=== PATIENT | male | born 1935 | race Caucasian/White ===

== ENCOUNTER 2016-09-02 11:21 | Inpatient (IN) | payer MEDICARE, BC ==
[~2016-09-02] VITALS: Ht 180.3 cm; Wt 100.7 kg
[~2016-09-02 11:21] MED LIST: ALFU10TA PO; ALLO100T PO; AMLO10TA2 PO; ASPI-991 PO; ATOR10TA PO; CHLO25TA2 PO; CHOL200026; DORZ10DR EACHEYE; DUTA0.5C PO; Hydralazine Hcl PO; MULT1CAP34 PO; Metoprolol Tartrate PO; OMEG1CAP18 PO; OSCAL PO; RAMI10CA PO; VALS320T2 PO; [UNRECOGNIZED DRUG - OTHER] PO
--- NOTE | 2016-09-02 11:44 | NUR ---
bib family from home for sob x 1 week, patient is verbally responsive, a/o x,4 able to ambulate to bed, placed on monitor, no chest pain noted, md at bedside upon arrival, will continue to monitor closely.
[2016-09-02 11:54] LABS: BASOPHILS % (AUTO) 0.4 % (0.0-2.0); EOSINOPHILS # (AUTO) 0.1 /CMM (0.0-0.7); EOSINOPHILS % (AUTO) 1.1 % (0.0-6.0); HEMATOCRIT 33 % (39-51); HEMOGLOBIN 11.3 g/dL (13.5-17.5); LYMPHOCYTES # (AUTO) 0.7 /CMM (0.8-4.8); LYMPHOCYTES % (AUTO) 10.5 % (20.0-44.0); MEAN CORPUSCULAR HEMOGLOBIN 30 PG (26.0-33.0); MEAN CORPUSCULAR HGB CONC 34 g/dl (31.0-36.0); MEAN CORPUSCULAR VOLUME 87 fL (80-96); MONOCYTES # (AUTO) 0.6 /CMM (0.1-1.30); MONOCYTES % (AUTO) 8.7 % (2.0-12.0); NEUTROPHILS # (AUTO) 5.5 /CMM (1.8-8.9); NEUTROPHILS % (AUTO) 79.3 % (43.0-81.0); PLATELET COUNT (AUTO) 206 /CMM (150-450); RDW COEFFICIENT OF VARIATION 13.9 (11.5-15.0); RED BLOOD CELL COUNT(AUTO) 3.83 MIL/uL (4.5-6.0); WHITE BLOOD COUNT (AUTO) 6.9 K/uL (4.3-11.0)
--- NOTE | 2016-09-02 11:54 | NUR ---
LINE STARTED ON L HAND G 18, BLOOD DRAWN FROM LINE AND SENT TO LAB
[2016-09-02 12:12] LABS: CALCIUM, SERUM 8.4 mg/dL (8.5-10.1); CREATININE 2.1 mg/dL (0.6-1.3); POTASSIUM 3.6 mmol/L (3.5-5.1)
[2016-09-02 12:16] LABS: TROPONIN I 0.019 ng/mL (0.00-0.056)
[2016-09-02 12:21] LABS: INR 1.04 (0.87-1.13); PROTHROMBIN TIME 10.8 SECS (9.5-12.7)
[2016-09-02 12:24] LABS: ALBUMIN 2.9 g/dL (3.4-5.0); BILIRUBIN,DIRECT 0.1 mg/dL (0.0-0.2); BILIRUBIN,TOTAL 0.4 mg/dL (0.2-1.0); TOTAL PROTEIN, SERUM 6.7 g/dL (6.4-8.2)
--- NOTE | 2016-09-02 12:40 | NUR ---
PAGED BILLET STRAIGHTENER PANEL, DR PEGUERO
[2016-09-02] MEDS ORDERED: IV NS 0.9% 1,000 ML IV PRN (12:55)
[2016-09-02] MEDS ORDERED: FUROSEMIDE 20 MG/2 ML VIAL ONE (12:59)
[2016-09-02] MEDS ORDERED: ASPIRIN 325 MG TABLET ONE (12:59)
[2016-09-02] MEDS ORDERED: ACETAMINOPHEN 325 MG TABLET PO PRN (13:00)
[2016-09-02] MEDS ORDERED: ENOXAPARIN SODIUM 40 MG/0.4 ML DISP.SYRIN SQ SCH (13:00)
[2016-09-02] MEDS ORDERED: ONDANSETRON HCL/PF 4 MG/2 ML VIAL IVP PRN (13:00)
[2016-09-02] MEDS ORDERED: MAGNESIUM HYDROXIDE 30 ML UDC PO PRN (13:00)
[2016-09-02] MEDS ORDERED: ASPIRIN 325 MG TABLET PO ONE (13:00)
[2016-09-02] MEDS ORDERED: Z GUARD REMEDY 2 OZ OINT TP PRN (13:00)
[2016-09-02] MEDS ORDERED: FUROSEMIDE 20 MG/2 ML VIAL IV ONE (13:00)
[2016-09-02] MEDS ORDERED: MAG HYDROX/AL HYDROX/SIMETH 30 ML UDC PO PRN (13:00)
[2016-09-02] MEDS ORDERED: HYDROCODONE/APAP 5/325MG 1 EACH TABLET PO PRN (13:00)
[2016-09-02] MEDS ORDERED: CALC500T52 PO (13:26)
[2016-09-02] MEDS ORDERED: TAMS-12 PO (13:26)
[2016-09-02] MEDS ORDERED: METO25TA3 PO (13:26)
[2016-09-02] MEDS ORDERED: CHOL100044 PO (13:26)
[2016-09-02] MEDS ORDERED: ASPI-991 PO (13:26)
[2016-09-02] MEDS ORDERED: APIX2.5T PO (13:26)
[2016-09-02] MEDS ORDERED: MULT-24 PO (13:26)
[2016-09-02] MEDS ORDERED: UBID30CA11 PO (13:27)
[2016-09-02 14:00] VITALS: BP 130/64
[2016-09-02] MEDS ORDERED: FUROSEMIDE 40 MG/4 ML VIAL IV ONE (14:00)
[2016-09-02] MEDS ORDERED: GUAIFENESIN/CODEINE 10 ML UDC PO PRN (14:00)
--- NOTE | 2016-09-02 14:00 | NUR ---
RN ADMITTING NOTES: Rec'd pt from ER staff Gabe Saldana, A&O x4, no acute distress noted, denies chest pain, ambulatory w/ single point cane. On room air, saturating at 95%, no SOB, no LOC, respirations are even and unlabored. Pt on telemonitor (w/ pacemaker), AV pacing, HR at 60. Has L hand G 18 SL, infiltrated. Reinserted new IV line on L hand G 22, flushed, patent, C/D/I, no signs of infection/ infiltration noted. Provided safety and comfort measures. Bed kept low and in locked position, fall precaution observed. Skin assessment done, photos taken. To continue to monitor accordingly.
[2016-09-02] MEDS ORDERED: ENOXAPARIN SODIUM 30 MG/0.3 ML DISP.SYRIN IV SCH (15:00)
[2016-09-02] MEDS: METOPROLOL SUCCINATE 50 MG TAB.SR.24H PO SCH (16:09)
[2016-09-02] MEDS ORDERED: AMLO10TA2 PO (17:35)
[2016-09-02] MEDS: DORZOLAMIDE OPTH 2% 10 ML BOTTLE EACHEYE SCH (17:46)
[2016-09-02] MEDS: APIXABAN 2.5 MG TABLET PO SCH (17:57)
--- NOTE | 2016-09-02 18:45 | NUR ---
RN CLOSING NOTES: No acute changes noted w/in shift. Pt A&O x4, not in any distress, denies pain, no SOB noted. Pt's L hand G22, SL, flushed, patent, C/D/I, no signs of infection/ infiltration noted. Instructed to limit fluid intake due to disease process & to press CL if needs to ambulate d/t hx of fall, pt verbalized understanding. Strict I&O observed. Needs attended. Kept comfortable & dry. Safety measures provided. Fall precaution observed. Will endorse to PM RN for SARA.
[2016-09-02 20:21] VITALS: BP 112/50
[2016-09-02] MEDS: ALBUTEROL FS 2.5 MG/3 ML VIAL.NEB NEB PRN (21:35)
--- NOTE | 2016-09-02 21:53 | NUR ---
RN;TELE: PT BECOMING MORE SOB WITH WHEEZING. BREATHING TX GIVEN BY RT. PT PLACED ON 3 L NC. FOLLOWING BREATHING TX. PT WOB IMPROVED. HOB ELEVATED. WILL CONTINUE TO MONITOR CLOSELY.
[2016-09-03] VITALS: BP 129/68
[2016-09-03] MEDS: ALBUTEROL FS 2.5 MG/3 ML VIAL.NEB NEB PRN (02:01)
--- NOTE | 2016-09-03 02:34 | NUR ---
RN:TELE: PT GIVEN ADDITIONAL BREATHING TX PER MD ORDERS FOR WHEEZING. PT GETS VERY SOB WITH ANY ACTIVITY. DESPITE EDUCATING THE THE PT HE REMAINS RESISTENT TO CALLING FOR ASSISTANCE FOR RESTROOM. PT EDUCATED THAT DUE TO HIS RESPIRATORY STATUS THAT MINIMAL ACTIVITY WOULD BENEFIT HIM AND USING THE URINAL WOULD BE BEST. PT CANE NOTED TO BE BENT AND NOT SAFE. WILL ENDORSE TO ONCOMING SHIFT TO SEE IF NEW CANE CAN BE OBTAINED. FALL PRECAUTIONS IN PLACE. BED ALARM ON. WILL CONTINUE TO MONITOR CLOSELY.
[2016-09-03 04:00] VITALS: BP 117/84
[2016-09-03 07:37] LABS: BASOPHILS % (AUTO) 0.2 % (0.0-2.0); EOSINOPHILS # (AUTO) 0.1 /CMM (0.0-0.7); EOSINOPHILS % (AUTO) 1.8 % (0.0-6.0); HEMATOCRIT 32 % (39-51); HEMOGLOBIN 10.6 g/dL (13.5-17.5); LYMPHOCYTES # (AUTO) 0.8 /CMM (0.8-4.8); LYMPHOCYTES % (AUTO) 11.7 % (20.0-44.0); MEAN CORPUSCULAR HEMOGLOBIN 29 PG (26.0-33.0); MEAN CORPUSCULAR HGB CONC 33 g/dl (31.0-36.0); MEAN CORPUSCULAR VOLUME 88 fL (80-96); MONOCYTES # (AUTO) 0.7 /CMM (0.1-1.30); MONOCYTES % (AUTO) 10.7 % (2.0-12.0); NEUTROPHILS # (AUTO) 4.9 /CMM (1.8-8.9); NEUTROPHILS % (AUTO) 75.6 % (43.0-81.0); PLATELET COUNT (AUTO) 203 /CMM (150-450); RED BLOOD CELL COUNT(AUTO) 3.64 MIL/uL (4.5-6.0); WHITE BLOOD COUNT (AUTO) 6.5 K/uL (4.3-11.0)
--- NOTE | 2016-09-03 07:40 | NUR ---
RN INITIAL NURSE PT IS IN BED, HOB ELEVATED 35 DEGREES, NO SIGNS OF DISTRESS, PT IS ON NC 3L AND TOLERATING IT WELL, NO SOB, SKIN CDI, IV ON LEFT HAND 22G, FLUSHED AND PATENT. NO SIGNS AND SYMPTOMS OF INFECTION/INFILTRATION, CALL LIGHTS WITHIN REACHED, SAFETY MEASURES MAINTAINED, WILL CONTINUE TO MONITOR AND FOLLOW MD ORDERS.
[2016-09-03 08:00] VITALS: BP 135/69
[2016-09-03] MEDS: DUTASTERIDE (0.5 MG) 0.5 MG CAPSULE PO SCH (08:55)
[2016-09-03] MEDS: APIXABAN 2.5 MG TABLET PO SCH ×2 (08:55→16:57)
[2016-09-03] MEDS: TAMSULOSIN 0.4 MG CAP.SR.24H PO SCH (08:55)
[2016-09-03] MEDS: ATORVASTATIN 10 MG TABLET PO SCH (08:55)
[2016-09-03] MEDS: METOPROLOL SUCCINATE 50 MG TAB.SR.24H PO SCH (08:56)
[2016-09-03] MEDS: VALSARTAN 80 MG TABLET PO SCH (08:56)
[2016-09-03] MEDS: ALLOPURINOL 100 MG TABLET PO SCH (08:57)
[2016-09-03] MEDS: PANTOPRAZOLE 40 MG TABLET.DR PO SCH (08:57)
[2016-09-03] MEDS ORDERED: ASPIRIN EC 81 MG TABLET.DR PO SCH (09:00)
[2016-09-03] MEDS: DORZOLAMIDE OPTH 2% 10 ML BOTTLE EACHEYE SCH ×2 (09:00→16:59)
[2016-09-03] MEDS ORDERED: ASPIRIN 81 MG TAB.CHEW PO SCH (09:00)
[2016-09-03] MEDS ORDERED: FUROSEMIDE 20 MG/2 ML VIAL IV SCH (09:00)
[2016-09-03 09:06] LABS: CALCIUM, SERUM 8.8 mg/dL (8.5-10.1); CREATININE 2.1 mg/dL (0.6-1.3); MAGNESIUM 2.2 mg/dL (1.8-2.4); PHOSPHORUS 4.8 mg/dL (2.5-4.9); POTASSIUM 4.1 mmol/L (3.5-5.1)
[2016-09-03 12:00] VITALS: BP 95/52
[2016-09-03 16:00] VITALS: BP 113/55
[2016-09-03] MEDS: FUROSEMIDE 20 MG/2 ML VIAL IV SCH (16:57)
--- NOTE | 2016-09-03 19:25 | NUR ---
RN CLOSING NOTES, ENDORSED TO THE NIGHT NURSE, PT IS IN STABLE CONDITION, IV IS FLUSHED AND PATENT NO SIGN AND SYMPTOMS OF INFECTION/ INFILTRATION. ALL MEDS GIVEN, AND TOLEREATED WELL, ALL MD ORDERS CARRIED OUT, SAFETY MEASURES MAINTAINED, CALL LIGHTS WITHIN REACH.
[2016-09-03 20:00] VITALS: BP 122/61
[2016-09-04] VITALS: BP 121/71
[2016-09-04 04:00] VITALS: BP 117/69
[2016-09-04 06:50] LABS: BASOPHILS % (AUTO) 0.4 % (0.0-2.0); EOSINOPHILS # (AUTO) 0.2 /CMM (0.0-0.7); EOSINOPHILS % (AUTO) 3.7 % (0.0-6.0); HEMATOCRIT 33 % (39-51); LYMPHOCYTES # (AUTO) 0.9 /CMM (0.8-4.8); LYMPHOCYTES % (AUTO) 14.7 % (20.0-44.0); MEAN CORPUSCULAR HEMOGLOBIN 30 PG (26.0-33.0); MEAN CORPUSCULAR HGB CONC 34 g/dl (31.0-36.0); MEAN CORPUSCULAR VOLUME 87 fL (80-96); MONOCYTES # (AUTO) 0.7 /CMM (0.1-1.30); MONOCYTES % (AUTO) 11.2 % (2.0-12.0); NEUTROPHILS # (AUTO) 4.5 /CMM (1.8-8.9); PLATELET COUNT (AUTO) 233 /CMM (150-450); RDW COEFFICIENT OF VARIATION 14.9 (11.5-15.0); RED BLOOD CELL COUNT(AUTO) 3.72 MIL/uL (4.5-6.0); WHITE BLOOD COUNT (AUTO) 6.4 K/uL (4.3-11.0)
[2016-09-04 07:20] LABS: CALCIUM, SERUM 8.7 mg/dL (8.5-10.1); MAGNESIUM 2.1 mg/dL (1.8-2.4); PHOSPHORUS 4.6 mg/dL (2.5-4.9); POTASSIUM 3.6 mmol/L (3.5-5.1)
[2016-09-04 08:00] VITALS: BP_SYST 128; BP_SYST 147; BP_DIAS 52; BP_DIAS 73
--- NOTE | 2016-09-04 08:00 | NUR ---
LONG CHAIN BEAMER NOTE PATIENT IN BED , ALL NEEDS ATTENDEE WITH TELE MONITOR AV PACING , ALERT , ORIENTED TAKEN BREAKFAST WELL, LT HAND HL INTACT NO S\S INFECTION NOTED , BED IN LOWEST AND LOCKED POSITION , CALL LIGHT WITHIN REACH . PLAN OF CARE DISCUSSED WITH PATIENT, WILL CONT TO MONITOR CLOSELY
[2016-09-04] MEDS: PANTOPRAZOLE 40 MG TABLET.DR PO SCH (08:57)
[2016-09-04] MEDS: ALLOPURINOL 100 MG TABLET PO SCH (08:57)
[2016-09-04] MEDS: TAMSULOSIN 0.4 MG CAP.SR.24H PO SCH (08:57)
[2016-09-04] MEDS: APIXABAN 2.5 MG TABLET PO SCH ×2 (08:57→16:24)
[2016-09-04] MEDS: FUROSEMIDE 20 MG/2 ML VIAL IV SCH ×2 (08:57→16:24)
[2016-09-04] MEDS: DUTASTERIDE (0.5 MG) 0.5 MG CAPSULE PO SCH (08:57)
[2016-09-04] MEDS: VALSARTAN 80 MG TABLET PO SCH (08:58)
[2016-09-04] MEDS: METOPROLOL SUCCINATE 50 MG TAB.SR.24H PO SCH (08:58)
[2016-09-04] MEDS: ATORVASTATIN 10 MG TABLET PO SCH (08:59)
[2016-09-04] MEDS: DORZOLAMIDE OPTH 2% 10 ML BOTTLE EACHEYE SCH ×2 (08:59→16:24)
--- NOTE | 2016-09-04 12:19 | NUR ---
AMBER RONDON C\O RAYMON HARO GIVEN Addendum: 09/04/16 at 1340 by TERRELL CARDENAS RN CHRISTIAN MARCUS
[2016-09-04] MEDS ORDERED: AZITHROMYCIN 250 MG TABLET PO ONE (13:00)
[2016-09-04] MEDS: ALBUTEROL FS 2.5 MG/3 ML VIAL.NEB NEB PRN ×3 (13:17→22:58)
[2016-09-04] MEDS: FLUTICASONE/SALMETEROL DISKUS IH SCH ×2 (13:35→16:24)
--- NOTE | 2016-09-04 13:40 | NUR ---
NUCLEAR MEDICAL TECH NOTE PER DR PEGUERO ORDER OK TO GIVE BREATHING TC , RT AT BEDSIDE ALSO ATN GIVEN ORDERED
--- NOTE | 2016-09-04 15:00 | NUR ---
METAL FITTERS AND MACHINISTS NOTE 2D ECHO DONE ORDERED
[2016-09-04 16:00] VITALS: BP 119/60
--- NOTE | 2016-09-04 17:27 | NUR ---
OCCUP THERAPIST NOTE ALL NEEDS ATTENDED USING URINAL EFFECTIVELY NOT IN ACUTE DISTRESS
--- NOTE | 2016-09-04 18:45 | NUR ---
CONSTRUCTION JOB TITLES NOTE HAVING DINNER , ABLE TO EAT SELF ,NOT IN ACUTE DISTRESS, CALL LIGHT WITHIN REACH
[2016-09-04 20:00] VITALS: BP 120/81
[2016-09-04] MEDS: ZOLPIDEM TARTRATE 5 MG TABLET PO PRN (22:11)
[2016-09-05] VITALS: BP 124/66
[2016-09-05] MEDS: ALBUTEROL FS 2.5 MG/3 ML VIAL.NEB NEB PRN ×4 (02:55→13:41)
[2016-09-05 04:00] VITALS: BP 107/51
--- NOTE | 2016-09-05 07:00 | NUR ---
RN NOTE RECEIVED PT ON BED ,A/Ox4, RESPIRATION EVEN AND UNLABORED, NO SOB NOTED , ON TELE V-PACING 8O'LT HAND HL INTACT NO S\S INFECTION NOTED , BED LOCKED AND IN LOWEST POSITION , CALL LIGHT WITHIN REACH . WILL CONT TO MONITOR CLOSELY AND NOTIFY MD FOR ANY SINGIFNCT CHANGES .
[2016-09-05 07:43] LABS: BASOPHILS % (AUTO) 0.1 % (0.0-2.0); EOSINOPHILS % (AUTO) 0.7 % (0.0-6.0); HEMATOCRIT 31 % (39-51); HEMOGLOBIN 10.4 g/dL (13.5-17.5); LYMPHOCYTES # (AUTO) 0.7 /CMM (0.8-4.8); LYMPHOCYTES % (AUTO) 10.3 % (20.0-44.0); MEAN CORPUSCULAR HEMOGLOBIN 29 PG (26.0-33.0); MEAN CORPUSCULAR HGB CONC 33 g/dl (31.0-36.0); MEAN CORPUSCULAR VOLUME 88 fL (80-96); MONOCYTES # (AUTO) 0.7 /CMM (0.1-1.30); MONOCYTES % (AUTO) 9.4 % (2.0-12.0); NEUTROPHILS # (AUTO) 5.7 /CMM (1.8-8.9); NEUTROPHILS % (AUTO) 79.5 % (43.0-81.0); PLATELET COUNT (AUTO) 261 /CMM (150-450); RDW COEFFICIENT OF VARIATION 14.9 (11.5-15.0); RED BLOOD CELL COUNT(AUTO) 3.52 MIL/uL (4.5-6.0); WHITE BLOOD COUNT (AUTO) 7.2 K/uL (4.3-11.0)
[2016-09-05 07:54] LABS: CALCIUM, SERUM 8.6 mg/dL (8.5-10.1); PHOSPHORUS 4.8 mg/dL (2.5-4.9)
[2016-09-05 08:00] VITALS: BP 133/80
[2016-09-05] MEDS: PANTOPRAZOLE 40 MG TABLET.DR PO SCH (08:03)
[2016-09-05] MEDS: VALSARTAN 80 MG TABLET PO SCH (08:08)
[2016-09-05] MEDS: METOPROLOL SUCCINATE 50 MG TAB.SR.24H PO SCH (08:09)
[2016-09-05] MEDS: ATORVASTATIN 10 MG TABLET PO SCH (08:09)
[2016-09-05] MEDS: FUROSEMIDE 20 MG/2 ML VIAL IV SCH (08:10)
[2016-09-05] MEDS: TAMSULOSIN 0.4 MG CAP.SR.24H PO SCH (08:11)
[2016-09-05] MEDS: DUTASTERIDE (0.5 MG) 0.5 MG CAPSULE PO SCH (08:13)
[2016-09-05] MEDS: APIXABAN 2.5 MG TABLET PO SCH (08:13)
[2016-09-05] MEDS: FLUTICASONE/SALMETEROL DISKUS IH SCH ×2 (08:14→16:27)
[2016-09-05] MEDS: DORZOLAMIDE OPTH 2% 10 ML BOTTLE EACHEYE SCH ×2 (08:15→16:27)
[2016-09-05] MEDS: ALLOPURINOL 100 MG TABLET PO SCH (08:18)
--- NOTE | 2016-09-05 12:00 | NUR ---
RN NOTES PT OOB TO BR WITH CANE , STEADY GAIT, NO DISTRESS NOTED ,
[2016-09-05] MEDS: POTASSIUM CHLORIDE 20 MEQ TAB.PRT.SR PO SCH ×2 (12:54→14:18)
[2016-09-05 16:00] VITALS: BP_SYST 124; BP_SYST 133; BP_DIAS 73; BP_DIAS 80
--- NOTE | 2016-09-05 18:19 | NUR ---
RN NOTES PT STABLE ,RESPIRATION EVEN AND UNLABORED, FUAD ANY SOB , L HAND IV SITE CDI, MEDICATED PER MD ORDER, NO SIGNIFICANT CHANGES NOTED ON THIS SHIFT.
[2016-09-05 20:00] VITALS: BP 106/53
[2016-09-06] VITALS: BP_SYST 110; BP_SYST 131; BP_DIAS 54; BP_DIAS 60
[2016-09-06 04:00] VITALS: BP 126/77
--- NOTE | 2016-09-06 06:45 | NUR ---
NUT GRINDER - PT. IS A PLEASANT MAN, COOPERATIVE, VSS. PT. USES CANE TO AMBULATE. PT. GOES TO BATHROOM TO USE URINAL. PACER TO RT.UPPER C/W. PT. HAD SOME MUSCULOSKELETAL PAIN IN BED, SO EVANGELISTA ONE TAB/PO WAS ADM. PT. SLEPT FOR MOST PART OF THE NIGHT. CONT.POC. NO DISTRESS NOR DISCOMFORT NOTED.
--- NOTE | 2016-09-06 07:30 | NUR ---
RN INITIAL NOTES pt aox4, on o2 4L/min, saturation 94%. vs STABLE, PULSES STRONG UPPER EXTREMITY, WEAK IN LOWER EXTREMITIES, PT ON BED REST, NO SOB, CO CHEST PAIN UPON EXERTION, COUGH UNPRODUCTIVE, PT USES URINAL, I&O HAS BEEN MONITORED AND RECORDED, HOB 30 DEGREE, SKIN INTACT, EXCEPT FOR GROIN REDDNESS WHICH HAS BEEN TREATED WITH Z GUARD OINT, SAFETY MAINTAINED, CALL LIGHT WITHIN REACH, BED IN LOW AND LOCKED POSITION. TEACHING DONE TO PT, VERBALIZED UNDERSTANDING, PT ABLE TO TURN ON HIS OWN, KEPT CLEAN AND DRY. WILL CONTINUE TO MONITOR
[2016-09-06 07:37] LABS: CALCIUM, SERUM 8.4 mg/dL (8.5-10.1); MAGNESIUM 1.9 mg/dL (1.8-2.4); POTASSIUM 3.4 mmol/L (3.5-5.1)
[2016-09-06 08:00] VITALS: BP 128/81
[2016-09-06] MEDS: FLUTICASONE/SALMETEROL DISKUS IH SCH ×2 (08:09→16:57)
[2016-09-06] MEDS: PANTOPRAZOLE 40 MG TABLET.DR PO SCH (08:09)
[2016-09-06] MEDS: TAMSULOSIN 0.4 MG CAP.SR.24H PO SCH (08:10)
[2016-09-06] MEDS: ALLOPURINOL 100 MG TABLET PO SCH (08:10)
[2016-09-06] MEDS: DORZOLAMIDE OPTH 2% 10 ML BOTTLE EACHEYE SCH ×2 (08:10→16:57)
[2016-09-06] MEDS: DUTASTERIDE (0.5 MG) 0.5 MG CAPSULE PO SCH (08:10)
[2016-09-06] MEDS: ATORVASTATIN 10 MG TABLET PO SCH (08:10)
[2016-09-06] MEDS: METOPROLOL SUCCINATE 50 MG TAB.SR.24H PO SCH (08:11)
[2016-09-06] MEDS: VALSARTAN 80 MG TABLET PO SCH (08:12)
[2016-09-06 08:29] LABS: BASOPHILS % (AUTO) 0.3 % (0.0-2.0); EOSINOPHILS # (AUTO) 0.2 /CMM (0.0-0.7); EOSINOPHILS % (AUTO) 3.3 % (0.0-6.0); HEMATOCRIT 31 % (39-51); HEMOGLOBIN 10.4 g/dL (13.5-17.5); LYMPHOCYTES # (AUTO) 1.1 /CMM (0.8-4.8); LYMPHOCYTES % (AUTO) 16.2 % (20.0-44.0); MEAN CORPUSCULAR HEMOGLOBIN 29 PG (26.0-33.0); MEAN CORPUSCULAR HGB CONC 33 g/dl (31.0-36.0); MEAN CORPUSCULAR VOLUME 88 fL (80-96); MONOCYTES # (AUTO) 0.8 /CMM (0.1-1.30); MONOCYTES % (AUTO) 11.8 % (2.0-12.0); NEUTROPHILS # (AUTO) 4.6 /CMM (1.8-8.9); NEUTROPHILS % (AUTO) 68.4 % (43.0-81.0); PLATELET COUNT (AUTO) 272 /CMM (150-450); RDW COEFFICIENT OF VARIATION 15.2 (11.5-15.0); RED BLOOD CELL COUNT(AUTO) 3.56 MIL/uL (4.5-6.0); WHITE BLOOD COUNT (AUTO) 6.8 K/uL (4.3-11.0)
[2016-09-06] MEDS ORDERED: POTASSIUM CHLORIDE 10 MEQ TABLET.SA PO ONE (11:00)
[2016-09-06 16:00] VITALS: BP 123/74
[2016-09-06 20:00] VITALS: BP 122/74
[2016-09-06] MEDS: ZOLPIDEM TARTRATE 5 MG TABLET PO PRN (20:54)
[2016-09-07 04:00] VITALS: BP 103/71
[2016-09-07 05:31] VITALS: BP 103/71
--- NOTE | 2016-09-07 06:14 | NUR ---
pt verbalized that he's having a hard time sleeping last night then given ambien, but pt been up all night ambulating with his cane to bathroom to void, pt prefers to void in the toilet with the urinal, voiding 100-150 cc each time. get anxious that he has to shave last night and he did. pt is slightly wheezing, c/o SOB this morning but still insist to go to bathroom and will try to bm. standby assistance provided.bed alarm at all times,call light . will continue to monitor,all needs attended.
--- NOTE | 2016-09-07 07:10 | NUR ---
INTIAL RN NOTE RECEIVED PT FROM PM NURSE PT A/OX4 CALM AND RESTING NO C/O PAIN. NC 2 L NO C/O OF ACUTE SOB.IV L HAND 22 G FLUSHED AND PATENT. SELF REPOSITION FOR SAFETY AND COMFORT. PT KEPT WARM AND DRY. ALL SAFELY MEASURES IN PLACE WILL CONTINUE TO MONITOR CLOSELY. EDUCATED ON THE IMPORTANCE OF USING CALL LIGHT WHEN USING RESTROOM.
[2016-09-07 08:00] VITALS: BP 135/81
[2016-09-07 08:00] LABS: CALCIUM, SERUM 8.7 mg/dL (8.5-10.1); CREATININE 1.9 mg/dL (0.6-1.3); POTASSIUM 3.4 mmol/L (3.5-5.1)
[2016-09-07] MEDS: DUTASTERIDE (0.5 MG) 0.5 MG CAPSULE PO SCH (08:00)
[2016-09-07] MEDS: TAMSULOSIN 0.4 MG CAP.SR.24H PO SCH (08:00)
[2016-09-07] MEDS: ATORVASTATIN 10 MG TABLET PO SCH (08:00)
[2016-09-07] MEDS: ALLOPURINOL 100 MG TABLET PO SCH (08:00)
[2016-09-07] MEDS: PANTOPRAZOLE 40 MG TABLET.DR PO SCH (08:00)
[2016-09-07] MEDS: VALSARTAN 80 MG TABLET PO SCH (08:01)
[2016-09-07] MEDS: METOPROLOL SUCCINATE 50 MG TAB.SR.24H PO SCH (08:02)
[2016-09-07] MEDS: DORZOLAMIDE OPTH 2% 10 ML BOTTLE EACHEYE SCH ×2 (08:05→18:30)
[2016-09-07] MEDS: FLUTICASONE/SALMETEROL DISKUS IH SCH ×2 (08:05→18:30)
[2016-09-07] MEDS ORDERED: POTASSIUM CHLORIDE 10 MEQ TABLET.SA PO ONE (12:00)
--- NOTE | 2016-09-07 15:00 | NUR ---
RN NOTE CONSENT SIGNED IN CHART. CONFIRMED W NO ANAESTHESIA CONSENT NEEDED PER GREGORIO RENEE RN.
[2016-09-07 16:00] VITALS: BP 126/83
--- NOTE | 2016-09-07 19:20 | NUR ---
RN CLOSING NOTE PT A/O X4 NO C/O PAIN. IV FLUSHED AND PATENT. PT AWARE OF TRANSFER TO ICU FOR PERICARDIOCENTESIS. NC @ 2L/MIN. PT V/S STABLE THROUGHOUT SHIFT. PT NPO AND AWARE OF STATUS. ALL MEDICATIONS GIVEN AND ORDERS CARRIED OUT. REPORT GIVEN TO PM NURSE FOR SARA.
--- NOTE | 2016-09-07 19:30 | NUR ---
MS RN INITIAL NOTES RECEIVED PATIENT AWAKE A/OX4, ABLE TO MAKE NEEDS KNOWN. DENIES SOB AT THIS TIME AT REST. WITH 2LPMO2 VIA NC. STATES HE HAS SOB ON EXERTION. SKIN WARM AND DRY TO TOUCH. WITH LH22G PATENT AND INTACT. PENDING TRANSFER TO ICU. DENIES PAIN OR DISCOMFORT AT THIS TIME. SIDE RAILS UP AND LOCKED. BED KEPT AT LOWEST POSITION. CALL LIGHT KEPT WITHIN EASY REACH. WILL CONTINUE TO MONITOR.
[2016-09-07 20:00] VITALS: BP 135/80
[2016-09-08] VITALS (30 sets, daily range): BP systolic 109–164; BP diastolic 58–106
--- NOTE | 2016-09-08 05:55 | NUR ---
CLARIFIED CODE STATUS WITH PATIENT NO DNR/DNI WAS ORDERED. PER PATIENT HE WISHES TO BE FULL CODE, WITNESS VERBALIZATION OF CODE STATUS WITH ANOTHER RN LEWIS.
--- NOTE | 2016-09-08 06:00 | NUR ---
MS RN CLOSING NOTES PATIENT TRANSFERRED TO ICU VIA WHEELCHAIR. PATIENT IN STABLE CONDITION. NPO FOR PERICARDIOCENTESIS PROCEDURE LATER ON TODAY. REPORT GIVEN TO ICU NURSE EBER. CONSENTS SIGNED IN CHART. NO RESPIRATORY DISTRESS NOTED WITH 2LPMO2 VIA NC. SKIN WARM AND DRY TO TOUCH. ALL NEEDS ANTICIPATED AND MET. ALL BELONGINGS AND MEDICATIONS WITH PATIENT.
--- NOTE | 2016-09-08 06:29 | NUR ---
received pt from medsureduClipper, a/o x4, V pacing, on 2L 02 sat 95%, lungs partially congested, edema all extremities, urinates in urinal, had 2 BMs in medsurge, v/s stable, no pain or SOB verbalized, pt turns and repositions by himself.
[2016-09-08 06:51] LABS: CALCIUM, SERUM 8.5 mg/dL (8.5-10.1); CREATININE 1.7 mg/dL (0.6-1.3); POTASSIUM 3.5 mmol/L (3.5-5.1)
[2016-09-08 06:53] LABS: INR 1.06 (0.87-1.13); PROTHROMBIN TIME 11.4 SECS (9.5-12.7)
--- NOTE | 2016-09-08 07:15 | NUR ---
RN INITIAL NOTES RECEIVED PT ASLEEP, EASILY AROUSABLE. NO RESPIRATORY DISTRESS NOTED. NO SOB NOTED. NO SIGNS OF PAIN NOTED. ON 02 AT 2LPM VIA IN. G#[address] FLUSHED WITH NS. SKIN INTACT. PT FOR PERICARDIOCENTESIS TODAY. PLACED ON NPO POST MIDNIGHT. PT COMFORTABLE. CALL LIGHT WITHIN REACH. WILL CONTINUE TO MONITOR.
[2016-09-08] MEDS: PANTOPRAZOLE 40 MG TABLET.DR PO SCH (07:30)
[2016-09-08] MEDS: FLUTICASONE/SALMETEROL DISKUS IH SCH ×2 (08:51→17:09)
[2016-09-08] MEDS: DORZOLAMIDE OPTH 2% 10 ML BOTTLE EACHEYE SCH ×2 (08:51→17:09)
[2016-09-08] MEDS: DUTASTERIDE (0.5 MG) 0.5 MG CAPSULE PO SCH (08:51)
[2016-09-08] MEDS: VALSARTAN 80 MG TABLET PO SCH (08:51)
[2016-09-08] MEDS: METOPROLOL SUCCINATE 50 MG TAB.SR.24H PO SCH (08:52)
[2016-09-08] MEDS: ATORVASTATIN 10 MG TABLET PO SCH (08:52)
[2016-09-08] MEDS: TAMSULOSIN 0.4 MG CAP.SR.24H PO SCH (08:52)
[2016-09-08] MEDS: ALLOPURINOL 100 MG TABLET PO SCH (08:52)
--- NOTE | 2016-09-08 08:53 | NUR ---
RN NOTES 9AM MEDS INCLUDING BP MEDS HELD PER DR. BAUER AND DR. PIÑA. FOR PERICARDIOCENTESIS TODAY. LATEST BP 148/97, GR 81. WILL CONTINUE TO MONITOR
--- NOTE | 2016-09-08 10:05 | NUR ---
RN NOTES SEEN AND EXAMINED BY DR. BAUER. AWARE OF CURRENT LAB RESULTS. FOR PERICARDIOCENTESIS TODAY. NO ADDITIONAL ORDER MADE.
--- NOTE | 2016-09-08 10:35 | NUR ---
RN NOTES SEEN AND EXAMINED BY DR. PIÑA. AWARE OF LAB RESULT. AWAITING FOR ECHO. PER MD, WILL DO PERICARDIOCENTESIS AT 1300. CONSENT OBTAINED. WILL CONTINUE TO MONITOR.
[2016-09-08] MEDS: FENTANYL PF 100MCG/2ML AMPUL IV ONE (12:30)
[2016-09-08] MEDS ORDERED: LIDOCAINE 1% INJ 50 ML MDV IJ ONE (12:30)
[2016-09-08] MEDS: MIDAZOLAM HCL 2 MG/2ML VIAL IV ONE (13:00)
[2016-09-08] MEDS ORDERED: CHLORHEXIDINE GLUCONATE 4% 118 ML BOTTLE TP ONE (13:12)
--- NOTE | 2016-09-08 13:15 | NUR ---
RN NOTES PT PREPPED BY DR. PIÑA FOR PERICARDIOCENTESIS. ANJALI HOWARD AT BEDSIDE FOR CONSCIOUS SEDATION. DR. PAULA AT BEDSIDE. AWAITING FOR DR. ARREAGA. PT REMAINS A/OX4. NO RESPIRATORY DISTRESS NOTED. NO SOB NOTED. DENIES ANY PAIN. Addendum: 09/08/16 at 1457 by SADIQ REHMAN RN [address] PIÑA. DRAINED 900ML. SPECIMEN SENT FOR CYTOLOGY. PT REMAINS AWAKE, A/OX4. NO RESPIRATORY DISTRESS NOTED. NO SOB NOTED. DENEIS ANY PAIN. WILL CONTINUE TO MONITOR.
[2016-09-08] MEDS: MIDAZOLAM HCL 5MG/ML VIAL 25 MG/5 ML VIAL IV ONE ×2 (13:30→15:25)
[2016-09-08] MEDS: NALOXONE PREFILLED SYRINGE 2 MG/2 ML SYRINGE IV ONE (13:30)
[2016-09-08] MEDS ORDERED: FENTANYL PF 250MCG/5ML AMPUL IV ONE (13:30)
[2016-09-08] MEDS ORDERED: SET RED CAP 1 EA INFUS.SET MC ONE (14:26)
--- NOTE | 2016-09-08 15:26 | NUR ---
TAX REPRESENTATIVE PERICARDIAL DRAINAGE COMPLETE PT TOLERATED WELL MODERATE SEDATION, PT IS BACK TO BASELINE VS STABLE DENIES OF ANY PAIN AT THIS TIME, 900CC WAS DRAINED, DRESSING APPLIED, REPORT GIVEN TO SADIQ HOWARD FOR CONTINUITY OF CARE.
[2016-09-08 16:26] LABS: GLUCOSE,BODY FLUID 57 mg/dL
[2016-09-08 17:31] LABS: TOTAL VOLUME,BODY FLUID 55 mL
[2016-09-08 17:38] LABS: WBC, BODY FLUID 9830 /cu. mm. (0-200)
[2016-09-08 17:54] LABS: MONOCYTES,BODY FLUID 2 %; POLYNUCLEAR, BODY FLUID 8 % (0-25)
--- NOTE | 2016-09-08 18:50 | NUR ---
RN CLOSING NOTES PT REMAINS STABLE. NO RESPIRATORY DISTRESS NOTED. NO SOB NOTED. DENIES ANY PAIN. IV LINES IN PLACE. PERICARDIAL DRAIN IN PLACE, OUTPUT MONITORED. SKIN REMAINS INTACT. KEPT COMFORTABLE. ALL NEEDS ATTENDED AND MET. CALL LIGHT WITHIN REACH. WILL ENDORSE FOR CONTINUITY OF CARE.
--- NOTE | 2016-09-08 19:45 | NUR ---
ICU/DECKHAND RECEIVED REPORT FROM DAY NURSE, PT IS ALERT X 3. PT IS CURRENTLY ON N/C AT 3 LITERS SATURATION IS 94%, PT HAS HISTORY OF BEING A SMOKER FOR YEARS BEFORE HE STOPPED. PT IS CURRENTLY ON A 2GM LOW NA CARDIAC DIET. PT IS USING BEDSIDE URINAL. CURRENTLY PT DENIES ANY PAIN, CALL LIGHT WITHIN REACH.
[2016-09-08] MEDS: ZOLPIDEM TARTRATE 5 MG TABLET PO PRN (21:45)
--- NOTE | 2016-09-08 21:50 | NUR ---
ICU/CUPOLA OPERATOR INSULATION PT ASKED FOR SOMETHING TO GO TO SLEEP, PT WAS GIVEN AMBIEN VIA PO. CALL LIGHT WITHIN REACH. PT CURRENTLY DENIES ANY PAIN.
--- NOTE | 2016-09-08 22:15 | NUR ---
ICU/AMMONIA TECHNICIAN PT WAS ASSISTED TO BEDSIDE COMMODE WHERE HE WAS ABLE TO HAVE A BM. PT WAS THEN ASSISTED BACK TO BED, CALL LIGHT WITHIN REACH, PT CURRENTLY DENIES ANY PAIN.
[2016-09-09] VITALS (24 sets, daily range): BP systolic 103–176; BP diastolic 37–86
--- NOTE | 2016-09-09 00:46 | NUR ---
ICU/WATER TREATMENT PLANT OPERATOR PT APPEARS TO BE HAVING PERIODS OF CONFUSION, GETTING OUT OF BED, ASKING TO PUT ON STREET CLOTHES. PT NEEDS FREQUENT RE-ORT, TO TIME AND PLACE. BED ALARM IS IN PLACE TO PREVENT ANY FOR PT'S SAFETY, ALSO SITTING NEXT TO ROOM.
--- NOTE | 2016-09-09 02:30 | NUR ---
ICU/PARTS SALES COUNTERPERSON PERICARDIAL DRAINAGE BAG WAS FLUSHED WITH 2ML OF NORMAL SALINE WHICH NEEDS TO BE DONE Q 8 HRS. PT TOLERATED THIS WELL NO COMPLAINS OF PAIN.
[2016-09-09 04:46] LABS: BASOPHILS % (AUTO) 0.3 % (0.0-2.0); EOSINOPHILS # (AUTO) 0.1 /CMM (0.0-0.7); EOSINOPHILS % (AUTO) 1.4 % (0.0-6.0); HEMATOCRIT 34 % (39-51); HEMOGLOBIN 11.2 g/dL (13.5-17.5); LYMPHOCYTES # (AUTO) 0.8 /CMM (0.8-4.8); LYMPHOCYTES % (AUTO) 9.8 % (20.0-44.0); MEAN CORPUSCULAR HEMOGLOBIN 29 PG (26.0-33.0); MEAN CORPUSCULAR HGB CONC 33 g/dl (31.0-36.0); MEAN CORPUSCULAR VOLUME 86 fL (80-96); MONOCYTES # (AUTO) 0.8 /CMM (0.1-1.30); MONOCYTES % (AUTO) 9.5 % (2.0-12.0); NEUTROPHILS # (AUTO) 6.3 /CMM (1.8-8.9); PLATELET COUNT (AUTO) 320 /CMM (150-450); RDW COEFFICIENT OF VARIATION 14.8 (11.5-15.0); RED BLOOD CELL COUNT(AUTO) 3.91 MIL/uL (4.5-6.0); WHITE BLOOD COUNT (AUTO) 7.9 K/uL (4.3-11.0)
[2016-09-09 05:05] LABS: CALCIUM, SERUM 8.3 mg/dL (8.5-10.1); CREATININE 1.6 mg/dL (0.6-1.3); MAGNESIUM 1.8 mg/dL (1.8-2.4); PHOSPHORUS 3.7 mg/dL (2.5-4.9); POTASSIUM 3.6 mmol/L (3.5-5.1)
--- NOTE | 2016-09-09 06:10 | NUR ---
ICU/NETWORK SUPPORT ENGINEER PERICARDIAL DRAINAGE BAG WAS CHANGED, PT TOLERATED THIS WELL.
--- NOTE | 2016-09-09 07:30 | NUR ---
ICU/RN: PT RECEIVED IN BED, ON O2 4L/MIN VIA NC, WHEEZING NOTED WITH AUSCULTATION, A&OX3 WITH PERIODS OF FORGETFULNESS. PERICARDIAL DRAIN INTACT, IN PLACE, WITH SEROSANGUINEOUS DRAINAGE NOTED. DENIES CP AND DISCOMFORT. ORIENTED TO UNIT AND POC, VERBALIZED UNDERSTANDING. WILL CONT TO MONITOR PT
[2016-09-09] MEDS: DUTASTERIDE (0.5 MG) 0.5 MG CAPSULE PO SCH (08:19)
[2016-09-09] MEDS: PANTOPRAZOLE 40 MG TABLET.DR PO SCH (08:19)
[2016-09-09] MEDS: TAMSULOSIN 0.4 MG CAP.SR.24H PO SCH (08:19)
[2016-09-09] MEDS: VALSARTAN 80 MG TABLET PO SCH (08:20)
[2016-09-09] MEDS: ALLOPURINOL 100 MG TABLET PO SCH (08:20)
[2016-09-09] MEDS: ATORVASTATIN 10 MG TABLET PO SCH (08:20)
[2016-09-09] MEDS: METOPROLOL SUCCINATE 50 MG TAB.SR.24H PO SCH (08:20)
[2016-09-09] MEDS: DORZOLAMIDE OPTH 2% 10 ML BOTTLE EACHEYE SCH ×2 (08:28→16:34)
[2016-09-09] MEDS: FLUTICASONE/SALMETEROL DISKUS IH SCH ×2 (08:28→16:34)
--- NOTE | 2016-09-09 10:40 | NUR ---
ICU/RN: DR PIÑA ROUNDS; UPDATED ON PT STATUS. PER MD, CONTINUE WITH 2CC PERICARDIAL DRAIN FLUSHES Q8HRS ORDERED.
[2016-09-09] MEDS: GUAIFENESIN/D-METHORPHAN HB 5 ML UDC PO SCH ×4 (11:47→22:19)
--- NOTE | 2016-09-09 18:30 | NUR ---
ICU/RN: ASSISTED PT FROM BED TO BSC; PT WITH BMX1 MIXED WITH URINE. PT NOTED WITH SOB AFTER ASSISTANCE BACK TO BED. ENCOURAGED DEEP BREATHING EXERCISES. VERBALIZED UNDERSTANDING.
--- NOTE | 2016-09-09 19:20 | NUR ---
ICU/RN: PT SITTING IN BED, NO S/S ACUTE DISTRESS NOTED. IV HL ON R AND L HAND PATENT AND INTACT. PERICARDIAL DRAIN WITH SCANT AMOUNT OF SEROSANGUINEOUS DRAINAGE, SET TO NEGATIVE PRESSURE FOR DRAINAGE. CARE ENDORSED TO PM RN FOR SARA.
--- NOTE | 2016-09-09 19:32 | NUR ---
CHIEF SERVICE OBSERVER. INITIAL ASSESSMENT. RECEIVED THE PT REST ON THE BED. AWAKE, ALERT, FOLLOW COMMANDS. JBOSS ARCHITECT SHOWING V PACING. OXYGEN 2 L VIA NASAL CANNULA. SAT 98 %. NO ACUTE DISTRESS NOTED. IV RT HAND 20G., LT HAND 20G. SALINE LOCK. HOB ELEVATED. PERICARDIAL DRAIN INTACT. TURN AND REPOSITION Q2H. WILL CONTINUE TO MONITOR VITALS.
--- NOTE | 2016-09-09 19:45 | NUR ---
DANIEL/DINH RECEIVED REPORT FROM DAY NURSE, PT IS ALERT X 4. PT IS CURRENTLY ON ROOM AIR SATURATION IS 96%. PT IS CURRENTLY ON A FULL LIQUID DIET. PT IS USING BEDSIDE URINAL AND GOES TO BATHROOM WITH ASST. CURRENTLY PT DENIES ANY PAIN, CALL LIGHT WITHIN REACH. Addendum: 09/09/16 at 2136 by PILAR MOSCOSO LVN WRONG PT
[2016-09-10] VITALS (26 sets, daily range): BP systolic 107–169; BP diastolic 25–99
[2016-09-10] MEDS: GUAIFENESIN/D-METHORPHAN HB 5 ML UDC PO SCH ×6 (01:41→20:41)
[2016-09-10 05:33] LABS: CALCIUM, SERUM 8.6 mg/dL (8.5-10.1); CREATININE 1.7 mg/dL (0.6-1.3); POTASSIUM 3.6 mmol/L (3.5-5.1)
--- NOTE | 2016-09-10 08:00 | NUR ---
BRIDGE OPERATOR SLIP; ASSESSMENT RECEIVED PT AWAKE AND ORIENTEDX4. PT DENIES ANY PAIN AT THIS TIME. NOTED. MERNA. LOWER LOBE WHEEZING WITH ACTIVITY. ENCOURAGING PT TO DEEP BREATH AND COUGH. PT ABLE TO VERBALIZE UNDERSTANDING. PT ABLE TO AMBULATE TO BEDSIDE COMMODE. CONTINENT OF BOTH URINE AND BOWELS. NOTED MIDLINE OF CHEST WITH PERICARDIAL DRAIN. NOTED ABOUT 10ML OF SEROUS FLUID. NO ACUTE DISTRESS NOTED. WILL CONTINUE TO MONITOR, CALL LIGHT WITH IN REACH.
[2016-09-10] MEDS: PANTOPRAZOLE 40 MG TABLET.DR PO SCH (08:58)
[2016-09-10] MEDS: ATORVASTATIN 10 MG TABLET PO SCH (08:58)
[2016-09-10] MEDS: ALLOPURINOL 100 MG TABLET PO SCH (08:58)
[2016-09-10] MEDS: TAMSULOSIN 0.4 MG CAP.SR.24H PO SCH (08:58)
[2016-09-10] MEDS: METOPROLOL SUCCINATE 50 MG TAB.SR.24H PO SCH (08:59)
[2016-09-10] MEDS: DUTASTERIDE (0.5 MG) 0.5 MG CAPSULE PO SCH (08:59)
[2016-09-10] MEDS: VALSARTAN 80 MG TABLET PO SCH (08:59)
[2016-09-10] MEDS: DORZOLAMIDE OPTH 2% 10 ML BOTTLE EACHEYE SCH ×2 (09:00→16:29)
[2016-09-10] MEDS: FLUTICASONE/SALMETEROL DISKUS IH SCH ×2 (09:00→16:29)
--- NOTE | 2016-09-10 15:15 | NUR ---
ENGINEER; CARDIO DR. MENDIOLA [place] AT [facility] AT 1430, WITH CHARGE NURSE. PERICARDIO DRAINAGE REMOVED.. NOTED AT THIS TIME, DRESSING TO CHEST IS SATURATED WITH SEROSANGUINEOUS FLUID ALONG WITH GOWN. DRESSING CHANGED. AND DR. MENDIOLA MADE AWARE.
--- NOTE | 2016-09-10 16:41 | NUR ---
STORE PROTECTION SPECIALIST ASSISTED PT OOB TO CHAIR WITH MINIMAL ASSISTANCE. ASSESSED DRESSING TO CHEST,. AT THIS TIME IT REMAIN CLEAN AND DRY. CALL LIGHT WITH REACH. NO ACUTE DISTRESS NOTED. WILL CONTINUE TO MONITOR.
--- NOTE | 2016-09-10 18:30 | NUR ---
STATISTICS TUTOR; RESP INCENTIVE SPIROMETER TEACHING DONE. PT ABLE TO VERBALIZE AND DEMONSTRATE HOW TO USE INCENTIVE SPIROMETER. ADVISED TO USE THE DEVICE DURING COMMERCIAL BREAK ON TELEVISION AT LEAST FOR 10 REPS
--- NOTE | 2016-09-10 19:38 | NUR ---
E BUSINESS PROJECT MANAGER. INITIAL ASSESSMENT. RECEIVED THE PT REST ON THE BED. AWAKE, ALERT, FOLLOW COMMANDS. MASTER ELECTRICIAN SHOWING V PACING. OXYGEN 2L VIA NASAL CANNULA SAT 98 %. IV RT HAND 20G. SALINE LOCK. AFEBRILE. HOB ELEVATED. TURN AND REPOSITION PT INDEPENDENT.WILL CONTINUE TO MONITOR VITALS.
[2016-09-10] MEDS: ZOLPIDEM TARTRATE 5 MG TABLET PO PRN (22:13)
--- NOTE | 2016-09-10 23:18 | NUR ---
LEAD PRINCIPAL TECHNICAL ARCHITECT. TRANSFER THE PT TO TELE ROOM 326 , BED 2. REPORT GIVEN TO PITER HOWARD. PT IS STABLE.
--- NOTE | 2016-09-10 23:30 | NUR ---
RN NOTES ADMITTED A 81 YEARS OLD MALE PT FROM ICU WITH PRIMARY DIAGNOSIS OF CHEST PAIN, CHF UNDER DR PEGUERO. PT ALERT AND ORIENTED X4, DENIES SOB, NOT IN DISTRESS, WITH O2 INHALATION AT 2LPM VIA NC AND TOLERATED WELL. DIMINISHED LUNG SOUNDS WITH WHEEZES NOTED UPON AUSCULTATION. ATTACHED TO TELEMONITOR WHICH READS V PACING WITH HEART RATE AT 97/MIN. PT DENIES ANY PAIN AND DISCOMFORT AT THIS TIME. IV ACCESS ON LEFT HAND PATENT AND INTACT. DRESSING ON UPPER ABDOMEN INTACT AND CHANGED. NOTED WITH BRUISES ON DEFT AND RIGHT ARM AND RIGHT HAND WITH PICTURES TAKEN AND FILED IN THE CHART. PT ABLE TO AMBULATE WITH SINGLE POINT CANE, WITH ASSIST GOING TO THE BATHROOM. KEPT COMFORTABLE AND ATTENDED. WILL CONTINUE TO MONITOR PT.
[2016-09-11] MEDS: GUAIFENESIN/D-METHORPHAN HB 5 ML UDC PO SCH ×6 (01:44→20:44)
[2016-09-11 04:00] VITALS: BP 130/77
--- NOTE | 2016-09-11 07:05 | NUR ---
RN NOTES PT ASLEEP, NO SOB, NO SIGNS AND SYMPTOMS DISTRESS AND DISCOMFORT, WITH O2 INHALATION AT 2LPM VIA NC AND TOLERATED WELL. TELEMONITOR READS V-PACING WITH HEART RATE AT 97. PT ABLE TO AMBULATE WITH SINGLE POINT CANE WITH UNSTEADY GAIT NOTED. VITAL SIGNS STABLE, AFEBRILE. ALL DUE MEDS GIVEN. NO EPISODE OF NAUSEA AND VOMITING, . NO COMPLAIN OF PAIN. COUGH AT TIMES, NON PRODUCTIVE. FALL PRECAUTION OBSERVED. KEPT COMFORTABLE AND ATTENDED. WILL ENDORSE TO MORNING RN FOR CONTINUITY OF CARE.
[2016-09-11 07:46] LABS: EOSINOPHILS # (AUTO) 0.1 /CMM (0.0-0.7); EOSINOPHILS % (AUTO) 1.8 % (0.0-6.0); HEMATOCRIT 34 % (39-51); LYMPHOCYTES % (AUTO) 12.5 % (20.0-44.0); MEAN CORPUSCULAR HEMOGLOBIN 29 PG (26.0-33.0); MEAN CORPUSCULAR HGB CONC 33 g/dl (31.0-36.0); MEAN CORPUSCULAR VOLUME 87 fL (80-96); MONOCYTES # (AUTO) 0.9 /CMM (0.1-1.30); MONOCYTES % (AUTO) 10.8 % (2.0-12.0); NEUTROPHILS # (AUTO) 6.2 /CMM (1.8-8.9); NEUTROPHILS % (AUTO) 74.9 % (43.0-81.0); PLATELET COUNT (AUTO) 304 /CMM (150-450); RDW COEFFICIENT OF VARIATION 15.1 (11.5-15.0); RED BLOOD CELL COUNT(AUTO) 3.84 MIL/uL (4.5-6.0); WHITE BLOOD COUNT (AUTO) 8.2 K/uL (4.3-11.0)
[2016-09-11 07:56] LABS: ALBUMIN 2.4 g/dL (3.4-5.0); BILIRUBIN,TOTAL 0.3 mg/dL (0.2-1.0); CALCIUM, SERUM 8.2 mg/dL (8.5-10.1); CREATININE 1.5 mg/dL (0.6-1.3); MAGNESIUM 1.7 mg/dL (1.8-2.4); PHOSPHORUS 3.5 mg/dL (2.5-4.9); POTASSIUM 3.5 mmol/L (3.5-5.1)
[2016-09-11 08:00] VITALS: BP 129/80
[2016-09-11] MEDS: FLUTICASONE/SALMETEROL DISKUS IH SCH ×2 (08:10→16:20)
[2016-09-11] MEDS: DORZOLAMIDE OPTH 2% 10 ML BOTTLE EACHEYE SCH ×2 (08:10→16:20)
[2016-09-11] MEDS: TAMSULOSIN 0.4 MG CAP.SR.24H PO SCH (08:10)
[2016-09-11] MEDS: METOPROLOL SUCCINATE 50 MG TAB.SR.24H PO SCH (08:11)
[2016-09-11] MEDS: DUTASTERIDE (0.5 MG) 0.5 MG CAPSULE PO SCH (08:11)
[2016-09-11] MEDS: PANTOPRAZOLE 40 MG TABLET.DR PO SCH (08:11)
[2016-09-11] MEDS: ATORVASTATIN 10 MG TABLET PO SCH (08:11)
[2016-09-11] MEDS: ALLOPURINOL 100 MG TABLET PO SCH (08:11)
[2016-09-11] MEDS: VALSARTAN 80 MG TABLET PO SCH (08:12)
--- NOTE | 2016-09-11 11:21 | NUR ---
COMMERCIAL TRAILER TRUCK DRIVER OPENING NOTE PATIENT IS ALERT AND ORIENTED x4. AWAKE IN BED LOCKED IN LOWEST POSITION WITH SIDERAILS UPx2. NO PAIN AT THIS TIME. NO CHEST PAIN OR SOB. NO DISTRESS NOTED. SAFETY MEASURES IMPLEMENTED. AMBULATORY WITH ASSISTANCE. IV INTACT AND PATENT NO REDNESS OR SWELLING NOTED. CALL LIGHT WITHIN REACH. ABLE TO COMMUNICATE NEEDS. WILL CONTINUE TO MONITOR
--- NOTE | 2016-09-11 11:29 | NUR ---
MS RN NOTE TRANSFERRING PATIENT TO ANITA WELLS. GAVE BEDSIDE REPORT. PATIENT IS STABLE AND VITALS ARE STABLE.
--- NOTE | 2016-09-11 11:30 | NUR ---
MS RN NOTE REPORT RECEIVED FROM ANITA BECKFORD. PATIENT SITTING UP IN CHAIR. NO SOB OR DISTRESS NOTED AT THIS TIME. PATIENT DENIES PAIN. CALL LIGHT WITHIN REACH. WILL CONTINUE TO MONITOR.
[2016-09-11] MEDS ORDERED: IV NS 0.9% 250 ML IV ONE (12:44)
[2016-09-11] MEDS ORDERED: SECONDARY IV SET 1 EA INFUS.SET MC ONE (12:44)
[2016-09-11] MEDS ORDERED: IV SET PRIMARY PUMP SET 1 EA INFUS.SET MC ONE (12:44)
[2016-09-11] MEDS: Magnesium 1GM/D5W 100ML PREMIX 100 ML IV SCH ×2 (12:49→13:55)
[2016-09-11 16:00] VITALS: BP 131/76
--- NOTE | 2016-09-11 18:47 | NUR ---
MS RN CLOSING NOTES NO SIGNIFICANT CHANGES IN PATIENT CONDITION THROUGHOUT THE SHIFT. NO SOB OR DISTRESS NOTED AT THIS TIME. PATIENT DENIES PAIN. BED IN A LOW POSITION, CALL LIGHT WITHIN PATIENT REACH. WILL ENDORSE FOR SARA.
--- NOTE | 2016-09-11 19:31 | NUR ---
MS/RN NOTES RECEIVED PATIENT IN BED, AMBULATORY, ALERT, ORIENTEDX3. VERBALIZE NEEDS. NO S/S OF SOB OR DISTRESS. CALL LIGHTS WITHIN REACH. PITCHER OF WATER WITHIN REACH.WILL CONTINUE TO PROVIDE CARE. EDUCATED PATIENT TO CALL/USE CALL LIGHTS WHEN GETTING UP THE BED FOR SAFETY. WILL CONTINUE TO MONITOR.
[2016-09-11 20:05] VITALS: BP 121/77
[2016-09-11 21:22] VITALS: BP 121/77
[2016-09-12] MEDS: GUAIFENESIN/D-METHORPHAN HB 5 ML UDC PO SCH ×6 (00:29→21:20)
--- NOTE | 2016-09-12 00:29 | NUR ---
MS/RN NOTES PATIENT SLEEPING SOUNDLY W/ NO COUGHING OR DISCOMFORT, ROUTINE COUGH MEDICINE NOT GIVEN AT THIS TIME. CHARGE NURSE WAS MADE AWARE.WILL CONTINUE TO MONITOR.
--- NOTE | 2016-09-12 07:02 | NUR ---
MS/RN NOTES PATIENT AWAKE. SITIING IN CHAIR. W/ NO S/S OF SOB OR DISTRESS. CALL LIGHTS WITHIN REACH. WILL ENDORSE TO AM RN FOR SARA.
--- NOTE | 2016-09-12 07:16 | NUR ---
MS/RN OPENING NOTES RECEIVED PATIENT IN BED AWAKE IN NO ACUTE SIGNS OF DISTRESS. ALERT AND ORIENTED X4. VERBALLY RESPONSIVE, DENIES ANY PAIN OR DISCOMFORTS AT THIS TIME. HEAD OF BED ELEVATED. ON ROOM AIR, BREATHING WELL. IV ACCESS ON LEFT HAND G#22 INTACT AND PATENT. CALL LIGHT WITHIN REACH. BED IN LOW POSITION AND LOCKED. WILL MAINTAIN FALL AND SAFETY MEASURES. WILL CONTINUE TO MONITOR ACCORDINGLY
[2016-09-12 07:29] LABS: CALCIUM, SERUM 8.2 mg/dL (8.5-10.1); CREATININE 1.6 mg/dL (0.6-1.3); POTASSIUM 3.6 mmol/L (3.5-5.1)
[2016-09-12 08:00] VITALS: BP 136/84
[2016-09-12] MEDS: PANTOPRAZOLE 40 MG TABLET.DR PO SCH (08:02)
[2016-09-12] MEDS: DUTASTERIDE (0.5 MG) 0.5 MG CAPSULE PO SCH (08:16)
[2016-09-12] MEDS: ALLOPURINOL 100 MG TABLET PO SCH (08:16)
[2016-09-12] MEDS: ATORVASTATIN 10 MG TABLET PO SCH (08:16)
[2016-09-12] MEDS: TAMSULOSIN 0.4 MG CAP.SR.24H PO SCH (08:16)
[2016-09-12] MEDS: METOPROLOL SUCCINATE 50 MG TAB.SR.24H PO SCH (08:17)
[2016-09-12] MEDS: VALSARTAN 80 MG TABLET PO SCH (08:18)
[2016-09-12] MEDS: FLUTICASONE/SALMETEROL DISKUS IH SCH ×2 (08:19→16:05)
[2016-09-12] MEDS: DORZOLAMIDE OPTH 2% 10 ML BOTTLE EACHEYE SCH ×2 (08:20→16:05)
--- NOTE | 2016-09-12 08:53 | NUR ---
RN NOTES PATIENT SEEN BY DR BAUER WITH ORDER TO DO ECHOCARDIOGRAM TODAY. WILL CONTINUE TO MONITOR.
[2016-09-12] MEDS: FUROSEMIDE 20 MG/2 ML VIAL IV SCH ×2 (10:58→16:05)
--- NOTE | 2016-09-12 11:10 | NUR ---
RN NOTES CHEST X-RAY DONE ORDERED. FOR CT SCAN OF ABDOMEN AND PELVIS W/O CONTRAST. WILL FOLLOW-UP.
[2016-09-12 16:00] VITALS: BP 129/73
--- NOTE | 2016-09-12 19:18 | NUR ---
MS/RN CLOSING NOTES PATIENT RESTING IN BED IN NO ACUTE SIGNS OF DISTRESS. ALERT AND ORIENTED X4. HEAD OF BED ELEVATED. VERBALLY RESPONSIVE, DENIES ANY PAIN OR DISCOMFORTS DURING TOUR. ALL NEEDS/CARE ATTENDED WELL. IV ACCESS ON LEFT HAND G#22 INTACT AND PATENT. CALL LIGHT WITHIN REACH. BED IN LOW POSITION AND LOCKED. WILL MAINTAIN FALL AND SAFETY MEASURES. ALL DUE MEDS GIVEN ORDERED. EMDORSED TO BOXER OPERATOR NURSE TO CONTINUE CARE.
--- NOTE | 2016-09-12 19:40 | NUR ---
RN OPENING NOTES FOUND Pt AWAKE IN BED. NO S/S OF ACUTE DISTRESS OR SOB NOTED. EQUAL CHEST RISE AND FALL. Pt IS A/OX4, VERBAL, ABLE TO MAKE NEEDS KNOWN. NO C/O PAIN AT THIS TIME. IV ACCESS ON L HAND #22G, SL. SAFETY MEASURES IN PLACE. BED LOW, LOCKED, HOB ELEVATED, SIDE RAILS UP, CALL LIGHT AND BEDSIDE TABLE WITHIN EACH. WILL CONTINUE TO MONITOR Pt THROUGHOUT THE NIGHT FOR SAFETY.
[2016-09-12 20:00] VITALS: BP 118/63
[2016-09-12] MEDS: ZOLPIDEM TARTRATE 5 MG TABLET PO PRN (21:25)
[2016-09-12 22:00] VITALS: BP 118/63
[2016-09-13] MEDS: GUAIFENESIN/D-METHORPHAN HB 5 ML UDC PO SCH ×4 (01:00→12:26)
--- NOTE | 2016-09-13 01:22 | NUR ---
RN NOTES Pt STATED THAT IF HE IS ASLEEP AT 0100 FOR HIS NEXT DOSE OF ROBITUSSIN, THEN TO SKIP THAT DOSE AND GIVE HIM THE FOLLOWING ONE IN THE AM. WENT INTO Pt's ROOM @0100 AND Pt WAS ASLEEP. WILL TRY GIVING AT THE NEXT DOSE AT 0500.
--- NOTE | 2016-09-13 06:50 | NUR ---
RN CLOSING NOTES NO SIGNIFICANT CHANGES DURING THE SHIFT. ALL NEEDS MET AND ATTENDED TO. NO S/S OF ACUTE DISTRESS OR SOB NOTED DURING THE NIGHT. ALL SAFETY MEASURES CARRIED OUT. WILL ENDORSE TO DAYSHIFT RN FOR Pt's SARA.
--- NOTE | 2016-09-13 07:15 | NUR ---
MS RN OPENING RECEIVED PT A/OX4 DENIES PAIN SOB DIFFICULTY BREATHING. PT STATES NO NEEDS AT THIS TIME AND LEFT WITH CALL LIGHT IN REACH, BED LOWERED AND LOCKED, RAILS UPX3 FOR SAFETY AND WILL ROUND Q2H OR LESS PER NEEDS
[2016-09-13 07:21] LABS: BASOPHILS % (AUTO) 0.3 % (0.0-2.0); EOSINOPHILS # (AUTO) 0.1 /CMM (0.0-0.7); EOSINOPHILS % (AUTO) 1.6 % (0.0-6.0); HEMATOCRIT 34 % (39-51); HEMOGLOBIN 11.2 g/dL (13.5-17.5); LYMPHOCYTES % (AUTO) 14.5 % (20.0-44.0); MEAN CORPUSCULAR HEMOGLOBIN 29 PG (26.0-33.0); MEAN CORPUSCULAR HGB CONC 34 g/dl (31.0-36.0); MEAN CORPUSCULAR VOLUME 86 fL (80-96); MONOCYTES # (AUTO) 0.6 /CMM (0.1-1.30); MONOCYTES % (AUTO) 9.3 % (2.0-12.0); NEUTROPHILS % (AUTO) 74.3 % (43.0-81.0); PLATELET COUNT (AUTO) 286 /CMM (150-450); RDW COEFFICIENT OF VARIATION 15.3 (11.5-15.0); RED BLOOD CELL COUNT(AUTO) 3.91 MIL/uL (4.5-6.0); WHITE BLOOD COUNT (AUTO) 6.7 K/uL (4.3-11.0)
[2016-09-13 07:48] LABS: CALCIUM, SERUM 8.4 mg/dL (8.5-10.1); CREATININE 1.6 mg/dL (0.6-1.3); POTASSIUM 3.5 mmol/L (3.5-5.1)
[2016-09-13 08:00] VITALS: BP 141/80
[2016-09-13] MEDS: FLUTICASONE/SALMETEROL DISKUS IH SCH (08:07)
[2016-09-13] MEDS: DORZOLAMIDE OPTH 2% 10 ML BOTTLE EACHEYE SCH (08:07)
[2016-09-13] MEDS: ATORVASTATIN 10 MG TABLET PO SCH (08:08)
[2016-09-13] MEDS: PANTOPRAZOLE 40 MG TABLET.DR PO SCH (08:08)
[2016-09-13] MEDS: ALLOPURINOL 100 MG TABLET PO SCH (08:08)
[2016-09-13] MEDS: TAMSULOSIN 0.4 MG CAP.SR.24H PO SCH (08:08)
[2016-09-13] MEDS: FUROSEMIDE 20 MG/2 ML VIAL IV SCH (08:08)
[2016-09-13] MEDS: DUTASTERIDE (0.5 MG) 0.5 MG CAPSULE PO SCH (08:08)
[2016-09-13 08:11] VITALS: BP 141/80
[2016-09-13] MEDS: METOPROLOL SUCCINATE 50 MG TAB.SR.24H PO SCH (08:11)
[2016-09-13] MEDS: VALSARTAN 80 MG TABLET PO SCH (08:11)
[2016-09-13] MEDS ORDERED: FURO10VI IV (12:53)
[2016-09-13] MEDS ORDERED: POTASSIUM CHLORIDE 20 MEQ POWDER PACKET PO ONE (13:30)
[2016-09-13] MEDS ORDERED: SECONDARY IV SET 1 EA INFUS.SET MC ONE (14:01)
--- NOTE | 2016-09-13 15:27 | NUR ---
MS MEDICAL ASST PT STABLE NO COMPLICATIONS THROUGHOUT DAY. PT IV REMOVED PRESSURE AND DRESSING APPLIED NO BLEEDING NOTED. PATIENT EDUCATED ON DC MATERIAL AND STATES UNDERSTANDING. SON EDUCATED AT BEDSIDE WELL. PATIENT AWARE MONDAY DR PIÑA APPOINTMENT 1130 AND TO MAKE AN APPOINTMENT WITH DR BACK IN 1 WEEK INFORMATION PROVIDED. PER MD REYES CHANGE LASIX TO PO AND RX CALLED INTO PATIENT PHARMACY FOR PATIENT. PATIENT ASSISTED TO WHEELCHAIR FOR DC NO COMPLICATIONS. PATIENT DID NOT WANT DC PHOTOS TO BE TAKEN, PATIENT AWARE WHY WE TAKE THESE PHOTOS.
[2016-09-14] MEDS ORDERED: FUROSEMIDE 20 MG TABLET PO SCH (09:00)
== END 2016-09-13 15:15 | disposition home or self-care (01) | DRG 291 ==
LOC: ER 11:32 → TELE1 13:38 → MEDSG1 09-06 08:42 → ICU 09-08 06:10 → MED 09-10 23:31 → TELE 09-10 23:38 → MED 09-11 09:37
PROVIDERS: ADMIT Internal Medicine; ATTEND Internal Medicine
PROC: 0W9D3ZZ Drainage of Pericardial Cavity, Percutaneous Approach (ICD-10-PCS; principal; 2016-09-02)
DX: I13.0 Hypertensive heart and chronic kidney disease with heart failure and stage 1 through stage 4 chronic kidney disease, or unspecified chronic kidney disease (principal); I50.33 Acute on chronic diastolic (congestive) heart failure; J44.0 Chronic obstructive pulmonary disease with (acute) lower respiratory infection; E44.0 Moderate protein-calorie malnutrition; I31.3 Pericardial effusion (noninflammatory); I31.4 Cardiac tamponade; N17.9 Acute kidney failure, unspecified; J98.11 Atelectasis; J20.9 Acute bronchitis, unspecified; D63.8 Anemia in other chronic diseases classified elsewhere; E03.9 Hypothyroidism, unspecified; E11.22 Type 2 diabetes mellitus with diabetic chronic kidney disease; N18.3 Chronic kidney disease, stage 3 (moderate); K21.9 Gastro-esophageal reflux disease without esophagitis; I48.0 Paroxysmal atrial fibrillation; E78.5 Hyperlipidemia, unspecified; E66.9 Obesity, unspecified; Z95.0 Presence of cardiac pacemaker; N40.0 Benign prostatic hyperplasia without lower urinary tract symptoms; M19.90 Unspecified osteoarthritis, unspecified site; Z87.891 Personal history of nicotine dependence; J44.9 Chronic obstructive pulmonary disease, unspecified; Z79.84 Long term (current) use of oral hypoglycemic drugs; I35.0 Nonrheumatic aortic (valve) stenosis; I77.810 Thoracic aortic ectasia
CPT/HCPCS: 36415; 71010-TC; 71250-TC; 72192-TC; 74150-TC; 76700-TC; 80048-TC; 80053-TC; 80061-TC; 80076-TC; 82105; 83735-TC; 83880; 84100-TC; 84484-TC; 85025-TC; 85610-TC; 85730-TC; 87070-TC; 87075-TC; 87081-TC; 87102-TC; 87116; 87206; 88305-TC; 88312-TC; 89051-TC; 93307-TC; 93308-TC; 94799-TC; A4606; A6402; J1940; J2250; J2310; J3010; J3475; J3490; J7050; Z7610

== ENCOUNTER 2018-07-09 06:07 | Emergency (ER) | payer MEDICARE, BC ==
[~2018-07-09] VITALS: Ht 177.8 cm; Wt 98.9 kg
[~2018-07-09 06:07] MED LIST changes: -ALFU10TA PO; -AMLO10TA2 PO; +AMLO10TA7 PO; +ASPI-1152 PO; -ASPI-991 PO; +CALC500T52 PO; +CHOL100044 PO; -CHOL200026; +FURO10VI IV; -Hydralazine Hcl PO; +METO25TA3 PO; +MULT-24 PO; -MULT1CAP34 PO; -Metoprolol Tartrate PO; -OSCAL PO; -RAMI10CA PO; +RAMI10CA69 PO; +TAMS-12 PO; +UBID30CA11 PO; -[UNRECOGNIZED DRUG - OTHER] PO
--- NOTE | 2018-07-09 06:11 | NUR ---
PT BIB SON C/O CONSTIPATION X 2 DAYS. PTAOX4. NAD NOTED. RESP EVEN AND UNLABORED. DENIES PAIN AT THIS TIME. SON AT BEDSIDE. PT IN BED 9 ON MONITOR. WILL CONTINUE TO MONITOR.
[2018-07-09] MEDS ORDERED: LACTULOSE 10 G/15 ML UDC (PYXIS) PO ONE (06:30)
[2018-07-09] MEDS ORDERED: MAGNESIUM CITRATE 296 ML BOTTLE PO ONE (06:30)
[2018-07-09] MEDS ORDERED: NA PHOS,M-B/NA PHOS,DI-BA 1 EA ENEMA RC ONE ×3 (06:30→08:25)
[2018-07-09 06:39] VITALS: BP 124/83
--- NOTE | 2018-07-09 06:40 | NUR ---
PT TAKEN TO RADIOLOGY VIA COMFORT
[2018-07-09] MEDS ORDERED: MAGNESIUM CITRATE 296 ML BOTTLE ONE (06:41)
[2018-07-09] MEDS ORDERED: LACTULOSE 10 G/15 ML UDC (PYXIS) ONE (06:41)
--- NOTE | 2018-07-09 07:24 | NUR ---
REPORT GIVEN TO ANITA DEL REAL FOR SARA
--- NOTE | 2018-07-09 09:26 | NUR ---
Patient discharged to home in stable condition. Written and verbal after care instructions given. Patient verbalizes understanding of instruction.
== END 2018-07-09 09:32 | disposition home or self-care (01) ==
LOC: ER 06:10
DX: K59.00 Constipation, unspecified (principal); I48.91 Unspecified atrial fibrillation; E03.9 Hypothyroidism, unspecified; E78.00 Pure hypercholesterolemia, unspecified; E11.9 Type 2 diabetes mellitus without complications; I10 Essential (primary) hypertension; Z95.0 Presence of cardiac pacemaker; Z90.89 Acquired absence of other organs; Z79.82 Long term (current) use of aspirin
CPT/HCPCS: 74176; 99284; A4606

== ENCOUNTER 2018-12-05 09:26 | Outpatient (CLI) | payer MEDICARE, BC ==
[2018-12-05] MEDS ORDERED: REGADENOSON 0.4 MG/5 ML DISP.SYRIN IVP ONE (10:30)
== END 2018-12-05 23:59 | disposition home or self-care (01) ==
LOC: NM 09:26
PROVIDERS: ATTEND Internal Medicine Cardiovascular Disease
DX: I10 Essential (primary) hypertension (principal); R07.9 Chest pain, unspecified
CPT/HCPCS: 78452; A9502; J2785

== ENCOUNTER 2020-03-02 02:03 | Inpatient (IN) | payer MEDICARE, BC ==
[~2020-03-02] VITALS: Ht 177.8 cm; Wt 93.0 kg
[2020-03-02] VITALS (36 sets, daily range): BP systolic 115–169; BP diastolic 41–93
[~2020-03-02 02:03] MED LIST changes: -ASPI-1152 PO; +ASPI-1420 PO
--- NOTE | 2020-03-02 02:05 | NUR ---
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 PT DENIES RECENT COUGH OR FEVER. NOTED TACHYPNEA. O2 SAT 83% ROOM AIR. REC'D BREATHING TREATMENT EN ROUTE TO HOSPITAL BY RA, PT STATES MINIMAL RELIEF. PT ARRIVED TO [facility] ER ON 15L NONREBREATHER. PT AAOX4. LABORED BREATHING. PLACED IN GOWN AND ON CONTINOUS AIRCRAFT MECHANIC AND PULSE OX. WILL CONTINUE TO MONITOR
--- NOTE | 2020-03-02 02:15 | NUR ---
IV INITIATED RAC 18G. LABS DRAWN FROM SITE. CUTTING ROOM SUPERVISOR AT BEDSIDE FOR COLLECTION. IV INTACT AND PATENT, PLACED ON SALINE LOCK.
--- NOTE | 2020-03-02 02:25 | NUR ---
RT AT BEDSIDE
[2020-03-02 02:38] LABS: CALCIUM, SERUM 8.4 mg/dL (8.5-10.1); CARBON DIOXIDE 27 mmol/L (21-32); CHLORIDE 102 mmol/L (98-107); CREATININE 2.1 mg/dL (0.6-1.3); GLUCOSE 187 mg/dL (74-106); POTASSIUM 3.8 mmol/L (3.5-5.1); SODIUM SERUM 140 mmol/L (136-145); UREA NITROGEN, BLOOD 31 mg/dL (7-18)
--- NOTE | 2020-03-02 02:38 | NUR ---
PT STARTED ON BIPAP. SETTINGS: 15/5, RATE 20, FIO2 100%
--- NOTE | 2020-03-02 02:40 | NUR ---
RADIOLOGY AT BEDSIDE FOR CXR
--- NOTE | 2020-03-02 02:42 | NUR ---
COVID SWAB COLLECTED AND SENT TO LAB
[2020-03-02 02:49] LABS: BASOPHILS % (AUTO) 0.5 % (0.0-2.0); EOSINOPHILS % (AUTO) 2.1 % (0.0-6.0); HEMATOCRIT 39 % (39-51); HEMOGLOBIN 12.6 g/dL (13.5-17.5); LYMPHOCYTES # (AUTO) 1.8 /CMM (0.8-4.8); LYMPHOCYTES % (AUTO) 25.1 % (20.0-44.0); MEAN CORPUSCULAR HGB CONC 33 g/dl (31.0-36.0); MEAN CORPUSCULAR VOLUME 93 fL (80-96); MONOCYTES # (AUTO) 0.5 /CMM (0.1-1.30); MONOCYTES % (AUTO) 6.5 % (2.0-12.0); NEUTROPHILS # (AUTO) 4.6 /CMM (1.8-8.9); NEUTROPHILS % (AUTO) 65.8 % (43.0-81.0); PLATELET COUNT (AUTO) 330 /CMM (150-450); RED BLOOD CELL COUNT(AUTO) 4.18 MIL/uL (4.5-6.0)
[2020-03-02 02:58] LABS: ALANINE AMINOTRANSFERASE 83 U/L (12-78); ALBUMIN 3.1 g/dL (3.4-5.0); ALKALINE PHOSPHATASE 110 U/L (46-116); ASPARTATE AMINOTRANSFERASE 81 U/L (15-37); BILIRUBIN,DIRECT 0.1 mg/dL (0.0-0.2); BILIRUBIN,TOTAL 0.4 mg/dL (0.2-1.0); TOTAL PROTEIN, SERUM 6.9 g/dL (6.4-8.2)
[2020-03-02 03:32] LABS: ABG BASE EXCESS -0.3 mmol/L; ABG OXYGEN SATURATION 99.1 % (92.0-98.5); ABG PCO2 47.1 mmHg (35.0-45.0); ABG PH 7.354 (7.350-7.450); ABG PO2 291.3 mmHg (75.0-100.0); AaDO2 374.6 mmHg; COHb 0.4 % (0.5-1.5); MetHb 0.4 % (0.0-1.5); O2Hb 98.3 % (94.0-97.0); SITE, ABG Right Radial; VENT MODE, BG ST 15/5 R20 100%
[2020-03-02] MEDS ORDERED: CEFTRIAXONE 1GM BAG (ER ONLY) 50 ML IV ONE (03:47)
[2020-03-02] MEDS ORDERED: FUROSEMIDE 40 MG/4 ML VIAL ONE (03:48)
[2020-03-02] MEDS ORDERED: CEFTRIAXONE 1 G in IV D5W 50 ML IV ONE (04:00)
[2020-03-02] MEDS ORDERED: FUROSEMIDE 40 MG/4 ML VIAL IV ONE (04:00)
--- NOTE | 2020-03-02 04:16 | NUR ---
PT RESTING COMFORTABLY IN BED. STILL ON BIPAP, PT STATES HE IS FEELING MUCH BETTER. VITAL SIGNS STABLE. STILL ON CONTINUOUS GRINDING MACHINE OPERATOR PORTABLE AND PULSE OX, WILL CONTINUE TO MONITOR
--- NOTE | 2020-03-02 04:22 | NUR ---
253 IS ROOM PLACEMENT PER NURSING APPLICATION RELEASE MANAGER.
--- NOTE | 2020-03-02 04:25 | NUR ---
PT ICU ROOM CHANGED TO 252 PER NURSING SENIOR NET SOFTWARE DEVELOPER.
--- NOTE | 2020-03-02 04:31 | NUR ---
Received report from ANITA Werner for SARA.
--- NOTE | 2020-03-02 04:34 | NUR ---
REPORT GIVEN TO ANITA LOU FOR SARA
[2020-03-02] MEDS ORDERED: ASPIRIN 81 MG TAB.CHEW ONE (05:04)
--- NOTE | 2020-03-02 05:20 | NUR ---
SED H[employer] SCHOOL TEACHER NOTE: Pt transferred to unit via gurney accompanied by RN, RT EMT. Transferred to bed and hooked up to monitors. BIPAP applied with settings:15/5 rate:20 FiO2:50%. Tolerating well. VSS. Admit Dx of acute resp failure, CHF exacerbation. NKA. NPO. PT A&Ox4, Setswana speaking. V pacing with BBB on tele monitor. IV sites on left hand #20 and RAC #18 patent and flushed. Dressings c/d/i. Bed bath given. Urinal at bedside. Belongings check done w/ alexandr, arenas and credit cards verified w/ ANITA Yoon and placed in bag #[id number]. Given to RN reduction plant supervisor and placed in safe. Pt refused to remove ring d/t sentimental value. Wishes noted. Oriented to room and call light. Safety measures in place. Will continue to monitor. Addendum: 03/02/20 at 0637 by CARMINE HOLDER RN LUCW pacemaker noted.
--- NOTE | 2020-03-02 05:24 | NUR ---
PT TRANSFERRED PER ACLS PROTOCOL IN STABLE CONDITION WITH EMT, RT, RN AT BEDSIDE
[2020-03-02 06:08] LABS: BASOPHILS % (AUTO) 0.2 % (0.0-2.0); EOSINOPHILS % (AUTO) 0.3 % (0.0-6.0); HEMATOCRIT 38 % (39-51); HEMOGLOBIN 12.5 g/dL (13.5-17.5); LYMPHOCYTES # (AUTO) 0.8 /CMM (0.8-4.8); LYMPHOCYTES % (AUTO) 10.7 % (20.0-44.0); MEAN CORPUSCULAR HGB CONC 33 g/dl (31.0-36.0); MEAN CORPUSCULAR VOLUME 92 fL (80-96); MONOCYTES # (AUTO) 0.5 /CMM (0.1-1.30); MONOCYTES % (AUTO) 6.1 % (2.0-12.0); NEUTROPHILS # (AUTO) 6.5 /CMM (1.8-8.9); NEUTROPHILS % (AUTO) 82.7 % (43.0-81.0); PLATELET COUNT (AUTO) 274 /CMM (150-450); RED BLOOD CELL COUNT(AUTO) 4.16 MIL/uL (4.5-6.0); WHITE BLOOD COUNT (AUTO) 7.9 K/uL (4.3-11.0)
[2020-03-02 06:27] LABS: ALANINE AMINOTRANSFERASE 81 U/L (12-78); ALBUMIN 3.1 g/dL (3.4-5.0); ALKALINE PHOSPHATASE 106 U/L (46-116); ASPARTATE AMINOTRANSFERASE 65 U/L (15-37); BILIRUBIN,TOTAL 0.3 mg/dL (0.2-1.0); CALCIUM, SERUM 8.5 mg/dL (8.5-10.1); CARBON DIOXIDE 29 mmol/L (21-32); CHLORIDE 103 mmol/L (98-107); GLUCOSE 99 mg/dL (74-106); POTASSIUM 4.7 mmol/L (3.5-5.1); SODIUM SERUM 140 mmol/L (136-145); TOTAL PROTEIN, SERUM 6.9 g/dL (6.4-8.2); UREA NITROGEN, BLOOD 29 mg/dL (7-18)
[2020-03-02 06:36] LABS: CHOLESTEROL 126 mg/dL (<200); HDL CHOLESTEROL 64 mg/dL (40-60); LDL 55 mg/dL (0-99); THYROID STIMULATING HORMONE 3.289 uIU/mL (0.358-3.74); TRIGLYCERIDES 47 mg/dL (30-150)
--- NOTE | 2020-03-02 07:15 | NUR ---
RN CLOSING NOTES: Pt remains stable on BIPAP. Tolerating settings well. No SOB or resp distress noted. No acute changes noted. Safety measures in place. Will endorse to AM nurse for SARA.
--- NOTE | 2020-03-02 07:25 | NUR ---
RT Pt received awake and alert on BiPAP. Pt taken off BiPAP and placed on 3L nasal cannula with adequate SpO2. Pt denies any SOB or respiratory distress. Addendum: 03/02/20 at 1617 by MITCHELL ZAMORA RT Amended: Links added.
--- NOTE | 2020-03-02 07:30 | NUR ---
RN NOTES RECEIVED PATIENT ASLEEP. AWAKEN BY VERBAL STIMULI. ORIENTEDX3-4. ABLE TO MAKE NEEDS KNOWN. ABLE TO RESPOND APPROPRIATELY. NO INDICATION OF ANY KIND OF DISTRESS NOTED AT THIS TIME. PATIENT DENIES ANY PAIN. TOLERATING BIPAP. SATING 97-08%. V PACING ON THE MONITOR, HR ON THE 90s. IV ACCESS ON THE RAC G18 AND LFA G 20, BOTH IN PLACE AND INTACT, FLUSHING WELL, SALINE LOCK. PATIENT ENCOURAGE TO VERBALIZE FEELINGS AND CONCERNS, TO CALL FOR HELP/ASSISTANCE. CALL LIGHT PLACED WITHIN REACH. SAFETY MEASURES OBSERVED AND MAINTAINED. WILL CONTINUE TO MONITOR PATIENT ACCORDINGLY
[2020-03-02 08:24] LABS: ABG BASE EXCESS -0.4 mmol/L; ABG OXYGEN SATURATION 91.7 % (92.0-98.5); ABG PCO2 39.7 mmHg (35.0-45.0); ABG PH 7.404 (7.350-7.450); ABG PO2 64.6 mmHg (75.0-100.0); AaDO2 117.1 mmHg; COHb 0.4 % (0.5-1.5); O2Hb 91.3 % (94.0-97.0); SITE, ABG Right Radial; VENT MODE, BG Nasal Cannula
[2020-03-02] MEDS ORDERED: FINA5TAB11 PO (08:26)
[2020-03-02] MEDS ORDERED: ALFU10TA10 PO (08:26)
[2020-03-02] MEDS ORDERED: LEVO25TA9 PO (08:26)
[2020-03-02] MEDS ORDERED: FURO20TA4 PO (08:26)
[2020-03-02] MEDS ORDERED: APIX2.5T PO (08:26)
[2020-03-02] MEDS ORDERED: ASPIRIN 81 MG TAB.CHEW PO SCH (09:00)
[2020-03-02] MEDS ORDERED: RAMIPRIL 5 MG CAPSULE PO SCH (09:00)
[2020-03-02] MEDS ORDERED: UBIDECARENONE 30 MG PO SCH (09:00)
[2020-03-02] MEDS ORDERED: ATORVASTATIN 10 MG TABLET PO SCH (09:00)
[2020-03-02] MEDS ORDERED: Medication Not On Formulary EA (Alfuzosin Hcl 10 MG) PO SCH (09:00)
[2020-03-02] MEDS ORDERED: ENOXAPARIN SODIUM 30 MG/0.3 ML DISP.SYRIN SQ SCH (09:00)
[2020-03-02] MEDS ORDERED: FUROSEMIDE 40 MG/4 ML VIAL IV SCH (09:00)
[2020-03-02] MEDS ORDERED: ASPIRIN EC 81 MG TABLET.DR PO SCH (09:00)
[2020-03-02] MEDS: DORZOLAMIDE OPTH 2% 10 ML BOTTLE EACHEYE SCH ×2 (09:45→17:22)
[2020-03-02] MEDS: CALCIUM CARBONATE (1250) 500 MG TABLET PO SCH ×2 (09:46→17:22)
[2020-03-02] MEDS: MULTIVITAMINS,THERAGRAN 1 UDTAB TABLET PO SCH (09:46)
[2020-03-02] MEDS: AMLODIPINE BESYLATE 10 MG TABLET PO SCH (09:46)
[2020-03-02] MEDS: TAMSULOSIN 0.4 MG CAP.SR.24H PO SCH (09:46)
[2020-03-02] MEDS: LEVOTHYROXINE SODIUM 25 MCG TABLET PO SCH (09:46)
[2020-03-02] MEDS: METOPROLOL SUCCINATE 25 MG TAB.SR.24H PO SCH (09:47)
[2020-03-02] MEDS: CHOLECALCIFEROL 1,000 UNIT TABLET (VIT D3) PO SCH (09:49)
[2020-03-02] MEDS: ALLOPURINOL 100 MG TABLET PO SCH (09:49)
[2020-03-02] MEDS: APIXABAN 2.5 MG TABLET PO SCH ×2 (10:24→17:33)
[2020-03-02] MEDS: FUROSEMIDE 100 MG/10 ML VIAL IV SCH ×3 (10:30→17:22)
[2020-03-02] MEDS ORDERED: DOCUSATE SODIUM LIQ 100 MG/10 ML UDC NG SCH (17:00)
[2020-03-02] MEDS ORDERED: POLYETHYLENE GLYCOL 3350 17 GM POWD.PACK PO PRN (17:00)
[2020-03-02] MEDS: DOCUSATE SODIUM LIQ 100 MG/10 ML UDC PO SCH (17:22)
--- NOTE | 2020-03-02 19:10 | NUR ---
RN NOTES, RECEIVED PATIENT IN BED AWAKE A/ORIENTEDX3-4. ABLE TO MAKE NEEDS KNOWN, ON 2LPM VIA NC BREATHING EVEN AND UNLABORED, NO S/S OF ANY ACUTE RESPIRATORY DISTRESS OR DISCOMFORT, DENIES ANY PAIN, V PACING ON THE MONITOR WITH HR HR 80S AT THIS TIME, PIV ACCESS ON THE RAC G18 AND LFA G 20, BOTH IN PLACE PATENT AND INTACT SALINE LOCK, ASSISTED TO THE BEDSIDE COMMODE AT THIS TIME, REMAINED HIM TO CALL FOR ASSISTANCE AT ALL TIMES, AND HE VERBALIZED UNDERSTANDING, CALL LIGHT WITHIN REACH, ALL SAFETY PRECAUTIONS, OBSERVED AND MAINTAINED. WILL CONTINUE TO MONITOR PATIENT ACCORDINGLY
[2020-03-02] MEDS ORDERED: POLYETHYLENE GLYCOL 3350 17 GM POWD.PACK PO SCH (22:00)
[2020-03-03] VITALS (36 sets, daily range): BP systolic 96–160; BP diastolic 53–108
[2020-03-03] MEDS: CEFTRIAXONE 1 G in IV D5W 50 ML IV SCH (03:47)
[2020-03-03 04:32] LABS: BASOPHILS # (AUTO) 0.1 /CMM (0.0-0.2); BASOPHILS % (AUTO) 0.7 % (0.0-2.0); EOSINOPHILS % (AUTO) 0.7 % (0.0-6.0); HEMATOCRIT 43 % (39-51); HEMOGLOBIN 13.9 g/dL (13.5-17.5); LYMPHOCYTES # (AUTO) 1.2 /CMM (0.8-4.8); LYMPHOCYTES % (AUTO) 16.1 % (20.0-44.0); MEAN CORPUSCULAR HGB CONC 33 g/dl (31.0-36.0); MEAN CORPUSCULAR VOLUME 91 fL (80-96); MONOCYTES # (AUTO) 0.5 /CMM (0.1-1.30); MONOCYTES % (AUTO) 7.1 % (2.0-12.0); NEUTROPHILS # (AUTO) 5.8 /CMM (1.8-8.9); NEUTROPHILS % (AUTO) 75.4 % (43.0-81.0); PLATELET COUNT (AUTO) 292 /CMM (150-450); RED BLOOD CELL COUNT(AUTO) 4.68 MIL/uL (4.5-6.0); WHITE BLOOD COUNT (AUTO) 7.7 K/uL (4.3-11.0)
[2020-03-03 04:52] LABS: ALANINE AMINOTRANSFERASE 68 U/L (12-78); ALBUMIN 3.4 g/dL (3.4-5.0); ALKALINE PHOSPHATASE 105 U/L (46-116); ASPARTATE AMINOTRANSFERASE 40 U/L (15-37); BILIRUBIN,TOTAL 0.4 mg/dL (0.2-1.0); CALCIUM, SERUM 9.2 mg/dL (8.5-10.1); CARBON DIOXIDE 32 mmol/L (21-32); CHLORIDE 100 mmol/L (98-107); CREATININE 1.8 mg/dL (0.6-1.3); GLUCOSE 107 mg/dL (74-106); MAGNESIUM 1.8 mg/dL (1.8-2.4); POTASSIUM 3.3 mmol/L (3.5-5.1); SODIUM SERUM 142 mmol/L (136-145); TOTAL PROTEIN, SERUM 7.4 g/dL (6.4-8.2); UREA NITROGEN, BLOOD 31 mg/dL (7-18)
--- NOTE | 2020-03-03 05:16 | NUR ---
RN NOTES, REPORT TO JUVENTINO Herbert CRITICAL RESULTS FOR TROPONIN THIS MORNING 0.412, PER DR CHAI JAUREGUI TO FOLLOW UP THIS MORNING.
--- NOTE | 2020-03-03 07:30 | NUR ---
rn notes received patient ambulating to the bedside commode. needs minimal to no support. not on any form of distress. denies any pain. V pacing on the monitor with hr on the 70S. sating fine with oxygen via nasal cannula at 2 lpm. afebrile. encourage to call for help/assistance. safety measures observed and maintained. call light placed within reach. will continue to monitor accordingly
--- NOTE | 2020-03-03 07:35 | NUR ---
RN CLOSING NOTES, PATIENT IN BED AWAKE A/ORIENTEDX3-4. ABLE TO MAKE NEEDS KNOWN, ON 2LPM VIA NC BREATHING EVEN AND UNLABORED WITH OPTIMAL O2 SAT LEVEL >95% WHEN OFF O2 THE LOWEST 93%, NO S/S OF ANY ACUTE RESPIRATORY DISTRESS OR DISCOMFORT, NO SIGNIFICANT CHANGE IN CONDITION DURING THE NIGHT, CALL LIGHT WITHIN REACH, ALL SAFETY PRECAUTIONS, OBSERVED AND MAINTAINED, ENDORSED TO CHELSEY RN FOR CONTINUATION OF CARE. .
--- NOTE | 2020-03-03 08:40 | NUR ---
WOUND CARE CONSULT: PT PRESENTS WITH INTACT SKIN. PT IS CONTINENT AND INDEPENDENT WITH BED MOBILITY. PT IS ACTUALLY AMBULATORY PER RN. WILL SEE PRN.
[2020-03-03] MEDS: TAMSULOSIN 0.4 MG CAP.SR.24H PO SCH (08:46)
[2020-03-03] MEDS: LEVOTHYROXINE SODIUM 25 MCG TABLET PO SCH (08:47)
[2020-03-03] MEDS: CHOLECALCIFEROL 1,000 UNIT TABLET (VIT D3) PO SCH (08:47)
[2020-03-03] MEDS: DOCUSATE SODIUM LIQ 100 MG/10 ML UDC PO SCH ×2 (08:47→17:06)
[2020-03-03] MEDS: METOPROLOL SUCCINATE 25 MG TAB.SR.24H PO SCH (08:47)
[2020-03-03] MEDS: CALCIUM CARBONATE (1250) 500 MG TABLET PO SCH ×2 (08:48→17:06)
[2020-03-03] MEDS: MULTIVITAMINS,THERAGRAN 1 UDTAB TABLET PO SCH (08:48)
[2020-03-03] MEDS: ASPIRIN EC 81 MG TABLET.DR PO SCH (08:48)
[2020-03-03] MEDS: ALLOPURINOL 100 MG TABLET PO SCH (08:48)
[2020-03-03] MEDS: AMLODIPINE BESYLATE 10 MG TABLET PO SCH (08:48)
[2020-03-03] MEDS: APIXABAN 2.5 MG TABLET PO SCH ×2 (08:52→17:07)
[2020-03-03] MEDS: DORZOLAMIDE OPTH 2% 10 ML BOTTLE EACHEYE SCH ×2 (09:03→17:10)
[2020-03-03] MEDS: FUROSEMIDE 40 MG/4 ML VIAL IV SCH ×4 (09:52→17:06)
[2020-03-03] MEDS: POTASSIUM CHLORIDE 20 MEQ TAB.PRT.SR PO SCH ×3 (09:52→12:08)
--- NOTE | 2020-03-03 17:00 | NUR ---
RN NOTES RELAYED TROPONIN LEVEL FROM 0.412 TP 0.322 TO ANTONIA DAVILA NP. NO NEW ORDER AT THIS TIME
--- NOTE | 2020-03-03 17:25 | NUR ---
RN NOTES PATIENT TRANSFERRED TO [facility] ROOM 113-1 VIA ACLS PROTOCOL. REPORT GIVEN TO ANITA ENAMORADO. HANDS OFF
--- NOTE | 2020-03-03 18:49 | NUR ---
RN CLOSING NOTES, PATIENT IN BED AWAKE A/ORIENTEDX3-4. ABLE TO MAKE NEEDS KNOWN, ON 2L VIA NC. RESPIRATION EVEN AND UNLABORED WITH OPTIMAL O2 SAT LEVEL >95% NO S/S OF ANY ACUTE RESPIRATORY DISTRESS OR DISCOMFORT, CALL LIGHT WITHIN REACH, ALL SAFETY PRECAUTIONS, OBSERVED AND MAINTAINED, WILL ENDORSE TO PM NURSE.
--- NOTE | 2020-03-03 19:40 | NUR ---
MS RN NOTES RECEIVED PATIENT IN BED AWAKE A/ORIENTEDX3-4. ABLE TO MAKE NEEDS KNOWN, ON 2L VIA NC. RESPIRATION EVEN AND UNLABORED WITH OPTIMAL O2 SAT LEVEL >94% NO SIGNS OF ANY ACUTE RESPIRATORY DISTRESS OR DISCOMFORT, CALL LIGHT WITHIN EASY REACH, ALL SAFETY PRECAUTIONS EMPHASIZED. ALL NEEDS ANTICIPATED. WILL CONTINUE TO MONITOR ACCORDINGLY.
--- NOTE | 2020-03-03 22:48 | NUR ---
RN NOTES PATIENT WENT TO THE TOILET AND VOIDED X 16, SMALL FREQUENT TIMES SINCE 19:20 AT THE BEGINNING OF THE SHIFT, ASSISTED PATIENT FOR SAFETY, VITAL SIGNS WITHIN PATIENT'S NORMAL RANGE. CHARGE NURSE AWARE OF THE FREQUENCY OF GOING TO THE TOILET. OFFERED URINAL, PATIENT REFUSED TO USE URINAL. NO BM NOTED.
[2020-03-04] VITALS (8 sets, daily range): BP systolic 104–146; BP diastolic 57–73
[2020-03-04] MEDS: CEFTRIAXONE 1 G in IV D5W 50 ML IV SCH (03:58)
--- NOTE | 2020-03-04 06:02 | NUR ---
COLLECTIONS PROFESSIONAL NOTES ALL NEEDS ATTENDED AND MET, PATIENT WENT TO THE TOILET VOIDED 22 TIMES, NOTED WITH MINIMAL URINE OUTPUT.SAFETY MEASURES IN PLACE, UNABLE TO SLEEP WELL DUE TO FREQUENT VOIDING AND GOING TO TOILET. DENIES ANY PAIN OR ANY ABDOMINAL OR BLADDER DISCOMFORT. CALL LIGHT WITH IN EASY REACH. DISLODGED 2 PERIPHERAL IV SITES. RE-INSERTED A NEW PERIPHERAL IV ACCESS ON HIS LEFT FOREARM G#22 INTACT AND PATENT SECURED WITH TAPE. REMAINS V PACING 80s -90s. AM LABS DONE,WILL ENDORSE TO AM NURSE FOR CONTINUITY OF CARE.
[2020-03-04 06:40] LABS: BASOPHILS % (AUTO) 0.6 % (0.0-2.0); EOSINOPHILS % (AUTO) 2.6 % (0.0-6.0); HEMATOCRIT 41 % (39-51); HEMOGLOBIN 13.6 g/dL (13.5-17.5); LYMPHOCYTES # (AUTO) 1.5 /CMM (0.8-4.8); LYMPHOCYTES % (AUTO) 20.1 % (20.0-44.0); MEAN CORPUSCULAR HGB CONC 33 g/dl (31.0-36.0); MEAN CORPUSCULAR VOLUME 92 fL (80-96); MONOCYTES # (AUTO) 0.7 /CMM (0.1-1.30); MONOCYTES % (AUTO) 8.5 % (2.0-12.0); NEUTROPHILS # (AUTO) 5.2 /CMM (1.8-8.9); NEUTROPHILS % (AUTO) 68.2 % (43.0-81.0); PLATELET COUNT (AUTO) 266 /CMM (150-450); RED BLOOD CELL COUNT(AUTO) 4.47 MIL/uL (4.5-6.0); WHITE BLOOD COUNT (AUTO) 7.7 K/uL (4.3-11.0)
--- NOTE | 2020-03-04 07:30 | NUR ---
RN OPENING NOTES RECEIVED PATIENT IN BED AWAKE, A/O X3-4. ON 2LPM VIA NC SATURATING @ 96%. NO SOB OR ANY ACUTE RESPIRATORY DISTRESS AT THIS TIME. V PACING ON THE MONITOR WITH HR @ 80S. LEFT FA G 20, INTACT, PATENT AND FLUSHED. ASSISTED TO THE BATHROOM. REMAINED WITH HIM UNTIL I ASSISTED HIM BACK TO BED. INSTRUCTED HIM TO CALL FOR ASSISTANCE AT ALL TIMES AND HE VERBALIZED UNDERSTANDING. SAFETY MEASURES OBSERVED. CALL LIGHT WITHIN REACH. BED LOCKED AND AT LOWEST POSITION. WILL CONTINUE TO MONITOR
[2020-03-04 07:56] LABS: SODIUM SERUM 141 mmol/L (136-145)
[2020-03-04 07:57] LABS: CARBON DIOXIDE 28 mmol/L (21-32); CHLORIDE 100 mmol/L (98-107)
[2020-03-04 07:58] LABS: BILIRUBIN,TOTAL 0.3 mg/dL (0.2-1.0); TOTAL PROTEIN, SERUM 7.1 g/dL (6.4-8.2)
[2020-03-04 07:59] LABS: ALKALINE PHOSPHATASE 91 U/L (46-116); ASPARTATE AMINOTRANSFERASE 36 U/L (15-37); MAGNESIUM 1.8 mg/dL (1.8-2.4); PHOSPHORUS 3.7 mg/dL (2.5-4.9)
[2020-03-04 08:00] LABS: ALANINE AMINOTRANSFERASE 48 U/L (12-78); ALBUMIN 3.2 g/dL (3.4-5.0); UREA NITROGEN, BLOOD 35 mg/dL (7-18)
[2020-03-04 08:01] LABS: GLUCOSE 105 mg/dL (74-106)
[2020-03-04 08:02] LABS: CREATININE 1.9 mg/dL (0.6-1.3)
[2020-03-04] MEDS: CALCIUM CARBONATE (1250) 500 MG TABLET PO SCH ×2 (08:24→17:16)
[2020-03-04] MEDS: ASPIRIN EC 81 MG TABLET.DR PO SCH (08:25)
[2020-03-04] MEDS: LEVOTHYROXINE SODIUM 25 MCG TABLET PO SCH (08:25)
[2020-03-04] MEDS: METOPROLOL SUCCINATE 25 MG TAB.SR.24H PO SCH (08:26)
[2020-03-04] MEDS: TAMSULOSIN 0.4 MG CAP.SR.24H PO SCH (08:26)
[2020-03-04] MEDS: CHOLECALCIFEROL 1,000 UNIT TABLET (VIT D3) PO SCH (08:26)
[2020-03-04] MEDS: DOCUSATE SODIUM LIQ 100 MG/10 ML UDC PO SCH ×2 (08:27→17:16)
[2020-03-04] MEDS: MULTIVITAMINS,THERAGRAN 1 UDTAB TABLET PO SCH (08:27)
[2020-03-04] MEDS: FINASTERIDE (5 MG) 5 MG TABLET PO SCH (08:27)
[2020-03-04] MEDS: AMLODIPINE BESYLATE 10 MG TABLET PO SCH (08:27)
[2020-03-04] MEDS: ALLOPURINOL 100 MG TABLET PO SCH (08:27)
[2020-03-04] MEDS: APIXABAN 2.5 MG TABLET PO SCH ×2 (08:31→17:00)
[2020-03-04] MEDS: DORZOLAMIDE OPTH 2% 10 ML BOTTLE EACHEYE SCH ×2 (08:35→17:19)
[2020-03-04] MEDS: POTASSIUM CHLORIDE 20 MEQ TAB.PRT.SR PO SCH ×3 (10:57→12:34)
[2020-03-04] MEDS: FUROSEMIDE 40 MG/4 ML VIAL IV SCH ×3 (10:57→18:55)
[2020-03-04] MEDS ORDERED: HYDROCORTISONE ACETATE 25 MG/SUPP.RECT SUPP.RECT RC PRN (14:00)
[2020-03-04] MEDS ORDERED: PANTOPRAZOLE 40 MG VIAL IV SCH (15:00)
--- NOTE | 2020-03-04 17:00 | NUR ---
RN NOTES CALLED ANTONIA DAVILA DNP ABOUT ELIQUIS. SHE SAID HOLD BEACAUSE OF BLEEDING EARLIER THEN RESUME TOMORROW.
--- NOTE | 2020-03-04 18:57 | NUR ---
RN CLOSING NOTES PATIENT REMIANS IN BED. AWAKE, A/O X3-4. ON 2LPM VIA NC SATURATING @ 96%. NO SOB OR ANY ACUTE RESPIRATORY DISTRESS AT THIS TIME. V PACING ON THE MONITOR WITH HR @ 80S. LEFT FA G 20, INTACT, PATENT AND FLUSHED. INSTRUCTED PT TO CALL FOR ASSISTANCE AT ALL TIMES AND HE VERBALIZED UNDERSTANDING. ALL MEDS GIVEN ORDERED. ALL NEEDS ATTENDED. NO PAIN AT THIS TIME. SAFETY MEASURES OBSERVED. CALL LIGHT WITHIN REACH. BED LOCKED AND AT LOWEST POSITION. WILL ENDORSE TO HAND LACER FOR SARA
[2020-03-04] MEDS ORDERED: POTASSIUM CHLORIDE 20 MEQ TAB.PRT.SR PO ONE (19:00)
--- NOTE | 2020-03-04 19:17 | NUR ---
RN OPENING NOTES RECEIVED PATIENT IN BED. ALERT AND ORIENTED X 4. FULL CODE. ON 2L OXYGEN VIA NASAL CANNULA. TOLERATING WELL. NO SIGNS OF RESPIRATORY DISTRESS OR SHORTNESS OF BREATH. ON TELEMETRY MONITORING, V PACING AT 78 AT THIS TIME. PATIENT IS ABLE TO AMBULATE TO BATHROOM WITH MINIMAL ASSISTANCE. SKIN WARM, DRY AND INTACT. CARDIAC DIET NOTED. LEFT FOREARM #22 SALINE LOCKED. FLUSHED, PATENT. BED IS LOCKED IN LOWEST POSITION. CALL LIGHT WITHIN REACH. PT VERBALIZED UNDERSTANDING TO USE CALL LIGHT BEFORE GETTING OUT OF BED. WILL CONTINUE TO MONITOR.
[2020-03-05] VITALS: BP 110/67
--- NOTE | 2020-03-05 03:23 | NUR ---
FREQUENT BATHROOM TRIPS PATIENT USED THE CALL LIGHT TO ENSURE SAFETY EACH TIME. PATIENT IS ASSISTED TO THE BATHROOM AND ASSISTED BACK TO BED. TOTAL OF 9 VOIDS/BM AT THIS TIME. SMALL AMOUNTS. PATIENT VERBALIZED SOME BLOOD PRESENT SINCE THE FIRST BM, DIARRHEA. ASKED PT IF THAT WAS NORMAL HE SAID SOME BLOOD HAS BEEN PRESENT ALL DAY AND HAS BEEN GETTING BETTER. LAST BM AT 0210 WAS BROWN, SOFT, FORMED NO BLOOD PRESENT ACCORDING TO THE PT. WILL CONTINUE TO MONITOR.
[2020-03-05 04:00] VITALS: BP 125/62
--- NOTE | 2020-03-05 04:23 | NUR ---
PT LEADS CHANGED. PATIENT IS SLEEPING, CURRENTLY AT SINUS RHYTHM 70 WITH V PACING, NORMAL BASELINE FOR PT WILL CONTINUE TO MONITOR.
[2020-03-05 06:58] LABS: BASOPHILS % (AUTO) 0.5 % (0.0-2.0); EOSINOPHILS % (AUTO) 5.4 % (0.0-6.0); HEMATOCRIT 38 % (39-51); HEMOGLOBIN 12.6 g/dL (13.5-17.5); LYMPHOCYTES # (AUTO) 1.8 /CMM (0.8-4.8); LYMPHOCYTES % (AUTO) 27.5 % (20.0-44.0); MEAN CORPUSCULAR HGB CONC 33 g/dl (31.0-36.0); MEAN CORPUSCULAR VOLUME 91 fL (80-96); MONOCYTES # (AUTO) 0.5 /CMM (0.1-1.30); MONOCYTES % (AUTO) 8.4 % (2.0-12.0); NEUTROPHILS # (AUTO) 3.7 /CMM (1.8-8.9); NEUTROPHILS % (AUTO) 58.2 % (43.0-81.0); PLATELET COUNT (AUTO) 260 /CMM (150-450); RED BLOOD CELL COUNT(AUTO) 4.18 MIL/uL (4.5-6.0); WHITE BLOOD COUNT (AUTO) 6.4 K/uL (4.3-11.0)
--- NOTE | 2020-03-05 07:15 | NUR ---
PATIENT SUPINE IN BED, RESPIRATIONS EVEN AND UNLABORED, SKIN WARM AND FLUSHED, ALERT AND ORIENTED X4. VS STABLE. NASAL CANULA ON 2L/MINUTE AND TOLERATING WELLi. TELE MONITORS IN PLACE. IV SITE CLEAN, DRESSING INTACT, IV PATENT AND FLUSHED. BED LOCKED, LOWEST POSITION, CALL LIGHT WITHIN REACH, HOB ELEVATED, BED ALARM ON.
[2020-03-05 07:24] LABS: ALANINE AMINOTRANSFERASE 40 U/L (12-78); ALBUMIN 3.2 g/dL (3.4-5.0); ALKALINE PHOSPHATASE 83 U/L (46-116); ASPARTATE AMINOTRANSFERASE 31 U/L (15-37); BILIRUBIN,TOTAL 0.4 mg/dL (0.2-1.0); CALCIUM, SERUM 8.9 mg/dL (8.5-10.1); CARBON DIOXIDE 28 mmol/L (21-32); CHLORIDE 99 mmol/L (98-107); CREATININE 2.2 mg/dL (0.6-1.3); GLUCOSE 92 mg/dL (74-106); MAGNESIUM 1.8 mg/dL (1.8-2.4); PHOSPHORUS 4.5 mg/dL (2.5-4.9); POTASSIUM 3.2 mmol/L (3.5-5.1); SODIUM SERUM 139 mmol/L (136-145); TOTAL PROTEIN, SERUM 6.9 g/dL (6.4-8.2); UREA NITROGEN, BLOOD 40 mg/dL (7-18)
[2020-03-05] MEDS: LEVOTHYROXINE SODIUM 25 MCG TABLET PO SCH (07:38)
--- NOTE | 2020-03-05 07:52 | NUR ---
RN CLOSING NOTES PATIENT IS CURRENTLY RESTING IN BED. TELE MONITORING IN PLACE, PT MONITOR SHOWS AT SR 80. PT ON O2 AT 2L VIA NASAL CANNULA. TOLERATING WELL. NO SIGNS OF SOB OR RESP DISTRESS. BREATHING IS EVEN AND UNLABORED AT THIS TIME. IV SITE IS PATENT AND FLUSHED. BED IS LOCKED IN LOWEST POSITION. CALL LIGHT WITHIN REACH. ENDORSED TO ONCOMING NURSE FOR CONTINUATION OF CARE.
[2020-03-05 08:00] VITALS: BP 124/72
[2020-03-05] MEDS: MULTIVITAMINS,THERAGRAN 1 UDTAB TABLET PO SCH (08:52)
[2020-03-05] MEDS: ASPIRIN EC 81 MG TABLET.DR PO SCH (08:54)
[2020-03-05] MEDS: METOPROLOL SUCCINATE 25 MG TAB.SR.24H PO SCH (08:54)
[2020-03-05] MEDS: CHOLECALCIFEROL 1,000 UNIT TABLET (VIT D3) PO SCH (08:55)
[2020-03-05] MEDS: TAMSULOSIN 0.4 MG CAP.SR.24H PO SCH (08:58)
[2020-03-05] MEDS: AMLODIPINE BESYLATE 10 MG TABLET PO SCH (09:00)
[2020-03-05] MEDS ORDERED: POTASSIUM CHLORIDE 20 MEQ TAB.PRT.SR PO ONE (09:00)
[2020-03-05] MEDS: ALLOPURINOL 100 MG TABLET PO SCH (09:01)
[2020-03-05] MEDS: APIXABAN 2.5 MG TABLET PO SCH ×2 (09:01→17:07)
[2020-03-05] MEDS: FINASTERIDE (5 MG) 5 MG TABLET PO SCH (09:01)
[2020-03-05] MEDS: CALCIUM CARBONATE (1250) 500 MG TABLET PO SCH ×2 (09:02→17:05)
[2020-03-05] MEDS: DOCUSATE SODIUM LIQ 100 MG/10 ML UDC PO SCH ×2 (09:02→17:05)
[2020-03-05] MEDS: DORZOLAMIDE OPTH 2% 10 ML BOTTLE EACHEYE SCH ×2 (09:05→17:08)
--- NOTE | 2020-03-05 10:30 | NUR ---
SEEN AND EXAMINED BY DR. CH NO NEW ORDERS.
[2020-03-05 12:00] VITALS: BP 107/59
[2020-03-05 16:00] VITALS: BP 97/56
[2020-03-05] MEDS: PANTOPRAZOLE 40 MG TABLET.DR PO SCH (16:19)
--- NOTE | 2020-03-05 18:57 | NUR ---
PT ASLEEP IN BED. HOB ELEVATED. RESPIRATIONS EVEN AND UNLABORED. SKIN WARM. PT DENIES SOB AND PAIN THROUGHOUT THE SHIFT. NASAL CANULA ON 2L/MIN, TOLERATING WELL. MONITORED HEMORRHOID. MILD BLEEDING WITH STOOL. BED ALARM ON, BED LOW, LOCKED, CALL LIGHT WITHIN REACH, RAILS UP X2, ALL HOSPITAL POLICY SAFETY PRECAUTIONS IMPLEMENTED. WILL ENDORSE TO PM RN.
--- NOTE | 2020-03-05 19:16 | NUR ---
RN OPENING NOTES RECEIVED PT IN BED. FULL CODE NOTED. ALERT AND ORIENTED X 3-4. ON TELE MONITORING, PRESENTING SINUS RHYTHM HEART RATE 78 AT THIS TIME. ON 2L OXYGEN VIA NASAL CANNULA TOLERATING WELL. NO SIGNS OF SHORTNESS OF BREATH OR RESPIRATORY DISTRESS NOTED AT THIS TIME. BREATHING IS EVEN AND UNLABORED. HEAD OF BED IS RAISED 30 DEGREES. AMBULATORY WITH ASSIST, USES CANE. HEMORRHOIDS NOTED. PT HAS BLOOD ON UNDERWEAR FROM WIPING TOO MUCH. FREQUENT TRIPS TO THE TOILET. PT VERBALIZES VERY LITTLE URINE AT A TIME. REMINDED PT NOT TO STRAIN WHEN USING THE TOILET. LEFT FOREARM #22 SL, PATENT AND FLUSHED. CARDIAC DIET NOTED. BED IS LOCKED IN LOWEST POSITION WITH BED ALARM ON. WILL CONTINUE TO MONITOR.
[2020-03-05 20:00] VITALS: BP 103/57
[2020-03-06] VITALS: BP 122/53
--- NOTE | 2020-03-06 02:42 | NUR ---
FREQUENT TRIPS TO THE TOILET. PT ONLY URINATES A SMALL AMOUNT. BUT FEELS NEED TO GO. PATIENT HAD 2 BM. SMALL IN AMOUNT, BUT FORMED SOFT. WILL CONTINUE TO MONITOR.
[2020-03-06 04:00] VITALS: BP 95/45
--- NOTE | 2020-03-06 06:38 | NUR ---
RN CLOSING NOTES PT IS CURRENTLY RESTING IN BED. ON O2 AT 2L VIA NASAL CANNULA, TOLERATING WELL. BREATHING IS EVEN AND UNLABORED. NO SHORTNESS OF BREATH OR SIGNS OF RESPIRATORY DISTRESS NOTED AT THIS TIME. PATIENT REQUESTED FREQUENT TOILET TRIPS. PATIENT HAS SOME BLOOD DUE TO FREQUENT WIPING AND HEMORRHOIDS. EDUCATED IMPORTANCE OF WIPING GENTLY AND NOT TO STRAIN. SUPPOSITORY ADMINISTERED FOR HEMORRHOIDS PRN ORDERED. IV SITE LEFT FOREARM, FLUSHED PATENT SL. BED IS LOCKED IN LOWEST POSITION. CALL LIGHT WITHIN REACH. WILL ENDORSE TO ONCOMING NURSE FOR CONTINUATION OF CARE.. Addendum: 03/06/20 at 0642 by JENNIFER CORRALES RN PT DENIES PAIN AT THIS TIME Addendum: 03/06/20 at 0651 by JENNIFER CORRALES RN TELE MONITOR SHOWS NSR HR 77
[2020-03-06 08:00] VITALS: BP 101/64
[2020-03-06] MEDS: DORZOLAMIDE OPTH 2% 10 ML BOTTLE EACHEYE SCH ×2 (08:02→16:41)
[2020-03-06] MEDS: LEVOTHYROXINE SODIUM 25 MCG TABLET PO SCH (08:14)
[2020-03-06] MEDS: CALCIUM CARBONATE (1250) 500 MG TABLET PO SCH ×2 (08:14→16:37)
[2020-03-06] MEDS: METOPROLOL SUCCINATE 25 MG TAB.SR.24H PO SCH (08:15)
[2020-03-06] MEDS: APIXABAN 2.5 MG TABLET PO SCH ×2 (08:20→16:41)
[2020-03-06] MEDS: PANTOPRAZOLE 40 MG TABLET.DR PO SCH (08:21)
[2020-03-06] MEDS: ASPIRIN EC 81 MG TABLET.DR PO SCH (08:21)
[2020-03-06] MEDS: AMLODIPINE BESYLATE 10 MG TABLET PO SCH (08:21)
[2020-03-06] MEDS: MULTIVITAMINS,THERAGRAN 1 UDTAB TABLET PO SCH (08:21)
[2020-03-06] MEDS: ALLOPURINOL 100 MG TABLET PO SCH (08:21)
[2020-03-06] MEDS: FINASTERIDE (5 MG) 5 MG TABLET PO SCH (08:21)
[2020-03-06] MEDS: DOCUSATE SODIUM LIQ 100 MG/10 ML UDC PO SCH ×2 (08:22→16:37)
[2020-03-06] MEDS: CHOLECALCIFEROL 1,000 UNIT TABLET (VIT D3) PO SCH (08:23)
--- NOTE | 2020-03-06 09:30 | NUR ---
RN NOTES RECEIVED REPORT FROM ANITA SUTTON, NOT IN ANY SIGNS OF DISTRESS, SAFETY MEASURES IN PLACE, WILL CONTINUE TO MONITOR.
[2020-03-06] MEDS ORDERED: FUROSEMIDE 40 MG/4 ML VIAL IV ONE (10:30)
[2020-03-06] MEDS ORDERED: POTASSIUM CHLORIDE 20 MEQ TAB.PRT.SR PO ONE (10:30)
[2020-03-06] MEDS ORDERED: FUROSEMIDE 40 MG/4 ML VIAL IV SCH (10:30)
[2020-03-06 11:26] LABS: CALCIUM, SERUM 8.7 mg/dL (8.5-10.1); CARBON DIOXIDE 29 mmol/L (21-32); CHLORIDE 100 mmol/L (98-107); GLUCOSE 88 mg/dL (74-106); POTASSIUM 3.3 mmol/L (3.5-5.1); SODIUM SERUM 139 mmol/L (136-145); UREA NITROGEN, BLOOD 42 mg/dL (7-18)
[2020-03-06 12:00] VITALS: BP 106/61
[2020-03-06 12:30] LABS: APPEARANCE,URINE CLEAR (CLEAR); BILIRUBIN,URINE NEGATIVE (NEGATIVE); BLOOD, URINE NEGATIVE Ery/uL (NEGATIVE); COLOR,URINE YELLOW (YELLOW); KETONES,URINE NEGATIVE (NEGATIVE); LEUKOCYTE ESTERASE ,URINE NEGATIVE (NEGATIVE); NITRITE, URINE NEGATIVE (NEGATIVE); PROTEIN,URINE TRACE mg/dl (NEGATIVE); UGLUCOSE NEGATIVE (NEGATIVE); UROBILINOGEN,URINE 0.2 EU/dL (0.2)
[2020-03-06 12:48] LABS: BACTERIA,URINE None seen /HPF (None Seen); RBC,URINE NONE SEEN /HPF (0-2); SQUAMOUS EPITHELIAL CELL,UR Few /HPF (None Seen); WBC,URINE NONE SEEN /HPF (0-3)
[2020-03-06 16:00] VITALS: BP 102/52
--- NOTE | 2020-03-06 18:39 | NUR ---
RN NOTES PATIENT IN BED RESTING COMFORTABLY IN MODERATE HIGH BACK REST. A/O X4. ON RA, TOLERATING WELL. NO SIGNS OF DISTRESS NOTED THROUGHOUT THE SHIFT. IV ACCESS, PATENT AND INTACT. SAFETY MEASURES IN PLACE, BED IN LOWEST LOCKED POSITION WITH SIDE RAILS UP X2. CALL LIGHT WITHIN REACH. WILL ENDORSE TO WATER SYSTEMS ENGINEER NURSE FOR SARA.
--- NOTE | 2020-03-06 19:20 | NUR ---
RN OPENING NOTES: Rec'd pt in bed A&O4. On 2LPM NC tolerating well. No SOB or resp distress noted at this time. SR with occasional V pacing on tele monitor. Pacemaker on LCW noted. Pt ambulatory with cane and stand by assist. LFA #22 patent and flushed. Dressing c/d/i. Safety measures in place. Will continue to monitor.
[2020-03-06 20:00] VITALS: BP 110/56
[2020-03-06] MEDS ORDERED: TAMSULOSIN 0.4 MG CAP.SR.24H PO SCH (22:00)
[2020-03-07] VITALS: BP 101/52
[2020-03-07 04:00] VITALS: BP 97/48
[2020-03-07 06:38] LABS: BASOPHILS % (AUTO) 0.6 % (0.0-2.0); EOSINOPHILS % (AUTO) 6.8 % (0.0-6.0); HEMATOCRIT 35 % (39-51); HEMOGLOBIN 11.6 g/dL (13.5-17.5); LYMPHOCYTES # (AUTO) 1.3 /CMM (0.8-4.8); LYMPHOCYTES % (AUTO) 26.9 % (20.0-44.0); MEAN CORPUSCULAR HGB CONC 33 g/dl (31.0-36.0); MEAN CORPUSCULAR VOLUME 91 fL (80-96); MONOCYTES # (AUTO) 0.5 /CMM (0.1-1.30); MONOCYTES % (AUTO) 10.9 % (2.0-12.0); NEUTROPHILS # (AUTO) 2.7 /CMM (1.8-8.9); NEUTROPHILS % (AUTO) 54.8 % (43.0-81.0); PLATELET COUNT (AUTO) 211 /CMM (150-450); WHITE BLOOD COUNT (AUTO) 4.9 K/uL (4.3-11.0)
--- NOTE | 2020-03-07 06:52 | NUR ---
RN CLOSING NOTES: Pt remains stable throughout shift. Remains on 2LPM NC tolerating well. No SOB or resp distress noted throughout shift. No acute changes noted throughout shift. SR on tele monitor. LFA #22 patent and flushed w/ dressing c/d/i. All due meds given as ordered. Safety measures in place. Will endorse to AM nurse for SARA.
[2020-03-07 07:05] LABS: CARBON DIOXIDE 30 mmol/L (21-32); CHLORIDE 101 mmol/L (98-107); GLUCOSE 84 mg/dL (74-106); MAGNESIUM 2.1 mg/dL (1.8-2.4); PHOSPHORUS 3.6 mg/dL (2.5-4.9); POTASSIUM 3.6 mmol/L (3.5-5.1); SODIUM SERUM 139 mmol/L (136-145); UREA NITROGEN, BLOOD 41 mg/dL (7-18)
--- NOTE | 2020-03-07 07:15 | NUR ---
PT LYING IN BED, HOB ELEVATED. RESPIRATIONS EVEN AND UNLABORED. SKIN WARM AND FLUSHED. A/O X4. 2L/MIN NASAL CANULA RUNNING, TOLERATING WELL. VS STABLE. IV PATENT, FLUSHED WELL, DRESSING DRY AND INTACT, NO REDNESS OR SWELLING. CONTINUING TO MONITOR VS AND WILL FOLLOW UP WITH DC PLANNING. HOB ELEVATED, BED LOW, LOCKED, RAILS UP X2, CALL LIGHT WITHIN REACH, ALL HOSPITAL SAFETY PRECAUTIONS IMPLEMENTED.
[2020-03-07 08:00] VITALS: BP 130/70
[2020-03-07] MEDS: PANTOPRAZOLE 40 MG TABLET.DR PO SCH (08:15)
[2020-03-07] MEDS: LEVOTHYROXINE SODIUM 25 MCG TABLET PO SCH (08:15)
[2020-03-07] MEDS: CHOLECALCIFEROL 1,000 UNIT TABLET (VIT D3) PO SCH (09:16)
[2020-03-07] MEDS: FINASTERIDE (5 MG) 5 MG TABLET PO SCH (09:16)
[2020-03-07] MEDS: METOPROLOL SUCCINATE 25 MG TAB.SR.24H PO SCH (09:16)
[2020-03-07] MEDS: ASPIRIN EC 81 MG TABLET.DR PO SCH (09:17)
[2020-03-07] MEDS: CALCIUM CARBONATE (1250) 500 MG TABLET PO SCH ×2 (09:17→16:30)
[2020-03-07] MEDS: ALLOPURINOL 100 MG TABLET PO SCH (09:17)
[2020-03-07] MEDS: MULTIVITAMINS,THERAGRAN 1 UDTAB TABLET PO SCH (09:17)
[2020-03-07] MEDS: AMLODIPINE BESYLATE 10 MG TABLET PO SCH (09:17)
[2020-03-07] MEDS: DOCUSATE SODIUM LIQ 100 MG/10 ML UDC PO SCH ×2 (09:18→16:30)
[2020-03-07] MEDS: APIXABAN 2.5 MG TABLET PO SCH ×2 (09:18→16:32)
[2020-03-07] MEDS: DORZOLAMIDE OPTH 2% 10 ML BOTTLE EACHEYE SCH ×2 (09:19→16:35)
[2020-03-07 12:00] VITALS: BP 124/68
--- NOTE | 2020-03-07 12:54 | NUR ---
SEEN BY DR BACK WITH ORDERS FOR DISCHARGE. MED RECON DONE.
[2020-03-07] MEDS ORDERED: FINA5TAB3 PO (16:45)
[2020-03-07] MEDS ORDERED: PANT40TA2 PO (16:45)
[2020-03-07] MEDS ORDERED: TAMS-12 PO (16:45)
[2020-03-07] MEDS ORDERED: DOCU50LI PO (16:45)
[2020-03-07] MEDS ORDERED: HYDR25SU13 RC (16:45)
--- NOTE | 2020-03-07 17:09 | NUR ---
REPORT GIVEN TO [facility]
--- NOTE | 2020-03-07 17:19 | NUR ---
PATIENT WAS PICKED UP BY AMBULANCE 2 ACCOUNT SERVICES ASSOCIATE FROM [facility] IN STABLE CONDITION.
== END 2020-03-07 17:21 | disposition short-term general hospital (02) | DRG 291 ==
LOC: ER 02:05 → ICU 04:24 → TELE1 03-03 17:38
PROVIDERS: ADMIT Nurse Practitioner Acute Care; ATTEND Nurse Practitioner Acute Care
PROC: 5A09357 Assistance with Respiratory Ventilation, Less than 24 Consecutive Hours, Continuous Positive Airway Pressure (ICD-10-PCS; principal; 2020-03-02)
DX: I13.0 Hypertensive heart and chronic kidney disease with heart failure and stage 1 through stage 4 chronic kidney disease, or unspecified chronic kidney disease (principal); N17.0 Acute kidney failure with tubular necrosis; J96.01 Acute respiratory failure with hypoxia; I50.33 Acute on chronic diastolic (congestive) heart failure; E87.2 Acidosis; K92.2 Gastrointestinal hemorrhage, unspecified; Z95.0 Presence of cardiac pacemaker; D63.8 Anemia in other chronic diseases classified elsewhere; N18.3 Chronic kidney disease, stage 3 (moderate); I42.9 Cardiomyopathy, unspecified; M10.9 Gout, unspecified; Z87.891 Personal history of nicotine dependence; Z79.01 Long term (current) use of anticoagulants; K64.9 Unspecified hemorrhoids; E03.9 Hypothyroidism, unspecified; I48.0 Paroxysmal atrial fibrillation; R74.0 Nonspecific elevation of levels of transaminase and lactic acid dehydrogenase [LDH]; G47.33 Obstructive sleep apnea (adult) (pediatric); E11.22 Type 2 diabetes mellitus with diabetic chronic kidney disease; E66.9 Obesity, unspecified; Z68.29 Body mass index [BMI] 29.0-29.9, adult; E78.5 Hyperlipidemia, unspecified; E86.9 Volume depletion, unspecified; K76.9 Liver disease, unspecified; Z91.19 Patient's noncompliance with other medical treatment and regimen; N28.1 Cyst of kidney, acquired; N40.0 Benign prostatic hyperplasia without lower urinary tract symptoms
CPT/HCPCS: 36415; 36600; 71045-TC; 80048-TC; 80053-TC; 80061-TC; 80076-TC; 81000-TC; 82803-TC; 83605-TC; 83735-TC; 83880; 84100-TC; 84443-TC; 84484-TC; 85025-TC; 85730-TC; 87040-TC; 87081-TC; 93307-TC; 94799-TC; 97116-TC; 97530-TC; A6253; C9113; C9803-CS; G0378; J0696; J1940; J7050; J7060

== ENCOUNTER 2020-05-04 21:01 | Inpatient (IN) | payer MEDICARE, BC ==
[~2020-05-04] VITALS: Ht 177.8 cm; Wt 93.4 kg
[~2020-05-04 21:01] MED LIST changes: +ALFU10TA10 PO; +AMLO-213 PO; -AMLO10TA7 PO; +APIX2.5T PO; -CHLO25TA2 PO; +DOCU50LI PO; -DUTA0.5C PO; +FINA5TAB3 PO; -FURO10VI IV; +HYDR25SU13 RC; +LEVO25TA9 PO; +PANT40TA2 PO; -VALS320T2 PO
--- NOTE | 2020-05-04 21:02 | NUR ---
PT SHAYY FROM HOME C/O SOB X2 WEEKS, WORSE TODAY. PER RA, O2 SAT 82% ON ROOM AIR ON SCENE. REC'D 4 SPRAY OF NITRO EN ROUTE TO [facility]. ARRIVED TO [facility] NONREBREATHER 15L O2 SAT 98%. PT AAOX4. PT STATES HE IS MORE COMFORTABLE IN TRIPOD POSITION. PT PLACED ON CONTINUOUS TWITCHELL OPERATOR AND PULSE OX. WILL CONTINUE TO MONITOR
--- NOTE | 2020-05-04 21:10 | NUR ---
BLOOD COLLECTED AND SENT TO LAB
[2020-05-04 21:16] LABS: BASOPHILS % (AUTO) 0.4 % (0.0-2.0); EOSINOPHILS % (AUTO) 0.7 % (0.0-6.0); HEMATOCRIT 35 % (39-51); HEMOGLOBIN 11.4 g/dL (13.5-17.5); LYMPHOCYTES # (AUTO) 0.9 /CMM (0.8-4.8); LYMPHOCYTES % (AUTO) 14.2 % (20.0-44.0); MEAN CORPUSCULAR HGB CONC 33 g/dl (31.0-36.0); MEAN CORPUSCULAR VOLUME 92 fL (80-96); MONOCYTES # (AUTO) 0.4 /CMM (0.1-1.30); MONOCYTES % (AUTO) 6.4 % (2.0-12.0); NEUTROPHILS # (AUTO) 4.8 /CMM (1.8-8.9); NEUTROPHILS % (AUTO) 78.3 % (43.0-81.0); PLATELET COUNT (AUTO) 222 /CMM (150-450); RED BLOOD CELL COUNT(AUTO) 3.81 MIL/uL (4.5-6.0); WHITE BLOOD COUNT (AUTO) 6.2 K/uL (4.3-11.0)
--- NOTE | 2020-05-04 21:16 | NUR ---
RT AT BEDSIDE Addendum: 05/04/20 at 2128 by JDEFELIPE BIPAP SETTINGS: 05/16, 20, 50%
[2020-05-04 21:23] LABS: CALCIUM, SERUM 8.3 mg/dL (8.5-10.1); CARBON DIOXIDE 25 mmol/L (21-32); CHLORIDE 108 mmol/L (98-107); CREATININE 2.1 mg/dL (0.6-1.3); GLUCOSE 134 mg/dL (74-106); POTASSIUM 3.6 mmol/L (3.5-5.1); SODIUM SERUM 146 mmol/L (136-145); UREA NITROGEN, BLOOD 43 mg/dL (7-18)
--- NOTE | 2020-05-04 21:30 | NUR ---
RADIOLOGY AT BEDSIDE FOR CXR
--- NOTE | 2020-05-04 21:35 | NUR ---
YESSI (SON) CONTACT INFORMATION: [phone]
[2020-05-04 21:36] LABS: ALANINE AMINOTRANSFERASE 135 U/L (12-78); ALBUMIN 3.3 g/dL (3.4-5.0); ALKALINE PHOSPHATASE 123 U/L (46-116); ASPARTATE AMINOTRANSFERASE 102 U/L (15-37); B-TYPE NATRIURETIC PEPTIDE 13526 PG/ML (0-125); BILIRUBIN,DIRECT 0.1 mg/dL (0.0-0.2); BILIRUBIN,TOTAL 0.3 mg/dL (0.2-1.0); TOTAL PROTEIN, SERUM 6.9 g/dL (6.4-8.2)
--- NOTE | 2020-05-04 21:36 | NUR ---
COVID SWAB COLLECTED. CALLED LAB FOR LEATHER PRODUCTION MACHINE OPERATOR
--- NOTE | 2020-05-04 21:38 | NUR ---
RT rt called for resp distress. pt found sitting semi fowlers on bed on nrb @15L. saturation 95%. lung sounds course. pt placed on bipap, large full face mask, settings 05/16 rate 20 50%. pt resting comfortably with mask on. tolerating well. abg in 1 hr.
--- NOTE | 2020-05-04 21:50 | NUR ---
CALLED [facility]. MEDICAL GENETICIST WAS PAGED.
[2020-05-04] MEDS ORDERED: POTASSIUM CL. PREMIX PERIPHER. 50 ML ONE ×2 (21:56→23:03)
[2020-05-04] MEDS ORDERED: FUROSEMIDE 40 MG/4 ML VIAL ONE (21:56)
[2020-05-04] MEDS ORDERED: FUROSEMIDE 40 MG/4 ML VIAL IV ONE (22:00)
[2020-05-04] MEDS: POTASSIUM CL. PREMIX PERIPHER. 50 ML IV SCH ×2 (22:18→23:00)
[2020-05-04] MEDS ORDERED: ZOLPIDEM TARTRATE 5 MG TABLET PO PRN (22:30)
[2020-05-04] MEDS ORDERED: MAGNESIUM HYDROXIDE 30 ML UDC PO PRN (22:30)
[2020-05-04] MEDS ORDERED: ACETAMINOPHEN 325 MG TABLET PO PRN (22:30)
[2020-05-04] MEDS ORDERED: MAG HYDROX/AL HYDROX/SIMETH 30 ML UDC PO PRN (22:30)
[2020-05-04] MEDS ORDERED: HYDROCORTISONE ACETATE 25 MG/SUPP.RECT SUPP.RECT RC PRN (22:30)
[2020-05-04] MEDS ORDERED: ONDANSETRON HCL/PF 4 MG/2 ML VIAL IVP PRN (22:30)
[2020-05-04] MEDS ORDERED: Z GUARD REMEDY 2 OZ OINT TP PRN (22:30)
[2020-05-04] MEDS ORDERED: HYDROCODONE/APAP 5/325MG TABLET PO PRN (22:30)
[2020-05-04 22:46] LABS: ABG OXYGEN SATURATION 97.6 % (92.0-98.5); ABG PCO2 42.6 mmHg (35.0-45.0); ABG PH 7.388 (7.350-7.450); ABG PO2 117.8 mmHg (75.0-100.0); AaDO2 190.8 mmHg; COHb 0.3 % (0.5-1.5); MetHb 0.6 % (0.0-1.5); O2Hb 96.7 % (94.0-97.0); SITE, ABG Right Radial
--- NOTE | 2020-05-04 22:55 | NUR ---
RT AT BEDSIDE TO REMOVE PATIENT OFF BIPAP. PT O2 SAT 90% ROOM AIR, PLACED ON 3L NC. PT TOLERATING WELL, O2 SAT 96%
--- NOTE | 2020-05-05 00:04 | NUR ---
REPORT GIVEN TO ANITA JUAREZ FOR SARA
[2020-05-05 00:20] VITALS: BP 141/81
--- NOTE | 2020-05-05 00:20 | NUR ---
RN TD ADMISSION NOTES, RECEIVED 85 YO MALE ADMITTING FROM ER VIA STRETCHER ACCOMPANIED BY 2 NURSES, PATIENT AWAKE ALERT AND ORIENTED X4 PATIENT, ABLE TO VERBALIZED NEEDS AN CONCERNS, BREATHING EVEN AND UNLABORED, SOB ON EXERTION NOTED, PATIENT OFF FROM BIPAP FROM ER, ON O2 3LPM VIA NC WITH O2 SAT LEVEL 95% AT THIS TIME, UNDER MEDICAL SERVICES OF ANTONIA DAVILA PAPER PRODUCTS MACHINE OPERATOR, WITH ADMITTING DX ACUTE HYPOXIC RESPIRATORY FAILURE AND CHF EXACERBATION, BOTH PATENT INTACT, AFEBRILE, SKIN INTACT, NOTED PITTING EDEMA ON BILATERAL FEET +2 IN RIGHT KP AND +1 IN LEFT FOOT, BED LOCKED AND LOWEST POSITION, CALL LIGHT WITH IN REACH, ALL SAFETY MEASURES IN PLACE, WILL CONTINUE TO MONITOR CLOSELY.
--- NOTE | 2020-05-05 00:25 | NUR ---
PT TRANSFERRED PER ACLS PROTOCOL
[2020-05-05] MEDS ORDERED: CEFTRIAXONE 1 G VIAL ONE (00:57)
[2020-05-05] MEDS: CEFTRIAXONE 1 G in IV D5W 50 ML IV SCH ×2 (01:05→20:21)
[2020-05-05] MEDS ORDERED: FUROSEMIDE 40 MG/4 ML VIAL IV ONE (02:00)
--- NOTE | 2020-05-05 02:20 | NUR ---
RN NOTES, LASIX 40MG IPV ONCE TO GIVE IN AM ACCORDING WITH ANTONIA DAVILA GRAPE GROWER.
[2020-05-05 04:00] VITALS: BP 120/53
--- NOTE | 2020-05-05 05:00 | NUR ---
RN TD NOTES, PATIENT CONSTANTLY GETTING UP TO URINATE AND SITTING ON THE EDGE OF THE BED AND CROW, REFUSING TO USE THE DVT PUMPS, DO TO CONSTANTLY MOVEMENTS, EDUCATION PROVIDED REGARDING THE USE OF DVT PUMPS PATIENT STILL REFUSED.
[2020-05-05 05:51] LABS: BASOPHILS % (AUTO) 0.5 % (0.0-2.0); EOSINOPHILS % (AUTO) 0.8 % (0.0-6.0); HEMATOCRIT 34 % (39-51); HEMOGLOBIN 11.2 g/dL (13.5-17.5); LYMPHOCYTES # (AUTO) 1.2 /CMM (0.8-4.8); LYMPHOCYTES % (AUTO) 21.9 % (20.0-44.0); MEAN CORPUSCULAR HGB CONC 33 g/dl (31.0-36.0); MEAN CORPUSCULAR VOLUME 91 fL (80-96); MONOCYTES # (AUTO) 0.5 /CMM (0.1-1.30); MONOCYTES % (AUTO) 8.6 % (2.0-12.0); NEUTROPHILS # (AUTO) 3.6 /CMM (1.8-8.9); NEUTROPHILS % (AUTO) 68.2 % (43.0-81.0); PLATELET COUNT (AUTO) 194 /CMM (150-450); RED BLOOD CELL COUNT(AUTO) 3.75 MIL/uL (4.5-6.0); WHITE BLOOD COUNT (AUTO) 5.2 K/uL (4.3-11.0)
[2020-05-05 06:20] LABS: ALANINE AMINOTRANSFERASE 116 U/L (12-78); ALBUMIN 3.2 g/dL (3.4-5.0); ALKALINE PHOSPHATASE 108 U/L (46-116); ASPARTATE AMINOTRANSFERASE 59 U/L (15-37); BILIRUBIN,TOTAL 0.4 mg/dL (0.2-1.0); CALCIUM, SERUM 8.5 mg/dL (8.5-10.1); CARBON DIOXIDE 26 mmol/L (21-32); CHLORIDE 109 mmol/L (98-107); GLUCOSE 93 mg/dL (74-106); MAGNESIUM 1.9 mg/dL (1.8-2.4); PHOSPHORUS 3.8 mg/dL (2.5-4.9); POTASSIUM 3.4 mmol/L (3.5-5.1); SODIUM SERUM 146 mmol/L (136-145); TOTAL PROTEIN, SERUM 6.4 g/dL (6.4-8.2); UREA NITROGEN, BLOOD 40 mg/dL (7-18)
[2020-05-05 06:21] LABS: CHOLESTEROL 136 mg/dL (<200); HDL CHOLESTEROL 67 mg/dL (40-60); LDL 61 mg/dL (0-99); TRIGLYCERIDES 34 mg/dL (30-150)
--- NOTE | 2020-05-05 06:58 | NUR ---
RN TD CLOSING NOTES, PATIENT ASLEEP AT THIS TIME, BUT AROUSES TO VERBAL STIMULI, BREATHING EVEN AND UNLABORED, GETS SOB ON EXERTION, ON O2 3LPM VIA NC WITH O2 SAT LEVEL 95% THE REST OF THE NIGHT, WITH GOOD OUTPUT 1205ML, SOHA GAVE IT AT LAST NIGHT, WILL HAVE CARDIOLOGY, NEPHRO, AND SHOCK ABSORBER INSTALLER CONSULT TODAY, BED LOCKED AND LOWEST POSITION, CALL LIGHT WITH IN REACH, ALL SAFETY MEASURES IN PLACE, WILL ENDORSE CONTINUITY OF CARE TO ONCOMING NURSE.
--- NOTE | 2020-05-05 07:30 | NUR ---
RN OPENING NOTES RECEIVED PATIENT SITTING IN CHAIR, RESTING AND WATCHING TELEVISION. NO S/S OF DISTRESS AT THIS TIME. RESPIRATIONS EVEN, EQUAL BILATERALLY. CONTINUES ON O2 THERAPY AT 3LPM. SKIN INTACT. R HAND 18G IV AND L WRIST 18G IV, INTACT AND PATENT. NO S/S OF INFECTION AT THIS TIME. WILL CONTINUE TO MONITOR.
[2020-05-05] MEDS: PANTOPRAZOLE 40 MG TABLET.DR PO SCH (07:45)
[2020-05-05] MEDS: LEVOTHYROXINE SODIUM 25 MCG TABLET PO SCH (07:45)
[2020-05-05 08:00] VITALS: BP 138/73
[2020-05-05] MEDS: DOCUSATE SODIUM LIQ 100 MG/10 ML UDC PO SCH ×2 (08:22→16:23)
[2020-05-05] MEDS: RAMIPRIL 5 MG CAPSULE PO SCH (08:23)
[2020-05-05] MEDS: DORZOLAMIDE OPTH 2% 10 ML BOTTLE EACHEYE SCH ×2 (08:23→20:22)
[2020-05-05] MEDS: ALLOPURINOL 100 MG TABLET PO SCH (08:24)
[2020-05-05] MEDS: TAMSULOSIN 0.4 MG CAP.SR.24H PO SCH (08:24)
[2020-05-05] MEDS: METOPROLOL SUCCINATE 50 MG TAB.SR.24H PO SCH (08:24)
[2020-05-05] MEDS: ASPIRIN EC 81 MG TABLET.DR PO SCH (08:24)
[2020-05-05] MEDS: CALCIUM CARBONATE (1250) 500 MG TABLET PO SCH ×2 (08:24→16:23)
[2020-05-05] MEDS: MULTIVITAMINS,THERAGRAN 1 UDTAB TABLET PO SCH (08:24)
[2020-05-05] MEDS: ATORVASTATIN 10 MG TABLET PO SCH (08:24)
[2020-05-05] MEDS: FINASTERIDE (5 MG) 5 MG TABLET PO SCH (08:25)
[2020-05-05] MEDS: CHOLECALCIFEROL 1,000 UNIT TABLET (VIT D3) PO SCH (08:25)
[2020-05-05] MEDS: AMLODIPINE BESYLATE 10 MG TABLET PO SCH (08:25)
[2020-05-05] MEDS: APIXABAN 2.5 MG TABLET PO SCH ×2 (08:26→20:23)
[2020-05-05 08:57] LABS: ABG BASE EXCESS -0.6 mmol/L; ABG OXYGEN SATURATION 97.7 % (92.0-98.5); ABG PCO2 40.1 mmHg (35.0-45.0); ABG PH 7.398 (7.350-7.450); ABG PO2 103.3 mmHg (75.0-100.0); COHb 1.1 % (0.5-1.5); MetHb 0.3 % (0.0-1.5); O2Hb 96.3 % (94.0-97.0); SITE, ABG Right Radial
[2020-05-05] MEDS ORDERED: Medication Not On Formulary EA (Alfuzosin Hcl 10 MG) PO SCH (09:00)
[2020-05-05] MEDS ORDERED: UBIDECARENONE 30 MG PO SCH (09:00)
[2020-05-05] MEDS: FUROSEMIDE 100 MG/10 ML VIAL IV SCH ×3 (09:48→16:23)
[2020-05-05] MEDS ORDERED: POTASSIUM CHLORIDE 20 MEQ POWDER PACKET GT SCH (11:00)
[2020-05-05 12:00] VITALS: BP 110/71
[2020-05-05 16:00] VITALS: BP 106/49
--- NOTE | 2020-05-05 16:48 | NUR ---
PATIENT REQUESTED SANDWICH BEFORE DINNER. CALLED DIETARY, PICKED UP SANDWICH AND GAVE TO PATIENT.
--- NOTE | 2020-05-05 18:55 | NUR ---
RN CLOSING NOTE PATIENT CURRENT IN BED, RESTING. A/OX4, BREATHING EVEN AND UNLABORED. OXY SATURATION 97% WITH 3L OXYGEN THERAPY. R HAND 18G IV & L WRIST 18G IV INTACT WITH NO S/S OF INFECTION. AT THIS TIME BED LOCKED AND LOWEST POSITION, CALL LIGHT WITH IN REACH, ALL SAFETY MEASURES IN PLACE, WILL ENDORSE CONTINUITY OF CARE TO ONCOMING NURSE.
--- NOTE | 2020-05-05 19:05 | NUR ---
RN NOTE RECEIVED PT IN BED IN SUPINE POSITION. PT IS ALERT AND ORIENTED X 4. TECH PRESENT FOR ECHO CARDIOGRAM. PT IS ON 3L OF O2 VIA NC. RESPIRATIONS EVEN AND UNLABORED. PT DENIES PAIN OR DISCOMFORT. IV LINES FLUSHED AND PATENT. URINAL AT BEDSIDE REACHABLE. PLAN OF CARE DISCUSSED AND PT VERBALIZED UNDERSTANDING. REMINDED PT NOT TO AMBULATE OR GET OUT OF BED WITHOUT CALLING FOR ASSISTANCE, CALL LIGHT WITHIN REACH, SAFETY MEASURES IN PLACE, BED ALARM ON, BED LOCKED AND IN LOWEST POSITION, SIDE RAILS UP X 2, WILL MONITOR PATIENT. Addendum: 05/05/20 at 1931 by NINO LANZA RN PT REFUSED TO HAVE SCD PUMPS PLACED DESPITE EXPLANATION OF RISKS VS ADVANTAGES.
--- NOTE | 2020-05-05 19:52 | NUR ---
RN NOTE ASSISTED PT WITH USE OF URINAL. ALSO ASSISTED PT AMBULATING FROM BED TO CHAIR USING CANE. PT ABLE TO TOLERATE ADLS.
[2020-05-05 20:00] VITALS: BP 115/59
--- NOTE | 2020-05-05 22:00 | NUR ---
ANITA NOTE PT ASSISTED FROM CHAIR BACK TO BED USING CANE AND WITH 1 PERSON ASSIST. Addendum: 05/05/20 at 2239 by NINO LANZA RN PT HAS INDEPENDENT BED MOBILITY.
[2020-05-06] VITALS: BP 115/52
--- NOTE | 2020-05-06 02:41 | NUR ---
RN NOTE REPORT GIVEN TO LORRAINE HOWARD FOR SARA.
--- NOTE | 2020-05-06 02:42 | NUR ---
RN NOTE RECEIVED PT IN BED, PT IS A/A/O X4, PT IS ON 3L VIA NC SATING 96%. PT HAS UNLABORED BREATHING. SAFETY MEASURES IN PLACE.
[2020-05-06 04:00] VITALS: BP 137/59
[2020-05-06 06:06] LABS: BASOPHILS % (AUTO) 0.5 % (0.0-2.0); HEMATOCRIT 35 % (39-51); HEMOGLOBIN 11.6 g/dL (13.5-17.5); LYMPHOCYTES # (AUTO) 1.3 /CMM (0.8-4.8); MEAN CORPUSCULAR HGB CONC 33 g/dl (31.0-36.0); MEAN CORPUSCULAR VOLUME 91 fL (80-96); MONOCYTES # (AUTO) 0.5 /CMM (0.1-1.30); MONOCYTES % (AUTO) 9.5 % (2.0-12.0); NEUTROPHILS # (AUTO) 3.1 /CMM (1.8-8.9); PLATELET COUNT (AUTO) 197 /CMM (150-450); RED BLOOD CELL COUNT(AUTO) 3.88 MIL/uL (4.5-6.0); WHITE BLOOD COUNT (AUTO) 5.1 K/uL (4.3-11.0)
[2020-05-06 06:33] LABS: ALANINE AMINOTRANSFERASE 88 U/L (12-78); ALBUMIN 3.2 g/dL (3.4-5.0); ALKALINE PHOSPHATASE 100 U/L (46-116); ASPARTATE AMINOTRANSFERASE 31 U/L (15-37); BILIRUBIN,TOTAL 0.4 mg/dL (0.2-1.0); CALCIUM, SERUM 8.6 mg/dL (8.5-10.1); CARBON DIOXIDE 32 mmol/L (21-32); CHLORIDE 107 mmol/L (98-107); GLUCOSE 89 mg/dL (74-106); MAGNESIUM 1.8 mg/dL (1.8-2.4); PHOSPHORUS 4.2 mg/dL (2.5-4.9); POTASSIUM 3.4 mmol/L (3.5-5.1); SODIUM SERUM 145 mmol/L (136-145); TOTAL PROTEIN, SERUM 6.4 g/dL (6.4-8.2); UREA NITROGEN, BLOOD 41 mg/dL (7-18)
--- NOTE | 2020-05-06 07:25 | NUR ---
RN NOTE PT REMAINED STABLE DURING MY SHIFT, NO ACUTE CHANGES REPORT GIVEN TO INCOMING SHIFT FOR SARA.
--- NOTE | 2020-05-06 07:30 | NUR ---
RN OPENING NOTES RECEIVED PATIENT SITTING IN CHAIR, RESTING AND WATCHING TELEVISION. NO S/S OF DISTRESS AT THIS TIME. RESPIRATIONS EVEN AND EASY WITH NO SOB. CONTINUES ON O2 THERAPY AT 3LPM. SKIN INTACT. R HAND 18G IV AND L WRIST 18G IV, INTACT AND PATENT. NO S/S OF INFECTION AT THIS TIME. WILL CONTINUE TO MONITOR.
[2020-05-06 08:00] VITALS: BP 141/67
[2020-05-06] MEDS: DOCUSATE SODIUM LIQ 100 MG/10 ML UDC PO SCH (09:43)
[2020-05-06] MEDS: CHOLECALCIFEROL 1,000 UNIT TABLET (VIT D3) PO SCH (09:43)
[2020-05-06] MEDS: MULTIVITAMINS,THERAGRAN 1 UDTAB TABLET PO SCH (09:44)
[2020-05-06] MEDS: METOPROLOL SUCCINATE 50 MG TAB.SR.24H PO SCH (09:44)
[2020-05-06] MEDS: POTASSIUM CHLORIDE 20 MEQ TAB.PRT.SR PO SCH ×3 (09:44→11:52)
[2020-05-06] MEDS: ATORVASTATIN 10 MG TABLET PO SCH (09:44)
[2020-05-06] MEDS: AMLODIPINE BESYLATE 10 MG TABLET PO SCH (09:44)
[2020-05-06] MEDS: TAMSULOSIN 0.4 MG CAP.SR.24H PO SCH (09:45)
[2020-05-06] MEDS: APIXABAN 2.5 MG TABLET PO SCH (09:45)
[2020-05-06] MEDS: ALLOPURINOL 100 MG TABLET PO SCH (09:46)
[2020-05-06] MEDS: CALCIUM CARBONATE (1250) 500 MG TABLET PO SCH (09:46)
[2020-05-06] MEDS: LEVOTHYROXINE SODIUM 25 MCG TABLET PO SCH (09:51)
[2020-05-06] MEDS: DORZOLAMIDE OPTH 2% 10 ML BOTTLE EACHEYE SCH (09:51)
[2020-05-06 09:52] VITALS: BP 141/67
[2020-05-06] MEDS: RAMIPRIL 5 MG CAPSULE PO SCH (09:52)
[2020-05-06] MEDS: FINASTERIDE (5 MG) 5 MG TABLET PO SCH (09:53)
[2020-05-06] MEDS: FUROSEMIDE 100 MG/10 ML VIAL IV SCH ×2 (10:19→12:03)
[2020-05-06] MEDS: PANTOPRAZOLE 40 MG TABLET.DR PO SCH (10:19)
[2020-05-06] MEDS: ASPIRIN EC 81 MG TABLET.DR PO SCH (10:20)
--- NOTE | 2020-05-06 12:50 | NUR ---
PHOTONICS TECHNICIAN NOTE PT WHEELED TO HOSPITAL LOBBY FOR DISCHARGE HOME. PT PICKED UP BY SON VIA PRIVATE TRANSPORTATION. PT IN STABLE CONDITION.
== END 2020-05-06 13:25 | disposition home health service (06) | DRG 291 ==
LOC: ER 21:02 → TELE1 23:51 → TELE-TD 05-05 00:28 → TELE1 05-05 10:48 → MEDSG1 05-06 09:10
PROVIDERS: ADMIT Internal Medicine Nephrology; ATTEND Internal Medicine Nephrology
PROC: 5A09357 Assistance with Respiratory Ventilation, Less than 24 Consecutive Hours, Continuous Positive Airway Pressure (ICD-10-PCS; principal; 2020-05-04)
DX: I13.0 Hypertensive heart and chronic kidney disease with heart failure and stage 1 through stage 4 chronic kidney disease, or unspecified chronic kidney disease (principal); I50.43 Acute on chronic combined systolic (congestive) and diastolic (congestive) heart failure; J96.01 Acute respiratory failure with hypoxia; N17.0 Acute kidney failure with tubular necrosis; J15.9 Unspecified bacterial pneumonia; J98.11 Atelectasis; I42.9 Cardiomyopathy, unspecified; E11.22 Type 2 diabetes mellitus with diabetic chronic kidney disease; I48.0 Paroxysmal atrial fibrillation; N18.9 Chronic kidney disease, unspecified; I45.10 Unspecified right bundle-branch block; E78.5 Hyperlipidemia, unspecified; E03.9 Hypothyroidism, unspecified; D63.8 Anemia in other chronic diseases classified elsewhere; N40.0 Benign prostatic hyperplasia without lower urinary tract symptoms; M10.9 Gout, unspecified; Z20.828 Contact with and (suspected) exposure to other viral communicable diseases; Z79.01 Long term (current) use of anticoagulants; Z95.0 Presence of cardiac pacemaker; Z87.891 Personal history of nicotine dependence; Z79.899 Other long term (current) drug therapy; Z79.890 Hormone replacement therapy; K76.9 Liver disease, unspecified
CPT/HCPCS: 36415; 36600; 71045-TC; 80048-TC; 80053-TC; 80061-TC; 80076-TC; 82803-TC; 82962-TC; 83605-TC; 83735-TC; 83880; 84100-TC; 84484-TC; 85025-TC; 87081-TC; 93307-TC; C9803; G0378; J0696; J1940; J3480; J7030; J7040; J7050; J7060

== ENCOUNTER 2021-10-26 23:14 | Inpatient (IN) | payer MEDICARE, BC ==
[~2021-10-26] VITALS: Ht 177.8 cm; Wt 76.7 kg
--- NOTE | 2021-10-26 23:29 | NUR ---
SHAYY 102 FROM HOME C/O SOB, SATTING 90% R/A UPON TRIAGE. N/C 4LPM @ 96%. PT A/OX4; WITH FORGETFULNESS WNL. CONNECTED PT TO POX AND MONITOR. SAFETY MEASURES IN PLACE.
--- NOTE | 2021-10-26 23:34 | NUR ---
COVID TEST COLLECTED AND SENT TO LAB
--- NOTE | 2021-10-26 23:35 | NUR ---
BLOOD COLLECTED AND SENT TO LAB
[2021-10-26 23:48] LABS: BASOPHILS % (AUTO) 0.8 % (0.0-2.0); EOSINOPHILS % (AUTO) 2.1 % (0.0-6.0); HEMATOCRIT 35 % (39-51); HEMOGLOBIN 11.1 g/dL (13.5-17.5); LYMPHOCYTES # (AUTO) 0.7 K/uL (0.8-4.8); LYMPHOCYTES % (AUTO) 14.7 % (20.0-44.0); MEAN CORPUSCULAR HGB CONC 32 g/dl (31.0-36.0); MEAN CORPUSCULAR VOLUME 94 fL (80-96); MONOCYTES # (AUTO) 0.4 K/uL (0.1-1.30); MONOCYTES % (AUTO) 8.3 % (2.0-12.0); NEUTROPHILS # (AUTO) 3.3 K/uL (1.8-8.9); NEUTROPHILS % (AUTO) 74.1 % (43.0-81.0); PLATELET COUNT (AUTO) 176 K/uL (150-450); RED BLOOD CELL COUNT(AUTO) 3.67 MIL/uL (4.5-6.0); WHITE BLOOD COUNT (AUTO) 4.5 K/uL (4.3-11.0)
[2021-10-26 23:59] LABS: CALCIUM, SERUM 8.5 mg/dL (8.5-10.1); CARBON DIOXIDE 30 mmol/L (21-32); CHLORIDE 104 mmol/L (98-107); CREATININE 2.1 mg/dL (0.6-1.3); GLUCOSE 108 mg/dL (74-106); SODIUM SERUM 140 mmol/L (136-145); UREA NITROGEN, BLOOD 60 mg/dL (7-18)
[2021-10-27] VITALS (19 sets, daily range): BP systolic 99–135; BP diastolic 50–75
--- NOTE | 2021-10-27 | NUR ---
MOVE SHEET SUBMITTED.
--- NOTE | 2021-10-27 00:01 | NUR ---
MRSA SWAB COLLECTED AND SENT TO LAB. PATIENT'S BELONGINGS LIST DONE.
[2021-10-27 00:11] LABS: ALANINE AMINOTRANSFERASE 65 U/L (12-78); ALBUMIN 3.5 g/dL (3.4-5.0); ALKALINE PHOSPHATASE 125 U/L (46-116); ASPARTATE AMINOTRANSFERASE 58 U/L (15-37); BILIRUBIN,DIRECT 0.1 mg/dL (0.0-0.2); BILIRUBIN,TOTAL 0.5 mg/dL (0.2-1.0); TOTAL PROTEIN, SERUM 6.7 g/dL (6.4-8.2)
[2021-10-27] MEDS ORDERED: FUROSEMIDE 40 MG/4 ML VIAL ONE (00:40)
--- NOTE | 2021-10-27 00:41 | NUR ---
URINAL PROVIDED AT BEDSIDE
[2021-10-27] MEDS ORDERED: FUROSEMIDE 40 MG/4 ML VIAL IV ONE (01:00)
--- NOTE | 2021-10-27 02:20 | NUR ---
epic panel paged
--- NOTE | 2021-10-27 02:39 | NUR ---
room 119-1 TELE
--- NOTE | 2021-10-27 03:06 | NUR ---
report given to kath
--- NOTE | 2021-10-27 03:06 | NUR ---
RN NOTE REPORT RECEIVED BY ANITA HERNÁNDEZ FOR SARA.
--- NOTE | 2021-10-27 03:25 | NUR ---
pt transported to room 119 on security monitor per acls
--- NOTE | 2021-10-27 03:35 | NUR ---
RN NOTE PT TRANSFERRED TO [facility] VIA GURNEY FROM ER. PT IS ON 4L OF O2 VIA NC WITH CURRENT OXYGEN SATURATION BETWEEN 92-93%. PT IS A/OX4, ABLE TO VERBALIZE NEEDS. SKIN INTACT. IV ACCESS NOTED ON LEFT HAND #18. LINE FLUSHED, PATENT, AND INTACT WITH NO SIGNS OF INFILTRATION. WILL CONTINUE TO MONITOR AND ASSESS FOR ANY CHANGES DURING SHIFT.
--- NOTE | 2021-10-27 04:20 | NUR ---
RN NOTE PT IN SEVERE RESPIRATORY DISTRESS. O2 SAT DECREASED ON NC AND SIMPLE FACE MASK LOW 80s. NRB PLACED ON PT. O2 SAT FLUCTUATING BETWEEN 88-92%.
--- NOTE | 2021-10-27 04:25 | NUR ---
RN NOTE SPOKE WITH DANUTA SAVAGE AND UPDATED ON PATIENTS CHANGE OF CONDITION AND ASKED IF OKAY TO DO ABG. PER HUSSEIN, OKAY TO DO ABG. ORDER NOTED AND CARRIED OUT.
[2021-10-27] MEDS ORDERED: ONDANSETRON HCL/PF 4 MG/2 ML VIAL IVP PRN (04:30)
[2021-10-27] MEDS ORDERED: ACETAMINOPHEN 325 MG TABLET PO PRN (04:30)
[2021-10-27] MEDS ORDERED: DEXTROSE 50%-WATER 50 ML DISP.SYRIN IV PRN (04:30)
[2021-10-27] MEDS ORDERED: ENOXAPARIN SODIUM 40 MG/0.4 ML DISP.SYRIN SQ SCH (04:30)
[2021-10-27 04:44] LABS: ABG BASE EXCESS -2.3 mmol/L; ABG OXYGEN SATURATION 90.6 % (92.0-98.5); ABG PCO2 59.3 mmHg (35.0-45.0); ABG PH 7.257 (7.350-7.450); ABG PO2 72.1 mmHg (75.0-100.0); COHb 0.9 % (0.5-1.5); MetHb 0.2 % (0.0-1.5); O2Hb 89.6 % (94.0-97.0); SITE, ABG Right Radial; VENT MODE, BG 15L NRB
--- NOTE | 2021-10-27 04:49 | NUR ---
RN NOTE RELAYED ABG RESULTS TO DANUTA SAVAGE. PER HUSSEIN, TRANSFER TO ICU AND START RESCUE BIPAP D/T PH OF 7.257 AND PCO2 OF 59.3.
--- NOTE | 2021-10-27 05:00 | NUR ---
RN NOTE PT TRANSFERRED TO ICU WITH ALL ACLS PROTOCOLS INITIATED. BEDSIDE REPORT GIVEN TO ANITA STEPHENS FOR SARA.
--- NOTE | 2021-10-27 05:05 | NUR ---
RN/ICU-RECEIVED PT. FROM TELE1 BY BED PER ACLS PROTOCOL, ACCOMPANIED BY TELE 1 STAFF AND 2 RTS.PT. IS DIAPHORETIC, AWAKE, ALERT,SLIGHTLY IN RESPIRATORY DISTRESS. ON NRB MASK AND IMMEDIATELY CHANGED BY RT TO BIPAP W/ INITIAL SETTINGS OF I/E-15/5, RATE-18, FIO2-100%. SATS.-97%, HR-93/V PACING W/ GOOD CAPTURE. BP-136/81, RR-28/MIN.TEMPT. 97.6/AXILLARY.ROUTINE ICU INITIAL ASSESSMENT INITIATED.DX ACUTE HEART FAILURE. HOB AT 60 DEGREES AT ALL TIMES.
--- NOTE | 2021-10-27 05:55 | NUR ---
RN/ICU- DNP Gladys SAVAGE HERE TO SEE PT. W/ ORDERS NOTED. WILL CONTINUE TO MONITOR PT. PER PROTOCOL.
[2021-10-27] MEDS ORDERED: FUROSEMIDE 40 MG/4 ML VIAL IV SCH (06:00)
[2021-10-27] MEDS: PANTOPRAZOLE 40 MG TABLET.DR PO SCH (07:28)
[2021-10-27] MEDS: LEVOTHYROXINE SODIUM 25 MCG TABLET PO SCH (07:28)
--- NOTE | 2021-10-27 07:30 | NUR ---
RN NOTES PT FOUND SEMI FOWLERS DISPLAYING NO S/S OF ACUTE DISTRESS, PT ENDORSES NO PAIN AND IS BREATHING EVEN AND UNLABORED ON BIPAP. L HAND 18G IS PATIENT AND INTACT. CONDOM CATH PLACED ON PATIENT, RESERVOIR BELOW DRAINING BY GRAVITY. VSS, RN WILL MONITOR AND TREAT THROUGHOUT SHIFT. SAFETY MEASURES IN PLACE, BED LOCKED AND IN LOWEST POSITION, SIDE RAILS UPX2, CALL LIGHT WITHIN REACH, PT INSTRUCTED TO CALL FOR ASSISTANCE.
[2021-10-27] MEDS: BLOOD SUGAR DIAGNOSTIC 1 EACH STRIP IN SCH ×3 (07:53→16:39)
[2021-10-27] MEDS ORDERED: HEPARIN SODIUM, PORCINE 5000 UNITS/1 ML VIAL SQ SCH (09:00)
[2021-10-27] MEDS: DOCUSATE SODIUM LIQ 100 MG/10 ML UDC PO SCH ×2 (09:23→16:38)
[2021-10-27] MEDS: MULTIVITAMINS,THERAGRAN 1 UDTAB TABLET PO SCH (09:23)
[2021-10-27] MEDS: METOPROLOL SUCCINATE 25 MG TAB.SR.24H PO SCH (09:28)
[2021-10-27] MEDS: TAMSULOSIN 0.4 MG CAP.SR.24H PO SCH (09:28)
[2021-10-27] MEDS: CHOLECALCIFEROL 1,000 UNIT TABLET (VIT D3) PO SCH (09:29)
[2021-10-27] MEDS: CALCIUM CARBONATE (1250) 500 MG TABLET PO SCH ×2 (09:29→16:38)
[2021-10-27] MEDS: ASPIRIN EC 81 MG TABLET.DR PO SCH (09:29)
[2021-10-27] MEDS: AMLODIPINE BESYLATE 10 MG TABLET PO SCH (09:30)
[2021-10-27] MEDS: FINASTERIDE (5 MG) 5 MG TABLET PO SCH (09:30)
[2021-10-27] MEDS: ALLOPURINOL 100 MG TABLET PO SCH (09:30)
[2021-10-27] MEDS: FUROSEMIDE 100 MG/10 ML VIAL IV SCH ×3 (09:32→16:38)
[2021-10-27] MEDS: DORZOLAMIDE OPTH 2% 10 ML BOTTLE EACHEYE SCH ×2 (09:59→16:38)
--- NOTE | 2021-10-27 15:00 | NUR ---
ICU/RN PT IS ON BI-PAP FIO2-100%,SAT O2-100%.V/S STABLE,AFEBRILE.NO PAIN REPORTED AT BEDSIDE.IV-HL.CONDOM CATH IN PLACE DRAINING WITH YELLOW URINE.CONTINUE MONITORING
--- NOTE | 2021-10-27 15:20 | NUR ---
HAND OFF RN GAVE SBAR AND REPORT TO ANITA RANDALL FOR SARA.
[2021-10-27] MEDS: APIXABAN 2.5 MG TABLET PO SCH (16:40)
--- NOTE | 2021-10-27 20:20 | NUR ---
MEDICAL IMAGING DIRECTOR. INITIAL ASSESSMENT. RECEIVED THE PT REST IN BED. AWAKE, ALERT, FOLLOW COMMANDS. BIPAP ON. SETTINGS 20/10, RATE 18,FIO2 60%. SAT 99%. NO ACUTE DISTRESS NOTED. FC PATENT. URINE DRAINING. HOB ELEVATED. WILL CONTINUE TO MONITOR VITALS.
[2021-10-27] MEDS: ATORVASTATIN 10 MG TABLET PO SCH (22:33)
[2021-10-28] VITALS (35 sets, daily range): BP systolic 91–144; BP diastolic 44–85
[2021-10-28] MEDS: BLOOD SUGAR DIAGNOSTIC 1 EACH STRIP IN SCH ×5 (00:17→22:29)
[2021-10-28 04:14] LABS: BASOPHILS % (AUTO) 0.2 % (0.0-2.0); EOSINOPHILS % (AUTO) 0.2 % (0.0-6.0); HEMATOCRIT 34 % (39-51); HEMOGLOBIN 11.1 g/dL (13.5-17.5); LYMPHOCYTES # (AUTO) 0.4 K/uL (0.8-4.8); LYMPHOCYTES % (AUTO) 5.5 % (20.0-44.0); MEAN CORPUSCULAR HGB CONC 32 g/dl (31.0-36.0); MEAN CORPUSCULAR VOLUME 93 fL (80-96); MONOCYTES # (AUTO) 0.7 K/uL (0.1-1.30); MONOCYTES % (AUTO) 10.2 % (2.0-12.0); NEUTROPHILS # (AUTO) 5.7 K/uL (1.8-8.9); NEUTROPHILS % (AUTO) 83.9 % (43.0-81.0); PLATELET COUNT (AUTO) 166 K/uL (150-450); RED BLOOD CELL COUNT(AUTO) 3.72 MIL/uL (4.5-6.0); WHITE BLOOD COUNT (AUTO) 6.8 K/uL (4.3-11.0)
[2021-10-28 04:31] LABS: CHOLESTEROL 157 mg/dL (<200); HDL CHOLESTEROL 57 mg/dL (40-60); LDL 93 mg/dL (0-99); TRIGLYCERIDES 39 mg/dL (30-150)
[2021-10-28 04:35] LABS: ALANINE AMINOTRANSFERASE 49 U/L (12-78); ALBUMIN 2.9 g/dL (3.4-5.0); ALKALINE PHOSPHATASE 107 U/L (46-116); ASPARTATE AMINOTRANSFERASE 31 U/L (15-37); BILIRUBIN,TOTAL 0.8 mg/dL (0.2-1.0); CALCIUM, SERUM 8.9 mg/dL (8.5-10.1); CARBON DIOXIDE 33 mmol/L (21-32); CHLORIDE 104 mmol/L (98-107); CREATININE 2.3 mg/dL (0.6-1.3); GLUCOSE 95 mg/dL (74-106); PHOSPHORUS 4.1 mg/dL (2.5-4.9); POTASSIUM 3.4 mmol/L (3.5-5.1); SODIUM SERUM 145 mmol/L (136-145); TOTAL PROTEIN, SERUM 6.2 g/dL (6.4-8.2); UREA NITROGEN, BLOOD 56 mg/dL (7-18)
--- NOTE | 2021-10-28 06:00 | NUR ---
CABINET PROFESSIONAL. AM CARE GIVEN.REMAINING SAME OXYGEN TOLERATED WELL. SAT 96%, NO ACUTE DISTRESS NOTED, PROSPECT MANAGER SHOWING V PACING HOB ELEVATED. FC PATENT. URINE DRAINING. HOB ELEVATED. IV LT HAND 18G. SALINE LOCK, WILL CONTINUE TO MONITOR VITALS.
--- NOTE | 2021-10-28 07:08 | NUR ---
PT REFUSED BIPAP AT 0600. OXYGEN 10 L VIA SIMPLE MASK.
[2021-10-28] MEDS: LEVOTHYROXINE SODIUM 25 MCG TABLET PO SCH (07:55)
[2021-10-28] MEDS: PANTOPRAZOLE 40 MG TABLET.DR PO SCH (07:56)
[2021-10-28] MEDS: POTASSIUM CL. PREMIX PERIPHER. 50 ML IV SCH ×4 (08:35→11:45)
[2021-10-28] MEDS: AMLODIPINE BESYLATE 10 MG TABLET PO SCH (09:00)
[2021-10-28] MEDS: METOPROLOL SUCCINATE 25 MG TAB.SR.24H PO SCH (09:00)
[2021-10-28 09:27] LABS: ABG BASE EXCESS 5.6 mmol/L; ABG OXYGEN SATURATION 96.7 % (92.0-98.5); ABG PCO2 44.1 mmHg (35.0-45.0); ABG PH 7.454 (7.350-7.450); ABG PO2 91.9 mmHg (75.0-100.0); AaDO2 287.4 mmHg; COHb 0.1 % (0.5-1.5); MetHb 0.3 % (0.0-1.5); O2Hb 96.3 % (94.0-97.0); SITE, ABG Right Radial; VENT MODE, BG simple mask
[2021-10-28] MEDS: CHOLECALCIFEROL 1,000 UNIT TABLET (VIT D3) PO SCH (09:50)
[2021-10-28] MEDS: MULTIVITAMINS,THERAGRAN 1 UDTAB TABLET PO SCH (09:51)
[2021-10-28] MEDS: TAMSULOSIN 0.4 MG CAP.SR.24H PO SCH (09:51)
[2021-10-28] MEDS: APIXABAN 2.5 MG TABLET PO SCH ×2 (09:53→18:09)
[2021-10-28] MEDS: CALCIUM CARBONATE (1250) 500 MG TABLET PO SCH ×2 (09:58→18:09)
[2021-10-28] MEDS: ASPIRIN EC 81 MG TABLET.DR PO SCH (09:58)
[2021-10-28] MEDS: FINASTERIDE (5 MG) 5 MG TABLET PO SCH (09:59)
[2021-10-28] MEDS ORDERED: POTASSIUM CHLORIDE 10 MEQ TABLET.SA PO ONE (10:00)
[2021-10-28] MEDS: ALLOPURINOL 100 MG TABLET PO SCH (10:03)
[2021-10-28] MEDS: DORZOLAMIDE OPTH 2% 10 ML BOTTLE EACHEYE SCH ×2 (10:03→18:08)
[2021-10-28] MEDS: DOCUSATE SODIUM LIQ 100 MG/10 ML UDC PO SCH ×2 (10:04→18:08)
[2021-10-28] MEDS: acetaZOLAMIDE SODIUM 500 MG/VIAL VIAL IV SCH ×2 (10:05→18:08)
[2021-10-28] MEDS: LORAZEPAM 0.5 MG TABLET PO PRN (15:01)
[2021-10-28] MEDS: ENSURE ENLIVE 237 ML LIQUID (VANILLA) PO SCH (17:00)
--- NOTE | 2021-10-28 18:12 | NUR ---
ENSURE DRINK STILL UNAVAILABLE
[2021-10-28] MEDS: ATORVASTATIN 10 MG TABLET PO SCH (22:00)
--- NOTE | 2021-10-28 22:00 | NUR ---
ICU/RN: PT TORE HIS VICK CATH TUBING. VICK CATH REPLACED VIA STERILE PROCEDURE BY AIRPORT DRIVERANITA COTO. PT NOTED WITH PINK TINGED URINE. WILL CONTINUE TO MONITOR.
[2021-10-29] VITALS (46 sets, daily range): BP systolic 83–151; BP diastolic 37–89
--- NOTE | 2021-10-29 00:46 | NUR ---
ICU/RN: REPORT TO YAHIR HOWARD FOR CONT OF CARE.
[2021-10-29] MEDS: LORAZEPAM 0.5 MG TABLET PO PRN ×2 (01:18→12:20)
[2021-10-29] MEDS ORDERED: QUETIAPINE FUMARATE 25 MG TABLET PO ONE (02:30)
[2021-10-29 04:11] LABS: BASOPHILS % (AUTO) 0.2 % (0.0-2.0); EOSINOPHILS % (AUTO) 0.1 % (0.0-6.0); HEMATOCRIT 37 % (39-51); HEMOGLOBIN 11.6 g/dL (13.5-17.5); LYMPHOCYTES # (AUTO) 0.2 K/uL (0.8-4.8); LYMPHOCYTES % (AUTO) 1.8 % (20.0-44.0); MEAN CORPUSCULAR HGB CONC 31 g/dl (31.0-36.0); MEAN CORPUSCULAR VOLUME 95 fL (80-96); MONOCYTES # (AUTO) 0.7 K/uL (0.1-1.30); NEUTROPHILS # (AUTO) 7.4 K/uL (1.8-8.9); NEUTROPHILS % (AUTO) 89.9 % (43.0-81.0); PLATELET COUNT (AUTO) 159 K/uL (150-450); RED BLOOD CELL COUNT(AUTO) 3.89 MIL/uL (4.5-6.0); WHITE BLOOD COUNT (AUTO) 8.2 K/uL (4.3-11.0)
[2021-10-29 04:38] LABS: ALANINE AMINOTRANSFERASE 47 U/L (12-78); ALBUMIN 3.1 g/dL (3.4-5.0); ALKALINE PHOSPHATASE 107 U/L (46-116); ASPARTATE AMINOTRANSFERASE 34 U/L (15-37); BILIRUBIN,TOTAL 0.8 mg/dL (0.2-1.0); CALCIUM, SERUM 9.1 mg/dL (8.5-10.1); CARBON DIOXIDE 33 mmol/L (21-32); CHLORIDE 108 mmol/L (98-107); CREATININE 2.5 mg/dL (0.6-1.3); GLUCOSE 109 mg/dL (74-106); MAGNESIUM 2.2 mg/dL (1.8-2.4); PHOSPHORUS 3.8 mg/dL (2.5-4.9); SODIUM SERUM 147 mmol/L (136-145); TOTAL PROTEIN, SERUM 6.6 g/dL (6.4-8.2); UREA NITROGEN, BLOOD 58 mg/dL (7-18)
[2021-10-29 04:46] LABS: IRON, SERUM 15 ug/dl (50-175); TOTAL IRON BINDING CAPACITY 280 ug/dl (250-450)
--- NOTE | 2021-10-29 07:00 | NUR ---
RN NOTES WILL ENDORSE CARE OF PATIENT TO AM NURSE. PATIENT AGITATED, CONFUSED, ANXIOUS, ATTEMPTING TO REMOVE ALL IV LINES, VICK CATH, AND O2 MASK THROUGHOUT SHIFT. PATIENT ON BILATERAL SOFT WRIST RESTRAINTS, PATIENT STILL MANAGED TO REMOVE VICK CATH WITH USE OF HIS LEGS AND IV ACCESS ON R FA. BOTH VICK AND IV ACCESS HAVE BEEN REPLACED. PATIENT ON O2 THERAPY VIA NRB MASK AT 15 L/MIN, O2 SAT 97%. ON TELE MONITOR V PACED. NO SIGNIFICANT FINDINGS UPON ALL NURSING ASSESSMENTS. ALL PATIENT NEEDS MET. SAFETY MEASURES IMPLEMENTED. WILL ENDORSE TO AM NURSE FOR SARA.
--- NOTE | 2021-10-29 07:30 | NUR ---
OPENING NOTES REPORT RECEIVED FROM YAHIR HOWARD. LABS AND ORDERS REVIEWED DURING REPORT. PER REPORT PT HAS BEEN AGITATED ALL NIGHT. RESTRAINTS IN PLACE, WITH A CURRENT ORDER. PT ON NON REBREATHER MASK PER MD ORDERS. PT CHECKED HOURLY AND PRN BY NURSING STAFF.
[2021-10-29] MEDS: ENSURE ENLIVE 237 ML LIQUID (VANILLA) PO SCH ×3 (08:00→17:06)
[2021-10-29] MEDS: AMLODIPINE BESYLATE 10 MG TABLET PO SCH (09:00)
[2021-10-29] MEDS: METOPROLOL SUCCINATE 25 MG TAB.SR.24H PO SCH (09:00)
--- NOTE | 2021-10-29 09:00 | NUR ---
DR PAULA NOTIFIED OF LOW BP 94/47, PULSE 93. OK TO GIVE LASIX ORDERED. HOLD TOPROL AND NORVASC TODAY.
[2021-10-29] MEDS: ASPIRIN EC 81 MG TABLET.DR PO SCH (09:10)
[2021-10-29] MEDS: DOCUSATE SODIUM LIQ 100 MG/10 ML UDC PO SCH ×2 (09:10→17:05)
[2021-10-29] MEDS: TAMSULOSIN 0.4 MG CAP.SR.24H PO SCH (09:10)
[2021-10-29] MEDS: PANTOPRAZOLE 40 MG TABLET.DR PO SCH (09:10)
[2021-10-29] MEDS: CHOLECALCIFEROL 1,000 UNIT TABLET (VIT D3) PO SCH (09:10)
[2021-10-29] MEDS: CALCIUM CARBONATE (1250) 500 MG TABLET PO SCH ×2 (09:11→17:05)
[2021-10-29] MEDS: FINASTERIDE (5 MG) 5 MG TABLET PO SCH (09:11)
[2021-10-29] MEDS: LEVOTHYROXINE SODIUM 25 MCG TABLET PO SCH (09:11)
[2021-10-29] MEDS: APIXABAN 2.5 MG TABLET PO SCH ×2 (09:11→17:05)
[2021-10-29] MEDS: ALLOPURINOL 100 MG TABLET PO SCH (09:11)
[2021-10-29] MEDS: FERROUS SULFATE (325 MG) 325 MG/TAB TABLET PO SCH ×3 (09:11→17:07)
[2021-10-29] MEDS: MULTIVITAMINS,THERAGRAN 1 UDTAB TABLET PO SCH (09:11)
[2021-10-29] MEDS: FUROSEMIDE 100 MG/10 ML VIAL IV SCH ×3 (09:12→16:13)
[2021-10-29] MEDS: acetaZOLAMIDE SODIUM 500 MG/VIAL VIAL IV SCH (09:12)
[2021-10-29] MEDS: DORZOLAMIDE OPTH 2% 10 ML BOTTLE EACHEYE SCH ×2 (09:12→17:06)
[2021-10-29] MEDS: BLOOD SUGAR DIAGNOSTIC 1 EACH STRIP IN SCH ×4 (09:31→21:28)
[2021-10-29 10:20] LABS: ABG OXYGEN SATURATION 98.5 % (92.0-98.5); ABG PCO2 46.7 mmHg (35.0-45.0); ABG PH 7.401 (7.350-7.450); ABG PO2 140.3 mmHg (75.0-100.0); COHb 0.2 % (0.5-1.5); MetHb 0.5 % (0.0-1.5); O2Hb 97.8 % (94.0-97.0); SITE, ABG Right Radial; VENT MODE, BG NRB
--- NOTE | 2021-10-29 18:32 | NUR ---
END OF SHIFT PT HAD ON/OFF CONFUSION NOTED. CURRENTLY ON HI FLOW NC 40L 80%. PT HAD A TOTAL OF 1470ML URINE OUTPUT THIS SHIFT. PT CHECKED HOURLY. NEEDS ATTENDED. WILL ENDORSE TO CHICKEN DRESSER NURSE FOR SARA.
[2021-10-29] MEDS: LORAZEPAM INJ 2 MG/ML VIAL IV PRN (19:37)
--- NOTE | 2021-10-29 19:43 | NUR ---
RN NOTE RECEIVED PATIENT IN BED, AWAKE, VERBAL, CONFUSED & AGITATED. BREATHING NOTED WITH SOB. HOB ELEVATED 35 DEGREES. ON HIGH FLOW NASAL CANNULA 40L/MIN AT 80% FIO2. OXYGEN SATURATION OF 94-95 PERCENT VIA BEDSIDE MONITOR. NOTED WITH WET COUGH. SKIN WARM AND DRY. NOTED WITH BILATERAL SOFT WRIST RESTRAINTS. RESTRAINTS RELEASED. NO INJURIES. BILATERAL CAPILLARY REFILL WNL. PATIENT NOTED TO BE TUGGING ON HIGH FLOW CANNULA & INDWELLING VICK CATHETER. RESTRAINTS APPLIED ON TO PREVENT INJURIES & DISRUPTION OF CARE. INDWELLING VICK CATHETER INTACT. DRAINING JAMES COLORED URINE. NO HEMATURIA AT THIS TIME. ASSISTED WITH REPOSITIONING. WILL CONTINUE TO MONITOR.
--- NOTE | 2021-10-29 19:50 | NUR ---
RN NOTE PATIENT APPEARS TO BE VERY RESTLESS/CONFUSED & YELLING. OXYGEN SATURATION OF 93-94 PERCENT ON BEDSIDE MONITOR WITH GOOD WAVEFORM. NOTED TO ATTEMPTING TO REMOVE HIGH FLOW NASAL CANNULA WITH BILATERAL SOFT WRIST RESTRAINTS ON. ADMINISTERED ATIVAN 1 MG VIA IVP. WILL CONTINUE TO MONITOR.
[2021-10-29] MEDS: ATORVASTATIN 10 MG TABLET PO SCH (21:12)
--- NOTE | 2021-10-29 21:12 | NUR ---
RN NOTE PATIENT REFUSED SCHEDULED ATORVASTATIN. OFFERED 3X. EXPLAINED RISK AND BENEFITS. STILL REFUSED.
[2021-10-30] VITALS (40 sets, daily range): BP systolic 81–133; BP diastolic 36–95
--- NOTE | 2021-10-30 00:13 | NUR ---
RN NOTE INSERTED SECOND PIV 20G ON RIGHT FOREARM. PATENT WITH GOOD BLOOD RETURN.
--- NOTE | 2021-10-30 00:29 | NUR ---
RN NOTE PATIENT RESTLESS, YELLING, AND ATTEMPTING TO GET OUT OF BED. ON SOFT WRIST RESTRAINTS. ATIVAN GIVEN PRN EARLIER. PATIENT ON HIGH FLOW VIA NC, WITH O2 SATURATION OF 93-94%. NOTIFIED PLANT MECHANIC KATHLEEN SAVAGE, SEROQUEL 25 MG PO ONCE. new order carried out.
[2021-10-30] MEDS ORDERED: QUETIAPINE FUMARATE 25 MG TABLET PO ONE (00:30)
[2021-10-30] MEDS: LORAZEPAM INJ 2 MG/ML VIAL IV PRN ×2 (04:24→20:25)
--- NOTE | 2021-10-30 04:26 | NUR ---
RN NOTE PATIENT AWAKE, ATTEMPTING TO GET OUT OF BED, YELLING, AND REACHING FOR NASAL CANNULA/VICK CATHETER. PATIENT RELEASED FROM RESTRAINTS TO ASSIST WITH ROM. Provided with fluids for hydration. refused. Assisted patient with hygiene care. Turned and Repositioned. Reoriented to situation. Still agitated. Administered Ativan 1mg via IVP. Will continue to monitor.
[2021-10-30 05:04] LABS: BASOPHILS % (AUTO) 0.2 % (0.0-2.0); EOSINOPHILS % (AUTO) 0.4 % (0.0-6.0); HEMATOCRIT 33 % (39-51); HEMOGLOBIN 10.6 g/dL (13.5-17.5); LYMPHOCYTES # (AUTO) 0.5 K/uL (0.8-4.8); LYMPHOCYTES % (AUTO) 6.3 % (20.0-44.0); MEAN CORPUSCULAR HGB CONC 33 g/dl (31.0-36.0); MEAN CORPUSCULAR VOLUME 93 fL (80-96); MONOCYTES # (AUTO) 1.1 K/uL (0.1-1.30); MONOCYTES % (AUTO) 12.5 % (2.0-12.0); NEUTROPHILS # (AUTO) 6.9 K/uL (1.8-8.9); NEUTROPHILS % (AUTO) 80.6 % (43.0-81.0); PLATELET COUNT (AUTO) 151 K/uL (150-450); WHITE BLOOD COUNT (AUTO) 8.5 K/uL (4.3-11.0)
[2021-10-30 05:26] LABS: PHOSPHORUS 2.6 mg/dL (2.5-4.9)
[2021-10-30] MEDS: LEVOTHYROXINE SODIUM 25 MCG TABLET PO SCH (06:05)
--- NOTE | 2021-10-30 07:14 | NUR ---
RN NOTES PT FOUND SEMI FOWLERS DISPLAYING NO S/S OF DISTRESS, FLACC = 1 AND BREATHING IS EVEN AND UNLABORED ON 70% HIGH JENI NC. PT IS NOTABLY MORE CONFUSED COMPARED TO PREVIOUS SHIFT, NOT ENGAGING WITH ENVIRONMENT, MUMBLING TO HIMSELF. BILATERAL SOFT WRISTS ON, PULSES PALPATED DISTALLY AND CAP REFILL < 3 SECONDS BILATERALLY. L FA 20G IS PATIENT AND INTACT. VICK CATH BELOW PATIENT DRAINING BY GRAVITY. VSS, RN WILL MONITOR AND TREAT THROUGHOUT SHIFT. SAFETY MEASURES IN PLACE, BED LOCKED AND IN LOWEST POSITION, SIDE RAILS UPX2, CALL LIGHT WITHIN REACH, BED ALARM ARMED.
[2021-10-30] MEDS: BLOOD SUGAR DIAGNOSTIC 1 EACH STRIP IN SCH ×4 (07:27→18:40)
[2021-10-30] MEDS: PANTOPRAZOLE 40 MG TABLET.DR PO SCH (07:29)
[2021-10-30] MEDS: ENSURE ENLIVE 237 ML LIQUID (VANILLA) PO SCH ×3 (07:30→16:55)
[2021-10-30 08:09] LABS: ALANINE AMINOTRANSFERASE 33 U/L (12-78); ALBUMIN 2.6 g/dL (3.4-5.0); ALKALINE PHOSPHATASE 89 U/L (46-116); ASPARTATE AMINOTRANSFERASE 24 U/L (15-37); BILIRUBIN,TOTAL 0.9 mg/dL (0.2-1.0); CALCIUM, SERUM 8.4 mg/dL (8.5-10.1); CARBON DIOXIDE 30 mmol/L (21-32); CHLORIDE 107 mmol/L (98-107); CREATININE 2.5 mg/dL (0.6-1.3); GLUCOSE 104 mg/dL (74-106); POTASSIUM 3.1 mmol/L (3.5-5.1); SODIUM SERUM 145 mmol/L (136-145); UREA NITROGEN, BLOOD 69 mg/dL (7-18)
[2021-10-30] MEDS: DORZOLAMIDE OPTH 2% 10 ML BOTTLE EACHEYE SCH ×2 (08:17→16:04)
[2021-10-30] MEDS: ASPIRIN EC 81 MG TABLET.DR PO SCH (08:39)
[2021-10-30] MEDS: FERROUS SULFATE (325 MG) 325 MG/TAB TABLET PO SCH ×3 (08:39→16:07)
[2021-10-30] MEDS: TAMSULOSIN 0.4 MG CAP.SR.24H PO SCH (08:39)
[2021-10-30] MEDS: CHOLECALCIFEROL 1,000 UNIT TABLET (VIT D3) PO SCH (08:39)
[2021-10-30] MEDS: MULTIVITAMINS,THERAGRAN 1 UDTAB TABLET PO SCH (08:39)
[2021-10-30] MEDS: DOCUSATE SODIUM LIQ 100 MG/10 ML UDC PO SCH ×2 (08:39→16:06)
[2021-10-30] MEDS: APIXABAN 2.5 MG TABLET PO SCH ×2 (08:40→16:08)
[2021-10-30] MEDS: CALCIUM CARBONATE (1250) 500 MG TABLET PO SCH ×2 (08:40→16:07)
[2021-10-30] MEDS: AMLODIPINE BESYLATE 10 MG TABLET PO SCH (08:40)
[2021-10-30] MEDS: ALLOPURINOL 100 MG TABLET PO SCH (08:40)
[2021-10-30] MEDS: FINASTERIDE (5 MG) 5 MG TABLET PO SCH (08:40)
[2021-10-30] MEDS: METOPROLOL SUCCINATE 25 MG TAB.SR.24H PO SCH (08:41)
[2021-10-30] MEDS: CEFEPIME 2 GM in IV D5W 100 ML IV SCH (09:16)
[2021-10-30] MEDS ORDERED: POTASSIUM CHLORIDE 10 MEQ TABLET.SA PO SCH (14:00)
[2021-10-30] MEDS ORDERED: POTASSIUM CHLORIDE 20 MEQ POWDER PACKET PO ONE (14:30)
[2021-10-30] MEDS: INSULIN REGULAR, HUMAN 100 UNIT/ML 3 ML VIAL SQ PRN (16:59)
--- NOTE | 2021-10-30 18:24 | NUR ---
MD COMMUNICATION RN SPOKE TO DR PERERA ABOUT PT'S BP. MD GAVE ORDERS: START LEVOPHED DRIP AND TITRATE TO KEEP MAP > 65. RN ACKNOWLEDGED AND WILL EXECUTE ORDERS DIRECTED.
[2021-10-30] MEDS ORDERED: NOREPINEPHRINE 8 MG in IV NS 0.9% 242 ML IV PRN (18:30)
[2021-10-30] MEDS: NOREPINEPHRINE 8 MG in IV NS 0.9% 242 ML IV PRN (18:59)
--- NOTE | 2021-10-30 19:10 | NUR ---
RN CLOSING NOTE PT REMAINS SEMI FOWLERS DISPLAYING NO S/S OF RESPIRATORY DISTRESS AT THIS TIME. BILATERAL SOFT WRISTS ON, PULSES PALPATED DISTALLY AND CAP REFILL < 3 SECONDS BILATERALLY. L FA 20G IS PATIENT AND INTACT. VICK CATH BELOW PATIENT DRAINING BY GRAVITY. BP UNSTABLE, PT RECEIVING LEVO DRIP AT 0.2MCG/KG/MIN ORDERED. SAFETY MEASURES IN PLACE, BED LOCKED AND IN LOWEST POSITION, SIDE RAILS UPX2, CALL LIGHT WITHIN REACH, BED ALARM ARMED. REPORT GIVEN TO LATHER APPRENTICE RN FOR SARA.
--- NOTE | 2021-10-30 19:16 | NUR ---
RN NOTE RECEIVED PATIENT IN BED, LETHARGIC, ABLE TO ANSWER SIMPLE YES OR NO QUESTION. BREATHING NOTED WITH MILD SOB. WET COUGH NOTED. NO SPUTUM. ON HIGH FLOW NASAL CANNULA AT 25L/MIN WITH FIO2 OF 55 PERCENT. TOLERATING WELL WITH OXYGEN SATURATION OF 99 PERCENT. HOB ELEVATED HIGH FOWLERS. ON TELE MONITORING. NO DISTRESS NOTED. SKIN WARM AND DRY, LEFT FOREARM 20G AND RIGHT FOREARM 20G PIV INTACT. CURRENTLY INFUSING LEVO AT 0.2 MCG/KG/MIN. INDWELLING VICK CATHETER IN PLACE. NO HEMATURIA NOTED. BILATERAL SOFT WRIST RESTRAINTS PRESENT. RELEASED TO PERFORM RANGE OF MOTION. PROVIDED PATIENT WITH FLUIDS FOR ADEQUATE HYDRATION. ASSISTED WITH TURNING AND REPOSITIONING. BED LOW, IN LOCKED POSITION. CALL LIGHT WITHIN REACH. WILL CONTINUE TO MONITOR TO MAINTAIN SAFETY.
--- NOTE | 2021-10-30 20:28 | NUR ---
RN NOTE PATIENT WAS RELEASED OFF BILATERAL SOFT WRIST RESTRAINTS. ASSISTED PATIENT WITH ROM. PATIENT CONFUSED, YELLING, STATES HE IS GOING TO THE "SHOP". REORIENTED PATIENT ABOUT CURRENT SITUATION. PATIENT BECAME VERBALLY AND PHYSICALLY AGITATED, REMOVING HIGH FLOW & ATTEMPTING TO EXIT THE BED. BILATERAL RESTRAINTS REAPPLIED ON. ADMINISTERED ATIVAN 1 MG IVP. O2 SATURATION OF 92-93 PERCENT/ BP OF 130/45. HR 82. WILL CONTINUE TO MONITOR.
[2021-10-30] MEDS: ATORVASTATIN 10 MG TABLET PO SCH (21:19)
[2021-10-31] VITALS (75 sets, daily range): BP systolic 78–154; BP diastolic 35–86
--- NOTE | 2021-10-31 00:19 | NUR ---
ANITA NOTE 3 LUMEN PICC LINE INSERTED BY JUMANA STOREY
[2021-10-31 05:36] LABS: BASOPHILS % (AUTO) 0.5 % (0.0-2.0); EOSINOPHILS % (AUTO) 1.3 % (0.0-6.0); HEMATOCRIT 34 % (39-51); HEMOGLOBIN 11.1 g/dL (13.5-17.5); LYMPHOCYTES # (AUTO) 0.5 K/uL (0.8-4.8); LYMPHOCYTES % (AUTO) 7.4 % (20.0-44.0); MEAN CORPUSCULAR HGB CONC 33 g/dl (31.0-36.0); MEAN CORPUSCULAR VOLUME 92 fL (80-96); MONOCYTES # (AUTO) 0.9 K/uL (0.1-1.30); MONOCYTES % (AUTO) 11.9 % (2.0-12.0); NEUTROPHILS # (AUTO) 5.8 K/uL (1.8-8.9); NEUTROPHILS % (AUTO) 78.9 % (43.0-81.0); PLATELET COUNT (AUTO) 165 K/uL (150-450); RED BLOOD CELL COUNT(AUTO) 3.65 MIL/uL (4.5-6.0); WHITE BLOOD COUNT (AUTO) 7.3 K/uL (4.3-11.0)
--- NOTE | 2021-10-31 05:36 | NUR ---
RT NOTE NASOTRACHEAL SUCTION DONE, MODERATE THICK RED BLOODY SECRETIONS NOTED. SPO2 INCREASED. B/S IMPROVED. RN VAMSHI AWARE. NO RESPIRATORY DISTRESS NOTED.
[2021-10-31 05:50] LABS: ALANINE AMINOTRANSFERASE 27 U/L (12-78); ALBUMIN 2.5 g/dL (3.4-5.0); ALKALINE PHOSPHATASE 97 U/L (46-116); ASPARTATE AMINOTRANSFERASE 20 U/L (15-37); BILIRUBIN,TOTAL 0.8 mg/dL (0.2-1.0); CALCIUM, SERUM 8.7 mg/dL (8.5-10.1); CARBON DIOXIDE 28 mmol/L (21-32); CHLORIDE 105 mmol/L (98-107); CREATININE 2.3 mg/dL (0.6-1.3); GLUCOSE 103 mg/dL (74-106); MAGNESIUM 2.1 mg/dL (1.8-2.4); POTASSIUM 3.3 mmol/L (3.5-5.1); SODIUM SERUM 141 mmol/L (136-145); TOTAL PROTEIN, SERUM 6.2 g/dL (6.4-8.2); UREA NITROGEN, BLOOD 72 mg/dL (7-18)
[2021-10-31] MEDS: LEVOTHYROXINE SODIUM 25 MCG TABLET PO SCH (06:05)
[2021-10-31] MEDS: IV NS 0.9% 250 ML IV PRN (06:07)
[2021-10-31] MEDS: FUROSEMIDE 100 MG/10 ML VIAL IV SCH ×3 (06:18→14:03)
[2021-10-31] MEDS: BLOOD SUGAR DIAGNOSTIC 1 EACH STRIP IN SCH ×4 (07:12→22:11)
[2021-10-31] MEDS: ENSURE ENLIVE 237 ML LIQUID (VANILLA) PO SCH ×3 (07:12→16:44)
--- NOTE | 2021-10-31 07:17 | NUR ---
RN OPENING NOTE PATIENT RECEIVED IN BED, RESTLESS, ATTEMPTING TO GET OUT OF BED. PATIENT ON BILATERAL SOFT WRIST RESTRAIN, SKIN WARM AND INTACT, PULSE PALPABLE. PATIENT ON HFNC AT 25L AND 55% FIO2 SAT 89% ON BEDSIDE MONITOR. VICK CATH IN PLACE PATENT AND DRAINING CLEAR URINE. LEFT FA 20G, RIGHT FA 20G AND RIGHT UA PICC LINE IN PLACE. LEVO DRIP STOPPED BY MANAGER BUSINESS PLANNING, BP STABLE AT THIS TIME A 129/57. BED LOCKED AND IN LOWEST POSITION, CALL LIGHT WITHIN REACH, 3 SIDE RAILS UP.
[2021-10-31] MEDS: PANTOPRAZOLE 40 MG TABLET.DR PO SCH (07:22)
[2021-10-31] MEDS: DORZOLAMIDE OPTH 2% 10 ML BOTTLE EACHEYE SCH ×2 (08:17→16:45)
--- NOTE | 2021-10-31 08:18 | NUR ---
pt. placed into bipap with previous settings (ipap 20/epap10, rate 18, fio2 60%) due to 40 respiration and 84 saturation. Addendum: 10/31/21 at 0820 by MARTY HALLMAN RT Amended: Links added.
[2021-10-31] MEDS: CEFEPIME 2 GM in IV D5W 100 ML IV SCH (08:21)
[2021-10-31] MEDS: CHOLECALCIFEROL 1,000 UNIT TABLET (VIT D3) PO SCH (08:22)
[2021-10-31] MEDS: DOCUSATE SODIUM LIQ 100 MG/10 ML UDC PO SCH ×2 (08:22→16:56)
[2021-10-31] MEDS: ASPIRIN EC 81 MG TABLET.DR PO SCH (08:22)
[2021-10-31] MEDS: MULTIVITAMINS,THERAGRAN 1 UDTAB TABLET PO SCH (08:22)
[2021-10-31] MEDS: FERROUS SULFATE (325 MG) 325 MG/TAB TABLET PO SCH ×3 (08:22→16:56)
[2021-10-31] MEDS: TAMSULOSIN 0.4 MG CAP.SR.24H PO SCH (08:22)
[2021-10-31] MEDS: CALCIUM CARBONATE (1250) 500 MG TABLET PO SCH ×2 (08:22→16:56)
[2021-10-31] MEDS: ALLOPURINOL 100 MG TABLET PO SCH (08:22)
[2021-10-31] MEDS: FINASTERIDE (5 MG) 5 MG TABLET PO SCH (08:22)
[2021-10-31] MEDS: APIXABAN 2.5 MG TABLET PO SCH ×2 (08:23→16:44)
[2021-10-31] MEDS ORDERED: POTASSIUM CHLORIDE 20 MEQ POWDER PACKET PO SCH (09:30)
[2021-10-31 10:09] LABS: ABG BASE EXCESS 0.8 mmol/L; ABG OXYGEN SATURATION 98.5 % (92.0-98.5); ABG PCO2 32.9 mmHg (35.0-45.0); ABG PH 7.478 (7.350-7.450); ABG PO2 137.5 mmHg (75.0-100.0); AaDO2 254.1 mmHg; COHb 0.4 % (0.5-1.5); MetHb 0.1 % (0.0-1.5); SITE, ABG Right Radial; VENT MODE, BG ipap 20 / epap 10
--- NOTE | 2021-10-31 10:43 | NUR ---
RN NOTE 100CC OF BRIGHT RED SECRETION SUCTIONED BY RT THROUGH NG DEEP SUCTIONING. REPORTED TO DR. CH. PER DR. CH ORDER, HOLD ELIQUIS UNTIL FURTHER ORDER AFTER AM TOMORROW.
--- NOTE | 2021-10-31 10:44 | NUR ---
placed back into high flow per dr. hoffmann Addendum: 10/31/21 at 1045 by MARTY HALLMAN RT Amended: Links added.
[2021-10-31] MEDS: INSULIN REGULAR, HUMAN 100 UNIT/ML 3 ML VIAL SQ PRN (11:41)
--- NOTE | 2021-10-31 18:50 | NUR ---
RN CLOSING NOTE PATIENT REMAINS IN BED, RESTING AT THIS TIME. PATIENT ON BILATERAL SOFT WRIST RESTRAIN, SKIN WARM AND INTACT, PULSE PALPABLE. PATIENT ON HFNC AT 25L AND 55% FIO2 SAT 100% ON BEDSIDE MONITOR. VICK CATH IN PLACE PATENT AND DRAINING CLEAR URINE. LEFT FA 20G, RIGHT FA 20G AND RIGHT UA PICC LINE IN PLACE WITH LEVO DRIP RUNNING AT 0.06MCG/KG/MIN FOR BP SUPPORT, 103/46 ON BEDSIDE MONITOR AT THIS TIME. BED LOCKED AND IN LOWEST POSITION, CALL LIGHT WITHIN REACH, 3 SIDE RAILS UP. WILL ENDORSE TO TIRE FABRIC INSPECTOR NURSE FOR SARA.
[2021-10-31] MEDS: NOREPINEPHRINE 8 MG in IV NS 0.9% 242 ML IV PRN (19:09)
--- NOTE | 2021-10-31 19:20 | NUR ---
RN NOTE RECEIVED PATIENT IN BED, SLEEPING. AROUSABLE TO TOUCH. LETHARGIC. NO RESPIRATORY DISTRESS AT THIS TIME, ON HIGH FLOW 25L/MIN AT 55% FIO2. HOB ELEVATED 40 DEGREES. CURRENT OXYGEN SATURATION OF 100 PERCENT WITH GOOD WAVEFORM VIA BEDSIDE MONITOR. SKINW ARM AND DRY. RIGHT UPPER ARM PICC LINE INFUSING LEVO AT 0.06 MCG/KG/MIN. BILATERAL SOFT WRIST RESTRAINTS RELEASED. ASSISTED PATIENT WITH RANGE OF MOTION. INDWELLING VICK CATHETER IN INTACT, DRAINING BY GRAVITY. OFFERED FLUIDS FOR HYDRATION. REPOSITIONED. BED LOW, IN LOCKED POSITION, CALL LIGHT WITHIN REACH, WILL CONTINUE TO MONITOR.
[2021-10-31] MEDS: ATORVASTATIN 10 MG TABLET PO SCH (21:36)
[2021-11-01] VITALS (26 sets, daily range): BP systolic 83–134; BP diastolic 38–72
--- NOTE | 2021-11-01 04:14 | NUR ---
RN NOTE Discontinued bilateral soft wrist restraints. Level of awareness improved compared to mentation at the beginning of shift. aware of person, place, time. Explained situation and currently plan of care. patient verbalized understanding and able to teach back.
[2021-11-01 04:43] LABS: BASOPHILS % (AUTO) 0.3 % (0.0-2.0); EOSINOPHILS % (AUTO) 2.7 % (0.0-6.0); HEMATOCRIT 32 % (39-51); HEMOGLOBIN 10.3 g/dL (13.5-17.5); LYMPHOCYTES # (AUTO) 0.4 K/uL (0.8-4.8); LYMPHOCYTES % (AUTO) 6.5 % (20.0-44.0); MEAN CORPUSCULAR HGB CONC 33 g/dl (31.0-36.0); MEAN CORPUSCULAR VOLUME 93 fL (80-96); MONOCYTES # (AUTO) 0.7 K/uL (0.1-1.30); MONOCYTES % (AUTO) 11.3 % (2.0-12.0); NEUTROPHILS # (AUTO) 4.6 K/uL (1.8-8.9); NEUTROPHILS % (AUTO) 79.2 % (43.0-81.0); PLATELET COUNT (AUTO) 156 K/uL (150-450); RED BLOOD CELL COUNT(AUTO) 3.39 MIL/uL (4.5-6.0); WHITE BLOOD COUNT (AUTO) 5.8 K/uL (4.3-11.0)
[2021-11-01 05:05] LABS: ALANINE AMINOTRANSFERASE 21 U/L (12-78); ALBUMIN 2.2 g/dL (3.4-5.0); ALKALINE PHOSPHATASE 94 U/L (46-116); ASPARTATE AMINOTRANSFERASE 21 U/L (15-37); BILIRUBIN,TOTAL 0.6 mg/dL (0.2-1.0); CALCIUM, SERUM 8.1 mg/dL (8.5-10.1); CARBON DIOXIDE 31 mmol/L (21-32); CHLORIDE 104 mmol/L (98-107); CREATININE 2.3 mg/dL (0.6-1.3); GLUCOSE 93 mg/dL (74-106); PHOSPHORUS 3.2 mg/dL (2.5-4.9); POTASSIUM 3.2 mmol/L (3.5-5.1); SODIUM SERUM 142 mmol/L (136-145); TOTAL PROTEIN, SERUM 5.8 g/dL (6.4-8.2); UREA NITROGEN, BLOOD 73 mg/dL (7-18)
[2021-11-01] MEDS: IV NS 0.9% 250 ML IV PRN (05:19)
--- NOTE | 2021-11-01 05:35 | NUR ---
RT NOTE FIO2 TITRATION TO 45%. PT TOLERATING WELL. NO RESPIRATORY DISTRESS NOTED. RN VAMSHI NOTIFIED.
--- NOTE | 2021-11-01 05:53 | NUR ---
RN NOTE REMOVED LEFT FOREARM 20G PIV. SITE COVERED WITH DRIED BLOOD. SURROUNDING SKIN APPEARS REDDENED. cATHETER STRAIGHT AND INTACT. No bleeding, Occluded with clean, dry, gauze. patient denies pain at site.
[2021-11-01] MEDS: LEVOTHYROXINE SODIUM 25 MCG TABLET PO SCH (06:15)
--- NOTE | 2021-11-01 06:40 | NUR ---
RN NOTE RT REMOVED HIGH FLOW, PLACED PATIENT ON 5L/MIN VIA NASAL CANNULA. OXYGEN SATURATION OF 97 PERCENT. WILL CONTINUE TO MONITOR.
--- NOTE | 2021-11-01 07:19 | NUR ---
RN OPENING NOTE PT IS A/O X 4, NOT IN ANY RESP DISTRESS. ON 5L VIA NC SATING AT 92%. IV ACCESS AT JAYLYN PICC AND RFA 20G. LEVO TURNED OFF AT 2AM. VICK DRAINING WITH YELLOWISH URINE. ALL SAFETY MEASURES IN PLACE, BED IN LOWEST LOCKED POSITION, SR UP X 2, CALL LIGHT WITHIN REACH. WILL CONT TO MONITOR THROUGHOUT SHIFT.
[2021-11-01] MEDS: BLOOD SUGAR DIAGNOSTIC 1 EACH STRIP IN SCH ×4 (07:37→22:17)
[2021-11-01] MEDS: PANTOPRAZOLE 40 MG TABLET.DR PO SCH (07:37)
[2021-11-01] MEDS: ENSURE ENLIVE 237 ML LIQUID (VANILLA) PO SCH ×3 (07:38→17:23)
--- NOTE | 2021-11-01 07:50 | NUR ---
RN NOTE WILL HOLD ELIQUIS UNTIL DR CH REVIEWS LABS.
[2021-11-01] MEDS: CHOLECALCIFEROL 1,000 UNIT TABLET (VIT D3) PO SCH (08:10)
[2021-11-01] MEDS: ASPIRIN EC 81 MG TABLET.DR PO SCH (08:10)
[2021-11-01] MEDS: DORZOLAMIDE OPTH 2% 10 ML BOTTLE EACHEYE SCH ×2 (08:10→17:26)
[2021-11-01] MEDS: TAMSULOSIN 0.4 MG CAP.SR.24H PO SCH (08:11)
[2021-11-01] MEDS: CALCIUM CARBONATE (1250) 500 MG TABLET PO SCH ×2 (08:11→17:23)
[2021-11-01] MEDS: DOCUSATE SODIUM LIQ 100 MG/10 ML UDC PO SCH ×2 (08:11→17:23)
[2021-11-01] MEDS: MULTIVITAMINS,THERAGRAN 1 UDTAB TABLET PO SCH (08:11)
[2021-11-01] MEDS: CEFEPIME 2 GM in IV D5W 100 ML IV SCH (08:11)
[2021-11-01] MEDS: FERROUS SULFATE (325 MG) 325 MG/TAB TABLET PO SCH ×3 (08:11→17:23)
[2021-11-01] MEDS: FINASTERIDE (5 MG) 5 MG TABLET PO SCH (08:11)
[2021-11-01] MEDS: ALLOPURINOL 100 MG TABLET PO SCH (08:11)
[2021-11-01] MEDS ORDERED: POTASSIUM CHLORIDE 20 MEQ TAB.PRT.SR PO ONE (09:00)
[2021-11-01] MEDS: APIXABAN 2.5 MG TABLET PO SCH ×2 (09:28→17:24)
[2021-11-01] MEDS: FUROSEMIDE 100 MG/10 ML VIAL IV SCH ×3 (09:47→17:41)
[2021-11-01] MEDS: POTASSIUM CHLORIDE 20 MEQ TAB.PRT.SR PO SCH ×3 (09:55→12:53)
--- NOTE | 2021-11-01 11:11 | NUR ---
TRANSFER NOTE PT TRANSFERRED TO ROOM 307. REPORT GIVEN TO DESIRE HOWARD. PT LEFT UNIT IN STABLE CONDITION AT APPROX 1100.
--- NOTE | 2021-11-01 11:15 | NUR ---
RN NOTE PT TRANSFERRED FROM ICU AT 1103 VIA BED ACCOMPANIED BY ICU NURSE, JUMANA HOWARD. PT A/O X3, ABLE TO MAKE NEEDS KNOWN. PT ORIENTED TO STAFF AND UNIT. V/S TAKEN AND RECORDED. PT ON O2 AT 5L/MIN VIA NASAL CANNULA. TOLERATING WELL WITH SPO2 93%. BREATHING UNLABORED. NOT IN ANY SIGN OF DISTRESS. PT PLACED ON CARDIAC TELE MONITOR WITH CURRENT READING OF VPACING, HR 71. NO COMPLAIN OF CARDIAC DISCOMFORT OF DISTRESS VOICED AT THIS TIME. ABDOMEN SOFT, NON TENDER, AND NON-DISTENDED. BOWEL SOUND PRESENT IN ALL FOUR QUADRANT. SKIN IS INTACT, DRY, AND WARM. NO SKIN IMPAIRMENT NOTED. IV ACCESS IN JAYLYN PICC LINE AND RFA #20, INTACT AND PATENT. VICK CATH IN PLACE DRAINING WELL WITH CLEAR YELLOW URINE. SAFETY MEASURES IN PLACE: BED IN LOWEST AND LOCKED POSITION, SIDE RAILS UPX3, ALARM ON, CALL LIGHT WITHIN REACH. WILL CONTINUE TO MONITOR PT.
[2021-11-01] MEDS: INSULIN REGULAR, HUMAN 100 UNIT/ML 3 ML VIAL SQ PRN ×3 (12:05→23:36)
--- NOTE | 2021-11-01 13:38 | NUR ---
RN NOTE REASSESSED PT'S SKIN, NOTED WITH SACRUM AND LEFT HEEL REDNESS. PICTURES TAKEN AND WOUND CONSULT ORDERED.
--- NOTE | 2021-11-01 19:35 | NUR ---
TRAFFIC OFFICER CLOSING NOTE PT IN BED AWAKE. A/O X3 WITH EPISODES OF CONFUSION. ABLE TO MAKE NEEDS KNOWN. PT ON O2 AT 3L/MIN VIA NASAL CANNULA. TOLERATING WELL WITH SPO2 93%. BREATHING UNLABORED. NOT IN ANY SIGN OF DISTRESS. ON CARDIAC TELE MONITOR WITH CURRENT READING OF VPACING, HR 70. NO COMPLAIN OF CARDIAC DISCOMFORT OF DISTRESS VOICED AT THIS TIME. IV ACCESS IN JAYLYN PICC LINE AND RFA #20, INTACT AND PATENT. VICK CATH IN PLACE DRAINING WELL WITH CLEAR YELLOW URINE. ALL NEEDS ATTENDED. SAFETY MEASURES IN PLACE: BED IN LOWEST AND LOCKED POSITION, SIDE RAILS UPX3, ALARM ON, CALL LIGHT WITHIN REACH. ENDORSED TO ARCHITECT NURSE FOR SARA
--- NOTE | 2021-11-01 20:42 | NUR ---
RN OPENING NOTE PATIENT AWAKE IN BED. A/OX3. NO S/S OF DISTRESS, BREATHING W/O DIFFICULTY ON 3L NC. JAYLYN PICC & RFA #20 INTACT AND PATENT. TELE MONITOR REVEALS VPACING 79. SITTER AT BEDSIDE. SAFETY MEASURES IN PLACE: BED AT LOWEST POSITION, LOCKED, RAILS UP X2, CALL RODRIGUEZ WITHIN REACH. WILL CONTINUE TO MONITOR PATIENT.
[2021-11-01] MEDS: ATORVASTATIN 10 MG TABLET PO SCH (22:16)
[2021-11-02] VITALS: BP 106/47
[2021-11-02] MEDS: LORAZEPAM INJ 2 MG/ML VIAL IV PRN ×2 (03:30→20:38)
[2021-11-02 04:00] VITALS: BP 116/61
[2021-11-02 06:24] LABS: BASOPHILS % (AUTO) 0.3 % (0.0-2.0); EOSINOPHILS % (AUTO) 3.2 % (0.0-6.0); HEMATOCRIT 35 % (39-51); HEMOGLOBIN 11.5 g/dL (13.5-17.5); LYMPHOCYTES # (AUTO) 0.3 K/uL (0.8-4.8); LYMPHOCYTES % (AUTO) 5.7 % (20.0-44.0); MEAN CORPUSCULAR HGB CONC 33 g/dl (31.0-36.0); MEAN CORPUSCULAR VOLUME 90 fL (80-96); MONOCYTES # (AUTO) 0.7 K/uL (0.1-1.30); MONOCYTES % (AUTO) 12.2 % (2.0-12.0); NEUTROPHILS # (AUTO) 4.4 K/uL (1.8-8.9); NEUTROPHILS % (AUTO) 78.6 % (43.0-81.0); PLATELET COUNT (AUTO) 165 K/uL (150-450); RED BLOOD CELL COUNT(AUTO) 3.85 MIL/uL (4.5-6.0); WHITE BLOOD COUNT (AUTO) 5.7 K/uL (4.3-11.0)
[2021-11-02] MEDS: INSULIN REGULAR, HUMAN 100 UNIT/ML 3 ML VIAL SQ PRN (06:36)
[2021-11-02] MEDS: BLOOD SUGAR DIAGNOSTIC 1 EACH STRIP IN SCH ×4 (06:36→22:24)
--- NOTE | 2021-11-02 06:57 | NUR ---
RN CLOSING NOTE PATIENT AWAKE IN BED. A/OX3. NO S/S OF DISTRESS; BREATHING W/O DIFFICULTY ON 3L NC. JAYLYN PICC & RFA #20 - BOTH SL - INTACT AND PATENT. TELE REVEALS V-PACING 81. SAFETY MEASURES IN PLACE: BED AT LOWEST POSITION, LOCKED, RAILS UP X3, CALL RODRIGUEZ WITHIN REACH. Addendum: 11/02/21 at 0731 by JADE ROWELL RN REPORT ENDORSED TO AND ACKNOWLEDGED BY RNMILLER, FOR SARA.
[2021-11-02] MEDS: PANTOPRAZOLE 40 MG TABLET.DR PO SCH (07:55)
[2021-11-02] MEDS: LEVOTHYROXINE SODIUM 25 MCG TABLET PO SCH (07:55)
[2021-11-02 08:11] LABS: ALANINE AMINOTRANSFERASE 32 U/L (12-78); ALBUMIN 2.5 g/dL (3.4-5.0); ALKALINE PHOSPHATASE 114 U/L (46-116); ASPARTATE AMINOTRANSFERASE 30 U/L (15-37); BILIRUBIN,TOTAL 0.7 mg/dL (0.2-1.0); CALCIUM, SERUM 9.1 mg/dL (8.5-10.1); CARBON DIOXIDE 30 mmol/L (21-32); CHLORIDE 101 mmol/L (98-107); CREATININE 2.3 mg/dL (0.6-1.3); GLUCOSE 106 mg/dL (74-106); PHOSPHORUS 2.8 mg/dL (2.5-4.9); POTASSIUM 3.3 mmol/L (3.5-5.1); SODIUM SERUM 141 mmol/L (136-145); TOTAL PROTEIN, SERUM 6.4 g/dL (6.4-8.2)
[2021-11-02] MEDS: ENSURE ENLIVE 237 ML LIQUID (VANILLA) PO SCH ×3 (08:19→17:25)
[2021-11-02 08:30] LABS: UREA NITROGEN, BLOOD 83 mg/dL (7-18)
[2021-11-02] MEDS: ASPIRIN EC 81 MG TABLET.DR PO SCH (09:40)
[2021-11-02] MEDS: CHOLECALCIFEROL 1,000 UNIT TABLET (VIT D3) PO SCH (09:40)
[2021-11-02] MEDS: MULTIVITAMINS,THERAGRAN 1 UDTAB TABLET PO SCH (09:40)
[2021-11-02] MEDS: CALCIUM CARBONATE (1250) 500 MG TABLET PO SCH ×2 (09:40→17:30)
[2021-11-02] MEDS: ALLOPURINOL 100 MG TABLET PO SCH (09:40)
[2021-11-02] MEDS: FINASTERIDE (5 MG) 5 MG TABLET PO SCH (09:40)
[2021-11-02] MEDS: TAMSULOSIN 0.4 MG CAP.SR.24H PO SCH (09:40)
[2021-11-02] MEDS: DOCUSATE SODIUM LIQ 100 MG/10 ML UDC PO SCH ×2 (09:41→17:30)
[2021-11-02] MEDS: DORZOLAMIDE OPTH 2% 10 ML BOTTLE EACHEYE SCH ×2 (09:41→17:26)
[2021-11-02] MEDS: FERROUS SULFATE (325 MG) 325 MG/TAB TABLET PO SCH ×3 (09:41→17:30)
[2021-11-02] MEDS: APIXABAN 2.5 MG TABLET PO SCH ×2 (09:42→17:31)
[2021-11-02] MEDS: CEFEPIME 2 GM in IV D5W 100 ML IV SCH (09:43)
[2021-11-02] MEDS ORDERED: POTASSIUM CHLORIDE 10 MEQ TABLET.SA PO ONE (10:00)
--- NOTE | 2021-11-02 10:00 | NUR ---
WOUND CARE CONSULT: PT PRESENTS WITH BLANCHABLE REDNESS TO HEELS AND SACRAL SCARRING WHICH EXTENDS TO BUTTOCKS, PRESENT ON ADMISSION. RECOMMENDATIONS MADE FOR SKIN PROTECTION. DISCUSSED WITH NURSING STAFF. MD IN AGREEMENT WITH PLAN OF CARE. CURRENT ROBERTO SCORE IS 15.
[2021-11-02] MEDS: IV NS 0.9% 250 ML IV PRN (10:07)
[2021-11-02] MEDS: Z GUARD REMEDY 4 OZ OINT TP PRN (11:56)
[2021-11-02] MEDS: Z GUARD REMEDY 4 OZ OINT TP SCH (11:57)
--- NOTE | 2021-11-02 18:37 | NUR ---
CIGAR HEAD PUNCHER CLOSING NOTE PATIENT AWAKE IN BED, A/OX3, AND HE IS CONFUSED. NO SIGNS OF PAIN AND DISTRESS AT THIS TIME. BREATHING W/O DIFFICULTY ON 3L NC. JAYLYN PICC & RFA #20 - BOTH SL - INTACT AND PATENT. SAFETY MEASURES IN PLACE: BED AT LOWEST POSITION, LOCKED, RAILS UP X3, CALL RODRIGUEZ WITHIN REACH. WILL ENDORSE TO INCOMING FOR SARA.
--- NOTE | 2021-11-02 19:37 | NUR ---
ROD PULLER AND COILER OPENING NOTES RECEIVED PT LYING IN BED WITH EYES CLOSED. DIFFICULT TO AROUSE. PER SITTER, PT IS VERY SLEEPY D/T NO SLEEP THROUGHOUT THE DAY. DIDN'T RESPOND TO SIMPLE QUESTIONS. NOT IN APPARENT DISTRESS. NO SOB OR NOTED. ON O2 VIA NASAL CANULA AT 3 LPM. ON TELE MONITOR READING V-PACE AT 86 BPM. HAS RIGHT UPPER ARM PICC LINE AND RIGHT FOREARM IV ACCESS #20G, BOTH SALINE LOCKED. NO S/S OF INFILTRATION NOTED. HAS VICK CATHETER DRAINING CLEAR YELLOW URINE VIA GRAVITY. SAFETY MEASURES IN PLACE. WILL CONTINUE PLAN OF CARE.
[2021-11-02 20:00] VITALS: BP 123/87
[2021-11-02] MEDS: ATORVASTATIN 10 MG TABLET PO SCH (22:15)
[2021-11-03] VITALS: BP 117/54
--- NOTE | 2021-11-03 00:58 | NUR ---
TURKEY CLEANER NOTES PRODUCTIVE COUGH NOTED. RALEIGH ALMEIDA NOTIFIED WITH NEW ORDER ROBITUSSIN 5ML PRN Q6H MADE AND CARRIED OUT.
[2021-11-03] MEDS ORDERED: GUAIFENESIN/D-METHORPHAN HB 5 ML UDC PO PRN (01:00)
[2021-11-03 04:00] VITALS: BP 110/70
[2021-11-03] MEDS: Z GUARD REMEDY 4 OZ OINT TP PRN ×2 (04:37→09:41)
--- NOTE | 2021-11-03 06:25 | NUR ---
SLURRY CONTROL TENDER CLOSING NOTES PT LYING IN BED WITH EYES CLOSED. EASY TO AROUSE. A/O X1, CONFUSION NOTED. PT TRYING TO REMOVE HIS FC. REDIRECT FREQUENTLY. ON O2 VIA NASAL CANULA AT 3 LPM. ON TELE MONITOR READING V-PACE WITH OCCASIONAL PVC AT 78 BPM. HAS RIGHT UPPER ARM PICC LINE AND RIGHT FOREARM IV ACCESS #20G, BOTH SALINE LOCKED. PATENT, INTACT AND FLUSHING. HAS VICK CATHETER DRAINING JAMES URINE VIA GRAVITY. ALL NEEDS ATTENDED. SKIN CARE RENDERED. SAFETY MEASURES IN PLACE: BED LOW AND LOCKED, SIDE RAILS UP X3, CALL LIGHT WITHIN REACH, SITTER ON BEDSIDE.
[2021-11-03] MEDS: PANTOPRAZOLE 40 MG TABLET.DR PO SCH (06:41)
[2021-11-03] MEDS: LEVOTHYROXINE SODIUM 25 MCG TABLET PO SCH (06:41)
[2021-11-03 06:50] LABS: BASOPHILS % (AUTO) 0.4 % (0.0-2.0); EOSINOPHILS % (AUTO) 2.8 % (0.0-6.0); HEMATOCRIT 36 % (39-51); HEMOGLOBIN 12.1 g/dL (13.5-17.5); LYMPHOCYTES # (AUTO) 0.5 K/uL (0.8-4.8); LYMPHOCYTES % (AUTO) 8.1 % (20.0-44.0); MEAN CORPUSCULAR HGB CONC 34 g/dl (31.0-36.0); MEAN CORPUSCULAR VOLUME 91 fL (80-96); MONOCYTES # (AUTO) 0.8 K/uL (0.1-1.30); MONOCYTES % (AUTO) 14.5 % (2.0-12.0); NEUTROPHILS # (AUTO) 4.1 K/uL (1.8-8.9); NEUTROPHILS % (AUTO) 74.2 % (43.0-81.0); PLATELET COUNT (AUTO) 183 K/uL (150-450); RED BLOOD CELL COUNT(AUTO) 3.97 MIL/uL (4.5-6.0); WHITE BLOOD COUNT (AUTO) 5.6 K/uL (4.3-11.0)
[2021-11-03] MEDS: BLOOD SUGAR DIAGNOSTIC 1 EACH STRIP IN SCH ×4 (06:55→21:35)
[2021-11-03 07:17] LABS: ALANINE AMINOTRANSFERASE 30 U/L (12-78); ALBUMIN 2.4 g/dL (3.4-5.0); ALKALINE PHOSPHATASE 116 U/L (46-116); ASPARTATE AMINOTRANSFERASE 28 U/L (15-37); BILIRUBIN,TOTAL 0.7 mg/dL (0.2-1.0); CARBON DIOXIDE 17 mmol/L (21-32); CHLORIDE 104 mmol/L (98-107); CREATININE 2.1 mg/dL (0.6-1.3); GLUCOSE 94 mg/dL (74-106); POTASSIUM 3.6 mmol/L (3.5-5.1); SODIUM SERUM 142 mmol/L (136-145); TOTAL PROTEIN, SERUM 6.4 g/dL (6.4-8.2); UREA NITROGEN, BLOOD 67 mg/dL (7-18)
--- NOTE | 2021-11-03 07:45 | NUR ---
RECEIVING CHECKER OPENING NOTE RECEIVED PATIENT AWAKE IN BED, A/OX3. NO SIGNS OF PAIN AND DISTRESS AT THIS TIME. BREATHING W/O DIFFICULTY ON 3L NC. JAYLYN PICC & RFA #20 - BOTH SL - INTACT AND PATENT. SAFETY MEASURES IN PLACE: BED AT LOWEST POSITION, LOCKED, RAILS UP X3, CALL RODRIGUEZ WITHIN REACH. WILL CONTINUE TO MONITOR FOR SARA.
[2021-11-03 08:21] LABS: CALCIUM, SERUM 9.4 mg/dL (8.5-10.1)
[2021-11-03] MEDS: ENSURE ENLIVE 237 ML LIQUID (VANILLA) PO SCH ×3 (08:29→16:40)
[2021-11-03] MEDS: FUROSEMIDE 40 MG TABLET PO SCH (09:25)
[2021-11-03] MEDS ORDERED: FURO40TA5 PO (09:28)
[2021-11-03] MEDS ORDERED: POTA10TA10 PO (09:28)
[2021-11-03] MEDS: DOCUSATE SODIUM LIQ 100 MG/10 ML UDC PO SCH ×2 (09:33→16:51)
[2021-11-03] MEDS: CHOLECALCIFEROL 1,000 UNIT TABLET (VIT D3) PO SCH (09:33)
[2021-11-03] MEDS: DORZOLAMIDE OPTH 2% 10 ML BOTTLE EACHEYE SCH ×2 (09:33→16:43)
[2021-11-03] MEDS: ASPIRIN EC 81 MG TABLET.DR PO SCH (09:33)
[2021-11-03] MEDS: FERROUS SULFATE (325 MG) 325 MG/TAB TABLET PO SCH ×3 (09:33→16:51)
[2021-11-03] MEDS: APIXABAN 2.5 MG TABLET PO SCH ×2 (09:34→16:39)
[2021-11-03] MEDS: ALLOPURINOL 100 MG TABLET PO SCH (09:35)
[2021-11-03] MEDS: POTASSIUM CHLORIDE 10 MEQ TABLET.SA PO SCH (09:35)
[2021-11-03] MEDS: CALCIUM CARBONATE (1250) 500 MG TABLET PO SCH ×2 (09:35→16:51)
[2021-11-03] MEDS: MULTIVITAMINS,THERAGRAN 1 UDTAB TABLET PO SCH (09:35)
[2021-11-03] MEDS: FINASTERIDE (5 MG) 5 MG TABLET PO SCH (09:35)
[2021-11-03] MEDS: TAMSULOSIN 0.4 MG CAP.SR.24H PO SCH (09:37)
[2021-11-03] MEDS: Z GUARD REMEDY 4 OZ OINT TP SCH (09:42)
[2021-11-03] MEDS: LORAZEPAM INJ 2 MG/ML VIAL IV PRN (11:27)
--- NOTE | 2021-11-03 15:36 | NUR ---
FAMILY SERVICES MANAGER NOTES PT HAD AN EPISODE OF AGITATION AND RESTLESSNESS, ATTEMPTING TO PULL OUT HIS VICK CATH, CAUSING IT TO BLEED, DR. SMITH INFORMED, INFORMED OF LATEST VITALS, MD ORDERED VICK TO BE REMOVED, PT HAD A LOT OF BLEEDING AFTER REMOVAL OF VICK CATH, ICE AND PRESSURE APPLIED AND BLEEDING EVENTUALLY STOPPED, INFORMED, NO NEW ORDER AT THIS TIME.
[2021-11-03 16:18] LABS: ABG BASE EXCESS 3.6 mmol/L; ABG OXYGEN SATURATION 96.3 % (92.0-98.5); ABG PCO2 37.3 mmHg (35.0-45.0); ABG PO2 82.1 mmHg (75.0-100.0); AaDO2 102.4 mmHg; COHb 1.1 % (0.5-1.5); MetHb 0.1 % (0.0-1.5); O2Hb 95.1 % (94.0-97.0); SITE, ABG Right Radial; VENT MODE, BG 3 LPM NC
[2021-11-03] MEDS: INSULIN REGULAR, HUMAN 100 UNIT/ML 3 ML VIAL SQ PRN (16:59)
--- NOTE | 2021-11-03 18:55 | NUR ---
SEAT COVER MAKER CLOSING NOTE PATIENT AWAKE IN BED, A/OX1, ONLY REMEMBERS HIS NAME. PATIENT IS AGITATED AND CONFUSED. NO SIGNS OF PAIN AND DISTRESS AT THIS TIME. BREATHING W/O DIFFICULTY ON 3L NC. JAYLYN PICC & RFA #20 - BOTH SL - INTACT AND PATENT. DISCONTINUED VICK CATHETER; URINE OUTPUT WAS 400 CC WITH BLOOD. SAFETY MEASURES IN PLACE: BED AT LOWEST POSITION, LOCKED, RAILS UP X3, CALL RODRIGUEZ WITHIN REACH. WILL ENDORSE TO INCOMING SHIFT FOR SARA.
--- NOTE | 2021-11-03 19:30 | NUR ---
LOW PRESSURE KETTLE OPERATOR OPENING NOTES RECEIVED PT LYING IN BED AWAKE. A/O X1 WITH SEVERE CONFUSION AND AGITATION NOTED. NO C/O PAIN OR DISCOMFORT. HAS O2 AT 3 LPM VIA NASAL CANULA. NO SOB OR NOTED. HAS RIGHT UPPER ARM PICC LINE AND RIGHT FOREARM IV ACCESS #20G, SALINE LOCKED. NO S/S OF INFILTRATION NOTED. HEMATURIA NOTED ON DIAPER. PER AM NURSE, PT PULLED OUT HIS FC. SAFETY MEASURES IN PLACE. WILL CONTINUE PLAN OF CARE. Addendum: 11/04/21 at 0115 by November GREGORY HOWARD ON TELE MONITOR READING V-PACE AT 85 BPM.
[2021-11-03 20:00] VITALS: BP 103/59
[2021-11-03] MEDS: ATORVASTATIN 10 MG TABLET PO SCH (21:22)
[2021-11-04] VITALS: BP 124/64
[2021-11-04 04:00] VITALS: BP 110/62
--- NOTE | 2021-11-04 06:36 | NUR ---
SUMO WRESTLER CLOSING NOTES PT LYING IN BED AWAKE. DIDN'T SLEEP. SITTER ON BEDSIDE. A/O X1 WITH SEVERE CONFUSION. NOT IN APPARENT DISTRESS. HAS O2 AT 3 LPM VIA NASAL CANULA. BREATHING EVEN AND NON-LABORED. ON TELE MONITOR READING V-PACE AT 90 BPM. HAS RIGHT UPPER ARM PICC LINE AND RIGHT FOREARM IV ACCESS #20G, SALINE LOCKED. INTACT, PATENT AND FLUSHING. NO HEMATURIA NOTED ON 3RD DIAPER CHANGE. ALL NEEDS ATTENDED. SAFETY MEASURES IN PLACE: BED LOW AND LOCKED, SIDE RAILS UP X3, CALL LIGHT WITHIN REACH.
[2021-11-04] MEDS: PANTOPRAZOLE 40 MG TABLET.DR PO SCH (06:38)
[2021-11-04] MEDS: LEVOTHYROXINE SODIUM 25 MCG TABLET PO SCH (06:38)
[2021-11-04] MEDS: BLOOD SUGAR DIAGNOSTIC 1 EACH STRIP IN SCH ×4 (06:44→22:17)
[2021-11-04 06:53] LABS: ALANINE AMINOTRANSFERASE 29 U/L (12-78); ALBUMIN 2.5 g/dL (3.4-5.0); ALKALINE PHOSPHATASE 135 U/L (46-116); ASPARTATE AMINOTRANSFERASE 31 U/L (15-37); BILIRUBIN,TOTAL 0.7 mg/dL (0.2-1.0); CHLORIDE 107 mmol/L (98-107); CREATININE 2.2 mg/dL (0.6-1.3); GLUCOSE 104 mg/dL (74-106); POTASSIUM 4.1 mmol/L (3.5-5.1); SODIUM SERUM 146 mmol/L (136-145); TOTAL PROTEIN, SERUM 6.5 g/dL (6.4-8.2); UREA NITROGEN, BLOOD 66 mg/dL (7-18)
[2021-11-04 07:06] LABS: CALCIUM, SERUM 9.3 mg/dL (8.5-10.1); CARBON DIOXIDE 29 mmol/L (21-32)
--- NOTE | 2021-11-04 07:45 | NUR ---
RN NOTES RESTING IN BED EYES CLOSED, ABLE TO BE AWAKENED. CONFUSED, ABLE TO BE REDIRECTED. VERBALLY RESPONSIVE. SITTER AT BEDSIDE FOR SAFETY. IV LINES INTACT AND PATENT.
--- NOTE | 2021-11-04 08:24 | NUR ---
RN NOTES PATIENT SEEN BY DR. SMITH AT BEDSIDE. O2 SAT 94-95% IN ROOM AIR. NO RESPIRATORY DISTRESS.
[2021-11-04] MEDS: ENSURE ENLIVE 237 ML LIQUID (VANILLA) PO SCH ×3 (08:32→17:04)
[2021-11-04] MEDS: CALCIUM CARBONATE (1250) 500 MG TABLET PO SCH ×2 (08:37→16:32)
[2021-11-04] MEDS: DOCUSATE SODIUM LIQ 100 MG/10 ML UDC PO SCH ×2 (08:37→16:32)
[2021-11-04] MEDS: ALLOPURINOL 100 MG TABLET PO SCH (08:37)
[2021-11-04] MEDS: FERROUS SULFATE (325 MG) 325 MG/TAB TABLET PO SCH ×3 (08:37→16:32)
[2021-11-04] MEDS: ASPIRIN EC 81 MG TABLET.DR PO SCH (08:37)
[2021-11-04] MEDS: FINASTERIDE (5 MG) 5 MG TABLET PO SCH (08:37)
[2021-11-04] MEDS: CHOLECALCIFEROL 1,000 UNIT TABLET (VIT D3) PO SCH (08:37)
[2021-11-04] MEDS: TAMSULOSIN 0.4 MG CAP.SR.24H PO SCH (08:40)
[2021-11-04] MEDS: POTASSIUM CHLORIDE 10 MEQ TABLET.SA PO SCH (08:40)
[2021-11-04] MEDS: FUROSEMIDE 40 MG TABLET PO SCH (08:40)
[2021-11-04] MEDS: Z GUARD REMEDY 4 OZ OINT TP SCH (08:41)
[2021-11-04] MEDS: MULTIVITAMINS,THERAGRAN 1 UDTAB TABLET PO SCH (08:41)
[2021-11-04] MEDS: DORZOLAMIDE OPTH 2% 10 ML BOTTLE EACHEYE SCH ×2 (08:42→16:33)
[2021-11-04] MEDS: APIXABAN 2.5 MG TABLET PO SCH ×2 (08:43→16:36)
--- NOTE | 2021-11-04 09:20 | NUR ---
RN NOTES SPOKE W/ KURT ODOM, FAMILY, UPDATED W/ PATIENT'S PROGRESS.
[2021-11-04] MEDS: LORAZEPAM INJ 2 MG/ML VIAL IV PRN (11:44)
--- NOTE | 2021-11-04 11:50 | NUR ---
RN NOTES FAMILY AT BEDSIDE AND REQUESTED ATIVAN FOR PATIENT FOR RESTLESSNESS/NERVOUSNESS.
[2021-11-04] MEDS: INSULIN REGULAR, HUMAN 100 UNIT/ML 3 ML VIAL SQ PRN ×2 (11:52→17:02)
--- NOTE | 2021-11-04 18:56 | NUR ---
RN NOTES SITTER STILL AT BEDSIDE W/ PATIENT. ABLE TO BE REDIRECTED. NOT IN ACUTE DISTRESS. RE-PLACED BACK ON O2 VIA NC AT 2-3LPM TO KEEP O2 SAT >94%. IV LINES INTACT. SAFETY MEASURES MAINTAINED.
--- NOTE | 2021-11-04 19:30 | NUR ---
MS RN OPENING NOTE PATIENT AWAKE IN BED, ALERT/ORIENTED X 1 WITH CONFUSION. PATIENT STABLE ON 3 LPM OF OXYGEN VIA NASAL CANNULA. JAYLYN PICC LINE AND RIGHT FOREARM #20G INTACT AND BOTH SALINE LOCKED. SAFETY MEASURES IN PLACE: CALL LIGHT WITHIN REACH, SIDE RAILS UP X 3, BED LOCKED IN LOWEST POSITION, BED ALARM ON, SITTER AT BEDSIDE. WILL CONTINUE TO MONITOR PATIENT
[2021-11-04 20:00] VITALS: BP 99/51
[2021-11-04] MEDS: ATORVASTATIN 10 MG TABLET PO SCH (22:26)
[2021-11-05] MEDS: LEVOTHYROXINE SODIUM 25 MCG TABLET PO SCH (06:29)
--- NOTE | 2021-11-05 06:45 | NUR ---
MS RN CLOSING NOTES PATIENT AWAKE IN BED, ALERT/ORIENTED X 1 WITH CONFUSION. PATIENT STABLE ON 3 LPM OF OXYGEN VIA NASAL CANNULA. MEDICATIONS GIVEN ORDERED, PT NEEDS MET THROUGHOUT SHIFT, NO SIGNIFICANT CHANGES THROUGHOUT SHIFT. PATIENT TURNED Q2H, MEPILEX PLACED ON BILATERAL HEELS AND SACRUM. SLIGHT HEMATURIA NOTED WHEN HYGIENE CARE PROVIDED. SAFETY MEASURES IN PLACE: CALL LIGHT WITHIN REACH, SIDE RAILS UP X 3, BED LOCKED IN LOWEST POSITION, BED ALARM ON, SITTER AT BEDSIDE. WILL ENDORSE TO DAY SHIFT NURSE FOR CONTINUITY OF CARE
[2021-11-05] MEDS: BLOOD SUGAR DIAGNOSTIC 1 EACH STRIP IN SCH ×4 (06:49→23:17)
[2021-11-05 07:13] LABS: ALANINE AMINOTRANSFERASE 30 U/L (12-78); ALBUMIN 2.1 g/dL (3.4-5.0); ALKALINE PHOSPHATASE 113 U/L (46-116); ASPARTATE AMINOTRANSFERASE 31 U/L (15-37); BILIRUBIN,TOTAL 0.4 mg/dL (0.2-1.0); TOTAL PROTEIN, SERUM 5.9 g/dL (6.4-8.2)
[2021-11-05 07:36] LABS: CALCIUM, SERUM 8.6 mg/dL (8.5-10.1); CARBON DIOXIDE 28 mmol/L (21-32); CHLORIDE 103 mmol/L (98-107); CREATININE 1.9 mg/dL (0.6-1.3); GLUCOSE 89 mg/dL (74-106); POTASSIUM 3.7 mmol/L (3.5-5.1); SODIUM SERUM 139 mmol/L (136-145); UREA NITROGEN, BLOOD 66 mg/dL (7-18)
--- NOTE | 2021-11-05 08:20 | NUR ---
ms rn received on bed, awake,alert,oriented x 1,not in any form of distress, respirations even and unlabored,no sob noted, lungs are clear, abdomen soft,positive bowel sounds denies pain at this time, w/ sitter for safety and comfort, will monitor patient.
--- NOTE | 2021-11-05 09:30 | NUR ---
ms donaldson breakfast served,due meds given,tolerated well.
[2021-11-05] MEDS: POTASSIUM CHLORIDE 10 MEQ TABLET.SA PO SCH (10:39)
[2021-11-05] MEDS: TAMSULOSIN 0.4 MG CAP.SR.24H PO SCH (10:39)
[2021-11-05] MEDS: DOCUSATE SODIUM LIQ 100 MG/10 ML UDC PO SCH ×2 (10:39→17:39)
[2021-11-05] MEDS: PANTOPRAZOLE 40 MG TABLET.DR PO SCH (10:40)
[2021-11-05] MEDS: FUROSEMIDE 40 MG TABLET PO SCH (10:40)
[2021-11-05] MEDS: CALCIUM CARBONATE (1250) 500 MG TABLET PO SCH ×2 (10:40→17:39)
[2021-11-05] MEDS: CHOLECALCIFEROL 1,000 UNIT TABLET (VIT D3) PO SCH (10:40)
[2021-11-05] MEDS: MULTIVITAMINS,THERAGRAN 1 UDTAB TABLET PO SCH (10:40)
[2021-11-05] MEDS: ALLOPURINOL 100 MG TABLET PO SCH (10:40)
[2021-11-05] MEDS: FERROUS SULFATE (325 MG) 325 MG/TAB TABLET PO SCH ×3 (10:41→17:39)
[2021-11-05] MEDS: FINASTERIDE (5 MG) 5 MG TABLET PO SCH (10:41)
[2021-11-05] MEDS: ASPIRIN EC 81 MG TABLET.DR PO SCH (10:42)
[2021-11-05] MEDS: Z GUARD REMEDY 4 OZ OINT TP SCH (10:42)
[2021-11-05] MEDS: ENSURE ENLIVE 237 ML LIQUID (VANILLA) PO SCH ×3 (10:43→17:40)
[2021-11-05] MEDS: DORZOLAMIDE OPTH 2% 10 ML BOTTLE EACHEYE SCH ×2 (10:43→17:39)
[2021-11-05] MEDS: APIXABAN 2.5 MG TABLET PO SCH ×2 (10:45→17:40)
--- NOTE | 2021-11-05 12:00 | NUR ---
ms rn mri head ordered by dr. 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
--- NOTE | 2021-11-05 12:30 | NUR ---
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
--- NOTE | 2021-11-05 12:58 | NUR ---
new order received for stat mri of [facility]. According to dr. Masters case was discussed with dr. Waters and mri is recommended.
--- NOTE | 2021-11-05 14:39 | NUR ---
not able to perform mri due to pacemaker, informed, order canceled.
--- NOTE | 2021-11-05 18:26 | NUR ---
ms rn on bed,all needs attended.
--- NOTE | 2021-11-05 19:39 | NUR ---
MS RN OPENING NOTE PATIENT RECEIVED IN BED,AAOX 1 WITH CONFUSION. PATIENT STABLE ON 3 LPM OF OXYGEN VIA NASAL CANNULA SAT 98%. JAYLYN PICC LINE AND RIGHT FOREARM #20G INTACT AND BOTH SALINE LOCKED. SAFETY MEASURES IN PLACE: CALL LIGHT WITHIN REACH, SIDE RAILS UP X 3, BED LOCKED IN LOWEST POSITION, BED ALARM ON, SITTER AT BEDSIDE. WILL CONTINUE TO MONITOR
[2021-11-05 20:00] VITALS: BP 106/59
[2021-11-05] MEDS: ATORVASTATIN 10 MG TABLET PO SCH (21:36)
[2021-11-05] MEDS: INSULIN REGULAR, HUMAN 100 UNIT/ML 3 ML VIAL SQ PRN (21:45)
[2021-11-06] MEDS: BLOOD SUGAR DIAGNOSTIC 1 EACH STRIP IN SCH ×3 (06:35→16:54)
[2021-11-06] MEDS: INSULIN REGULAR, HUMAN 100 UNIT/ML 3 ML VIAL SQ PRN (06:35)
[2021-11-06 06:56] LABS: CALCIUM, SERUM 8.7 mg/dL (8.5-10.1); CARBON DIOXIDE 30 mmol/L (21-32); CHLORIDE 105 mmol/L (98-107); CREATININE 2.2 mg/dL (0.6-1.3); GLUCOSE 98 mg/dL (74-106); POTASSIUM 4.3 mmol/L (3.5-5.1); SODIUM SERUM 143 mmol/L (136-145); UREA NITROGEN, BLOOD 77 mg/dL (7-18)
[2021-11-06 07:06] LABS: ALANINE AMINOTRANSFERASE 35 U/L (12-78); ALBUMIN 2.6 g/dL (3.4-5.0); ALKALINE PHOSPHATASE 129 U/L (46-116); ASPARTATE AMINOTRANSFERASE 35 U/L (15-37); BILIRUBIN,TOTAL 0.5 mg/dL (0.2-1.0); TOTAL PROTEIN, SERUM 6.5 g/dL (6.4-8.2)
--- NOTE | 2021-11-06 07:30 | NUR ---
ms rn ready for d/c,patient refused to take picture at his buttocks,all needs attended.
--- NOTE | 2021-11-06 07:40 | NUR ---
RN CLOSING NOTE PATIENT ASLEEP IN HIS BED. A/OX2. NO S/S OF DISTRESS; BREATHING WELL 3L NC. JAYLYN PICC; RFA #20 SL INTACT AND PATENT. SAFETY MEASURES IN PLACE: BED LOCKED, AT LOWEST POSITION, RAILS UP X3, CALL RODRIGUEZ WITHIN REACH. REPORT WAS ENDORSED TO AND ACKNOWLEDGED BY RNDONNIE, FOR SARA.
--- NOTE | 2021-11-06 07:50 | NUR ---
ms rn received on bed, awake,alert,oriented x 1,not in any form of distress, respirations even and unlabored,no sob noted, w/ sitter for safety,all needs attended.
[2021-11-06] MEDS: POTASSIUM CHLORIDE 10 MEQ TABLET.SA PO SCH (09:26)
[2021-11-06] MEDS: CALCIUM CARBONATE (1250) 500 MG TABLET PO SCH ×2 (09:26→16:54)
[2021-11-06] MEDS: FERROUS SULFATE (325 MG) 325 MG/TAB TABLET PO SCH ×3 (09:26→16:53)
[2021-11-06] MEDS: TAMSULOSIN 0.4 MG CAP.SR.24H PO SCH (09:26)
[2021-11-06] MEDS: ASPIRIN EC 81 MG TABLET.DR PO SCH (09:26)
[2021-11-06] MEDS: DOCUSATE SODIUM LIQ 100 MG/10 ML UDC PO SCH ×2 (09:26→16:54)
[2021-11-06] MEDS: CHOLECALCIFEROL 1,000 UNIT TABLET (VIT D3) PO SCH (09:26)
[2021-11-06] MEDS: ALLOPURINOL 100 MG TABLET PO SCH (09:26)
[2021-11-06] MEDS: FUROSEMIDE 40 MG TABLET PO SCH (09:26)
[2021-11-06] MEDS: MULTIVITAMINS,THERAGRAN 1 UDTAB TABLET PO SCH (09:26)
[2021-11-06] MEDS: FINASTERIDE (5 MG) 5 MG TABLET PO SCH (09:27)
[2021-11-06] MEDS: APIXABAN 2.5 MG TABLET PO SCH ×2 (09:28→16:59)
[2021-11-06] MEDS: DORZOLAMIDE OPTH 2% 10 ML BOTTLE EACHEYE SCH ×2 (09:28→16:55)
[2021-11-06] MEDS: PANTOPRAZOLE 40 MG TABLET.DR PO SCH (09:30)
[2021-11-06] MEDS: ENSURE ENLIVE 237 ML LIQUID (VANILLA) PO SCH ×3 (09:30→16:55)
[2021-11-06] MEDS: LEVOTHYROXINE SODIUM 25 MCG TABLET PO SCH (09:30)
--- NOTE | 2021-11-06 12:00 | NUR ---
ms rn bs- 137-coverage not given,patient has history of hypoglycemia
[2021-11-06] MEDS: Z GUARD REMEDY 4 OZ OINT TP SCH (13:40)
--- NOTE | 2021-11-06 18:50 | NUR ---
ms rn patient transferred to snf,no distress noted,all needs attended.called son Antelmo.
== END 2021-11-06 18:45 | DRG 291 ==
LOC: ER 23:15 → TELE1 10-27 02:40 → ICU 10-27 04:56 → TELE 11-01 11:12 → MED 11-04 09:58
PROVIDERS: ADMIT Nurse Practitioner Acute Care; ATTEND Nurse Practitioner Acute Care
PROC: 5A09457 Assistance with Respiratory Ventilation, 24-96 Consecutive Hours, Continuous Positive Airway Pressure (ICD-10-PCS; principal; 2021-10-27)
PROC: 02HV33Z Insertion of Infusion Device into Superior Vena Cava, Percutaneous Approach (ICD-10-PCS; 2021-10-31)
PROC: B548ZZA Ultrasonography of Superior Vena Cava, Guidance (ICD-10-PCS; 2021-10-31)
DX: I13.0 Hypertensive heart and chronic kidney disease with heart failure and stage 1 through stage 4 chronic kidney disease, or unspecified chronic kidney disease (principal); I50.43 Acute on chronic combined systolic (congestive) and diastolic (congestive) heart failure; J96.21 Acute and chronic respiratory failure with hypoxia; J96.22 Acute and chronic respiratory failure with hypercapnia; G93.41 Metabolic encephalopathy; N17.0 Acute kidney failure with tubular necrosis; E87.2 Acidosis; E87.0 Hyperosmolality and hypernatremia; N18.30 Chronic kidney disease, stage 3 unspecified; Z20.822 Contact with and (suspected) exposure to COVID-19; Z95.0 Presence of cardiac pacemaker; E11.22 Type 2 diabetes mellitus with diabetic chronic kidney disease; E03.9 Hypothyroidism, unspecified; E78.5 Hyperlipidemia, unspecified; I25.10 Atherosclerotic heart disease of native coronary artery without angina pectoris; M10.9 Gout, unspecified; Z90.49 Acquired absence of other specified parts of digestive tract; Z98.890 Other specified postprocedural states; Z96.649 Presence of unspecified artificial hip joint; Z79.899 Other long term (current) drug therapy; Z79.01 Long term (current) use of anticoagulants; Z79.890 Hormone replacement therapy; Z79.82 Long term (current) use of aspirin; N40.0 Benign prostatic hyperplasia without lower urinary tract symptoms; R74.01 Elevation of levels of liver transaminase levels; K76.1 Chronic passive congestion of liver; Z86.79 Personal history of other diseases of the circulatory system; I27.20 Pulmonary hypertension, unspecified; I48.0 Paroxysmal atrial fibrillation; D63.8 Anemia in other chronic diseases classified elsewhere; R04.0 Epistaxis; J44.9 Chronic obstructive pulmonary disease, unspecified
CPT/HCPCS: 31720; 36415; 36600; 70450-TC; 71045-TC; 80048-TC; 80053-TC; 80061-TC; 80076-TC; 82803-TC; 82962-TC; 83540-TC; 83735-TC; 83880; 84100-TC; 84484-TC; 85025-TC; 85378-TC; 85730-TC; 87081-TC; 93307-TC; 93970-TC; 94660; 94760-TC; 94799-TC; 97116-TC; 97530-TC; A4349; C9803; G0378; J0692; J1120; J1644; J1815; J1940; J2060; J3480; J7050; J7060

== ENCOUNTER 2021-11-20 22:39 | Inpatient (IN) | payer MEDICARE, BC ==
[~2021-11-20] VITALS: Ht 170.2 cm; Wt 79.8 kg
[~2021-11-20 22:39] MED LIST changes: +FURO40TA5 PO; +POTA10TA10 PO
--- NOTE | 2021-11-20 22:40 | NUR ---
BIBA 102 FROM HOME FOR C/O SOB X 2-3 HOURS. TACHYPNEAC ON NRB 15LPM SATTING AT 86%. PT A/OX3. CONNECTED PT TO POX AND MONITOR. SAFETY MEASURES IN PLACE. RT & DR. FRANKO COLE AT PT'S BEDSIDE
[2021-11-20] MEDS ORDERED: methylPREDNISolone SOD SUCC 125 MG/2ML VIAL ONE (22:49)
--- NOTE | 2021-11-20 22:54 | NUR ---
RFA #18G S/L. BLOOD AND COVID ANTIGEN SWAB COLLECTED AND SENT TO LAB
--- NOTE | 2021-11-20 22:54 | NUR ---
BILLET INSPECTOR AT PT'S BEDSIDE
[2021-11-20] MEDS ORDERED: FUROSEMIDE 40 MG/4 ML VIAL ONE (22:55)
[2021-11-20] MEDS ORDERED: ALBUTEROL FS 2.5 MG/3 ML VIAL.NEB ONE (22:57)
[2021-11-20] MEDS ORDERED: IPRATROPIUM NEB FS 0.5 MG/2.5 ML AMPUL.NEB ONE (22:58)
--- NOTE | 2021-11-20 22:58 | NUR ---
RT AT PT'S BEDSIDE: BIPAP SETTINGS FIO2 100% Addendum: 11/20/21 at 2300 by ANABEL RT AT PT'S BEDSIDE: CPAP SETTINGS CPAP 8 FIO2 100% SATTING AT 100%
[2021-11-20] MEDS ORDERED: FUROSEMIDE 40 MG/4 ML VIAL IV ONE (23:00)
[2021-11-20] MEDS ORDERED: IPRATROPIUM NEB FS 0.5 MG/2.5 ML AMPUL.NEB NEB ONE (23:00)
[2021-11-20] MEDS ORDERED: methylPREDNISolone SOD SUCC 125 MG/2ML VIAL IV ONE (23:00)
[2021-11-20] MEDS ORDERED: ALBUTEROL FS 2.5 MG/3 ML VIAL.NEB NEB ONE (23:00)
[2021-11-20 23:05] LABS: BASOPHILS % (AUTO) 0.5 % (0.0-2.0); EOSINOPHILS % (AUTO) 1.2 % (0.0-6.0); HEMATOCRIT 36 % (39-51); HEMOGLOBIN 11.5 g/dL (13.5-17.5); LYMPHOCYTES # (AUTO) 0.9 K/uL (0.8-4.8); LYMPHOCYTES % (AUTO) 13.7 % (20.0-44.0); MEAN CORPUSCULAR HGB CONC 32 g/dl (31.0-36.0); MEAN CORPUSCULAR VOLUME 91 fL (80-96); MONOCYTES # (AUTO) 0.7 K/uL (0.1-1.30); MONOCYTES % (AUTO) 10.4 % (2.0-12.0); NEUTROPHILS # (AUTO) 4.8 K/uL (1.8-8.9); NEUTROPHILS % (AUTO) 74.2 % (43.0-81.0); PLATELET COUNT (AUTO) 206 K/uL (150-450); RED BLOOD CELL COUNT(AUTO) 3.91 MIL/uL (4.5-6.0); WHITE BLOOD COUNT (AUTO) 6.5 K/uL (4.3-11.0)
[2021-11-20 23:20] LABS: CALCIUM, SERUM 8.3 mg/dL (8.5-10.1); CARBON DIOXIDE 23 mmol/L (21-32); CHLORIDE 105 mmol/L (98-107); CREATININE 1.9 mg/dL (0.6-1.3); GLUCOSE 174 mg/dL (74-106); POTASSIUM 4.8 mmol/L (3.5-5.1); SODIUM SERUM 139 mmol/L (136-145); UREA NITROGEN, BLOOD 42 mg/dL (7-18)
--- NOTE | 2021-11-20 23:30 | NUR ---
RT NOTE PT BROUGHT IN FOR SOB BY FIRE DEPT. PT PLACED ON CPAP OF 8, 100% PER DR. ABDUL. HHN TX GIVEN. ABG DONE AND RESULTS GIVEN TO . NO CHANGES ORDERED.
[2021-11-20] MEDS ORDERED: LORAZEPAM INJ 2 MG/ML VIAL ONE (23:31)
--- NOTE | 2021-11-20 23:33 | NUR ---
RT AT PT'S BEDSIDE FOR ABG
[2021-11-20 23:34] LABS: ALANINE AMINOTRANSFERASE 29 U/L (12-78); ALBUMIN 3.2 g/dL (3.4-5.0); ALKALINE PHOSPHATASE 137 U/L (46-116); ASPARTATE AMINOTRANSFERASE 27 U/L (15-37); BILIRUBIN,DIRECT 0.2 mg/dL (0.0-0.2); BILIRUBIN,TOTAL 0.6 mg/dL (0.2-1.0); TOTAL PROTEIN, SERUM 7.5 g/dL (6.4-8.2)
--- NOTE | 2021-11-20 23:37 | NUR ---
DR. PERERA AT PT'S BEDSIDE
[2021-11-20 23:44] LABS: ABG BASE EXCESS -3.1 mmol/L; ABG PCO2 48.9 mmHg (35.0-45.0); ABG PH 7.301 (7.350-7.450); COHb 0.6 % (0.5-1.5); MetHb 0.3 % (0.0-1.5); O2Hb 96.3 % (94.0-97.0); SITE, ABG Left Radial; VENT MODE, BG CPAP 8 100%
[2021-11-21] VITALS (22 sets, daily range): BP systolic 94–131; BP diastolic 51–90
[2021-11-21] MEDS ORDERED: ACETAMINOPHEN 325 MG TABLET PO PRN
[2021-11-21] MEDS ORDERED: AZITHROMYCIN 500 MG VIAL ONE
[2021-11-21] MEDS ORDERED: MORPHINE SULFATE INJ 2 MG/ML DISP.SYRIN IV PRN
[2021-11-21] MEDS ORDERED: CEFTRIAXONE 1GM BAG (ER ONLY) 1 GM/50 ML PIGGYBACK IV ONE
[2021-11-21] MEDS ORDERED: LORAZEPAM INJ 2 MG/ML VIAL IV ONE
[2021-11-21] MEDS ORDERED: AZITHROMYCIN 500 MG in IV D5W 250 ML IV ONE ×2
[2021-11-21] MEDS ORDERED: ONDANSETRON HCL/PF 4 MG/2 ML VIAL IVP PRN
[2021-11-21] MEDS ORDERED: CEFTRIAXONE 1GM BAG (ER ONLY) 50 ML IV ONE
[2021-11-21] MEDS ORDERED: ALBUTEROL FS 2.5 MG/0.5 ML VIAL.NEB NEB PRN
[2021-11-21] MEDS ORDERED: hydrALAZINE HCL IV 20 MG VIAL IV PRN
--- NOTE | 2021-11-21 00:02 | NUR ---
icu 254
--- NOTE | 2021-11-21 00:19 | NUR ---
INSERTED F/C 16FR WITH URINE RETURN
--- NOTE | 2021-11-21 00:27 | NUR ---
REPORT GIVEN TO ED FLANGE MACHINE OPERATOR FOR SARA
[2021-11-21] MEDS ORDERED: DEXTROSE 50%-WATER 50 ML DISP.SYRIN IV PRN ×2 (00:30→12:00)
[2021-11-21] MEDS ORDERED: INSULIN REGULAR, HUMAN 100 UNIT/ML 3 ML VIAL SQ PRN (00:30)
--- NOTE | 2021-11-21 01:58 | NUR ---
PT TRANSFERRED TO ICU 254 VIA ACLS PROTOCOL WITH RT. PT TOLERATED TRANSFER WELL. VSS. ALL BELONGINGS WITH PT.
--- NOTE | 2021-11-21 02:05 | NUR ---
PROP SAWYER RCD PT FROM ER RESISTANT TO CARE; PULLING AT CPAP TUBING AND ATTEMPTING TO GET OUT OF BED; BSWR PLACED.
[2021-11-21] MEDS: IPRATROPIUM/ALBUTEROL INHALER IH SCH ×2 (02:06→06:00)
[2021-11-21] MEDS: FUROSEMIDE 40 MG/4 ML VIAL IV SCH ×6 (02:06→19:45)
[2021-11-21] MEDS: BLOOD SUGAR DIAGNOSTIC 1 EACH STRIP IN SCH ×5 (02:06→23:51)
[2021-11-21 04:49] LABS: BASOPHILS % (AUTO) 0.1 % (0.0-2.0); HEMATOCRIT 31 % (39-51); HEMOGLOBIN 10.2 g/dL (13.5-17.5); LYMPHOCYTES # (AUTO) 0.1 K/uL (0.8-4.8); LYMPHOCYTES % (AUTO) 2.1 % (20.0-44.0); MEAN CORPUSCULAR HGB CONC 33 g/dl (31.0-36.0); MEAN CORPUSCULAR VOLUME 92 fL (80-96); MONOCYTES # (AUTO) 0.1 K/uL (0.1-1.30); MONOCYTES % (AUTO) 1.8 % (2.0-12.0); NEUTROPHILS # (AUTO) 4.4 K/uL (1.8-8.9); PLATELET COUNT (AUTO) 150 K/uL (150-450); RED BLOOD CELL COUNT(AUTO) 3.43 MIL/uL (4.5-6.0); WHITE BLOOD COUNT (AUTO) 4.5 K/uL (4.3-11.0)
[2021-11-21 05:10] LABS: ALANINE AMINOTRANSFERASE 20 U/L (12-78); ALBUMIN 2.9 g/dL (3.4-5.0); ALKALINE PHOSPHATASE 127 U/L (46-116); ASPARTATE AMINOTRANSFERASE 20 U/L (15-37); BILIRUBIN,TOTAL 0.5 mg/dL (0.2-1.0); CALCIUM, SERUM 8.1 mg/dL (8.5-10.1); CARBON DIOXIDE 29 mmol/L (21-32); CHLORIDE 104 mmol/L (98-107); CREATININE 2.1 mg/dL (0.6-1.3); GLUCOSE 170 mg/dL (74-106); MAGNESIUM 2.2 mg/dL (1.8-2.4); POTASSIUM 5.8 mmol/L (3.5-5.1); SODIUM SERUM 137 mmol/L (136-145); TOTAL PROTEIN, SERUM 6.6 g/dL (6.4-8.2); UREA NITROGEN, BLOOD 48 mg/dL (7-18)
--- NOTE | 2021-11-21 06:53 | NUR ---
CHECKER STOCKER PT REMAINED AGITATED UNABLE TO TAKE FOR CT SCAN; AWARE.
[2021-11-21] MEDS: PANTOPRAZOLE 40 MG TABLET.DR PO SCH (07:30)
[2021-11-21] MEDS: LEVOTHYROXINE SODIUM 25 MCG TABLET PO SCH (07:30)
--- NOTE | 2021-11-21 08:00 | NUR ---
IY=[id number]; CHARGE NURSE AWARE AND SHE STATED "NO INSULIN TO BE GIVEN DUE TO PATIENT HAS BEEN NPO."
[2021-11-21] MEDS: IPRATROPIUM NEB FS 0.5 MG/2.5 ML AMPUL.NEB NEB SCH ×3 (08:09→20:00)
[2021-11-21] MEDS: ALBUTEROL FS 2.5 MG/0.5 ML VIAL.NEB NEB SCH ×3 (08:09→20:00)
[2021-11-21] MEDS: AMLODIPINE BESYLATE 10 MG TABLET PO SCH (09:00)
[2021-11-21] MEDS: MULTIVITAMINS,THERAGRAN 1 UDTAB TABLET PO SCH (09:00)
[2021-11-21] MEDS ORDERED: DORZOLAMIDE OPTH 2% 10 ML BOTTLE EACHEYE SCH ×3 (09:00→17:00)
[2021-11-21] MEDS: ALLOPURINOL 100 MG TABLET PO SCH (09:00)
[2021-11-21] MEDS: ATORVASTATIN 10 MG TABLET PO SCH (09:00)
[2021-11-21] MEDS: FINASTERIDE (5 MG) 5 MG TABLET PO SCH (09:00)
[2021-11-21] MEDS: ASPIRIN EC 81 MG TABLET.DR PO SCH (09:00)
[2021-11-21] MEDS: DOCUSATE SODIUM LIQ 100 MG/10 ML UDC PO SCH ×2 (09:00→17:00)
[2021-11-21] MEDS: METOPROLOL SUCCINATE 50 MG TAB.SR.24H PO SCH (09:00)
[2021-11-21] MEDS: POLYETHYLENE GLYCOL 3350 17 GM POWD.PACK PO SCH (09:00)
[2021-11-21] MEDS: CALCIUM CARBONATE (1250) 500 MG TABLET PO SCH ×2 (09:00→17:00)
[2021-11-21] MEDS: TAMSULOSIN 0.4 MG CAP.SR.24H PO SCH (09:00)
[2021-11-21] MEDS: APIXABAN 2.5 MG TABLET PO SCH ×2 (09:00→17:00)
[2021-11-21] MEDS: CHOLECALCIFEROL 1,000 UNIT TABLET (VIT D3) PO SCH (09:00)
[2021-11-21] MEDS: RAMIPRIL 5 MG CAPSULE PO SCH (09:00)
--- NOTE | 2021-11-21 09:10 | NUR ---
PER PHARMACIST TRUSOPT EYE DROP UNAVAILABLE
--- NOTE | 2021-11-21 10:05 | NUR ---
DR. DIAZ AT THE UNIT AND AWARE OF THE PATIENT'S SOFT WRIST RESTRAINT IN-PLACE
[2021-11-21] MEDS: LORAZEPAM INJ 2 MG/ML VIAL IV PRN (10:11)
--- NOTE | 2021-11-21 11:10 | NUR ---
PATIENT'S SON-KURT HELMS CALLED FOR PATIENT'S UPDATE AND SON AWARE THAT PATIENT STILL ON SOFT RESTRAINT BOTH WRIST. SON VERBALIZED UNDERSTANDING.
[2021-11-21] MEDS ORDERED: CEFTRIAXONE 1 G VIAL IM SCH (11:30)
[2021-11-21] MEDS: methylPREDNISolone SOD SUCC 40 MG/ML VIAL IV SCH (11:50)
[2021-11-21 13:34] LABS: CALCIUM, SERUM 8.5 mg/dL (8.5-10.1); CARBON DIOXIDE 23 mmol/L (21-32); CHLORIDE 106 mmol/L (98-107); GLUCOSE 138 mg/dL (74-106); POTASSIUM 5.4 mmol/L (3.5-5.1); SODIUM SERUM 136 mmol/L (136-145); UREA NITROGEN, BLOOD 50 mg/dL (7-18)
--- NOTE | 2021-11-21 16:53 | NUR ---
DR SMITH MADE AWARE REGARDING BLOOD CULTURE RESULTED GRAM POSITIVE COCCI IN CHAINS; AWAITING RESPONSE FROM . Addendum: 11/21/21 at 1700 by JOSE MORROW RN AT 16:56PM: DR SMITH RESPONDED "YOLANDA DRISCOLL."
--- NOTE | 2021-11-21 19:30 | NUR ---
CARPENTER AND JOINER BL IV SITES LEAKING REMOVED AND PLACED LEFT EJ 20 G
--- NOTE | 2021-11-21 20:00 | NUR ---
MANAGER HEMATOLOGY PT SONS CALLED AND UPDATED ON PLAN OF CARE; SON REQUESTING FOR ATIVAN TO BE GIVEN IF NEEDED; PT DECLINES.
[2021-11-21] MEDS ORDERED: VANCOMYCIN 1 GM VIAL ONE (21:13)
[2021-11-21] MEDS: IV NS 0.9% 250 ML IV PRN (22:00)
[2021-11-21] MEDS ORDERED: VANCOMYCIN 1.75 GM in IV D5W 500 ML IV ONE (22:00)
--- NOTE | 2021-11-21 22:00 | NUR ---
SHAPER OPERATOR PT ALERT AND ORIENTED; COMPLIANT WITH CARE; BSWR REMOVED AT THIS TIME.
[2021-11-22] VITALS (14 sets, daily range): BP systolic 87–111; BP diastolic 40–62
[2021-11-22] MEDS: IPRATROPIUM NEB FS 0.5 MG/2.5 ML AMPUL.NEB NEB SCH ×4 (01:53→20:07)
[2021-11-22] MEDS: ALBUTEROL FS 2.5 MG/0.5 ML VIAL.NEB NEB SCH ×4 (01:53→20:06)
--- NOTE | 2021-11-22 03:06 | NUR ---
NUMERICAL CONTROL PROGRAMMER PT NO LONGER TOLERATING THE BIPAP; A/O x4; REQUESTING IT BE TAKEN OFF. PLACED ON NRB 15 L. EXPLAINED TO PT IF HE REMOVES NRB AND SATURATION LEVELS DROP HE WILL HAVE TO BE PLACED BACK ON BIPAP; PT VERBALIZED UNDERSTANDING.
[2021-11-22 04:33] LABS: BASOPHILS % (AUTO) 0.1 % (0.0-2.0); HEMATOCRIT 31 % (39-51); HEMOGLOBIN 10.2 g/dL (13.5-17.5); LYMPHOCYTES # (AUTO) 0.3 K/uL (0.8-4.8); LYMPHOCYTES % (AUTO) 4.3 % (20.0-44.0); MEAN CORPUSCULAR HGB CONC 33 g/dl (31.0-36.0); MEAN CORPUSCULAR VOLUME 92 fL (80-96); MONOCYTES # (AUTO) 0.5 K/uL (0.1-1.30); MONOCYTES % (AUTO) 8.6 % (2.0-12.0); NEUTROPHILS # (AUTO) 5.1 K/uL (1.8-8.9); PLATELET COUNT (AUTO) 142 K/uL (150-450); WHITE BLOOD COUNT (AUTO) 5.9 K/uL (4.3-11.0)
[2021-11-22 04:54] LABS: CALCIUM, SERUM 8.5 mg/dL (8.5-10.1); CARBON DIOXIDE 32 mmol/L (21-32); CHLORIDE 104 mmol/L (98-107); CREATININE 2.1 mg/dL (0.6-1.3); GLUCOSE 98 mg/dL (74-106); POTASSIUM 4.5 mmol/L (3.5-5.1); SODIUM SERUM 141 mmol/L (136-145); UREA NITROGEN, BLOOD 51 mg/dL (7-18)
[2021-11-22] MEDS: BLOOD SUGAR DIAGNOSTIC 1 EACH STRIP IN SCH ×3 (05:16→17:08)
--- NOTE | 2021-11-22 06:32 | NUR ---
pt received on bipap. pt complaining of pressure from the mask at shift change, pt agitated at this time and pulling on the bipap tubing. pt remained on bipap till approximately 0200 when bipap was removed per pt request, pt agitated. placed on nrb. spo2 100% on nrb Addendum: 11/22/21 at 0635 by ABRAHAM CAT Amended: Links added.
[2021-11-22] MEDS: LEVOTHYROXINE SODIUM 25 MCG TABLET PO SCH (07:30)
[2021-11-22] MEDS: PANTOPRAZOLE 40 MG TABLET.DR PO SCH (07:30)
--- NOTE | 2021-11-22 07:30 | NUR ---
GLOBAL ACCOUNT EXECUTIVE NOTES PT IN BED, AO X 3, ON NRM 15L, NO SOB, RESPIRATION UNLABORED, V PACING HR 69, DENIES PAIN/DISCOMFORT, WITH LEFT EJ IV ACCESS, FLUSHES WELL, SITE CLEAR. FOR MIDLINE PLACEMENT. SITES CLEAR. VICK CATH IN PLACE, DRAINING TO YELLOW COLORED URINE.SEE NURSING FLOWSHEET FOR SKIN ISSUES. NPO FOR NOW. FOR SWALLOW EVAL. SAFETY MEASURES IN PLACE. BED LOW/LOCKED. HOB 3O DEG, SR UP X 2, CALL LIGHT WITHIN REACH. WILL CONTINUE TO MONITOR.
[2021-11-22] MEDS: CEFTRIAXONE 1 G in IV D5W 50 ML IV SCH (08:11)
[2021-11-22] MEDS: POLYETHYLENE GLYCOL 3350 17 GM POWD.PACK PO SCH (08:34)
[2021-11-22] MEDS: methylPREDNISolone SOD SUCC 40 MG/ML VIAL IV SCH (08:34)
[2021-11-22] MEDS: DOCUSATE SODIUM LIQ 100 MG/10 ML UDC PO SCH ×2 (08:34→16:54)
[2021-11-22] MEDS: CHOLECALCIFEROL 1,000 UNIT TABLET (VIT D3) PO SCH (08:35)
[2021-11-22] MEDS: FINASTERIDE (5 MG) 5 MG TABLET PO SCH (08:36)
[2021-11-22] MEDS: ASPIRIN EC 81 MG TABLET.DR PO SCH (08:36)
[2021-11-22] MEDS: MULTIVITAMINS,THERAGRAN 1 UDTAB TABLET PO SCH (08:36)
[2021-11-22] MEDS: ATORVASTATIN 10 MG TABLET PO SCH (08:36)
[2021-11-22] MEDS: TAMSULOSIN 0.4 MG CAP.SR.24H PO SCH (08:36)
[2021-11-22] MEDS: CALCIUM CARBONATE (1250) 500 MG TABLET PO SCH ×2 (08:36→16:53)
[2021-11-22] MEDS: ALLOPURINOL 100 MG TABLET PO SCH (08:37)
[2021-11-22] MEDS: APIXABAN 2.5 MG TABLET PO SCH ×2 (08:38→16:53)
[2021-11-22 08:44] LABS: SITE, ABG Right Radial
[2021-11-22 08:45] LABS: ABG BASE EXCESS 0.5 mmol/L; ABG PCO2 39.7 mmHg (35.0-45.0); ABG PH 7.417 (7.350-7.450); ABG PO2 61.5 mmHg (75.0-100.0); AaDO2 156.4 mmHg; COHb 0.4 % (0.5-1.5); MetHb 0.1 % (0.0-1.5); O2Hb 90.5 % (94.0-97.0); VENT MODE, BG nasal cannula
[2021-11-22] MEDS: RAMIPRIL 5 MG CAPSULE PO SCH (08:50)
[2021-11-22] MEDS: AMLODIPINE BESYLATE 10 MG TABLET PO SCH (08:50)
[2021-11-22] MEDS: METOPROLOL SUCCINATE 50 MG TAB.SR.24H PO SCH (08:51)
[2021-11-22] MEDS: AZITHROMYCIN 500 MG in IV D5W 250 ML IV SCH (09:19)
--- NOTE | 2021-11-22 09:30 | NUR ---
IRIDOLOGIST NOTES DUE MEDS GIVEN
[2021-11-22] MEDS: FUROSEMIDE 100 MG/10 ML VIAL IV SCH ×3 (10:00→16:52)
--- NOTE | 2021-11-22 11:50 | NUR ---
RN NOTE PATIENT TRANSFERRED TO 102. PATIENT DOWNGRADED TO TELEMETRY STATUS BY DR. CH.
[2021-11-22 12:20] LABS: IRON, SERUM 18 ug/dl (50-175)
[2021-11-22 12:21] LABS: TOTAL IRON BINDING CAPACITY 237 ug/dl (250-450)
[2021-11-22] MEDS: INSULIN REGULAR, HUMAN 100 UNIT/ML 3 ML VIAL SQ PRN (17:51)
--- NOTE | 2021-11-22 19:10 | NUR ---
SWAGING MACHINE ADJUSTER CLOSING NOTES PT RESTING IN BED, AO X 3, ON 4L NASAL CANULA, NO SOB, RESPIRATION UNLABORED, V PACING HR 69, DENIES PAIN/DISCOMFORT, WITH LEFT EJ IV ACCESS AND JAYLYN MIDLINE 18G IN PLACE, FLUSHES WELL, BOTH SITES CLEAR. VICK CATH IN PLACE, DRAINING TO YELLOW COLORED URINE.850 ML TOTAL OUTPUT. [facility] SOFT DIET. SAFETY MEASURES IN PLACE. BED LOW/LOCKED. HOB 3O DEG, SR UP X 2, CALL LIGHT WITHIN REACH. ASSISTED IN TURNING AND REPOSITIONING Q 2 HOURS. ALL NEEDS MET. PM CARE DONE EARLIER. WILL ENDORSE TO NEXT SHIFT FOR SARA.
--- NOTE | 2021-11-22 19:30 | NUR ---
RN OPENING NOTES RECEIVED CARE OF PATIENT FROM AM NURSE, PATIENT A/O X3, ABLE TO VERBALIZE NEEDS. PATIENT IN NO DISCOMFORT AT THIS TIME. PATIENT ON OXYGEN THERAPY VIA NC AT 4 L/MIN, NO SOB NOTED, BREATHING EVEN AND UNLABORED, O2 SAT 96%. PATIENT ON TELE MONITOR SHOWING V PACING BBB, WITH HR OF 75. PATIENT NOTED WITH LEFT EJ IV ACCESS AND JAYLYN MIDLINE 18G IN PLACE, FLUSHES WELL, BOTH SITES CLEAR. VICK CATH IN PLACE, DRAINING YELLOW. SAFETY MEASURES IN PLACE. BED LOW/LOCKED. HOB 3O DEGREE, SR UP X 2, CALL LIGHT WITHIN REACH. WILL CONTINUE TO MONITOR PATIENT FOR ANY CHANGES.
[2021-11-23] VITALS: BP 101/46
[2021-11-23] MEDS: ALBUTEROL FS 2.5 MG/0.5 ML VIAL.NEB NEB SCH ×4 (00:45→19:48)
[2021-11-23] MEDS: IPRATROPIUM NEB FS 0.5 MG/2.5 ML AMPUL.NEB NEB SCH ×4 (00:45→19:48)
[2021-11-23] MEDS: BLOOD SUGAR DIAGNOSTIC 1 EACH STRIP IN SCH ×4 (00:53→17:21)
[2021-11-23] MEDS: INSULIN REGULAR, HUMAN 100 UNIT/ML 3 ML VIAL SQ PRN ×4 (00:54→17:22)
--- NOTE | 2021-11-23 03:50 | NUR ---
RN NOTES PATIENT NOTED RESTLESS, ANXIOUS, ATTEMPTING TO REMOVE ALL IV ACCESS LINES. PATIENT REMOVED REJ IV ACCESS. NO SIGNS OF BLEEDING NOTED, PATIENT IN NO DISTRESS. RELAXATION TECHNIQUES USED TO DEESCALATE PATIENT. INTERVENTIONS SUCCESSFUL, PATIENT IS NOW CALM IN BED, VERBALIZES UNDERSTANDING OF THE IMPORTANCE OF KEEPING AN IV ACCESS. JAYLYN MIDLINE PATENT AND FLUSHING WELL. WILL CONTINUE TO MONITOR PATIENT.
[2021-11-23 04:00] VITALS: BP 100/40
[2021-11-23 06:47] LABS: BASOPHILS % (AUTO) 0.3 % (0.0-2.0); EOSINOPHILS % (AUTO) 0.2 % (0.0-6.0); HEMATOCRIT 29 % (39-51); HEMOGLOBIN 9.3 g/dL (13.5-17.5); LYMPHOCYTES # (AUTO) 0.5 K/uL (0.8-4.8); LYMPHOCYTES % (AUTO) 10.3 % (20.0-44.0); MEAN CORPUSCULAR HGB CONC 33 g/dl (31.0-36.0); MEAN CORPUSCULAR VOLUME 91 fL (80-96); MONOCYTES # (AUTO) 0.4 K/uL (0.1-1.30); MONOCYTES % (AUTO) 9.3 % (2.0-12.0); NEUTROPHILS # (AUTO) 3.6 K/uL (1.8-8.9); NEUTROPHILS % (AUTO) 79.9 % (43.0-81.0); PLATELET COUNT (AUTO) 132 K/uL (150-450); RED BLOOD CELL COUNT(AUTO) 3.17 MIL/uL (4.5-6.0); WHITE BLOOD COUNT (AUTO) 4.5 K/uL (4.3-11.0)
--- NOTE | 2021-11-23 06:49 | NUR ---
RN NOTES WILL ENDORSE CARE OF PATIENT TO AM NURSE, PATIENT IN BED, ANXIOUS, COOPERATIVE WITH MEDICAL TREATMENT AFTER EDUCATION PROVIDED, FURTHER EDUCATION WILL BE REQUIRED PATIENT REQUIRES CONSTANT REMINDERS. PATIENT IS A/O X3, ABLE TO MAKE NEEDS KNOWN. PATIENT IN NO DISCOMFORT OR PAIN AT THIS TIME. NO SIGNIFICANT FINDINGS UPON ALL NURSING ASSESSMENTS. ALL DUE MEDS GIVEN AND PATIENT NEEDS ATTENDED TO. SAFETY MEASURES IMPLEMENTED PER HOSPITAL PROTOCOLS. WILL ENDORSE TO AM NURSE FOR CONTINUITY OF CARE.
--- NOTE | 2021-11-23 07:30 | NUR ---
SAMPLE EXAMINER NOTES PT IN BED, AO X 3, ON NRM 15L, NO SOB, RESPIRATION UNLABORED, V PACING HR 69, DENIES PAIN/DISCOMFORT, WITH JAYLYN MIDLINE, FLUSHES WELL, SITE CLEAR. VICK CATH IN PLACE, DRAINING TO YELLOW COLORED URINE.SEE NURSING FLOWSHEET FOR SKIN ISSUES. ON MECHANICAL SOFT DIET. SAFETY MEASURES IN PLACE. BED LOW/LOCKED. HOB 3O DEG, SR UP X 2, CALL LIGHT WITHIN REACH. WILL CONTINUE TO MONITOR.
[2021-11-23] MEDS: LEVOTHYROXINE SODIUM 25 MCG TABLET PO SCH (07:58)
[2021-11-23] MEDS: PANTOPRAZOLE 40 MG TABLET.DR PO SCH (07:58)
[2021-11-23 08:00] VITALS: BP 104/39
[2021-11-23 08:06] LABS: ALANINE AMINOTRANSFERASE 17 U/L (12-78); ALBUMIN 2.7 g/dL (3.4-5.0); ALKALINE PHOSPHATASE 97 U/L (46-116); ASPARTATE AMINOTRANSFERASE 18 U/L (15-37); BILIRUBIN,TOTAL 0.3 mg/dL (0.2-1.0); CALCIUM, SERUM 8.1 mg/dL (8.5-10.1); CARBON DIOXIDE 33 mmol/L (21-32); CHLORIDE 102 mmol/L (98-107); CREATININE 2.2 mg/dL (0.6-1.3); GLUCOSE 86 mg/dL (74-106); MAGNESIUM 1.9 mg/dL (1.8-2.4); PHOSPHORUS 4.3 mg/dL (2.5-4.9); POTASSIUM 3.5 mmol/L (3.5-5.1); SODIUM SERUM 141 mmol/L (136-145); TOTAL PROTEIN, SERUM 6.2 g/dL (6.4-8.2)
[2021-11-23] MEDS: CEFTRIAXONE 1 G in IV D5W 50 ML IV SCH (08:10)
[2021-11-23] MEDS: MULTIVITAMINS,THERAGRAN 1 UDTAB TABLET PO SCH (08:11)
[2021-11-23] MEDS: TAMSULOSIN 0.4 MG CAP.SR.24H PO SCH (08:11)
[2021-11-23] MEDS: DOCUSATE SODIUM LIQ 100 MG/10 ML UDC PO SCH ×2 (08:11→17:01)
[2021-11-23] MEDS: POLYETHYLENE GLYCOL 3350 17 GM POWD.PACK PO SCH (08:11)
[2021-11-23] MEDS: CALCIUM CARBONATE (1250) 500 MG TABLET PO SCH ×2 (08:12→17:01)
[2021-11-23] MEDS: ASPIRIN EC 81 MG TABLET.DR PO SCH (08:12)
[2021-11-23] MEDS: CHOLECALCIFEROL 1,000 UNIT TABLET (VIT D3) PO SCH (08:12)
[2021-11-23] MEDS: ALLOPURINOL 100 MG TABLET PO SCH (08:13)
[2021-11-23] MEDS: ATORVASTATIN 10 MG TABLET PO SCH (08:13)
[2021-11-23 08:14] LABS: UREA NITROGEN, BLOOD 63 mg/dL (7-18)
[2021-11-23] MEDS: FINASTERIDE (5 MG) 5 MG TABLET PO SCH (08:15)
[2021-11-23] MEDS: methylPREDNISolone SOD SUCC 40 MG/ML VIAL IV SCH (08:15)
[2021-11-23] MEDS: APIXABAN 2.5 MG TABLET PO SCH ×2 (08:16→17:03)
[2021-11-23] MEDS: METOPROLOL SUCCINATE 50 MG TAB.SR.24H PO SCH (08:19)
[2021-11-23] MEDS: AMLODIPINE BESYLATE 10 MG TABLET PO SCH (08:19)
[2021-11-23] MEDS: RAMIPRIL 5 MG CAPSULE PO SCH (08:20)
[2021-11-23] MEDS: AZITHROMYCIN 500 MG in IV D5W 250 ML IV SCH (08:26)
[2021-11-23] MEDS: IV NS 0.9% 250 ML IV PRN (08:35)
[2021-11-23] MEDS ORDERED: BUMETANIDE INJ 8 MG in IV NS 0.9% 48 ML IV ONE (09:00)
--- NOTE | 2021-11-23 09:30 | NUR ---
RN NOTES DUE MEDS GIVEN
[2021-11-23 12:00] VITALS: BP 84/43
[2021-11-23] MEDS: SOD FERRIC GLUC 125 MG in IV NS 0.9% 100 ML IV SCH (14:28)
[2021-11-23] MEDS ORDERED: EPOETIN ALFA-EPBX 10,000 UNIT/ML VIAL SQ ONE (15:00)
[2021-11-23 16:00] VITALS: BP 97/42
[2021-11-23] MEDS: LORAZEPAM INJ 2 MG/ML VIAL IV PRN (17:03)
[2021-11-23] MEDS: AMPICILLIN SODIUM 2 GM in IV NS 0.9% 100 ML IV SCH (17:53)
--- NOTE | 2021-11-23 18:43 | NUR ---
CASE THERAPIST CLOSING NOTES PT RESTING IN BED, AO X 3, ON 4L NASAL CANULA, NO SOB, RESPIRATION UNLABORED, V PACING HR 78, DENIES PAIN/DISCOMFORT, JAYLYN MIDLINE 18G IN PLACE, FLUSHES WELL, SITE CLEAR. VICK CATH IN PLACE, DRAINING TO YELLOW COLORED URINE 1200 ML TOTAL OUTPUT. [facility] SOFT DIET. SAFETY MEASURES IN PLACE. BED LOW/LOCKED. HOB 3O DEG, SR UP X 2, CALL LIGHT WITHIN REACH. ASSISTED IN TURNING AND REPOSITIONING Q 2 HOURS. ALL NEEDS MET. PM CARE DONE EARLIER. WILL ENDORSE TO NEXT SHIFT FOR SARA.
--- NOTE | 2021-11-23 19:30 | NUR ---
RN OPENING NOTES RECEIVED CARE OF PATIENT FROM AM NURSE, PATIENT A/O X3, ABLE TO VERBALIZE NEEDS. PATIENT ATTEMPTING TO GET OUT OF BED, PATIENT IS FALL RISK, EDUCATION PROVIDED ON IMPORTANCE OF STAYING IN BED AND USING CALL LIGHT FOR HELP. PATIENT ON OXYGEN THERAPY VIA NC AT 4 L/MIN, NO SOB NOTED, BREATHING EVEN AND UNLABORED, O2 SAT 97%. PATIENT ON TELE MONITOR SHOWING V PACING, WITH HR OF 79. PATIENT WITH JAYLYN MIDLINE 18G IN PLACE, FLUSHES WELL. VICK CATH IN PLACE, DRAINING YELLOW. SAFETY MEASURES IN PLACE. BED LOW/LOCKED. HOB 3O DEGREE, SR UP X 2, CALL LIGHT WITHIN REACH, BED ALARM ON. WILL CONTINUE TO MONITOR PATIENT FOR ANY CHANGES.
[2021-11-23 20:00] VITALS: BP 117/60
[2021-11-24] VITALS: BP 114/53
[2021-11-24] MEDS: BLOOD SUGAR DIAGNOSTIC 1 EACH STRIP IN SCH ×5 (00:28→23:05)
[2021-11-24] MEDS: AMPICILLIN SODIUM 2 GM in IV NS 0.9% 100 ML IV SCH ×5 (00:29→23:07)
[2021-11-24] MEDS: INSULIN REGULAR, HUMAN 100 UNIT/ML 3 ML VIAL SQ PRN ×4 (00:32→23:08)
[2021-11-24] MEDS: IPRATROPIUM NEB FS 0.5 MG/2.5 ML AMPUL.NEB NEB SCH ×4 (01:49→19:56)
[2021-11-24] MEDS: ALBUTEROL FS 2.5 MG/0.5 ML VIAL.NEB NEB SCH ×4 (01:49→19:56)
[2021-11-24 04:00] VITALS: BP 105/63
--- NOTE | 2021-11-24 06:44 | NUR ---
RN NOTES WILL ENDORSE CARE OF PATIENT TO AM NURSE, PATIENT IN BED, PATIENT IS A/O X3, ABLE TO MAKE NEEDS KNOWN. PATIENT IN NO DISCOMFORT OR PAIN AT THIS TIME. NO SIGNIFICANT FINDINGS UPON ALL NURSING ASSESSMENTS. ALL DUE MEDS GIVEN AND PATIENT NEEDS ATTENDED TO. SAFETY MEASURES IMPLEMENTED PER HOSPITAL PROTOCOLS. WILL ENDORSE TO AM NURSE FOR CONTINUITY OF CARE.
[2021-11-24 06:56] LABS: CALCIUM, SERUM 8.4 mg/dL (8.5-10.1); CARBON DIOXIDE 32 mmol/L (21-32); CHLORIDE 104 mmol/L (98-107); CREATININE 1.9 mg/dL (0.6-1.3); GLUCOSE 91 mg/dL (74-106); POTASSIUM 3.4 mmol/L (3.5-5.1); SODIUM SERUM 143 mmol/L (136-145); UREA NITROGEN, BLOOD 59 mg/dL (7-18)
--- NOTE | 2021-11-24 07:30 | NUR ---
RN OPENING NOTE PATIENT IS IN BED AWAKE, ON SEMI-EGAN'S POSITION. PATIENT IS ALERT, ORIENTED X 4. WITH OXYGEN VIA NASAL CANNULA AT 4L/MIN. V PACING ON PERFORMANCE TEST ARCHITECT. WITH RIGHT UPPER ARM MIDLINE, INTACT AND PATENT. WITH VICK CATHETER ATTACHED TO URINE BAG DRAINING TO A CLEAR YELLOW URINE. DENIES PAIN, BREATHING UNLABORED, AND NOT IN ANY FORM OF DISTRESS. BED IS LOCKED IN LOWEST POSITION, 3 SIDE RAILS UP, CALL LIGHT WITHIN REACH. WILL CONTINUE TO MONITOR THROUGHOUT SHIFT..
[2021-11-24 08:00] VITALS: BP 111/55
[2021-11-24 08:15] LABS: BASOPHILS % (AUTO) 0.2 % (0.0-2.0); EOSINOPHILS % (AUTO) 0.1 % (0.0-6.0); HEMATOCRIT 29 % (39-51); HEMOGLOBIN 9.7 g/dL (13.5-17.5); LYMPHOCYTES # (AUTO) 0.6 K/uL (0.8-4.8); LYMPHOCYTES % (AUTO) 15.1 % (20.0-44.0); MEAN CORPUSCULAR HGB CONC 33 g/dl (31.0-36.0); MEAN CORPUSCULAR VOLUME 90 fL (80-96); MONOCYTES # (AUTO) 0.5 K/uL (0.1-1.30); NEUTROPHILS # (AUTO) 2.7 K/uL (1.8-8.9); NEUTROPHILS % (AUTO) 72.6 % (43.0-81.0); PLATELET COUNT (AUTO) 133 K/uL (150-450); RED BLOOD CELL COUNT(AUTO) 3.26 MIL/uL (4.5-6.0); WHITE BLOOD COUNT (AUTO) 3.8 K/uL (4.3-11.0)
[2021-11-24 08:17] LABS: ALBUMIN 2.6 g/dL (3.4-5.0); BILIRUBIN,DIRECT 0.1 mg/dL (0.0-0.2); BILIRUBIN,TOTAL 0.3 mg/dL (0.2-1.0); TOTAL PROTEIN, SERUM 5.9 g/dL (6.4-8.2)
[2021-11-24] MEDS: PANTOPRAZOLE 40 MG TABLET.DR PO SCH (08:21)
[2021-11-24] MEDS: RAMIPRIL 5 MG CAPSULE PO SCH (08:21)
[2021-11-24] MEDS: CHOLECALCIFEROL 1,000 UNIT TABLET (VIT D3) PO SCH (08:22)
[2021-11-24] MEDS: ASPIRIN EC 81 MG TABLET.DR PO SCH (08:22)
[2021-11-24] MEDS: MULTIVITAMINS,THERAGRAN 1 UDTAB TABLET PO SCH (08:22)
[2021-11-24] MEDS: TAMSULOSIN 0.4 MG CAP.SR.24H PO SCH (08:22)
[2021-11-24] MEDS: ALLOPURINOL 100 MG TABLET PO SCH (08:22)
[2021-11-24] MEDS: METOPROLOL SUCCINATE 50 MG TAB.SR.24H PO SCH (08:23)
[2021-11-24] MEDS: FINASTERIDE (5 MG) 5 MG TABLET PO SCH (08:23)
[2021-11-24] MEDS: LEVOTHYROXINE SODIUM 25 MCG TABLET PO SCH (08:24)
[2021-11-24] MEDS: CALCIUM CARBONATE (1250) 500 MG TABLET PO SCH ×2 (08:24→17:16)
[2021-11-24] MEDS: AMLODIPINE BESYLATE 10 MG TABLET PO SCH (08:24)
[2021-11-24] MEDS: ATORVASTATIN 10 MG TABLET PO SCH (08:24)
[2021-11-24] MEDS: APIXABAN 2.5 MG TABLET PO SCH ×2 (08:26→17:17)
[2021-11-24] MEDS: DOCUSATE SODIUM LIQ 100 MG/10 ML UDC PO SCH ×2 (08:28→17:16)
[2021-11-24] MEDS: AZITHROMYCIN 500 MG in IV D5W 250 ML IV SCH (08:28)
[2021-11-24] MEDS: POLYETHYLENE GLYCOL 3350 17 GM POWD.PACK PO SCH (08:28)
[2021-11-24] MEDS: methylPREDNISolone SOD SUCC 40 MG/ML VIAL IV SCH (08:29)
[2021-11-24] MEDS ORDERED: BUMETANIDE INJ 16 MG in IV NS 0.9% 16 ML IV ONE (09:30)
[2021-11-24] MEDS ORDERED: POTASSIUM CHLORIDE 10 MEQ TABLET.SA PO SCH (11:00)
[2021-11-24 12:00] VITALS: BP 102/48
[2021-11-24 16:00] VITALS: BP 101/46
[2021-11-24] MEDS: SOD FERRIC GLUC 125 MG in IV NS 0.9% 100 ML IV SCH (16:18)
[2021-11-24] MEDS: LORAZEPAM INJ 2 MG/ML VIAL IV PRN (16:35)
--- NOTE | 2021-11-24 19:30 | NUR ---
PINKING SEWING MACHINE OPERATOR OPENING NOTES RECEIVED PATIENT IN BED, A/O X 2-3, ABLE TO VERBALIZE NEEDS. ON O2 THERAPY VIA NC AT 4 L/MIN, TOLERATING WELL WITH NO S/SX OF ACUTE DISTRESS NOTED AT THIS TIME. NO SOB NOTED, BREATHING EVEN AND UNLABORED, O2 SAT IS 97%. ON TELE MONITOR SHOWING V PACING, WITH HR OF 69. IV ACCESS NOTED IN JAYLYN MIDLINE 18G, FLUSHES WELL. VICK CATH IN PLACE, DRAINING YELLOW R. SAFETY MEASURES IN PLACE. BED LOW/LOCKED. HOB 3O DEGREE, SR UP X 2, CALL LIGHT WITHIN REACH, BED ALARM ON. WILL CONTINUE TO MONITOR PATIENT FOR ANY CHANGES. PATIENT ATTEMPTING TO GET OUT OF BED, PATIENT IS FALL RISK, EDUCATION PROVIDED ON IMPORTANCE OF STAYING IN BED AND USING CALL LIGHT FOR HELP.
[2021-11-24 20:00] VITALS: BP 92/44
[2021-11-25] VITALS: BP 105/48
[2021-11-25] MEDS: IPRATROPIUM NEB FS 0.5 MG/2.5 ML AMPUL.NEB NEB SCH ×4 (01:14→19:37)
[2021-11-25] MEDS: ALBUTEROL FS 2.5 MG/0.5 ML VIAL.NEB NEB SCH ×4 (01:14→19:37)
[2021-11-25 04:00] VITALS: BP 115/48
[2021-11-25] MEDS: AMPICILLIN SODIUM 2 GM in IV NS 0.9% 100 ML IV SCH ×4 (05:15→23:39)
[2021-11-25] MEDS: BLOOD SUGAR DIAGNOSTIC 1 EACH STRIP IN SCH ×4 (05:41→23:53)
[2021-11-25 06:31] LABS: BASOPHILS % (AUTO) 0.2 % (0.0-2.0); EOSINOPHILS % (AUTO) 0.1 % (0.0-6.0); HEMATOCRIT 32 % (39-51); HEMOGLOBIN 11.1 g/dL (13.5-17.5); LYMPHOCYTES # (AUTO) 0.8 K/uL (0.8-4.8); LYMPHOCYTES % (AUTO) 22.1 % (20.0-44.0); MEAN CORPUSCULAR HGB CONC 34 g/dl (31.0-36.0); MEAN CORPUSCULAR VOLUME 89 fL (80-96); MONOCYTES # (AUTO) 0.4 K/uL (0.1-1.30); MONOCYTES % (AUTO) 11.5 % (2.0-12.0); NEUTROPHILS # (AUTO) 2.4 K/uL (1.8-8.9); NEUTROPHILS % (AUTO) 66.1 % (43.0-81.0); PLATELET COUNT (AUTO) 147 K/uL (150-450); RED BLOOD CELL COUNT(AUTO) 3.63 MIL/uL (4.5-6.0); WHITE BLOOD COUNT (AUTO) 3.7 K/uL (4.3-11.0)
--- NOTE | 2021-11-25 06:45 | NUR ---
OUTER DIAMETER TECHNICIAN CLOSING NOTES NO SIGNIFICANT CHANGES THROUGHOUT THE NIGHT. PATIENT IN BED, A/O X 2-3, TRIED TO GET UP FROM HIS BED A COUPLE OF TIMES. SHOWED SIGNS OF CONFUSION DURING THE NIGHT. ON O2 THERAPY VIA NC AT 4 L/MIN, TOLERATING WELL WITH NO S/SX OF ACUTE DISTRESS NOTED. O2 SAT IS 93%. ON TELE MONITOR SHOWING V PACING, WITH HR IN 60S. IV ACCESS NOTED IN JAYLYN MIDLINE 18G, FLUSHES WELL. VICK CATH IN PLACE, DRAINING YELLOW URINE VIA GRAVITY. KEPT PT CLEAN AND DRY. ALL DUE MEDS GIVEN. SAFETY MEASURES IMPLEMENTED. BED LOW/LOCKED. HOB 3O DEGREE, SR UP X 2, CALL LIGHT WITHIN REACH, BED ALARM ON. WILL ENDORSE TO AM SHIFT NURSE FOR SARA.
[2021-11-25 07:02] LABS: CALCIUM, SERUM 8.6 mg/dL (8.5-10.1); CARBON DIOXIDE 34 mmol/L (21-32); CHLORIDE 103 mmol/L (98-107); GLUCOSE 95 mg/dL (74-106); POTASSIUM 3.8 mmol/L (3.5-5.1); SODIUM SERUM 141 mmol/L (136-145); UREA NITROGEN, BLOOD 57 mg/dL (7-18)
[2021-11-25 07:07] LABS: ALANINE AMINOTRANSFERASE 24 U/L (12-78); ALBUMIN 2.7 g/dL (3.4-5.0); ALKALINE PHOSPHATASE 96 U/L (46-116); ASPARTATE AMINOTRANSFERASE 18 U/L (15-37); BILIRUBIN,TOTAL 0.4 mg/dL (0.2-1.0); TOTAL PROTEIN, SERUM 6.1 g/dL (6.4-8.2)
--- NOTE | 2021-11-25 07:52 | NUR ---
FLAT SURFACER JEWEL OPENING NOTES RECEIVED PATIENT IN BED, A/O X 2-3, ABLE TO VERBALIZE NEEDS. ON O2 THERAPY VIA NC AT 4 L/MIN, TOLERATING WELL WITH NO S/SX OF ACUTE DISTRESS NOTED AT THIS TIME. NO SOB NOTED, BREATHING EVEN AND UNLABORED, O2 SAT IS 93%. ON TELE MONITOR SHOWING V PACING, WITH HR OF 60S. IV ACCESS NOTED IN JAYLYN MIDLINE 18G, FLUSHES WELL. VICK CATH IN PLACE, DRAINING YELLOW URINE. SAFETY MEASURES IN PLACE. BED LOW/LOCKED. HOB 3O DEGREE, SR UP X 2, CALL LIGHT WITHIN REACH, BED ALARM ON. WILL CONTINUE TO MONITOR PATIENT FOR ANY CHANGES. PATIENT ATTEMPTING TO GET OUT OF BED, PATIENT IS FALL RISK, EDUCATION PROVIDED ON IMPORTANCE OF STAYING IN BED AND USING CALL LIGHT FOR HELP.
[2021-11-25 08:00] VITALS: BP 108/48
[2021-11-25] MEDS: FINASTERIDE (5 MG) 5 MG TABLET PO SCH (08:46)
[2021-11-25] MEDS: PANTOPRAZOLE 40 MG TABLET.DR PO SCH (08:47)
[2021-11-25] MEDS: LEVOTHYROXINE SODIUM 25 MCG TABLET PO SCH (08:48)
[2021-11-25] MEDS: CALCIUM CARBONATE (1250) 500 MG TABLET PO SCH ×2 (08:48→16:58)
[2021-11-25] MEDS: TAMSULOSIN 0.4 MG CAP.SR.24H PO SCH (08:51)
[2021-11-25] MEDS: methylPREDNISolone SOD SUCC 40 MG/ML VIAL IV SCH (08:51)
[2021-11-25] MEDS: ALLOPURINOL 100 MG TABLET PO SCH (08:51)
[2021-11-25] MEDS: MULTIVITAMINS,THERAGRAN 1 UDTAB TABLET PO SCH (08:52)
[2021-11-25] MEDS: DOCUSATE SODIUM LIQ 100 MG/10 ML UDC PO SCH ×3 (08:52→16:57)
[2021-11-25] MEDS: CHOLECALCIFEROL 1,000 UNIT TABLET (VIT D3) PO SCH (08:52)
[2021-11-25] MEDS: APIXABAN 2.5 MG TABLET PO SCH ×2 (08:54→16:58)
[2021-11-25] MEDS: ATORVASTATIN 10 MG TABLET PO SCH (08:55)
[2021-11-25] MEDS: POLYETHYLENE GLYCOL 3350 17 GM POWD.PACK PO SCH (08:55)
[2021-11-25] MEDS: METOPROLOL SUCCINATE 50 MG TAB.SR.24H PO SCH (09:00)
[2021-11-25] MEDS: AMLODIPINE BESYLATE 10 MG TABLET PO SCH (09:00)
[2021-11-25] MEDS: RAMIPRIL 5 MG CAPSULE PO SCH (09:00)
[2021-11-25] MEDS: ASPIRIN EC 81 MG TABLET.DR PO SCH (09:20)
[2021-11-25] MEDS ORDERED: BUMETANIDE INJ 16 MG in IV NS 0.9% 16 ML IV ONE (09:30)
[2021-11-25] MEDS: INSULIN REGULAR, HUMAN 100 UNIT/ML 3 ML VIAL SQ PRN ×2 (11:54→17:44)
[2021-11-25 12:00] VITALS: BP 99/42
[2021-11-25] MEDS: SOD FERRIC GLUC 125 MG in IV NS 0.9% 100 ML IV SCH (13:56)
[2021-11-25 16:00] VITALS: BP 112/57
--- NOTE | 2021-11-25 18:10 | NUR ---
APPRENTICE COSMETOLOGIST CLOSING NOTES RECEIVED PATIENT IN BED, A/O X 2-3, ABLE TO VERBALIZE NEEDS. ON O2 THERAPY VIA NC AT 4 L/MIN, TOLERATING WELL WITH NO S/SX OF ACUTE DISTRESS NOTED AT THIS TIME. NO SOB NOTED, BREATHING EVEN AND UNLABORED, O2 SAT IS 93%. ON TELE MONITOR SHOWING V PACING, WITH HR OF 60S. IV ACCESS NOTED IN JAYLYN MIDLINE 18G, FLUSHES WELL. VICK CATH IN PLACE, DRAINING YELLOW URINE. SAFETY MEASURES IN PLACE. BED LOW/LOCKED. HOB 3O DEGREE, SR UP X 2, CALL LIGHT WITHIN REACH, BED ALARM ON. WILL CONTINUE TO MONITOR PATIENT FOR ANY CHANGES. PATIENT ATTEMPTING TO GET OUT OF BED, PATIENT IS FALL RISK, EDUCATION PROVIDED ON IMPORTANCE OF STAYING IN BED AND USING CALL LIGHT FOR HELP. WILL ENDORSE TO NEXT NURSE ON DUTY FOR CONTINUATION OF CARE.
--- NOTE | 2021-11-25 19:30 | NUR ---
PRACTICE CONSULTANT OPENING NOTES RECEIVED PATIENT IN BED, A/O X 2-3, ABLE TO VERBALIZE NEEDS. ON O2 THERAPY VIA NC AT 4 L/MIN, TOLERATING WELL WITH NO S/SX OF ACUTE DISTRESS NOTED AT THIS TIME. NO SOB NOTED, BREATHING EVEN AND UNLABORED, O2 SAT IS 96%. ON TELE MONITOR SHOWING V PACING, WITH HR OF 70s. IV ACCESS NOTED IN JAYLYN MIDLINE 18G, FLUSHES WELL. VICK CATH IN PLACE, DRAINING YELLOW URINE VIA GRAVITY. ALL SAFETY MEASURES IN PLACE. BED LOW/LOCKED. HOB 3O DEGREE, SR UP X 2, CALL LIGHT WITHIN REACH, BED ALARM ON. WILL CONTINUE TO MONITOR PATIENT FOR ANY CHANGES.
[2021-11-25 20:00] VITALS: BP 113/44
--- NOTE | 2021-11-25 23:00 | NUR ---
RN NOTE WENT TO CHECK PT IN HIS ROOM AND FOUND OUT HE REMOVED HIS IV LINE, SOME BLOOD ON THE BED AND HIS GOWN. CHANGED PT'S BED LINEN AND GOWN. REPLACED IV LINE AND PUT A NEW ONE ON HIS RFA #20g.
[2021-11-26] VITALS: BP 109/47
[2021-11-26] MEDS: ALBUTEROL FS 2.5 MG/0.5 ML VIAL.NEB NEB SCH ×4 (01:53→20:14)
[2021-11-26] MEDS: IPRATROPIUM NEB FS 0.5 MG/2.5 ML AMPUL.NEB NEB SCH ×4 (01:53→20:14)
[2021-11-26 04:00] VITALS: BP 101/49
[2021-11-26] MEDS: AMPICILLIN SODIUM 2 GM in IV NS 0.9% 100 ML IV SCH ×3 (05:10→17:29)
[2021-11-26] MEDS: BLOOD SUGAR DIAGNOSTIC 1 EACH STRIP IN SCH ×3 (05:30→16:49)
[2021-11-26 06:42] LABS: BASOPHILS % (AUTO) 0.5 % (0.0-2.0); EOSINOPHILS % (AUTO) 0.6 % (0.0-6.0); HEMATOCRIT 33 % (39-51); HEMOGLOBIN 11.1 g/dL (13.5-17.5); LYMPHOCYTES # (AUTO) 0.9 K/uL (0.8-4.8); MEAN CORPUSCULAR HGB CONC 33 g/dl (31.0-36.0); MEAN CORPUSCULAR VOLUME 89 fL (80-96); MONOCYTES # (AUTO) 0.5 K/uL (0.1-1.30); MONOCYTES % (AUTO) 12.6 % (2.0-12.0); NEUTROPHILS # (AUTO) 2.6 K/uL (1.8-8.9); NEUTROPHILS % (AUTO) 64.3 % (43.0-81.0); PLATELET COUNT (AUTO) 156 K/uL (150-450); RED BLOOD CELL COUNT(AUTO) 3.72 MIL/uL (4.5-6.0); WHITE BLOOD COUNT (AUTO) 4.1 K/uL (4.3-11.0)
--- NOTE | 2021-11-26 06:44 | NUR ---
ELECTRICAL PROSPECTING ENGINEER CLOSING NOTE NO SIGNIFICANT CHANGES THROUGHOUT THE SHIFT. PATIENT IN BED, A/O X 2-3, RARELY SLEPT, INSTEAD STAYED UP ALL NIGHT. ON O2 THERAPY VIA NC AT 4 L/MIN, TOLERATED WELL. NO S/SX OF ACUTE DISTRESS NOTED. NO SOB NOTED, BREATHING EVEN AND UNLABORED, SATING AT 99%. ON TELE MONITOR SHOWING SR BBP'S WITH ST DEPRESSION, HR IN THE 60s. NEW IV ACCESS IN RFA #20G, FLUSHES WELL, PATENT AND INTACT. VICK CATH IN PLACE, DRAINING YELLOW URINE VIA GRAVITY. ALL DUE MEDS GIVEN. ALL NEEDS ATTENDED TO. SAFETY MEASURES IMPLEMENTED: BED LOW/LOCKED. HOB 3O DEGREE, SR UP X 2, CALL LIGHT WITHIN REACH, BED ALARM ON. WILL ENDORSE TO AM SHIFT NURSE FOR SARA.
[2021-11-26 07:20] LABS: ALANINE AMINOTRANSFERASE 22 U/L (12-78); ALBUMIN 2.4 g/dL (3.4-5.0); ALKALINE PHOSPHATASE 90 U/L (46-116); ASPARTATE AMINOTRANSFERASE 16 U/L (15-37); BILIRUBIN,TOTAL 0.3 mg/dL (0.2-1.0); CALCIUM, SERUM 8.1 mg/dL (8.5-10.1); CARBON DIOXIDE 36 mmol/L (21-32); CHLORIDE 102 mmol/L (98-107); CREATININE 1.9 mg/dL (0.6-1.3); GLUCOSE 88 mg/dL (74-106); MAGNESIUM 1.6 mg/dL (1.8-2.4); PHOSPHORUS 3.2 mg/dL (2.5-4.9); POTASSIUM 3.7 mmol/L (3.5-5.1); SODIUM SERUM 141 mmol/L (136-145); TOTAL PROTEIN, SERUM 5.7 g/dL (6.4-8.2); UREA NITROGEN, BLOOD 53 mg/dL (7-18)
[2021-11-26 08:00] VITALS: BP 109/52
[2021-11-26] MEDS: AMLODIPINE BESYLATE 10 MG TABLET PO SCH (09:00)
[2021-11-26] MEDS: RAMIPRIL 5 MG CAPSULE PO SCH (09:00)
[2021-11-26] MEDS: METOPROLOL SUCCINATE 50 MG TAB.SR.24H PO SCH (09:00)
[2021-11-26] MEDS: DOCUSATE SODIUM LIQ 100 MG/10 ML UDC PO SCH ×2 (09:07→16:48)
[2021-11-26] MEDS: BUMETANIDE INJ 0.25 MG/ML VIAL IV SCH ×2 (09:07→16:48)
[2021-11-26] MEDS: CHOLECALCIFEROL 1,000 UNIT TABLET (VIT D3) PO SCH (09:07)
[2021-11-26] MEDS: CALCIUM CARBONATE (1250) 500 MG TABLET PO SCH ×2 (09:08→16:49)
[2021-11-26] MEDS: LEVOTHYROXINE SODIUM 25 MCG TABLET PO SCH (09:08)
[2021-11-26] MEDS: TAMSULOSIN 0.4 MG CAP.SR.24H PO SCH (09:08)
[2021-11-26] MEDS: FINASTERIDE (5 MG) 5 MG TABLET PO SCH (09:08)
[2021-11-26] MEDS: PANTOPRAZOLE 40 MG TABLET.DR PO SCH (09:08)
[2021-11-26] MEDS: ATORVASTATIN 10 MG TABLET PO SCH (09:08)
[2021-11-26] MEDS: MULTIVITAMINS,THERAGRAN 1 UDTAB TABLET PO SCH (09:08)
[2021-11-26] MEDS: methylPREDNISolone SOD SUCC 40 MG/ML VIAL IV SCH (09:08)
[2021-11-26] MEDS: POLYETHYLENE GLYCOL 3350 17 GM POWD.PACK PO SCH (09:08)
[2021-11-26] MEDS: ALLOPURINOL 100 MG TABLET PO SCH (09:10)
[2021-11-26] MEDS: ASPIRIN EC 81 MG TABLET.DR PO SCH (09:17)
[2021-11-26] MEDS: APIXABAN 2.5 MG TABLET PO SCH ×2 (09:20→16:49)
[2021-11-26] MEDS ORDERED: Magnesium 1GM/D5W 100ML PREMIX 100 ML IV SCH (11:00)
[2021-11-26 12:00] VITALS: BP 111/44
[2021-11-26] MEDS: SOD FERRIC GLUC 125 MG in IV NS 0.9% 100 ML IV SCH (14:49)
[2021-11-26 16:00] VITALS: BP 98/46
[2021-11-26] MEDS: IV NS 0.9% 250 ML IV PRN (16:50)
--- NOTE | 2021-11-26 19:10 | NUR ---
RN OPENING NOTES RECEIVED PATIENT ON BED AWAKE, A/O X 2-3, WITH PERIOD OF CONFUSION. ON NASAL CANULA @ 3LPM SATING AT 96%. RESPIRATORY EVEN AND UNLABORED NO SOB NOTED, REMAIN AFEBRILE. DENIES PAIN, NO S/S OF DISTRESS NOTED. PATIENT HAS RIGHT FOREARM #20 PERIPHERAL LINE, FLUSHED WITH NS, NO S/S OF INFILTRATION NOTED AT SITE. VICK CATHETER PATENT AND INTACT DRAINING CLEAR YELLOW URINE VIA GRAVITY. SAFETY MEASURE PROVIDED. BED IN LOWEST POSITION, LOCKED. CONTINUE TO MONITOR.
[2021-11-26 20:00] VITALS: BP 128/54
[2021-11-27] VITALS: BP 114/42
[2021-11-27] MEDS: BLOOD SUGAR DIAGNOSTIC 1 EACH STRIP IN SCH ×5 (00:02→23:35)
[2021-11-27] MEDS: INSULIN REGULAR, HUMAN 100 UNIT/ML 3 ML VIAL SQ PRN ×4 (00:03→23:37)
[2021-11-27] MEDS: AMPICILLIN SODIUM 2 GM in IV NS 0.9% 100 ML IV SCH ×5 (00:03→23:25)
--- NOTE | 2021-11-27 00:04 | NUR ---
RN NOTES BLOOD SUGAR 103 mg/dL, NO INSULIN COVERAGE PER SLIDING SCALE
[2021-11-27] MEDS: ALBUTEROL FS 2.5 MG/0.5 ML VIAL.NEB NEB SCH ×4 (02:15→19:46)
[2021-11-27] MEDS: IPRATROPIUM NEB FS 0.5 MG/2.5 ML AMPUL.NEB NEB SCH ×4 (02:15→19:46)
[2021-11-27 04:00] VITALS: BP 105/43
--- NOTE | 2021-11-27 06:09 | NUR ---
RN NOTES BLOOD SUGAR 81 mg/dL, NO INSULIN COVERAGE PER SLIDING SCALE
[2021-11-27 06:25] LABS: BASOPHILS % (AUTO) 0.1 % (0.0-2.0); EOSINOPHILS % (AUTO) 0.8 % (0.0-6.0); HEMATOCRIT 33 % (39-51); HEMOGLOBIN 10.9 g/dL (13.5-17.5); LYMPHOCYTES # (AUTO) 0.9 K/uL (0.8-4.8); LYMPHOCYTES % (AUTO) 20.2 % (20.0-44.0); MEAN CORPUSCULAR HGB CONC 33 g/dl (31.0-36.0); MEAN CORPUSCULAR VOLUME 90 fL (80-96); MONOCYTES # (AUTO) 0.5 K/uL (0.1-1.30); MONOCYTES % (AUTO) 11.6 % (2.0-12.0); NEUTROPHILS % (AUTO) 67.3 % (43.0-81.0); PLATELET COUNT (AUTO) 163 K/uL (150-450); RED BLOOD CELL COUNT(AUTO) 3.66 MIL/uL (4.5-6.0); WHITE BLOOD COUNT (AUTO) 4.5 K/uL (4.3-11.0)
[2021-11-27 06:53] LABS: CALCIUM, SERUM 8.1 mg/dL (8.5-10.1); CARBON DIOXIDE 36 mmol/L (21-32); CHLORIDE 103 mmol/L (98-107); CREATININE 1.9 mg/dL (0.6-1.3); GLUCOSE 86 mg/dL (74-106); POTASSIUM 3.5 mmol/L (3.5-5.1); SODIUM SERUM 143 mmol/L (136-145); UREA NITROGEN, BLOOD 51 mg/dL (7-18)
[2021-11-27 06:58] LABS: ALANINE AMINOTRANSFERASE 17 U/L (12-78); ALBUMIN 2.4 g/dL (3.4-5.0); ALKALINE PHOSPHATASE 85 U/L (46-116); ASPARTATE AMINOTRANSFERASE 15 U/L (15-37); BILIRUBIN,TOTAL 0.4 mg/dL (0.2-1.0); MAGNESIUM 1.8 mg/dL (1.8-2.4); PHOSPHORUS 3.4 mg/dL (2.5-4.9); TOTAL PROTEIN, SERUM 5.4 g/dL (6.4-8.2)
--- NOTE | 2021-11-27 07:16 | NUR ---
RN NOTES PATIENT SLEEPING ON BED, REMAIN STABLE. RESPIRATORY EVEN AND UNLABORED NO SOB NOTED, REMAIN AFEBRILE. DENIES PAIN, NO S/S OF DISTRESS NOTED. . VICK CATHETER PATENT AND INTACT DRAINING CLEAR YELLOW URINE VIA GRAVITY. ALL DUE MEDS GIVEN PER MD'S ORDER. SAFETY MEASURE PROVIDED. BED IN LOWEST POSITION, LOCKED. REPORT GIVEN TO MORNING SHIFT NURSE.
--- NOTE | 2021-11-27 07:30 | NUR ---
ENVIRONMENTAL ADVISOR AM NOTES PT IN BED, AO X 3, ON 2L NASAL CANULA, NO SOB, RESPIRATION UNLABORED, SR HR 62, OCCASIONALLY, V PACING , DENIES PAIN/DISCOMFORT, RIGHT FOREARM #[address], FLUSHES WELL, SITE CLEAR. VICK CATH IN PLACE, DRAINING YELLOW COLORED URINE ADEQUATE AMOUNT. [facility] SOFT DIET. SAFETY MEASURES IN PLACE. BED LOW/LOCKED. HOB 3O DEG, SR UP X 2, CALL LIGHT WITHIN REACH. INDEPENDENT OF BED MOBILITY. SEE NURSING FLOWSHEET FOR SKIN ISSUES. SAFETY MEASURE PROVIDED. BED IN LOWEST POSITION, LOCKED. POC DISCUSSED. VERBALIZED UNDERSTANDING. CONTINUE TO MONITOR.
[2021-11-27] MEDS: PANTOPRAZOLE 40 MG TABLET.DR PO SCH (07:54)
[2021-11-27] MEDS: LEVOTHYROXINE SODIUM 25 MCG TABLET PO SCH (07:54)
[2021-11-27 08:00] VITALS: BP 108/46
[2021-11-27] MEDS: DOCUSATE SODIUM LIQ 100 MG/10 ML UDC PO SCH ×2 (08:07→16:54)
[2021-11-27] MEDS: methylPREDNISolone SOD SUCC 40 MG/ML VIAL IV SCH (08:07)
[2021-11-27] MEDS: POLYETHYLENE GLYCOL 3350 17 GM POWD.PACK PO SCH (08:07)
[2021-11-27] MEDS: FINASTERIDE (5 MG) 5 MG TABLET PO SCH (08:08)
[2021-11-27] MEDS: BUMETANIDE INJ 0.25 MG/ML VIAL IV SCH ×2 (08:08→16:54)
[2021-11-27] MEDS: ATORVASTATIN 10 MG TABLET PO SCH (08:08)
[2021-11-27] MEDS: CALCIUM CARBONATE (1250) 500 MG TABLET PO SCH ×2 (08:08→16:54)
[2021-11-27] MEDS: ASPIRIN EC 81 MG TABLET.DR PO SCH (08:08)
[2021-11-27] MEDS: ALLOPURINOL 100 MG TABLET PO SCH (08:08)
[2021-11-27] MEDS: CHOLECALCIFEROL 1,000 UNIT TABLET (VIT D3) PO SCH (08:08)
[2021-11-27] MEDS: APIXABAN 2.5 MG TABLET PO SCH ×2 (08:09→16:55)
[2021-11-27] MEDS: TAMSULOSIN 0.4 MG CAP.SR.24H PO SCH (08:11)
[2021-11-27] MEDS: MULTIVITAMINS,THERAGRAN 1 UDTAB TABLET PO SCH (08:11)
[2021-11-27] MEDS: RAMIPRIL 5 MG CAPSULE PO SCH (08:39)
[2021-11-27] MEDS: AMLODIPINE BESYLATE 10 MG TABLET PO SCH (08:39)
[2021-11-27] MEDS: METOPROLOL SUCCINATE 50 MG TAB.SR.24H PO SCH (08:39)
--- NOTE | 2021-11-27 09:30 | NUR ---
RN NOTES DUE MEDS GIVEN
--- NOTE | 2021-11-27 09:35 | NUR ---
RN NOTES BP MEDS NOT GIVEN DUE TO LOW BP. DR. PERERA AT BEDSIDE.
[2021-11-27] MEDS ORDERED: POTASSIUM CHLORIDE 20 MEQ TAB.PRT.SR PO ONE (10:00)
[2021-11-27 12:00] VITALS: BP 103/45
[2021-11-27] MEDS: SOD FERRIC GLUC 125 MG in IV NS 0.9% 100 ML IV SCH (15:33)
[2021-11-27 16:00] VITALS: BP 106/55
--- NOTE | 2021-11-27 19:00 | NUR ---
PT SKILLED CLOSING NOTES PT IN BED, RESTING. AO X 3, ON 2L NASAL CANULA, NO SOB, RESPIRATION UNLABORED, SR HR 65, OCCASIONALLY, V PACING , DENIES PAIN/DISCOMFORT, RIGHT FOREARM #[address], FLUSHES WELL, SITE CLEAR. VICK CATH IN PLACE, DRAINING YELLOW COLORED URINE ADEQUATE AMOUNT. 1000 ML OUTPUT. [facility] SOFT DIET. SAFETY MEASURES IN PLACE. BED LOW/LOCKED. HOB 3O DEG, SR UP X 2, CALL LIGHT WITHIN REACH. INDEPENDENT OF BED MOBILITY. SAFETY MEASURE PROVIDED. BED IN LOWEST POSITION, LOCKED. ALL NEEDS MET AT THIS TIME. PM CARE DONE EARLIER. WILL ENDORSE TO NEXT SHIFT FOR SARA.
--- NOTE | 2021-11-27 19:50 | NUR ---
RN NOTE PT IN BED, ALERT ORIENTED. RT AT BEDSIDE, PT RECEIVING BREATHING TX. NOT IN ANY DISTRESS. SR ON TELE MONITOR, HR 67. DENIES ANY SOB OR PAIN. VICK IN PLACE, DRAINING YELLOW COLORED URINE. ALL SAFETY MEASURES IN PLACE, WILL CONTINUE TO MONITOR.
[2021-11-27 20:00] VITALS: BP 106/46
[2021-11-28] VITALS: BP 115/66
[2021-11-28] MEDS: ALBUTEROL FS 2.5 MG/0.5 ML VIAL.NEB NEB SCH ×4 (01:46→19:55)
[2021-11-28] MEDS: IPRATROPIUM NEB FS 0.5 MG/2.5 ML AMPUL.NEB NEB SCH ×4 (01:46→19:55)
[2021-11-28] MEDS: IV NS 0.9% 250 ML IV PRN (03:20)
[2021-11-28 04:00] VITALS: BP 116/55
[2021-11-28] MEDS: BLOOD SUGAR DIAGNOSTIC 1 EACH STRIP IN SCH ×3 (05:28→17:10)
--- NOTE | 2021-11-28 05:29 | NUR ---
RN NOTE PT FSBS 83. NO INSULIN COVERAGE GIVEN.
[2021-11-28] MEDS ORDERED: AMPICILLIN 1 GM VIAL ONE (05:40)
[2021-11-28] MEDS: AMPICILLIN SODIUM 2 GM in IV NS 0.9% 100 ML IV SCH ×4 (05:50→23:54)
[2021-11-28 06:06] LABS: BASOPHILS % (AUTO) 0.2 % (0.0-2.0); EOSINOPHILS % (AUTO) 0.5 % (0.0-6.0); HEMATOCRIT 34 % (39-51); HEMOGLOBIN 11.3 g/dL (13.5-17.5); LYMPHOCYTES # (AUTO) 0.9 K/uL (0.8-4.8); LYMPHOCYTES % (AUTO) 17.1 % (20.0-44.0); MEAN CORPUSCULAR HGB CONC 33 g/dl (31.0-36.0); MEAN CORPUSCULAR VOLUME 90 fL (80-96); MONOCYTES # (AUTO) 0.5 K/uL (0.1-1.30); MONOCYTES % (AUTO) 9.3 % (2.0-12.0); NEUTROPHILS % (AUTO) 72.9 % (43.0-81.0); PLATELET COUNT (AUTO) 171 K/uL (150-450); RED BLOOD CELL COUNT(AUTO) 3.79 MIL/uL (4.5-6.0); WHITE BLOOD COUNT (AUTO) 5.4 K/uL (4.3-11.0)
[2021-11-28 06:44] LABS: CALCIUM, SERUM 8.4 mg/dL (8.5-10.1); CARBON DIOXIDE 33 mmol/L (21-32); CHLORIDE 104 mmol/L (98-107); CREATININE 1.9 mg/dL (0.6-1.3); GLUCOSE 96 mg/dL (74-106); POTASSIUM 3.5 mmol/L (3.5-5.1); SODIUM SERUM 142 mmol/L (136-145); UREA NITROGEN, BLOOD 52 mg/dL (7-18)
--- NOTE | 2021-11-28 06:49 | NUR ---
RN NOTE PT SLEEPING, AROUSES EASILY. NO SIGNIFICANT CHANGES NOTED DURING SHIFT. NOT IN ANY DISTRESS. DENIES ANY SOB OR PAIN, TOLERATES O2 THERAPY AT 2L. NO S/SX OF HYPO/HYPERGLYCEMIA. REMAIN AFEBRILE. VICK INPLACE WITH GOOD AMOUNT OF URINE OUTPUT. ALL SAFETY MEASURES IN PLACE. WILL ENDORSE TO NEXT SHIFT NURSE FOR SARA.
[2021-11-28 06:55] LABS: ALANINE AMINOTRANSFERASE 19 U/L (12-78); ALBUMIN 2.4 g/dL (3.4-5.0); ALKALINE PHOSPHATASE 80 U/L (46-116); ASPARTATE AMINOTRANSFERASE 17 U/L (15-37); BILIRUBIN,TOTAL 0.3 mg/dL (0.2-1.0); TOTAL PROTEIN, SERUM 5.3 g/dL (6.4-8.2)
--- NOTE | 2021-11-28 07:34 | NUR ---
RT PT REFUSED NEB TX AT THIS TIME. NO SOB NOTED AT THIS TIME. RN INFORMED.
[2021-11-28 08:00] VITALS: BP 113/48
[2021-11-28] MEDS: PANTOPRAZOLE 40 MG TABLET.DR PO SCH (08:04)
[2021-11-28] MEDS: LEVOTHYROXINE SODIUM 25 MCG TABLET PO SCH (08:04)
[2021-11-28] MEDS: POLYETHYLENE GLYCOL 3350 17 GM POWD.PACK PO SCH (10:26)
[2021-11-28] MEDS: ASPIRIN EC 81 MG TABLET.DR PO SCH (10:27)
[2021-11-28] MEDS: ALLOPURINOL 100 MG TABLET PO SCH (10:27)
[2021-11-28] MEDS: methylPREDNISolone SOD SUCC 40 MG/ML VIAL IV SCH (10:27)
[2021-11-28] MEDS: DOCUSATE SODIUM LIQ 100 MG/10 ML UDC PO SCH ×2 (10:27→17:12)
[2021-11-28] MEDS: RAMIPRIL 5 MG CAPSULE PO SCH (10:27)
[2021-11-28] MEDS: ATORVASTATIN 10 MG TABLET PO SCH (10:27)
[2021-11-28] MEDS: CALCIUM CARBONATE (1250) 500 MG TABLET PO SCH ×2 (10:28→17:10)
[2021-11-28] MEDS: CHOLECALCIFEROL 1,000 UNIT TABLET (VIT D3) PO SCH (10:28)
[2021-11-28] MEDS: MULTIVITAMINS,THERAGRAN 1 UDTAB TABLET PO SCH (10:28)
[2021-11-28] MEDS: FINASTERIDE (5 MG) 5 MG TABLET PO SCH (10:28)
[2021-11-28] MEDS: TAMSULOSIN 0.4 MG CAP.SR.24H PO SCH (10:29)
[2021-11-28] MEDS: METOPROLOL SUCCINATE 50 MG TAB.SR.24H PO SCH (10:29)
[2021-11-28] MEDS: AMLODIPINE BESYLATE 10 MG TABLET PO SCH (10:30)
[2021-11-28] MEDS: APIXABAN 2.5 MG TABLET PO SCH ×2 (10:48→17:15)
[2021-11-28] MEDS: BUMETANIDE INJ 0.25 MG/ML VIAL IV SCH ×2 (11:11→17:10)
[2021-11-28 12:00] VITALS: BP 101/39
[2021-11-28 16:00] VITALS: BP 98/39
--- NOTE | 2021-11-28 19:35 | NUR ---
RN OPENING NOTES RECEIVED PT IN BED, A/O X 3 AND VERBALLY RESPONSIVE. ON O2 AT 2L/MIN VIA N/C AND PT TOLERATED WELL. BREATHING EVEN AND UNLABORED. IV ACCESS ON RIGHT FOREARM #20 INTACT AND PATENT. NO S/S OF INFILTRATIONS. NO C/O PAIN OR DISCOMFORT. NO ACUTE DISTRESS. VICK CATH IN PLACE, DRAINING BY GRAVITY. NOTED YELLOW/CLEAR URINE. ALL SAFETY MEASURES IN PLACE. BED IN LOWEST POSITION AND LOCKED. SIDE RAILS UP X3, PLACE CALL LIGHT WITH IN REACH. HOB ELEVATED. PLACE CALL LIGHT WITH IN REACH. WILL CONTINUE TO MONITOR
[2021-11-28 20:00] VITALS: BP 100/33
[2021-11-29] VITALS: BP 108/48
[2021-11-29] MEDS: BLOOD SUGAR DIAGNOSTIC 1 EACH STRIP IN SCH ×4 (00:01→18:03)
--- NOTE | 2021-11-29 00:02 | NUR ---
RN NOTES: PT'S BLOOD SUGAR 101. NO COVERAGE NEEDED. NO S/S OF HYPER/HYPOGLYCEMIA. WILL CONTINUE TO MONITOR
[2021-11-29] MEDS: IPRATROPIUM NEB FS 0.5 MG/2.5 ML AMPUL.NEB NEB SCH ×4 (01:30→19:41)
[2021-11-29] MEDS: ALBUTEROL FS 2.5 MG/0.5 ML VIAL.NEB NEB SCH ×4 (01:30→19:41)
--- NOTE | 2021-11-29 01:41 | NUR ---
RT PT REFUSED NEB TX AT THIS TIME .. SPO2 94%, RN INFORMED
[2021-11-29 04:00] VITALS: BP 115/51
[2021-11-29] MEDS: AMPICILLIN SODIUM 2 GM in IV NS 0.9% 100 ML IV SCH (05:27)
[2021-11-29 06:13] LABS: BASOPHILS % (AUTO) 0.1 % (0.0-2.0); EOSINOPHILS % (AUTO) 0.1 % (0.0-6.0); HEMATOCRIT 32 % (39-51); HEMOGLOBIN 10.7 g/dL (13.5-17.5); LYMPHOCYTES # (AUTO) 0.7 K/uL (0.8-4.8); LYMPHOCYTES % (AUTO) 11.3 % (20.0-44.0); MEAN CORPUSCULAR HGB CONC 33 g/dl (31.0-36.0); MEAN CORPUSCULAR VOLUME 89 fL (80-96); MONOCYTES # (AUTO) 0.4 K/uL (0.1-1.30); MONOCYTES % (AUTO) 5.9 % (2.0-12.0); NEUTROPHILS % (AUTO) 82.6 % (43.0-81.0); PLATELET COUNT (AUTO) 178 K/uL (150-450); RED BLOOD CELL COUNT(AUTO) 3.62 MIL/uL (4.5-6.0)
--- NOTE | 2021-11-29 06:40 | NUR ---
RN CLOSING NOTES PT IN BED, A/O X 3 AND VERBALLY RESPONSIVE. ON O2 AT 2L/MIN VIA N/C AND PT TOLERATED WELL. O2 SAT 97. BREATHING EVEN AND UNLABORED. IV ACCESS ON RIGHT FOREARM #20 INTACT AND PATENT. NO S/S OF INFILTRATIONS. NO C/O PAIN OR DISCOMFORT. NO ACUTE DISTRESS. VICK CATH IN PLACE, DRAINING BY GRAVITY. NOTED YELLOW/CLEAR URINE. ALL DUE MEDS GIVEN ORDERED. ALL SAFETY MEASURES IN PLACE. BED IN LOWEST POSITION AND LOCKED. SIDE RAILS UP X3, PLACE CALL LIGHT WITH IN REACH. HOB ELEVATED. PLACE CALL LIGHT WITH IN REACH. WILL ENDORSE TO MORNING SHIFT NURSE.
[2021-11-29 07:22] LABS: CALCIUM, SERUM 8.3 mg/dL (8.5-10.1); CARBON DIOXIDE 36 mmol/L (21-32); CHLORIDE 102 mmol/L (98-107); CREATININE 2.2 mg/dL (0.6-1.3); GLUCOSE 97 mg/dL (74-106); POTASSIUM 3.8 mmol/L (3.5-5.1); SODIUM SERUM 141 mmol/L (136-145); UREA NITROGEN, BLOOD 50 mg/dL (7-18)
[2021-11-29 07:30] LABS: ALANINE AMINOTRANSFERASE 23 U/L (12-78); ALBUMIN 2.6 g/dL (3.4-5.0); ALKALINE PHOSPHATASE 82 U/L (46-116); ASPARTATE AMINOTRANSFERASE 17 U/L (15-37); BILIRUBIN,TOTAL 0.3 mg/dL (0.2-1.0); TOTAL PROTEIN, SERUM 5.8 g/dL (6.4-8.2)
--- NOTE | 2021-11-29 07:34 | NUR ---
RN OPENING NOTES RECIEVED PATIENT ASLEEP IN BED. NASAL CANULA REMOVED AND LAYING ON PATIENTS SIDE. PER NIGHTSHIFT RN "HE REMOVES HIS OXYGEN CONSTANTLY". BREATHING EVEN AND UNLABORED. IV ACCESS ON RIGHT FOREARM #20 INTACT AND PATENT. NO S/S OF INFILTRATIONS. NO C/O PAIN OR DISCOMFORT. NO ACUTE DISTRESS. VICK CATH IN PLACE, DRAINING BY GRAVITY. NOTED YELLOW/CLEAR URINE. ALL SAFETY MEASURES IN PLACE. BED IN LOWEST POSITION AND LOCKED. SIDE RAILS UP X3, PLACE CALL LIGHT WITH IN REACH. HOB ELEVATED. PLACE CALL LIGHT WITH IN REACH. WILL CONTINUE PLAN OF CARE AND ANTICIPATE NEEDS.
[2021-11-29 08:00] VITALS: BP 110/55
[2021-11-29] MEDS: MULTIVITAMINS,THERAGRAN 1 UDTAB TABLET PO SCH (08:51)
[2021-11-29] MEDS: methylPREDNISolone SOD SUCC 40 MG/ML VIAL IV SCH (08:51)
[2021-11-29] MEDS: POLYETHYLENE GLYCOL 3350 17 GM POWD.PACK PO SCH (08:51)
[2021-11-29] MEDS: ASPIRIN EC 81 MG TABLET.DR PO SCH (08:51)
[2021-11-29] MEDS: CHOLECALCIFEROL 1,000 UNIT TABLET (VIT D3) PO SCH (08:52)
[2021-11-29] MEDS: FINASTERIDE (5 MG) 5 MG TABLET PO SCH (08:53)
[2021-11-29] MEDS: CALCIUM CARBONATE (1250) 500 MG TABLET PO SCH ×2 (08:53→17:34)
[2021-11-29] MEDS: TAMSULOSIN 0.4 MG CAP.SR.24H PO SCH (08:53)
[2021-11-29] MEDS: PANTOPRAZOLE 40 MG TABLET.DR PO SCH (08:53)
[2021-11-29] MEDS: LEVOTHYROXINE SODIUM 25 MCG TABLET PO SCH (08:53)
[2021-11-29] MEDS: ATORVASTATIN 10 MG TABLET PO SCH (08:54)
[2021-11-29] MEDS: DOCUSATE SODIUM LIQ 100 MG/10 ML UDC PO SCH ×2 (08:54→17:34)
[2021-11-29] MEDS: BUMETANIDE INJ 0.25 MG/ML VIAL IV SCH ×2 (08:54→17:34)
[2021-11-29] MEDS: METOPROLOL SUCCINATE 50 MG TAB.SR.24H PO SCH (09:01)
[2021-11-29] MEDS: RAMIPRIL 5 MG CAPSULE PO SCH (09:02)
[2021-11-29] MEDS: AMLODIPINE BESYLATE 10 MG TABLET PO SCH (09:02)
[2021-11-29] MEDS: APIXABAN 2.5 MG TABLET PO SCH ×2 (09:03→17:35)
[2021-11-29] MEDS: ALLOPURINOL 100 MG TABLET PO SCH (09:05)
[2021-11-29 12:00] VITALS: BP 93/43
[2021-11-29] MEDS ORDERED: DAPTOMYCIN 500 MG in IV NS 0.9% 50 ML IV SCH (14:00)
[2021-11-29 16:00] VITALS: BP 97/45
--- NOTE | 2021-11-29 18:42 | NUR ---
RN CLOSING NOTES PATIENT CURRENTLY SITTING UPRIGHT IN BED WITH LEGS DANGLING TO THE SIDE. NASAL CANULA REMOVED AND LAYING ON PATIENTS SIDE, PATIENTS O2 SATURATION IN THE 90s, BREATHING EVEN AND UNLABORED. IV ACCESS ON RIGHT FOREARM #20 INTACT AND PATENT. NO S/S OF INFILTRATIONS. NO C/O PAIN OR DISCOMFORT. NO ACUTE DISTRESS. VICK CATHETER HAS BEEN DISCONTINUED, PATIENT HAS DIAPER. ALL SAFETY MEASURES IN PLACE. BED IN LOWEST POSITION AND LOCKED. SIDE RAILS UP X3, PLACE CALL LIGHT WITH IN REACH. HOB ELEVATED. PLACE CALL LIGHT WITH IN REACH. WILL ENDORSE TO NIGHTSHIFT RN FOR SARA.
[2021-11-29 20:00] VITALS: BP 90/58
--- NOTE | 2021-11-29 20:36 | NUR ---
airport attendant Opening Note Pt received sitting in the chair, awake, A&O x3-4, confused/forgetful. Pt on 2L NC with current O2sat 94% with no s/s of resp distress, no SOB or cough, non-labored and equal breathing. Pt attached to external monitor, SR with ST depression and V-pacing, current HR at 63. Per dayshift nurse, Holland was discontinued and is put on a diaper. IV access on RFA 20G, intact and patent, flushes easily with no s/s of infiltration; currently has no fluids or meds running at the moment. Bed in lowest position, call light within reach, side rails up x3. Will continue to monitor throughout the night.
--- NOTE | 2021-11-29 21:00 | NUR ---
RN Note Pt noted to have a BP of 84/53. Charge nurse Lindsey was informed and asked to check BP manually. Manual BP is 90/58. Will closely monitor BP throughout the night
[2021-11-30] VITALS: BP 101/62
[2021-11-30] MEDS: LORAZEPAM INJ 2 MG/ML VIAL IV PRN (00:10)
--- NOTE | 2021-11-30 00:15 | NUR ---
RN Note Pt is restless and keeps attempting to get out of bed. Pt given partial dose of Ativan. Will monitor for effectiveness. Remaining dose wasted appropriately.
[2021-11-30] MEDS: BLOOD SUGAR DIAGNOSTIC 1 EACH STRIP IN SCH ×5 (00:23→23:12)
[2021-11-30] MEDS: INSULIN REGULAR, HUMAN 100 UNIT/ML 3 ML VIAL SQ PRN ×3 (00:26→23:13)
[2021-11-30] MEDS: IPRATROPIUM NEB FS 0.5 MG/2.5 ML AMPUL.NEB NEB SCH ×4 (02:35→20:26)
[2021-11-30] MEDS: ALBUTEROL FS 2.5 MG/0.5 ML VIAL.NEB NEB SCH ×4 (02:35→20:26)
[2021-11-30 04:00] VITALS: BP 119/68
[2021-11-30 06:35] LABS: BASOPHILS % (AUTO) 0.3 % (0.0-2.0); EOSINOPHILS % (AUTO) 1.3 % (0.0-6.0); HEMATOCRIT 34 % (39-51); HEMOGLOBIN 11.3 g/dL (13.5-17.5); LYMPHOCYTES # (AUTO) 0.7 K/uL (0.8-4.8); MEAN CORPUSCULAR HGB CONC 33 g/dl (31.0-36.0); MEAN CORPUSCULAR VOLUME 91 fL (80-96); MONOCYTES # (AUTO) 0.7 K/uL (0.1-1.30); MONOCYTES % (AUTO) 9.4 % (2.0-12.0); NEUTROPHILS # (AUTO) 6.2 K/uL (1.8-8.9); PLATELET COUNT (AUTO) 176 K/uL (150-450); RED BLOOD CELL COUNT(AUTO) 3.74 MIL/uL (4.5-6.0); WHITE BLOOD COUNT (AUTO) 7.7 K/uL (4.3-11.0)
--- NOTE | 2021-11-30 06:37 | NUR ---
client business manager Closing Note Pt laying in bed, awake, A&O x3-4, confused, slept intermittently throughout the night. Pt remains on 2L NC with current O2sat ranging from 94%-98%, no s/s of resp distress, no SOB, non-labored and equal breathing. Pt attached to external monitor, V-pacing, current HR ranging 63-71 all night. IV access on RFA 20G, intact and patent, flushes easily with no s/s of infiltration; currently has NS TKO running at 10 ml/hr. Bed in lowest position, call light within reach, side rails up x3. Will endorse to dayshift nurse to continue care.
[2021-11-30 07:32] LABS: ALANINE AMINOTRANSFERASE 22 U/L (12-78); ALBUMIN 2.7 g/dL (3.4-5.0); ALKALINE PHOSPHATASE 84 U/L (46-116); ASPARTATE AMINOTRANSFERASE 24 U/L (15-37); BILIRUBIN,TOTAL 0.4 mg/dL (0.2-1.0); CALCIUM, SERUM 8.5 mg/dL (8.5-10.1); CARBON DIOXIDE 31 mmol/L (21-32); CHLORIDE 101 mmol/L (98-107); CREATININE 2.1 mg/dL (0.6-1.3); GLUCOSE 79 mg/dL (74-106); MAGNESIUM 1.9 mg/dL (1.8-2.4); PHOSPHORUS 3.3 mg/dL (2.5-4.9); POTASSIUM 3.9 mmol/L (3.5-5.1); SODIUM SERUM 138 mmol/L (136-145); UREA NITROGEN, BLOOD 51 mg/dL (7-18)
--- NOTE | 2021-11-30 07:34 | NUR ---
RN NOTES PT FOUND SEMI FOWLERS DISPLAYING NO S/S OF DISTRESS, FLACC = 0 AND BREATHING IS EVEN AND UNLABORED ON 2L O2 NC. PT V-PACING ON LATH TIER. R FA 20G IS PATIENT AND INTACT. RN WILL CONTINUE CARE PLAN AND ANTICIPATE NEEDS. SAFETY MEASURES IN PLACE, BED LOCKED AND IN LOWEST POSITION, SIDE RAILS UPX2, CALL LIGHT WITHIN REACH, BED ALARM ARMED.
[2021-11-30 08:00] VITALS: BP 118/60
[2021-11-30] MEDS: BUMETANIDE INJ 0.25 MG/ML VIAL IV SCH ×2 (08:30→17:51)
[2021-11-30] MEDS: PANTOPRAZOLE 40 MG TABLET.DR PO SCH (08:30)
[2021-11-30] MEDS: LEVOTHYROXINE SODIUM 25 MCG TABLET PO SCH (08:30)
[2021-11-30] MEDS: POLYETHYLENE GLYCOL 3350 17 GM POWD.PACK PO SCH (08:30)
[2021-11-30] MEDS: methylPREDNISolone SOD SUCC 40 MG/ML VIAL IV SCH (08:31)
[2021-11-30] MEDS: ALLOPURINOL 100 MG TABLET PO SCH (08:31)
[2021-11-30] MEDS: TAMSULOSIN 0.4 MG CAP.SR.24H PO SCH (08:31)
[2021-11-30] MEDS: ATORVASTATIN 10 MG TABLET PO SCH (08:31)
[2021-11-30] MEDS: AMLODIPINE BESYLATE 10 MG TABLET PO SCH (08:31)
[2021-11-30] MEDS: CALCIUM CARBONATE (1250) 500 MG TABLET PO SCH ×2 (08:31→17:51)
[2021-11-30] MEDS: ASPIRIN EC 81 MG TABLET.DR PO SCH (08:35)
[2021-11-30] MEDS: MULTIVITAMINS,THERAGRAN 1 UDTAB TABLET PO SCH (08:35)
[2021-11-30] MEDS: METOPROLOL SUCCINATE 50 MG TAB.SR.24H PO SCH (08:35)
[2021-11-30] MEDS: CHOLECALCIFEROL 1,000 UNIT TABLET (VIT D3) PO SCH (08:36)
[2021-11-30] MEDS: FINASTERIDE (5 MG) 5 MG TABLET PO SCH (08:36)
[2021-11-30] MEDS: RAMIPRIL 5 MG CAPSULE PO SCH (08:36)
[2021-11-30] MEDS: DOCUSATE SODIUM LIQ 100 MG/10 ML UDC PO SCH ×3 (08:36→17:51)
[2021-11-30] MEDS: APIXABAN 2.5 MG TABLET PO SCH ×2 (08:42→17:55)
--- NOTE | 2021-11-30 10:15 | NUR ---
RN NOTE PT WITH PATIENT, AMBULATING WITH WALKER.
[2021-11-30 12:00] VITALS: BP 96/51
[2021-11-30] MEDS: AMPICILLIN SODIUM 2 GM in IV NS 0.9% 100 ML IV SCH ×3 (12:19→23:46)
[2021-11-30 16:00] VITALS: BP 88/50
--- NOTE | 2021-11-30 19:22 | NUR ---
RN NOTES PT FOUND SEMI FOWLERS DISPLAYING NO S/S OF DISTRESS PT ENDORSES NO PAIN AND BREATHING IS EVEN AND UNLABORED ON 2L O2 NC. PT V-PACING ON SHAREPOINT SOLUTIONS DEVELOPER. R FA 20G IS PATIENT AND INTACT. SBAR AND REPORT GIVEN TO CHANNELER INSOLE RN, ALL QUESTIONS ANSWERED. SAFETY MEASURES IN PLACE, BED LOCKED AND IN LOWEST POSITION, SIDE RAILS UPX2, CALL LIGHT WITHIN REACH, BED ALARM ARMED. PT ENDORSED IN STABLE CONDITION FOR SARA.
--- NOTE | 2021-11-30 19:23 | NUR ---
ELECTRICAL MANUFACTURING TECHNICIAN NOTES PT RECEIVED IN BED NO S/S OF DISTRESS PT NOT REPORTING PAIN AND BREATHING IS EVEN AND UNLABORED ON 2L O2 NC. PT V-PACING ON WOOD CAR BUILDER. R FA 20G IS PATIENT AND INTACT. SAFETY MEASURES IN PLACE, BED LOCKED AND IN LOWEST POSITION, SIDE RAILS UPX2, CALL LIGHT WITHIN REACH, BED ALARM ARMED. WILL CONTINUE TO MONITOR.
[2021-11-30 20:50] VITALS: BP 96/48
[2021-12-01] VITALS: BP 94/43
[2021-12-01] MEDS: ALBUTEROL FS 2.5 MG/0.5 ML VIAL.NEB NEB SCH ×3 (02:42→13:12)
[2021-12-01] MEDS: IPRATROPIUM NEB FS 0.5 MG/2.5 ML AMPUL.NEB NEB SCH ×3 (02:42→13:12)
[2021-12-01 04:00] VITALS: BP 110/50
[2021-12-01] MEDS: BLOOD SUGAR DIAGNOSTIC 1 EACH STRIP IN SCH ×2 (05:52→12:46)
[2021-12-01] MEDS: AMPICILLIN SODIUM 2 GM in IV NS 0.9% 100 ML IV SCH ×2 (05:54→12:49)
[2021-12-01] MEDS: INSULIN REGULAR, HUMAN 100 UNIT/ML 3 ML VIAL SQ PRN (05:55)
--- NOTE | 2021-12-01 06:27 | NUR ---
OXYACETYLENE BURNER NOTES PT A/0 X3 WITH EPISODES OF CONFUSION AND FORGETFULNESS IN BED NO S/S OF DISTRESS PT NOT REPORTING PAIN AND BREATHING IS EVEN AND UNLABORED ON 2L O2 NC. PT V-PACING ON ASSISTANT PROFESSOR NURSE EDUCATION. R HAND 22G IS PATIENT AND INTACT. SAFETY MEASURES IN PLACE, BED LOCKED AND IN LOWEST POSITION, SIDE RAILS UPX2, CALL LIGHT WITHIN REACH, BED ALARM ARMED. WILL ENDORSE CARE TO DAY SHIFT NURSE.
--- NOTE | 2021-12-01 07:30 | NUR ---
COMMERCIAL SALES DIRECTOR OPENING NOTES RECEIVED PATIENT IS A/O X3 WITH EPISODES OF CONFUSION AND FORGETFULNESS IN BED. PATIENT HAS NO S/S OF DISTRESS, CHEST DISCOMFORT AND SOB. PT'S BREATHING IS EVEN AND UNLABORED ON 2L O2 NC. PT V-PACING ON DIGITAL CONTENT MARKETING MANAGER. IV IN LEFT FA #22G, PATENT AND INTACT. SAFETY MEASURES IN PLACE, BED LOCKED AND IN LOWEST POSITION, SIDE RAILS UPX2, CALL LIGHT WITHIN REACH, BED ALARM ARMED. WILL CONTINUE TO MONITOR FOR SARA.
[2021-12-01 07:36] LABS: CALCIUM, SERUM 8.4 mg/dL (8.5-10.1); CARBON DIOXIDE 35 mmol/L (21-32); CHLORIDE 102 mmol/L (98-107); CREATININE 2.2 mg/dL (0.6-1.3); GLUCOSE 90 mg/dL (74-106); POTASSIUM 3.8 mmol/L (3.5-5.1); SODIUM SERUM 141 mmol/L (136-145); UREA NITROGEN, BLOOD 52 mg/dL (7-18)
[2021-12-01 07:41] LABS: ALANINE AMINOTRANSFERASE 23 U/L (12-78); ALBUMIN 2.6 g/dL (3.4-5.0); ALKALINE PHOSPHATASE 82 U/L (46-116); ASPARTATE AMINOTRANSFERASE 17 U/L (15-37); BILIRUBIN,TOTAL 0.4 mg/dL (0.2-1.0); TOTAL PROTEIN, SERUM 5.6 g/dL (6.4-8.2)
[2021-12-01 07:49] LABS: BASOPHILS % (AUTO) 0.1 % (0.0-2.0); EOSINOPHILS % (AUTO) 0.1 % (0.0-6.0); HEMATOCRIT 32 % (39-51); HEMOGLOBIN 10.4 g/dL (13.5-17.5); LYMPHOCYTES # (AUTO) 0.8 K/uL (0.8-4.8); LYMPHOCYTES % (AUTO) 10.9 % (20.0-44.0); MEAN CORPUSCULAR HGB CONC 33 g/dl (31.0-36.0); MEAN CORPUSCULAR VOLUME 91 fL (80-96); MONOCYTES # (AUTO) 0.5 K/uL (0.1-1.30); MONOCYTES % (AUTO) 6.7 % (2.0-12.0); NEUTROPHILS # (AUTO) 5.7 K/uL (1.8-8.9); NEUTROPHILS % (AUTO) 82.2 % (43.0-81.0); PLATELET COUNT (AUTO) 164 K/uL (150-450); RED BLOOD CELL COUNT(AUTO) 3.48 MIL/uL (4.5-6.0)
[2021-12-01 08:00] VITALS: BP 115/70
[2021-12-01] MEDS ORDERED: methylPREDNISolone SOD SUCC 40 MG/ML VIAL IV SCH (09:00)
[2021-12-01] MEDS: RAMIPRIL 5 MG CAPSULE PO SCH (09:00)
[2021-12-01] MEDS: METOPROLOL SUCCINATE 50 MG TAB.SR.24H PO SCH (09:00)
[2021-12-01] MEDS: AMLODIPINE BESYLATE 10 MG TABLET PO SCH (09:00)
[2021-12-01] MEDS: TAMSULOSIN 0.4 MG CAP.SR.24H PO SCH (10:05)
[2021-12-01] MEDS: MULTIVITAMINS,THERAGRAN 1 UDTAB TABLET PO SCH (10:05)
[2021-12-01] MEDS: PANTOPRAZOLE 40 MG TABLET.DR PO SCH (10:05)
[2021-12-01] MEDS: DOCUSATE SODIUM LIQ 100 MG/10 ML UDC PO SCH (10:05)
[2021-12-01] MEDS: CHOLECALCIFEROL 1,000 UNIT TABLET (VIT D3) PO SCH (10:05)
[2021-12-01] MEDS: ALLOPURINOL 100 MG TABLET PO SCH (10:07)
[2021-12-01] MEDS: POLYETHYLENE GLYCOL 3350 17 GM POWD.PACK PO SCH (10:07)
[2021-12-01] MEDS: CALCIUM CARBONATE (1250) 500 MG TABLET PO SCH (10:09)
[2021-12-01] MEDS: ASPIRIN EC 81 MG TABLET.DR PO SCH (10:09)
[2021-12-01] MEDS: LEVOTHYROXINE SODIUM 25 MCG TABLET PO SCH (10:09)
[2021-12-01] MEDS: FINASTERIDE (5 MG) 5 MG TABLET PO SCH (10:10)
[2021-12-01] MEDS: BUMETANIDE INJ 0.25 MG/ML VIAL IV SCH (10:11)
[2021-12-01] MEDS: APIXABAN 2.5 MG TABLET PO SCH (10:17)
[2021-12-01] MEDS: ATORVASTATIN 10 MG TABLET PO SCH (10:19)
[2021-12-01 12:00] VITALS: BP 100/42
[2021-12-01] MEDS ORDERED: METH4TAB17 PO (13:15)
[2021-12-01] MEDS ORDERED: AMPI2VIA14 IJ (13:15)
[2021-12-01] MEDS ORDERED: BUME1TAB9 PO (13:15)
[2021-12-01] MEDS ORDERED: ALBU2.5V13 NEB (13:15)
--- NOTE | 2021-12-01 15:10 | NUR ---
ADMITTING REPRESENTATIVEMETAL PICKLING EQUIPMENT OPERATOR NOTES PATIENT IS A/O X3 WITH EPISODES OF CONFUSION AND FORGETFULNESS. PATIENT HAS NO S/S OF DISTRESS, CHEST DISCOMFORT AND SOB. PT'S BREATHING IS EVEN AND UNLABORED ON 2L O2 NC. IV IN R HAND #22G, PATENT AND INTACT. IV IN LEFT FOREARM DISCONNECTED, NO S/S OF BRUISE, INFILTRATION AND INFLAMMATION. IV IN R HAND 22G WAS LEFT IN THE PATIENT D/T ANTIBIOTICS WILL BE GIVEN AT [facility], PER APPROVAL FROM THE CHARGE NURSE (ANITA PERKINS). THE ENTIRE D/C PACKETS WERE SIGNED AND WITNESS BY 2 NURSES SINCE PATIENT IS UNABLE TO SIGN. REPORT WAS GIVEN TO ANITA DALY @1300. PATIENT WAS PICKED UP BY 2 PRESSURE TANK OPERATOR WITH COMFORT @1510. PATIENT IS STABLE TO BE TRANSFERRED.
== END 2021-12-01 15:14 | DRG 291 ==
LOC: ER 22:41 → ICU 11-21 01:16 → TELE1 11-22 11:50
PROVIDERS: ADMIT Internal Medicine; ATTEND Student in an Organized Health Care Education/Training Program
PROC: 5A09457 Assistance with Respiratory Ventilation, 24-96 Consecutive Hours, Continuous Positive Airway Pressure (ICD-10-PCS; principal; 2021-11-20)
PROC: 05HC33Z Insertion of Infusion Device into Left Basilic Vein, Percutaneous Approach (ICD-10-PCS; 2021-11-22)
DX: I13.0 Hypertensive heart and chronic kidney disease with heart failure and stage 1 through stage 4 chronic kidney disease, or unspecified chronic kidney disease (principal); J96.21 Acute and chronic respiratory failure with hypoxia; I50.43 Acute on chronic combined systolic (congestive) and diastolic (congestive) heart failure; J18.9 Pneumonia, unspecified organism; N17.0 Acute kidney failure with tubular necrosis; J96.22 Acute and chronic respiratory failure with hypercapnia; E87.2 Acidosis; E44.0 Moderate protein-calorie malnutrition; G93.40 Encephalopathy, unspecified; J98.11 Atelectasis; Z20.822 Contact with and (suspected) exposure to COVID-19; E11.22 Type 2 diabetes mellitus with diabetic chronic kidney disease; E78.5 Hyperlipidemia, unspecified; Z95.0 Presence of cardiac pacemaker; Z66 Do not resuscitate; N18.30 Chronic kidney disease, stage 3 unspecified; N40.0 Benign prostatic hyperplasia without lower urinary tract symptoms; M19.90 Unspecified osteoarthritis, unspecified site; E03.9 Hypothyroidism, unspecified; M10.9 Gout, unspecified; Z79.899 Other long term (current) drug therapy; D64.9 Anemia, unspecified; Z79.82 Long term (current) use of aspirin; Z79.01 Long term (current) use of anticoagulants; Z87.891 Personal history of nicotine dependence; Z86.79 Personal history of other diseases of the circulatory system; R74.01 Elevation of levels of liver transaminase levels; I48.0 Paroxysmal atrial fibrillation; D63.8 Anemia in other chronic diseases classified elsewhere; I25.10 Atherosclerotic heart disease of native coronary artery without angina pectoris; I27.20 Pulmonary hypertension, unspecified; I35.0 Nonrheumatic aortic (valve) stenosis; I70.0 Atherosclerosis of aorta; K21.9 Gastro-esophageal reflux disease without esophagitis; Z79.890 Hormone replacement therapy; J44.9 Chronic obstructive pulmonary disease, unspecified; E88.09 Other disorders of plasma-protein metabolism, not elsewhere classified
CPT/HCPCS: 36410; 36415; 36600; 71045-TC; 71250-TC; 80048-TC; 80053-TC; 80076-TC; 82803-TC; 82962-TC; 83540-TC; 83605-TC; 83735-TC; 83880; 84100-TC; 84484-TC; 85025-TC; 85730-TC; 87040-TC; 87186-TC; 92526; 92611-TC; 93307-TC; 94799-TC; 97116-TC; 97530-TC; 99082-TC; C9803; G0378; J0290; J0456; J0696; J0878; J0885; J1815; J1940; J2060; J2270; J2916; J2920; J2930; J3370; J3475; J3490; J7030; J7050; J7060

== ENCOUNTER 2022-01-17 19:42 | Inpatient (IN) | payer MEDICARE, BC ==
[~2022-01-17] VITALS: Ht 177.8 cm; Wt 80.7 kg
[~2022-01-17 19:42] MED LIST changes: +ALBU2.5V13 NEB; +AMPI2VIA14 IJ; +BUME1TAB9 PO; -FURO40TA5 PO; +METH4TAB17 PO; -POTA10TA10 PO
--- NOTE | 2022-01-17 19:50 | NUR ---
[id number] FROM [facility] FOR GEN WEAKNESS X1 WEEK. ALSO C/O L LOWERPAIN WITH SOB SATTING 89% ON NC 4L SATTING 97%. PLACED ON BED, AAOX3, BREATHING EVEN AND UNLABORED. ATTACHED TO MONITOR SATURATING AT 97% WITH 2LIT O2 VIA NC.
--- NOTE | 2022-01-17 20:10 | NUR ---
EMT AT BEDSIDE FOR EKG
--- NOTE | 2022-01-17 20:15 | NUR ---
MRSA SWAB COLLECTED AND SENT TO LAB. PATIENT'S BELONGINGS LIST DONE.
--- NOTE | 2022-01-17 20:38 | NUR ---
BLOOD DRAWN AND SENT TO LAB
--- NOTE | 2022-01-17 20:46 | NUR ---
CAREGIVER [phone]
--- NOTE | 2022-01-17 20:57 | NUR ---
SWAB FOR COVID19 SENT TO LAB
[2022-01-17 21:11] LABS: BASOPHILS % (AUTO) 0.5 % (0.0-2.0); EOSINOPHILS % (AUTO) 1.3 % (0.0-6.0); HEMATOCRIT 35 % (39-51); HEMOGLOBIN 11.4 g/dL (13.5-17.5); LYMPHOCYTES # (AUTO) 0.5 K/uL (0.8-4.8); LYMPHOCYTES % (AUTO) 10.1 % (20.0-44.0); MEAN CORPUSCULAR HGB CONC 32 g/dl (31.0-36.0); MEAN CORPUSCULAR VOLUME 94 fL (80-96); MONOCYTES # (AUTO) 0.4 K/uL (0.1-1.30); MONOCYTES % (AUTO) 7.6 % (2.0-12.0); NEUTROPHILS # (AUTO) 3.7 K/uL (1.8-8.9); NEUTROPHILS % (AUTO) 80.5 % (43.0-81.0); PLATELET COUNT (AUTO) 157 K/uL (150-450); RED BLOOD CELL COUNT(AUTO) 3.72 MIL/uL (4.5-6.0); WHITE BLOOD COUNT (AUTO) 4.6 K/uL (4.3-11.0)
[2022-01-17 21:35] LABS: CARBON DIOXIDE 30 mmol/L (21-32); CHLORIDE 104 mmol/L (98-107); CREATININE 2.5 mg/dL (0.6-1.3); GLUCOSE 98 mg/dL (74-106); POTASSIUM 3.6 mmol/L (3.5-5.1); SODIUM SERUM 141 mmol/L (136-145); UREA NITROGEN, BLOOD 68 mg/dL (7-18)
[2022-01-17 21:46] LABS: ALANINE AMINOTRANSFERASE 79 U/L (12-78); ALBUMIN 3.3 g/dL (3.4-5.0); ALKALINE PHOSPHATASE 112 U/L (46-116); ASPARTATE AMINOTRANSFERASE 53 U/L (15-37); BILIRUBIN,DIRECT 0.2 mg/dL (0.0-0.2); BILIRUBIN,TOTAL 0.6 mg/dL (0.2-1.0); TOTAL PROTEIN, SERUM 6.6 g/dL (6.4-8.2)
[2022-01-17] MEDS ORDERED: FUROSEMIDE 40 MG/4 ML VIAL ONE (21:53)
[2022-01-17] MEDS ORDERED: FUROSEMIDE 40 MG/4 ML VIAL IV ONE (22:00)
[2022-01-17] MEDS ORDERED: HYDROCORTISONE ACETATE 25 MG/SUPP.RECT SUPP.RECT RC PRN (22:30)
[2022-01-17] MEDS ORDERED: ALBUTEROL FS 2.5 MG/0.5 ML VIAL.NEB NEB PRN (22:30)
[2022-01-17] MEDS ORDERED: hydrALAZINE HCL IV 20 MG VIAL IV PRN (22:30)
[2022-01-17] MEDS ORDERED: ONDANSETRON HCL/PF 4 MG/2 ML VIAL IVP PRN (22:30)
--- NOTE | 2022-01-17 22:34 | NUR ---
REPORT GIVEN TO KRISHNA HOWARD ROOM 327-2 FOR SARA
--- NOTE | 2022-01-17 22:50 | NUR ---
RN NOTES; PT RECEIVED FROM ER WITH COMFORT IN RM 327-2.PT HAS 2L VIA NC RICHY WELL SATTING 98%.AOX3 ABLE TO VERBALIZE NEEDS.NO SIGN SOB/DISTRESS NOTED.NO COMPLAINED OF PAIN/DISCOMGORT.AT THIS TIME.IV ACCESS ON LAC 20G PATENT AND INTACT.PT WAS REORIENT THE RM AND VERBALIZED UNDERSTANDING.SAFETY MEASURED AND PLACED.CALL LIGHT WITHIN REACH.WILL CONTINUE TO MONITOR.
[2022-01-17 23:13] VITALS: BP 127/78
[2022-01-18] MEDS ORDERED: IPRATROPIUM/ALBUTEROL INHALER IH SCH
[2022-01-18] MEDS: IPRATROPIUM NEB FS 0.5 MG/2.5 ML AMPUL.NEB NEB SCH ×4 (03:51→20:17)
[2022-01-18] MEDS: ALBUTEROL FS 2.5 MG/0.5 ML VIAL.NEB NEB SCH ×2 (03:52→07:46)
[2022-01-18 04:00] VITALS: BP 114/54
[2022-01-18] MEDS: LEVOTHYROXINE SODIUM 25 MCG TABLET PO SCH (06:36)
[2022-01-18 07:05] LABS: ALANINE AMINOTRANSFERASE 74 U/L (12-78); ALBUMIN 3.3 g/dL (3.4-5.0); ALKALINE PHOSPHATASE 109 U/L (46-116); ASPARTATE AMINOTRANSFERASE 45 U/L (15-37); BILIRUBIN,TOTAL 0.7 mg/dL (0.2-1.0); CALCIUM, SERUM 8.7 mg/dL (8.5-10.1); CREATININE 2.3 mg/dL (0.6-1.3); GLUCOSE 89 mg/dL (74-106); MAGNESIUM 2.5 mg/dL (1.8-2.4); PHOSPHORUS 4.3 mg/dL (2.5-4.9); TOTAL PROTEIN, SERUM 6.7 g/dL (6.4-8.2); UREA NITROGEN, BLOOD 66 mg/dL (7-18)
[2022-01-18 07:10] LABS: BASOPHILS % (AUTO) 0.9 % (0.0-2.0); EOSINOPHILS % (AUTO) 0.6 % (0.0-6.0); HEMATOCRIT 38 % (39-51); HEMOGLOBIN 12.2 g/dL (13.5-17.5); LYMPHOCYTES # (AUTO) 0.5 K/uL (0.8-4.8); LYMPHOCYTES % (AUTO) 9.7 % (20.0-44.0); MEAN CORPUSCULAR HGB CONC 32 g/dl (31.0-36.0); MEAN CORPUSCULAR VOLUME 94 fL (80-96); MONOCYTES # (AUTO) 0.3 K/uL (0.1-1.30); NEUTROPHILS # (AUTO) 4.3 K/uL (1.8-8.9); NEUTROPHILS % (AUTO) 83.8 % (43.0-81.0); PLATELET COUNT (AUTO) 179 K/uL (150-450); RED BLOOD CELL COUNT(AUTO) 4.03 MIL/uL (4.5-6.0); WHITE BLOOD COUNT (AUTO) 5.1 K/uL (4.3-11.0)
[2022-01-18 07:20] LABS: CARBON DIOXIDE 27 mmol/L (21-32); CHLORIDE 104 mmol/L (98-107); POTASSIUM 3.3 mmol/L (3.5-5.1); SODIUM SERUM 143 mmol/L (136-145)
[2022-01-18] MEDS: PANTOPRAZOLE 40 MG TABLET.DR PO SCH (07:45)
--- NOTE | 2022-01-18 07:49 | NUR ---
TELE/RN OPENING NOTE PATIENT CURRENTLY RESTING IN BED. ASLEEP BUT EASILY AROUSABLE, ALERT AND ORIENTED X3. ABLE TO MAKE NEEDS KNOWN. DENIES PAIN AT THIS TIME. WITH 02 AT 2LPM VIA NC, NO S/SX OF RESPIRATORY DISTRESS NOTED AT THIS TIME. IV ACCESS ON LAC #20G INTACT, PATENT AND SALINE LOCKED. CALL LIGHT WITHIN REACH. ASPIRATION, FALL AND SAFETY PRECAUTIONS IN PLACE. WILL CONTINUE PLAN OF CARE.
[2022-01-18 08:00] VITALS: BP 114/61
[2022-01-18] MEDS: DOCUSATE SODIUM LIQ 100 MG/10 ML UDC PO SCH ×2 (08:47→16:46)
[2022-01-18] MEDS: POTASSIUM CHLORIDE 20 MEQ TAB.PRT.SR PO SCH ×2 (08:47→10:23)
[2022-01-18] MEDS: ATORVASTATIN 10 MG TABLET PO SCH (08:54)
[2022-01-18] MEDS: TAMSULOSIN 0.4 MG CAP.SR.24H PO SCH (08:54)
[2022-01-18] MEDS: ACETAMINOPHEN 325 MG TABLET PO PRN (08:54)
[2022-01-18] MEDS: ALLOPURINOL 100 MG TABLET PO SCH (08:55)
[2022-01-18] MEDS: FINASTERIDE (5 MG) 5 MG TABLET PO SCH (08:55)
[2022-01-18] MEDS: CALCIUM CARBONATE (1250) 500 MG TABLET PO SCH ×2 (08:55→16:46)
[2022-01-18] MEDS: MULTIVITAMINS,THERAGRAN 1 UDTAB TABLET PO SCH (08:55)
[2022-01-18] MEDS: AMLODIPINE BESYLATE 10 MG TABLET PO SCH (08:56)
[2022-01-18] MEDS: METOPROLOL SUCCINATE 50 MG TAB.SR.24H PO SCH (08:57)
[2022-01-18] MEDS: CHOLECALCIFEROL 1,000 UNIT TABLET (VIT D3) PO SCH (08:57)
[2022-01-18] MEDS ORDERED: RAMIPRIL 5 MG CAPSULE PO SCH (09:00)
[2022-01-18] MEDS: APIXABAN 2.5 MG TABLET PO SCH ×2 (09:00→16:47)
[2022-01-18] MEDS ORDERED: FUROSEMIDE 40 MG/4 ML VIAL IV SCH (09:00)
[2022-01-18] MEDS ORDERED: BUMETANIDE INJ 16 MG in IV NS 0.9% 16 ML IV ONE (09:00)
[2022-01-18] MEDS: ASPIRIN EC 81 MG TABLET.DR PO SCH (09:01)
[2022-01-18] MEDS: DORZOLAMIDE OPTH 2% 10 ML BOTTLE EACHEYE SCH ×2 (09:04→16:46)
[2022-01-18] MEDS: ALBUTEROL HALF STRENGTH 1.25 MG/3 ML VIAL.NEB NEB SCH ×2 (13:01→20:17)
[2022-01-18] MEDS ORDERED: BENA10TA74 PO (18:53)
--- NOTE | 2022-01-18 19:20 | NUR ---
TELE/RN OPENING NOTE RECEIVED PATIENT RESTING IN BED. AWAKE, ALERT AND ORIENTED X 2 WITH EPISODES OF CONFUSION. DENIES PAIN AT THIS TIME. CONTINUES ON O2 2L VIA NC WITH NO S/SX OF RESPIRATORY DISTRESS NOTED. IV ACCESS TO LEFT AC #20G INTACT, PATENT AND SALINE LOCKED. 1:[address] CALL LIGHT WITHIN REACH. ASPIRATION, FALL AND SAFETY PRECAUTIONS MAINTAINED. ALL NEEDS ATTENDED TO AT THIS TIME.
--- NOTE | 2022-01-18 19:37 | NUR ---
TELE/RN CLOSING NOTE PATIENT CURRENTLY RESTING IN BED. ASLEEP BUT EASILY AROUSABLE, ALERT AND ORIENTED X3. ABLE TO MAKE NEEDS KNOWN. DENIES PAIN AT THIS TIME. WITH 02 AT 2LPM VIA NC, NO S/SX OF RESPIRATORY DISTRESS NOTED AT THIS TIME. IV ACCESS ON LAC #20G INTACT, PATENT AND SALINE LOCKED. CALL LIGHT WITHIN REACH. ASPIRATION, FALL AND SAFETY PRECAUTIONS IN PLACE. WILL ENDORSE TO NEXT NURSE ON DUTY FOR CONTINUITY OF CARE.
[2022-01-18 20:00] VITALS: BP 112/47
[2022-01-18] MEDS: MUPIROCIN OINT 2% 22 GM TUBE NS SCH (22:33)
[2022-01-19] VITALS (7 sets, daily range): BP systolic 90–125; BP diastolic 48–68
--- NOTE | 2022-01-19 00:30 | NUR ---
TELE/RN NOTE PATIENT WITH C/O INSOMNIA. NOTIFIED SECONDARY ART TEACHER MD NICOLAS WITH NEW ORDER FOR AMBIEN 5MG QHS PRN. ORDER INPUTTED AND CARRIED OUT.
[2022-01-19] MEDS: ZOLPIDEM TARTRATE 5 MG TABLET PO PRN ×2 (00:37→21:38)
[2022-01-19] MEDS: ALBUTEROL HALF STRENGTH 1.25 MG/3 ML VIAL.NEB NEB SCH ×4 (02:07→20:29)
[2022-01-19] MEDS: IPRATROPIUM NEB FS 0.5 MG/2.5 ML AMPUL.NEB NEB SCH ×4 (02:08→20:30)
[2022-01-19] MEDS ORDERED: FUROSEMIDE 40 MG/4 ML VIAL IV ONE (03:30)
--- NOTE | 2022-01-19 03:33 | NUR ---
TELE/RN NOTE PATIENT WITH C/O INCREASED SOB. CURRENTLY ON O2 3L VIA NC SATING AT 87%. PER DR. CH PATIENT IS COPD AND SHOULD MAINTAIN O2 SATS BETWEEN 88-92%. PATIENT WITH INCREASED CONGESTION. NOTIFIED HARNESS TIER MD NICOLAS WITH NEW ORDER TO INCREASE O2, OBTAIN ABG AND GIVE 1X DOSE OF LASIX IV 40MG. ORDERS INPUTTED AND CARRIED OUT.
[2022-01-19 03:38] LABS: ABG BASE EXCESS 3.6 mmol/L; ABG OXYGEN SATURATION 88.8 % (92.0-98.5); ABG PCO2 44.1 mmHg (35.0-45.0); ABG PH 7.428 (7.350-7.450); ABG PO2 55.9 mmHg (75.0-100.0); AaDO2 120.7 mmHg; COHb 0.8 % (0.5-1.5); MetHb 0.2 % (0.0-1.5); O2Hb 87.9 % (94.0-97.0); SITE, ABG Left Radial; VENT MODE, BG 3L NASAL CANNULA
--- NOTE | 2022-01-19 06:30 | NUR ---
TELE/RN CLOSING NOTE PATIENT CURRENTLY SITTING IN CHAIR. AWAKE, ALERT AND ORIENTED X 2 WITH EPISODES OF CONFUSION. DENIES PAIN AT THIS TIME. CONTINUES ON O2 4L VIA NC WITH NO S/SX OF RESPIRATORY DISTRESS NOTED. IV ACCESS TO LEFT AC #20G INTACT, PATENT AND SALINE LOCKED. 1:[address] CALL LIGHT WITHIN REACH. ASPIRATION, FALL AND SAFETY PRECAUTIONS MAINTAINED. WILL ENDORSE PLAN OF CARE TO ONCOMING SHIFT RN.
[2022-01-19 06:35] LABS: BASOPHILS % (AUTO) 0.2 % (0.0-2.0); EOSINOPHILS % (AUTO) 1.1 % (0.0-6.0); HEMATOCRIT 33 % (39-51); HEMOGLOBIN 10.9 g/dL (13.5-17.5); LYMPHOCYTES # (AUTO) 0.5 K/uL (0.8-4.8); LYMPHOCYTES % (AUTO) 7.2 % (20.0-44.0); MEAN CORPUSCULAR HGB CONC 33 g/dl (31.0-36.0); MEAN CORPUSCULAR VOLUME 93 fL (80-96); MONOCYTES # (AUTO) 0.4 K/uL (0.1-1.30); MONOCYTES % (AUTO) 5.7 % (2.0-12.0); NEUTROPHILS # (AUTO) 5.6 K/uL (1.8-8.9); NEUTROPHILS % (AUTO) 85.8 % (43.0-81.0); PLATELET COUNT (AUTO) 159 K/uL (150-450); RED BLOOD CELL COUNT(AUTO) 3.56 MIL/uL (4.5-6.0); WHITE BLOOD COUNT (AUTO) 6.6 K/uL (4.3-11.0)
[2022-01-19 07:00] LABS: ALANINE AMINOTRANSFERASE 63 U/L (12-78); ALBUMIN 2.9 g/dL (3.4-5.0); ALKALINE PHOSPHATASE 93 U/L (46-116); ASPARTATE AMINOTRANSFERASE 36 U/L (15-37); BILIRUBIN,TOTAL 0.5 mg/dL (0.2-1.0); CALCIUM, SERUM 8.1 mg/dL (8.5-10.1); CARBON DIOXIDE 32 mmol/L (21-32); CHLORIDE 107 mmol/L (98-107); CREATININE 2.2 mg/dL (0.6-1.3); GLUCOSE 106 mg/dL (74-106); MAGNESIUM 2.2 mg/dL (1.8-2.4); PHOSPHORUS 4.2 mg/dL (2.5-4.9); POTASSIUM 3.3 mmol/L (3.5-5.1); SODIUM SERUM 144 mmol/L (136-145); UREA NITROGEN, BLOOD 61 mg/dL (7-18)
[2022-01-19] MEDS: LEVOTHYROXINE SODIUM 25 MCG TABLET PO SCH (07:28)
[2022-01-19] MEDS: PANTOPRAZOLE 40 MG TABLET.DR PO SCH (07:29)
--- NOTE | 2022-01-19 07:53 | NUR ---
TELE/RN OPENING NOTE RECEIVED PATIENT SITTING IN BED WITH OUTGOING SITTER. AAOX2, NOTED WITH CONFUSION, DENIES PAIN AT THIS TIME. CONTINUES ON O2 4 L VIA NC WITH NO S/SX OF RESPIRATORY DISTRESS NOTED. TELE MONITORING SHOWS AFIB, V-PACING AT 83 BPM, PATIENT HAS PACEMAKER, MD IS AWARE. PATIENT IS AMBULATORY WITH ASSISTANCE, NO VICK. IV ACCESS TO LEFT AC #20G INTACT, PATENT AND SALINE LOCKED, 1:1 SITTER FOR AM SHIFT IN PLACE. CALL LIGHT WITHIN REACH. ASPIRATION, FALL AND SAFETY PRECAUTIONS MAINTAINED. WILL CONTINUE TO MONITOR DURING MY SHIFT.
[2022-01-19] MEDS: DOCUSATE SODIUM LIQ 100 MG/10 ML UDC PO SCH ×2 (08:39→17:31)
[2022-01-19] MEDS: ASPIRIN EC 81 MG TABLET.DR PO SCH (08:39)
[2022-01-19] MEDS: CHOLECALCIFEROL 1,000 UNIT TABLET (VIT D3) PO SCH (08:39)
[2022-01-19] MEDS: MULTIVITAMINS,THERAGRAN 1 UDTAB TABLET PO SCH (08:39)
[2022-01-19] MEDS: ALLOPURINOL 100 MG TABLET PO SCH (08:40)
[2022-01-19] MEDS: TAMSULOSIN 0.4 MG CAP.SR.24H PO SCH (08:40)
[2022-01-19] MEDS: APIXABAN 2.5 MG TABLET PO SCH (08:40)
[2022-01-19] MEDS: AMLODIPINE BESYLATE 10 MG TABLET PO SCH (08:41)
[2022-01-19] MEDS: ATORVASTATIN 10 MG TABLET PO SCH (08:41)
[2022-01-19] MEDS: MUPIROCIN OINT 2% 22 GM TUBE NS SCH ×2 (08:48→20:33)
[2022-01-19] MEDS ORDERED: BUMETANIDE INJ 16 MG in IV NS 0.9% 16 ML IV ONE (09:00)
[2022-01-19] MEDS: METOPROLOL SUCCINATE 50 MG TAB.SR.24H PO SCH (09:00)
[2022-01-19] MEDS: FINASTERIDE (5 MG) 5 MG TABLET PO SCH (09:05)
--- NOTE | 2022-01-19 09:05 | NUR ---
PATIENT FOUND RESTING ON 3 L NC IN STABLE STATE NO DISTRESS. PATIENT TOLERATE TX WELL Addendum: 01/19/22 at 0906 by TERESA CERRATO RT Amended: Links added.
[2022-01-19] MEDS: POTASSIUM CHLORIDE 20 MEQ TAB.PRT.SR PO SCH ×3 (09:06→11:22)
[2022-01-19] MEDS: CALCIUM CARBONATE (1250) 500 MG TABLET PO SCH ×2 (09:06→17:31)
[2022-01-19] MEDS: DORZOLAMIDE OPTH 2% 10 ML BOTTLE EACHEYE SCH ×2 (09:08→17:41)
--- NOTE | 2022-01-19 13:25 | NUR ---
RN NOTES DR CH WITH ORDER TO DO US GUIDED THORACENTESIS OF RIGHT LUNG, POSSIBLE BILATERAL LUNGS. OBTAINED TELEPHONE CONSENT FROM PT'S SON KURT HELMS AT [facility] #[phone] AND VERIFIED BY ANOTHER RN KELSEA.
--- NOTE | 2022-01-19 15:07 | NUR ---
RN NOTES CALLED [facility] DEPT, SPOKE TO [facility] SUZY JUAREZ AND WAS TOLD THAT ELIQUIS NEEDS TO BE HELD FOR 48 HOURS FIRST BEFORE THEY CAN DO KOREY GUIDED THORACENTESIS
--- NOTE | 2022-01-19 18:41 | NUR ---
TELE/RN CLOSING NOTE PATIENT CURRENTLY SITTING IN CHAIR, AWAKE, ALERT AND ORIENTED X 2-3 WITH EPISODES OF CONFUSION. DENIES PAIN THIS TIME, PATIENT IS ABLE TO MAKE NEEDS KNOWN, CONTINUES ON 3L VIA NC AT THIS TIME TOLERATING WELL WITH SPO2 ABOVE 92%. PATIENT HAS 1 ON 1 SITTER. NO S/SX OF RESPIRATORY DISTRESS NOTED. IV ACCESS TO LEFT AC #20G INTACT, PATENT AND SALINE LOCKED. ELIQUIS WAS PLACED ON HOLD FOR 48 HOURS TO PREPARE OF KOREY GUIDED THORACENTISIS. CALL LIGHT AND TRAY TABLE WITHIN REACH. ASPIRATION, FALL AND SAFETY PRECAUTIONS MAINTAINED. WILL ENDORSE PLAN OF CARE TO ONCOMING INSULATION BLOWER RN.
--- NOTE | 2022-01-19 19:35 | NUR ---
BIOPHARMACEUTICAL REP NOTES V-PACING ON TELE MONITOR,RECEIVED OUT OF BED USING BEDSIDE COMMODE,SITTER AT BEDSIDE.A/O X2-3,BREATHING NON LABORED,O2 3L/NC IN USED TO KEEP O2 SAT ABOVE 90%,SALINE LOCK LEFT AC INTACT AND PATENT.FALL RISK,BED ON ,BED ON LOWEST POSITION AND LOCKED,BED ALARM,DENIES DISCOMFORTS AT THE MOMENT,CALL LIGHT IN REACH,NEEDS ANTICIPATED.
--- NOTE | 2022-01-19 21:38 | NUR ---
RESIN COATER NOTES BACK TO BED THIS TIME,ASKING FOR SLEEPING PILL,GIVEN AMBIEN 5MG PO PER PATIENT REQUEST WITH ORDER.
[2022-01-20] VITALS: BP_SYST 159; BP_SYST 94; BP_DIAS 58; BP_DIAS 77
--- NOTE | 2022-01-20 01:00 | NUR ---
TOOL AND DIE MAKER LEVEL FIVE NOTES ACCIDENTALLY PULLED OUT SALINE LOCK,NEW SALINE LOCK PLACE ON RIGHT WRIST #22,FLUSHED WITH NS,SECURED WITH KERLIX,BED ALARM.
[2022-01-20] MEDS: ALBUTEROL HALF STRENGTH 1.25 MG/3 ML VIAL.NEB NEB SCH ×4 (02:02→20:21)
[2022-01-20] MEDS: IPRATROPIUM NEB FS 0.5 MG/2.5 ML AMPUL.NEB NEB SCH ×4 (02:02→20:21)
[2022-01-20 04:00] VITALS: BP 94/58
[2022-01-20] MEDS: MORPHINE SULFATE INJ 2 MG/ML DISP.SYRIN IV PRN ×2 (04:11→22:13)
--- NOTE | 2022-01-20 04:11 | NUR ---
WALLPAPER CONSULTANT NOTES AWAKE,CONFUSED,HAVING LOWER BACK PAIN,FACIAL GRIMACE NOTED,MORPHINE 2MG IV GIVEN ORDERED FOR STRONG PAIN.FALL PRECAUTION OBSERVED.
[2022-01-20] MEDS: LEVOTHYROXINE SODIUM 25 MCG TABLET PO SCH (06:19)
--- NOTE | 2022-01-20 06:30 | NUR ---
COMPOUNDER STERILE PRODUCTS NOTES CALM AND QUIET THIS TIME,FOLLOW INSTRUCTION,NO FALL,NO INJURY,STILL WITH EPISODE OF CONFUSION,PAIN MANAGEMENT EFFECTIVE,CALL LIGHT IN REACH,NEEDS ATTENDED.
[2022-01-20 06:57] LABS: BASOPHILS % (AUTO) 0.4 % (0.0-2.0); EOSINOPHILS % (AUTO) 2.3 % (0.0-6.0); HEMATOCRIT 34 % (39-51); LYMPHOCYTES # (AUTO) 0.5 K/uL (0.8-4.8); LYMPHOCYTES % (AUTO) 8.6 % (20.0-44.0); MEAN CORPUSCULAR HGB CONC 33 g/dl (31.0-36.0); MEAN CORPUSCULAR VOLUME 94 fL (80-96); MONOCYTES # (AUTO) 0.4 K/uL (0.1-1.30); MONOCYTES % (AUTO) 8.1 % (2.0-12.0); NEUTROPHILS # (AUTO) 4.4 K/uL (1.8-8.9); NEUTROPHILS % (AUTO) 80.6 % (43.0-81.0); PLATELET COUNT (AUTO) 150 K/uL (150-450); RED BLOOD CELL COUNT(AUTO) 3.57 MIL/uL (4.5-6.0); WHITE BLOOD COUNT (AUTO) 5.4 K/uL (4.3-11.0)
[2022-01-20 07:25] LABS: ALANINE AMINOTRANSFERASE 54 U/L (12-78); ALBUMIN 2.9 g/dL (3.4-5.0); ALKALINE PHOSPHATASE 85 U/L (46-116); ASPARTATE AMINOTRANSFERASE 29 U/L (15-37); BILIRUBIN,TOTAL 0.6 mg/dL (0.2-1.0); CALCIUM, SERUM 8.2 mg/dL (8.5-10.1); CARBON DIOXIDE 35 mmol/L (21-32); CHLORIDE 107 mmol/L (98-107); CREATININE 2.2 mg/dL (0.6-1.3); GLUCOSE 89 mg/dL (74-106); PHOSPHORUS 3.2 mg/dL (2.5-4.9); POTASSIUM 3.3 mmol/L (3.5-5.1); SODIUM SERUM 145 mmol/L (136-145); UREA NITROGEN, BLOOD 54 mg/dL (7-18)
[2022-01-20] MEDS: PANTOPRAZOLE 40 MG TABLET.DR PO SCH (07:32)
--- NOTE | 2022-01-20 07:54 | NUR ---
BOX STORAGE WORKER OPENING NOTE RECEIVED PATIENT LYING IN BED WITH 1 ON 1 SITTER JESICA PETERSEN. AAOX2, NOTED WITH CONFUSION, DENIES PAIN AT THIS TIME. CONTINUES ON O2 3LPM VIA NC, TOLERATING WELL, WITH NO S/SX OF RESPIRATORY DISTRESS NOTED WITH O2 SAT AT 93%. TELE MONITORING SHOWS V-PACING, CONTROLLED AFIB AT 88 BPM, PATIENT HAS PACEMAKER, MD IS AWARE. PATIENT IS AMBULATORY WITH ASSISTANCE, NO VICK. IV ACCESS TO R WRIST #22G INTACT, PATENT AND SALINE LOCKED, WITH DRESSING, INTACT, PATENT, AND COVERED WITH ARM SLEEVES. CALL LIGHT WITHIN REACH. ASPIRATION, FALL AND SAFETY PRECAUTIONS MAINTAINED. WILL CONTINUE TO MONITOR DURING MY SHIFT.
[2022-01-20 08:00] VITALS: BP 106/54
--- NOTE | 2022-01-20 08:32 | NUR ---
RN NOTES RESPIRATORY THERAPIST CAME AND GAVE BREATHING TREATMENT. SP02 NOTED AT 99% AT 3LPM VIA N/C. 02 TITRATED TO 2LPM, TOLERATING WELL AT THIS TIME. WILL CONTINUE TO MONITOR.
[2022-01-20] MEDS: METOPROLOL SUCCINATE 50 MG TAB.SR.24H PO SCH (08:41)
[2022-01-20] MEDS: ALLOPURINOL 100 MG TABLET PO SCH (08:41)
[2022-01-20] MEDS: DOCUSATE SODIUM LIQ 100 MG/10 ML UDC PO SCH ×2 (08:42→17:05)
[2022-01-20] MEDS: TAMSULOSIN 0.4 MG CAP.SR.24H PO SCH (08:43)
[2022-01-20] MEDS: ASPIRIN EC 81 MG TABLET.DR PO SCH (08:43)
[2022-01-20] MEDS: DORZOLAMIDE OPTH 2% 10 ML BOTTLE EACHEYE SCH ×2 (08:43→17:12)
[2022-01-20] MEDS: CALCIUM CARBONATE (1250) 500 MG TABLET PO SCH ×2 (08:43→17:05)
[2022-01-20] MEDS: MUPIROCIN OINT 2% 22 GM TUBE NS SCH ×2 (08:43→21:13)
[2022-01-20] MEDS: CHOLECALCIFEROL 1,000 UNIT TABLET (VIT D3) PO SCH (08:43)
[2022-01-20] MEDS: MULTIVITAMINS,THERAGRAN 1 UDTAB TABLET PO SCH (08:43)
[2022-01-20] MEDS: ATORVASTATIN 10 MG TABLET PO SCH (08:44)
[2022-01-20] MEDS: FINASTERIDE (5 MG) 5 MG TABLET PO SCH (08:44)
[2022-01-20] MEDS: AMLODIPINE BESYLATE 10 MG TABLET PO SCH (08:45)
[2022-01-20] MEDS: POTASSIUM CHLORIDE 20 MEQ TAB.PRT.SR PO SCH ×3 (09:12→11:59)
[2022-01-20] MEDS ORDERED: BUMETANIDE INJ 16 MG in IV NS 0.9% 16 ML IV ONE (10:00)
[2022-01-20 12:00] VITALS: BP 97/54
[2022-01-20] MEDS ORDERED: POTASSIUM CHLORIDE 10 MEQ TABLET.SA PO SCH (13:00)
[2022-01-20] MEDS: ENOXAPARIN SODIUM 80 MG/0.8 ML DISP.SYRIN SQ SCH (14:04)
--- NOTE | 2022-01-20 14:50 | NUR ---
RN NOTES RECEIVED A CALL FROM [facility] SUZY JUAREZ THAT IT IS OKAY TO GIVE LEVONOX ORDERED, TO HOLD LEVONOX PRIOR TO SCHEDULE TOMORROW. [facility] INFORMED THAT THE [facility] GUIDED THORACENTESIS AT 1430 AND TO ORDER PT INR.
[2022-01-20 16:00] VITALS: BP 99/52
--- NOTE | 2022-01-20 18:36 | NUR ---
TELE/RN CLOSING NOTE PATIENT CURRENTLY SITTING IN CHAIR, AWAKE, ALERT AND ORIENTED X 2-3 WITH EPISODES OF CONFUSION. DENIES PAIN THIS TIME, PATIENT IS ABLE TO MAKE NEEDS KNOWN, CONTINUES ON 2L VIA NC AT THIS TIME TOLERATING WELL WITH SPO2 ABOVE 93%. PATIENT HAS 1 ON 1 SITTER. NO S/SX OF RESPIRATORY DISTRESS NOTED. IV ACCESS TO R HAND #22G INTACT, PATENT AND DRAINING TKO NACL 0.09%. TELE MONITORING SHOWS V-PACING WITH UNDERLYING WITH CONTROLLED AFIB WITH HR 81S. GIVEN ALL DUE MEDS, WILL ENDORSE TO THE NEXT NURSE REGARDING THE PLANNED KOREY GUIDED THORACENTESIS ON 01/21/22 AT AROUND 1430, NO LOVENOX DOSE MUST BE GIVEN TOMORROW PRIOR TO SURGERY TOMORROW. CALL LIGHT AND TRAY TABLE WITHIN REACH. ASPIRATION, FALL AND SAFETY PRECAUTIONS MAINTAINED. WILL ENDORSE PLAN OF CARE TO ONCOMING SEMICONDUCTOR PROCESSOR RN.
--- NOTE | 2022-01-20 19:40 | NUR ---
MINE SAFETY ENGINEER NOTES AFIB WITH V PACING ON TELE MONITOR,LAYING ON BED,A/O X2-3,WITH EPISODE OF CONFUSION,SALINE LOCK RIGHT HAND INTACT AND PATENT,FALL RISK,SITTER AT BEDSIDE FOR SAFETY,PATIENT HAS TENDENCY TO GET UP,OUT OF BED.DNR/DNI STATUS.FOR ULTRA SOUND GUIDED THORACENTESIS TOMORROW AT 1430,CONSENT ON CHART.CALL LIGHT IN REACH,NEEDS ANTICIPATED.
[2022-01-20 20:00] VITALS: BP 95/53
--- NOTE | 2022-01-20 22:13 | NUR ---
UNCRATER NOTES PAIN MANAGEMENT C/O GENERALIZED PAIN 8/10 ON PAIN SCALE,MORPHINE 2MG IV GIVEN FOR STRONG PAIN ORDERED.BP 105/50.RR-24,O2 SAT 96%,DNR/DNI.
--- NOTE | 2022-01-20 23:00 | NUR ---
SALES MARKETING DIRECTOR NOTES AWAKE,RESTLESS,TRYING TO GET OUT OF BED,LET HIM SET UP ON BEDSIDE CHAIR,SOUND WET ON EXPIRATION,O2 SAT 93% ON RELAX MODE,HR-85
[2022-01-21] VITALS: BP 115/59
--- NOTE | 2022-01-21 | NUR ---
LABEL MACHINE OPERATOR NOTES ASLEEP THIS TIME.
[2022-01-21] MEDS: ALBUTEROL HALF STRENGTH 1.25 MG/3 ML VIAL.NEB NEB SCH ×4 (01:38→20:09)
[2022-01-21] MEDS: IPRATROPIUM NEB FS 0.5 MG/2.5 ML AMPUL.NEB NEB SCH ×4 (01:38→20:09)
[2022-01-21 06:27] LABS: BASOPHILS % (AUTO) 0.4 % (0.0-2.0); EOSINOPHILS % (AUTO) 1.1 % (0.0-6.0); HEMATOCRIT 36 % (39-51); HEMOGLOBIN 11.7 g/dL (13.5-17.5); LYMPHOCYTES # (AUTO) 0.5 K/uL (0.8-4.8); LYMPHOCYTES % (AUTO) 8.1 % (20.0-44.0); MEAN CORPUSCULAR HGB CONC 33 g/dl (31.0-36.0); MEAN CORPUSCULAR VOLUME 94 fL (80-96); MONOCYTES # (AUTO) 0.3 K/uL (0.1-1.30); MONOCYTES % (AUTO) 5.5 % (2.0-12.0); NEUTROPHILS # (AUTO) 4.9 K/uL (1.8-8.9); NEUTROPHILS % (AUTO) 84.9 % (43.0-81.0); PLATELET COUNT (AUTO) 179 K/uL (150-450); RED BLOOD CELL COUNT(AUTO) 3.85 MIL/uL (4.5-6.0); WHITE BLOOD COUNT (AUTO) 5.8 K/uL (4.3-11.0)
[2022-01-21] MEDS: LEVOTHYROXINE SODIUM 25 MCG TABLET PO SCH (06:29)
[2022-01-21 06:42] LABS: ALANINE AMINOTRANSFERASE 50 U/L (12-78); ALBUMIN 3.3 g/dL (3.4-5.0); ALKALINE PHOSPHATASE 97 U/L (46-116); ASPARTATE AMINOTRANSFERASE 28 U/L (15-37); BILIRUBIN,TOTAL 0.8 mg/dL (0.2-1.0); CALCIUM, SERUM 8.5 mg/dL (8.5-10.1); CARBON DIOXIDE 37 mmol/L (21-32); CHLORIDE 105 mmol/L (98-107); CREATININE 2.1 mg/dL (0.6-1.3); GLUCOSE 99 mg/dL (74-106); MAGNESIUM 1.9 mg/dL (1.8-2.4); POTASSIUM 3.6 mmol/L (3.5-5.1); SODIUM SERUM 144 mmol/L (136-145); TOTAL PROTEIN, SERUM 6.8 g/dL (6.4-8.2); UREA NITROGEN, BLOOD 50 mg/dL (7-18)
--- NOTE | 2022-01-21 07:02 | NUR ---
NURSE SUBSTANCE ABUSE NOTES SITTING ON EDGE OF BED,WITH SITTER AT BEDSIDE FOR SAFETY,O2 IN USED,SOB OB EXERTION.NPO STATUS,GOING FOR U/S GUIDED THORACENTESIS,CONSENT ON CHART,NO LOVENOX BEFORE THE PROCEDURE,FOLLOW UP WITH MD IF IT NEED TO RESUME TODAY LOVENOX POST PROCEDURE.IN NO ACUTE DISTRESS.
--- NOTE | 2022-01-21 07:25 | NUR ---
LIAISON OFFICER OPENING NOTES RECEIVED PATIENT IN BED WITH SITTER AT BEDSIDE. PATIENT IS A/O X2, COOPERATIVE DURING INTERACTION. STABLE ON 3L OF O2 VIA NC WITH NO DISTRESS NOTED. PATIENT IS SCHEDULED TO HAVE AN U/S GUIDED THORACENTESIS TODAY. WILL HOLD LOVENOX BEFORE THE PROCEDURE PER MD ORDER. SAFETY PRECAUTIONS IN PLACE. WILL CONTINUE TO MONITOR
[2022-01-21] MEDS: AMLODIPINE BESYLATE 10 MG TABLET PO SCH (08:16)
[2022-01-21] MEDS ORDERED: METOLAZONE 2.5 MG TABLET PO SCH (09:00)
[2022-01-21] MEDS: DOCUSATE SODIUM LIQ 100 MG/10 ML UDC PO SCH ×2 (10:00→17:52)
[2022-01-21] MEDS: ATORVASTATIN 10 MG TABLET PO SCH (10:01)
[2022-01-21] MEDS: CHOLECALCIFEROL 1,000 UNIT TABLET (VIT D3) PO SCH (10:01)
[2022-01-21] MEDS: CALCIUM CARBONATE (1250) 500 MG TABLET PO SCH ×2 (10:01→17:52)
[2022-01-21] MEDS: METOPROLOL SUCCINATE 50 MG TAB.SR.24H PO SCH (10:01)
[2022-01-21] MEDS: ALLOPURINOL 100 MG TABLET PO SCH (10:01)
[2022-01-21] MEDS: FINASTERIDE (5 MG) 5 MG TABLET PO SCH (10:01)
[2022-01-21] MEDS: TAMSULOSIN 0.4 MG CAP.SR.24H PO SCH (10:01)
[2022-01-21] MEDS: ASPIRIN EC 81 MG TABLET.DR PO SCH (10:02)
[2022-01-21] MEDS: MULTIVITAMINS,THERAGRAN 1 UDTAB TABLET PO SCH (10:02)
[2022-01-21] MEDS: MUPIROCIN OINT 2% 22 GM TUBE NS SCH ×2 (10:03→20:48)
[2022-01-21] MEDS: PANTOPRAZOLE 40 MG TABLET.DR PO SCH (10:03)
[2022-01-21] MEDS: DORZOLAMIDE OPTH 2% 10 ML BOTTLE EACHEYE SCH ×2 (10:03→17:52)
[2022-01-21] MEDS: POTASSIUM CHLORIDE 20 MEQ TAB.PRT.SR PO SCH ×3 (10:03→14:55)
[2022-01-21] MEDS: FUROSEMIDE 100 MG/10 ML VIAL IV SCH ×3 (10:16→17:00)
[2022-01-21] MEDS: ENOXAPARIN SODIUM 80 MG/0.8 ML DISP.SYRIN SQ SCH (13:00)
[2022-01-21] MEDS ORDERED: POTASSIUM CHLORIDE 20 MEQ TAB.PRT.SR PO SCH (15:00)
--- NOTE | 2022-01-21 16:00 | NUR ---
RN NOTES THORACENTESIS PERFORMED. 1,700 ML PLEURAL FLUID REMOVED FROM RIGHT LUNG PLEURAL SPACE. NO COMPLICATIONS NOTED. WILL CONTINUE MONITORING PATIENT
--- NOTE | 2022-01-21 17:15 | NUR ---
RN NOTES RIGHT LUNG PLEURAL FLUID FROM THORACENTESIS WAS SENT TO LAB
--- NOTE | 2022-01-21 18:45 | NUR ---
RN NOTES 1,500 ML OF CLEAR YELLOW URINE NOTED FOR DAY SHIFT.
--- NOTE | 2022-01-21 18:59 | NUR ---
RN CLOSING NOTES PATIENT STABLE IN ROOM WITH SITTER AT BEDSIDE. A/O X2. ON 3L OF O2 WITH NO SOB OR DISTRESS NOTED. DENIES PAIN AT THIS TIME. ALL NEEDS MET. SAFETY PRECAUTIONS MAINTAINED. WILL ENDORSE TO THE RUG CUTTER NURSE FOR SARA
--- NOTE | 2022-01-21 19:15 | NUR ---
MS RN NOTES RECEIVED LAYING ON BED A/O X2-3.WITH PERIODS OF CONFUSION,SALINE LOCK RIGHT HAND INTACT AND PATENT.S/P U/S GUIDED THORACENTESIS,BREATHING NON LABORED,ON LASIX 80MG X3 DOSES,THIRD DOSE NOT GIVEN YET DUE TO LOW BLOOD PRESSURE 100/40,PHARMACY MADE AWARE BY GUS [facility] DR DR PAULA THIRD DOSE STILL GONNA BE ADMINISTER OR HOLD IT,AWAITING ORDERS FROM DR PAULA.FALL RISK,SITTER AT BEDSIDE FOR SAFETY,CALL LIGHT IN REACH,NEEDS ANTICIPATED.
--- NOTE | 2022-01-21 19:25 | NUR ---
MS RN NOTES BP RE CHECK 90/62,HR-69,PHARMACIST MADE AWARE WITH ORDER TO JUST HOLD THE THIRD DOSE OF LASIX DUE TO LOW BLOOD PRESSURE NOTED AND CARRIED OUT.
[2022-01-21 20:00] VITALS: BP 90/62
--- NOTE | 2022-01-21 20:24 | NUR ---
MS RN NOTES PHARMACIST CALLED AND SAID DR PAULA CALLED BACK,INFORMED ABOUT PATIENT LOW BLOOD PRESSURE,ORDERED HOLD THE THIRD DOSE OF LASIX 80MG,NOTED AND CARRIED OUT.
[2022-01-22] MEDS: MORPHINE SULFATE INJ 2 MG/ML DISP.SYRIN IV PRN (00:53)
--- NOTE | 2022-01-22 00:53 | NUR ---
MS RN NOTES AWAKE,HAVING GENERALIZED PAIN,MORPHINE 2MG IV GIVEN ORDERED FOR COMFORT,FALL PRECAUTION,SITTER AT BEDSIDE.
[2022-01-22] MEDS: IPRATROPIUM NEB FS 0.5 MG/2.5 ML AMPUL.NEB NEB SCH ×4 (01:52→19:51)
[2022-01-22] MEDS: ALBUTEROL HALF STRENGTH 1.25 MG/3 ML VIAL.NEB NEB SCH ×4 (02:00→19:51)
[2022-01-22] MEDS: LEVOTHYROXINE SODIUM 25 MCG TABLET PO SCH (06:07)
[2022-01-22 06:14] LABS: BASOPHILS % (AUTO) 0.5 % (0.0-2.0); EOSINOPHILS % (AUTO) 2.5 % (0.0-6.0); HEMATOCRIT 34 % (39-51); HEMOGLOBIN 11.1 g/dL (13.5-17.5); LYMPHOCYTES # (AUTO) 0.6 K/uL (0.8-4.8); LYMPHOCYTES % (AUTO) 11.5 % (20.0-44.0); MEAN CORPUSCULAR HGB CONC 33 g/dl (31.0-36.0); MEAN CORPUSCULAR VOLUME 93 fL (80-96); MONOCYTES # (AUTO) 0.4 K/uL (0.1-1.30); MONOCYTES % (AUTO) 7.8 % (2.0-12.0); NEUTROPHILS % (AUTO) 77.7 % (43.0-81.0); PLATELET COUNT (AUTO) 165 K/uL (150-450); RED BLOOD CELL COUNT(AUTO) 3.59 MIL/uL (4.5-6.0); WHITE BLOOD COUNT (AUTO) 5.1 K/uL (4.3-11.0)
--- NOTE | 2022-01-22 06:45 | NUR ---
MS RN NOTES SLEEP WITH INTERVALS,ASSIST WITH ADLS,PAIN MANAGEMENT EFFECTIVE,NO FALL,NO INJURY,NO SOB NOTED,SITTER AT BEDSIDE.IN NO ACUTE DISTRESS.
[2022-01-22 07:04] LABS: ALANINE AMINOTRANSFERASE 37 U/L (12-78); ALBUMIN 2.9 g/dL (3.4-5.0); ALKALINE PHOSPHATASE 84 U/L (46-116); ASPARTATE AMINOTRANSFERASE 21 U/L (15-37); BILIRUBIN,TOTAL 0.9 mg/dL (0.2-1.0); CALCIUM, SERUM 8.7 mg/dL (8.5-10.1); CARBON DIOXIDE 39 mmol/L (21-32); CHLORIDE 104 mmol/L (98-107); CREATININE 2.1 mg/dL (0.6-1.3); GLUCOSE 83 mg/dL (74-106); MAGNESIUM 1.9 mg/dL (1.8-2.4); PHOSPHORUS 2.6 mg/dL (2.5-4.9); POTASSIUM 3.6 mmol/L (3.5-5.1); SODIUM SERUM 144 mmol/L (136-145); TOTAL PROTEIN, SERUM 6.1 g/dL (6.4-8.2); UREA NITROGEN, BLOOD 48 mg/dL (7-18)
--- NOTE | 2022-01-22 07:20 | NUR ---
RN OPENING NOTES PATIENT RESTING IN BED WITH SITTER AT BEDSIDE. A/O X2. ON 3L OF O2 WITH NO SOB OR DISTRESS NOTED. DENIES PAIN AT THIS TIME. SAFETY PRECAUTIONS MAINTAINED. WILL CONTINUE TO MONITOR PATIENT
--- NOTE | 2022-01-22 07:25 | NUR ---
RT Patient received on room air (was not wearing nasal cannula). HR 95 SPO2 97%. Breathing tx tolerated well. No SOB or respiratory distress noted at this time.
[2022-01-22] MEDS: AMLODIPINE BESYLATE 10 MG TABLET PO SCH (09:00)
[2022-01-22] MEDS: METOPROLOL SUCCINATE 50 MG TAB.SR.24H PO SCH (09:00)
[2022-01-22] MEDS: MUPIROCIN OINT 2% 22 GM TUBE NS SCH ×2 (09:21→21:00)
[2022-01-22] MEDS: DORZOLAMIDE OPTH 2% 10 ML BOTTLE EACHEYE SCH ×2 (09:21→17:18)
[2022-01-22] MEDS: CALCIUM CARBONATE (1250) 500 MG TABLET PO SCH ×2 (09:30→17:17)
[2022-01-22] MEDS: ATORVASTATIN 10 MG TABLET PO SCH (09:30)
[2022-01-22] MEDS: PANTOPRAZOLE 40 MG TABLET.DR PO SCH (09:30)
[2022-01-22] MEDS: FINASTERIDE (5 MG) 5 MG TABLET PO SCH (09:30)
[2022-01-22] MEDS: DOCUSATE SODIUM LIQ 100 MG/10 ML UDC PO SCH ×2 (09:30→17:17)
[2022-01-22] MEDS: ALLOPURINOL 100 MG TABLET PO SCH (09:30)
[2022-01-22] MEDS: CHOLECALCIFEROL 1,000 UNIT TABLET (VIT D3) PO SCH (09:32)
[2022-01-22] MEDS: MULTIVITAMINS,THERAGRAN 1 UDTAB TABLET PO SCH (09:32)
[2022-01-22] MEDS: TAMSULOSIN 0.4 MG CAP.SR.24H PO SCH (09:32)
[2022-01-22] MEDS: ASPIRIN EC 81 MG TABLET.DR PO SCH (09:33)
--- NOTE | 2022-01-22 11:20 | NUR ---
RN NOTES PATIENT ON 3L OF O2 VIA NC WITH O2 SAT OF 99%. PER MD ORDER, WILL START TO TITRATE O2 DOWN AND CONTINUE MONITORING PATIENT.
--- NOTE | 2022-01-22 11:45 | NUR ---
RN NOTES PATIENT ON 1L OF O2 VIA NC WITH O2 SAT OF 97%. WILL CONTINUE MONITORING PATIENT
--- NOTE | 2022-01-22 13:31 | NUR ---
RT Patient stated that he would like to sleep and refused breathing tx at this time. HR 74 SPO2 97% on 1L nasal cannula.
[2022-01-22] MEDS: BUMETANIDE (1 MG) 1 MG TABLET PO SCH (17:18)
--- NOTE | 2022-01-22 19:33 | NUR ---
RN CLOSING NOTES PATIENT IN BED WITH NO COMPLAINTS AT THIS TIME. ALL NEEDS MET. SAFETY PRECAUTIONS IN PLACE. ENDORSED REPORT TO THE ENGINEERING ILLUSTRATOR NURSE FOR SARA
--- NOTE | 2022-01-22 19:42 | NUR ---
RT PT RECVD ON AWAKE AND VERBAL ON ROOM AIR SPO2 87%, ENCOURAGED PT TO KEEP NC IN PLACE. TX GIVEN AND RICHY WELL, NO ADVERSE REACTION NOTED. PT LEFT ON 2 LPM NC.
[2022-01-22 20:00] VITALS: BP 101/71
--- NOTE | 2022-01-22 20:48 | NUR ---
RECEIVED PATIENT IN BED, ALERT/ORIENTED X2, FORGETFUL, CONFUSED, RESTLESS, 3LPM VIA NC, RECEIVED BREATHING TREATMENT SCHEDULED. TRYING TO GET OUT OF BED, ASSISTED BACK TO BED, ALARM TURNED ON, ASSISTED WITH URINAL, VOIDED 300 ML. KEPT SAFE, WILL CONTINUE TO MONITOR.
[2022-01-23] MEDS: IPRATROPIUM NEB FS 0.5 MG/2.5 ML AMPUL.NEB NEB SCH ×4 (01:30→20:14)
[2022-01-23] MEDS: ALBUTEROL HALF STRENGTH 1.25 MG/3 ML VIAL.NEB NEB SCH ×4 (01:30→20:14)
--- NOTE | 2022-01-23 01:34 | NUR ---
PT REFUSED NEB TX AT THIS TIME, RN IS AWARE 97% ON 3 LPM NC
[2022-01-23 06:31] LABS: BASOPHILS % (AUTO) 0.4 % (0.0-2.0); EOSINOPHILS % (AUTO) 2.4 % (0.0-6.0); HEMATOCRIT 36 % (39-51); HEMOGLOBIN 11.8 g/dL (13.5-17.5); LYMPHOCYTES # (AUTO) 0.7 K/uL (0.8-4.8); LYMPHOCYTES % (AUTO) 10.7 % (20.0-44.0); MEAN CORPUSCULAR HGB CONC 33 g/dl (31.0-36.0); MEAN CORPUSCULAR VOLUME 93 fL (80-96); MONOCYTES # (AUTO) 0.6 K/uL (0.1-1.30); MONOCYTES % (AUTO) 10.3 % (2.0-12.0); NEUTROPHILS # (AUTO) 4.7 K/uL (1.8-8.9); NEUTROPHILS % (AUTO) 76.2 % (43.0-81.0); PLATELET COUNT (AUTO) 181 K/uL (150-450); RED BLOOD CELL COUNT(AUTO) 3.86 MIL/uL (4.5-6.0); WHITE BLOOD COUNT (AUTO) 6.2 K/uL (4.3-11.0)
[2022-01-23] MEDS: LEVOTHYROXINE SODIUM 25 MCG TABLET PO SCH (06:46)
--- NOTE | 2022-01-23 06:48 | NUR ---
RN NOTES ALERT/ORIENTED X3, CONFUSED, RESTLESS, REMAINED STABLE ON 2LPM VIA NC, IMPULSIVE, GETTING OUT OF BED CONSTANTLY, UP ON CHAIR, THEN BACK IN BED, UNSTEADY GAIT, 2 PERSON ASSIST, VOIDING FREQUENT VIA URINAL, BM X1, PER DR. CH, STABLE S/P THORACENTESIS, DISCHARGE PLANNING BACK TO HOME WITH CAREGIVER.
[2022-01-23 07:09] LABS: CALCIUM, SERUM 8.8 mg/dL (8.5-10.1); CARBON DIOXIDE 36 mmol/L (21-32); CHLORIDE 99 mmol/L (98-107); CREATININE 2.2 mg/dL (0.6-1.3); GLUCOSE 71 mg/dL (74-106); MAGNESIUM 1.8 mg/dL (1.8-2.4); PHOSPHORUS 3.5 mg/dL (2.5-4.9); POTASSIUM 3.8 mmol/L (3.5-5.1); SODIUM SERUM 140 mmol/L (136-145); UREA NITROGEN, BLOOD 53 mg/dL (7-18)
--- NOTE | 2022-01-23 07:20 | NUR ---
RN OPENING NOTES PATIENT RESTING IN BED WITH SITTER AT BEDSIDE. A/O X2. ON 2L OF O2 WITH NO SOB OR DISTRESS NOTED. DENIES PAIN AT THIS TIME. SAFETY PRECAUTIONS IN PLACE. WILL CONTINUE TO MONITOR PATIENT
[2022-01-23] MEDS: ATORVASTATIN 10 MG TABLET PO SCH (08:40)
[2022-01-23] MEDS: CHOLECALCIFEROL 1,000 UNIT TABLET (VIT D3) PO SCH (08:40)
[2022-01-23] MEDS: BUMETANIDE (1 MG) 1 MG TABLET PO SCH ×2 (08:40→17:27)
[2022-01-23] MEDS: TAMSULOSIN 0.4 MG CAP.SR.24H PO SCH (08:40)
[2022-01-23] MEDS: MULTIVITAMINS,THERAGRAN 1 UDTAB TABLET PO SCH (08:40)
[2022-01-23] MEDS: PANTOPRAZOLE 40 MG TABLET.DR PO SCH (08:40)
[2022-01-23] MEDS: APIXABAN 2.5 MG TABLET PO SCH ×2 (08:41→17:32)
[2022-01-23] MEDS: ALLOPURINOL 100 MG TABLET PO SCH (08:41)
[2022-01-23] MEDS: FINASTERIDE (5 MG) 5 MG TABLET PO SCH (08:41)
[2022-01-23] MEDS: DOCUSATE SODIUM LIQ 100 MG/10 ML UDC PO SCH ×2 (08:42→17:28)
[2022-01-23] MEDS: ASPIRIN EC 81 MG TABLET.DR PO SCH (08:42)
[2022-01-23] MEDS: CALCIUM CARBONATE (1250) 500 MG TABLET PO SCH ×2 (08:42→17:27)
[2022-01-23] MEDS: DORZOLAMIDE OPTH 2% 10 ML BOTTLE EACHEYE SCH ×2 (08:43→17:28)
[2022-01-23] MEDS: MUPIROCIN OINT 2% 22 GM TUBE NS SCH ×2 (08:44→22:22)
--- NOTE | 2022-01-23 14:30 | NUR ---
MS RN NOTE RECEIVED ENDORSEMENT FROM OUTGOING NURSE. PATIENT IS ALERT AND ORIENTED X 2 WITH NO SIGNS OF DISTRESS. IN STABLE CONDITION. WITH 1:1 SITTER. WILL CONTINUE TO MONITOR PATIENT.
[2022-01-23] MEDS: ACETAMINOPHEN 325 MG TABLET PO PRN (14:40)
--- NOTE | 2022-01-23 19:03 | NUR ---
MS RN CLOSING NOTE PATIENT IN BED; PATIENT IS ALERT AND ORIENTED X 2. RESPIRATION EVEN AND NONLABORED. WITH OXYGEN AT 2LPM VIA NASAL CANULA PRN. IV ACCESS ON THE RIGHT HAND G 22, ON SALINE LOCK, PATENT AND INTACT. WITH IV ACCESS ON RIGHT HAND 20G, ON SALINE LOCK, PATENT AND INTACT. WITH 1:1 SITTER AT BEDSIDE FOR SAFETY. SAFETY MEASURES IMPLEMENTED WITH CALL LIGHT AND TABLE WITHIN REACH, SIDE RAILS UP X2, BED IN LOWEST LOCKED POSITION. WILL ENDORSE TO NEXT SHIFT FOR CONTINUITY OF CARE.
--- NOTE | 2022-01-23 19:30 | NUR ---
MS RN OPENING NOTE RECEIVED PATIENT IN BED; AWAKE, ALERT AND ORIENTED X 2. RESPIRATION EVEN AND NONLABORED. WITH OXYGEN INHALATION @ 2LPM VIA NASAL CANNULA PRN. WITH IV ACCESS ON RIGHT HAND 22G, PATENT, INTACT AND SALINE LOCKED. WITH 1:1 SITTER @ BEDSIDE. SAFETY MEASURES IMPLEMENTED: HEAD OF BED ELEVATED, CALL LIGHT AND TABLE WITHIN REACH, SIDE RAILS UP X2, BED IN LOWEST LOCKED POSITION. WILL CONTINUE TO MONITOR
[2022-01-24] MEDS: IPRATROPIUM NEB FS 0.5 MG/2.5 ML AMPUL.NEB NEB SCH ×4 (01:54→20:19)
[2022-01-24] MEDS: ALBUTEROL HALF STRENGTH 1.25 MG/3 ML VIAL.NEB NEB SCH ×4 (01:54→20:19)
[2022-01-24 02:10] VITALS: BP 113/44
--- NOTE | 2022-01-24 07:00 | NUR ---
MS RN CLOSING NOTE PATIENT IN BED; AWAKE, A/O X2. RESPIRATION EVEN AND NONLABORED. WITH O2 INHALATION @ 2LPM VIA NASAL CANNULA PRN. WITH IV ACCESS ON RIGHT HAND 22G, PATENT, INTACT AND SALINE LOCKED. WITH 1:1 SITTER @ BEDSIDE. SAFETY MEASURES IMPLEMENTED: HEAD OF BED ELEVATED, CALL LIGHT AND TABLE WITHIN REACH, SIDE RAILS UP X2, BED IN LOWEST LOCKED POSITION. ENDORSED TO MORNING SHIFT FOR SARA.
--- NOTE | 2022-01-24 07:18 | NUR ---
RN OPENING NOTE- PATIENT IN BED; AWAKE, ALERT AND ORIENTED , CONFUSED, . O2 2LPM VIA NASAL CANNULA PRN. IV ACCESS ON RIGHT HAND 22G, SAFETY MEASURES IMPLEMENTED: HEAD OF BED ELEVATED, CALL LIGHT AND TABLE WITHIN REACH, SIDE RAILS UP X2, BED IN LOWEST LOCKED POSITION. WILL CONTINUE TO MONITOR / ASSIST
[2022-01-24 07:19] LABS: BASOPHILS % (AUTO) 0.4 % (0.0-2.0); EOSINOPHILS % (AUTO) 2.9 % (0.0-6.0); HEMATOCRIT 33 % (39-51); HEMOGLOBIN 10.8 g/dL (13.5-17.5); LYMPHOCYTES # (AUTO) 0.5 K/uL (0.8-4.8); LYMPHOCYTES % (AUTO) 10.5 % (20.0-44.0); MEAN CORPUSCULAR HGB CONC 33 g/dl (31.0-36.0); MEAN CORPUSCULAR VOLUME 93 fL (80-96); MONOCYTES # (AUTO) 0.6 K/uL (0.1-1.30); MONOCYTES % (AUTO) 11.5 % (2.0-12.0); NEUTROPHILS # (AUTO) 3.6 K/uL (1.8-8.9); NEUTROPHILS % (AUTO) 74.7 % (43.0-81.0); PLATELET COUNT (AUTO) 156 K/uL (150-450); RED BLOOD CELL COUNT(AUTO) 3.54 MIL/uL (4.5-6.0); WHITE BLOOD COUNT (AUTO) 4.8 K/uL (4.3-11.0)
[2022-01-24 07:46] LABS: CALCIUM, SERUM 8.3 mg/dL (8.5-10.1); CARBON DIOXIDE 37 mmol/L (21-32); CHLORIDE 100 mmol/L (98-107); CREATININE 2.3 mg/dL (0.6-1.3); GLUCOSE 86 mg/dL (74-106); MAGNESIUM 1.9 mg/dL (1.8-2.4); POTASSIUM 3.3 mmol/L (3.5-5.1); SODIUM SERUM 141 mmol/L (136-145); UREA NITROGEN, BLOOD 57 mg/dL (7-18)
[2022-01-24] MEDS: PANTOPRAZOLE 40 MG TABLET.DR PO SCH (07:54)
[2022-01-24] MEDS: LEVOTHYROXINE SODIUM 25 MCG TABLET PO SCH (07:54)
[2022-01-24 08:00] VITALS: BP 105/54
[2022-01-24] MEDS: ATORVASTATIN 10 MG TABLET PO SCH (08:38)
[2022-01-24] MEDS: MUPIROCIN OINT 2% 22 GM TUBE NS SCH ×2 (08:38→23:25)
[2022-01-24] MEDS: DORZOLAMIDE OPTH 2% 10 ML BOTTLE EACHEYE SCH ×2 (08:38→16:03)
[2022-01-24] MEDS: TAMSULOSIN 0.4 MG CAP.SR.24H PO SCH (08:38)
[2022-01-24] MEDS: CHOLECALCIFEROL 1,000 UNIT TABLET (VIT D3) PO SCH (08:39)
[2022-01-24] MEDS: CALCIUM CARBONATE (1250) 500 MG TABLET PO SCH ×2 (08:39→16:03)
[2022-01-24] MEDS: DOCUSATE SODIUM LIQ 100 MG/10 ML UDC PO SCH ×2 (08:39→16:03)
[2022-01-24] MEDS: ASPIRIN EC 81 MG TABLET.DR PO SCH (08:39)
[2022-01-24] MEDS: ALLOPURINOL 100 MG TABLET PO SCH (08:39)
[2022-01-24] MEDS: BUMETANIDE (1 MG) 1 MG TABLET PO SCH ×2 (08:39→16:03)
[2022-01-24] MEDS: FINASTERIDE (5 MG) 5 MG TABLET PO SCH (08:39)
[2022-01-24] MEDS: MULTIVITAMINS,THERAGRAN 1 UDTAB TABLET PO SCH (08:39)
[2022-01-24] MEDS: APIXABAN 2.5 MG TABLET PO SCH ×2 (08:47→16:03)
[2022-01-24] MEDS ORDERED: POTASSIUM CHLORIDE 20 MEQ TAB.PRT.SR PO ONE (09:00)
[2022-01-24] MEDS ORDERED: BUME1TAB8 PO (10:46)
[2022-01-24 15:59] VITALS: BP 113/62
[2022-01-24 17:39] VITALS: BP 137/64
--- NOTE | 2022-01-24 18:52 | NUR ---
RN CLOSING NOTE- NO CHANGES, PATIENT IN BED; AWAKE, ALERT AND ORIENTED , CONFUSED, . O2 2LPM VIA NASAL CANNULA PRN. IV ACCESS ON RIGHT HAND 22G, [PT A BIT IRRITABLE AND AGGRESSIVE AT TIMES, SAFETY MEASURES IMPLEMENTED: HEAD OF BED ELEVATED, CALL LIGHT AND TABLE WITHIN REACH, SIDE RAILS UP X2, BED IN LOWEST LOCKED POSITION. WILL CONTINUE TO MONITOR / ASSIST
--- NOTE | 2022-01-24 19:30 | NUR ---
MSRN SEEN TRYING TO GET OOB, ASSISTED BACK TO BED BY GUT PULLER. HAD EARLY HS CARE, PARTIALLY BATHED. KEPT DRY CLEAN AND COMFORTALE.CLOSELY WATCHED.
[2022-01-24 20:00] VITALS: BP 119/63
--- NOTE | 2022-01-24 22:09 | NUR ---
MSRN RESTING QUIETLY CLOSELY WATCHED.
[2022-01-25] MEDS: ALBUTEROL HALF STRENGTH 1.25 MG/3 ML VIAL.NEB NEB SCH ×2 (01:36→07:35)
[2022-01-25] MEDS: IPRATROPIUM NEB FS 0.5 MG/2.5 ML AMPUL.NEB NEB SCH ×2 (01:36→07:35)
--- NOTE | 2022-01-25 06:02 | NUR ---
MSRN SLEEPS ON/OFF. REMAINS COOPERATIVE. FOR DISCHARGE TODAY
--- NOTE | 2022-01-25 07:30 | NUR ---
RN MS NOTES PT IN BED, AWAKE, ALERT AND ORIENTED, DENIES PAIN, NOT IN DISTRESS, CALL LIGHT WITHIN REACH, EATING BREAKFAST, NEEDS ATTENDED, PT FOR DISCHARGE HOME TODAY, PT INFORMED.
[2022-01-25] MEDS: LEVOTHYROXINE SODIUM 25 MCG TABLET PO SCH (08:48)
[2022-01-25] MEDS: DOCUSATE SODIUM LIQ 100 MG/10 ML UDC PO SCH (08:48)
[2022-01-25] MEDS: MULTIVITAMINS,THERAGRAN 1 UDTAB TABLET PO SCH (08:48)
[2022-01-25] MEDS: PANTOPRAZOLE 40 MG TABLET.DR PO SCH (08:49)
[2022-01-25] MEDS: ATORVASTATIN 10 MG TABLET PO SCH (08:49)
[2022-01-25] MEDS: TAMSULOSIN 0.4 MG CAP.SR.24H PO SCH (08:49)
[2022-01-25] MEDS: FINASTERIDE (5 MG) 5 MG TABLET PO SCH (08:49)
[2022-01-25] MEDS: CALCIUM CARBONATE (1250) 500 MG TABLET PO SCH (08:49)
[2022-01-25] MEDS: CHOLECALCIFEROL 1,000 UNIT TABLET (VIT D3) PO SCH (08:50)
[2022-01-25] MEDS: ALLOPURINOL 100 MG TABLET PO SCH (08:51)
[2022-01-25] MEDS: ASPIRIN EC 81 MG TABLET.DR PO SCH (08:51)
[2022-01-25] MEDS: BUMETANIDE (1 MG) 1 MG TABLET PO SCH (08:51)
[2022-01-25] MEDS: APIXABAN 2.5 MG TABLET PO SCH (08:53)
[2022-01-25] MEDS: MUPIROCIN OINT 2% 22 GM TUBE NS SCH (08:55)
[2022-01-25] MEDS: DORZOLAMIDE OPTH 2% 10 ML BOTTLE EACHEYE SCH (08:59)
--- NOTE | 2022-01-25 12:21 | NUR ---
RN MS NOTES PT AWAKE, SITTING IN BED, DENIES PAIN, NOT IN DISTRESS, ASSISTED PT IN GETTING DRESSED, PT REFUSED SKIN ASSESSMENT AND PHOTOS ON DISCHARGE, BELONGINGS ACCOUNTED FOR, ASSISTED TO WHEELCHAIR AND TO HOSPITAL LOBBY, DISCHARGE AND MEDICATION INSTRUCTIONS PROVIDED TO PT'S SON DEBBY, VERBALIZED UNDERSTANDING, ASSISTED TO SON'S CAR BY DIPLOMA DENTAL ASSISTANT, LEFT IN STABLE CONDITION.
== END 2022-01-25 11:45 | disposition home health service (06) | DRG 291 ==
LOC: ER 19:43 → TELE 22:21 → MED 01-21 18:54
PROVIDERS: ADMIT Internal Medicine; ATTEND Nurse Practitioner Acute Care
PROC: 0W993ZZ Drainage of Right Pleural Cavity, Percutaneous Approach (ICD-10-PCS; principal; 2022-01-21)
DX: I13.0 Hypertensive heart and chronic kidney disease with heart failure and stage 1 through stage 4 chronic kidney disease, or unspecified chronic kidney disease (principal); I50.33 Acute on chronic diastolic (congestive) heart failure; J96.21 Acute and chronic respiratory failure with hypoxia; N17.0 Acute kidney failure with tubular necrosis; J18.9 Pneumonia, unspecified organism; J96.22 Acute and chronic respiratory failure with hypercapnia; J98.11 Atelectasis; J90 Pleural effusion, not elsewhere classified; I48.0 Paroxysmal atrial fibrillation; E03.9 Hypothyroidism, unspecified; Z20.822 Contact with and (suspected) exposure to COVID-19; Z95.0 Presence of cardiac pacemaker; N40.0 Benign prostatic hyperplasia without lower urinary tract symptoms; E78.5 Hyperlipidemia, unspecified; E11.22 Type 2 diabetes mellitus with diabetic chronic kidney disease; M10.9 Gout, unspecified; Z79.51 Long term (current) use of inhaled steroids; Z79.899 Other long term (current) drug therapy; Z79.82 Long term (current) use of aspirin; N18.9 Chronic kidney disease, unspecified; J44.9 Chronic obstructive pulmonary disease, unspecified; E87.6 Hypokalemia; E66.01 Morbid (severe) obesity due to excess calories; Z79.01 Long term (current) use of anticoagulants; Z87.891 Personal history of nicotine dependence; Z79.890 Hormone replacement therapy; K76.1 Chronic passive congestion of liver; T50.2X5A Adverse effect of carbonic-anhydrase inhibitors, benzothiadiazides and other diuretics, initial encounter; Y92.9 Unspecified place or not applicable; D63.8 Anemia in other chronic diseases classified elsewhere; Z86.79 Personal history of other diseases of the circulatory system; I35.1 Nonrheumatic aortic (valve) insufficiency
CPT/HCPCS: 36415; 36600; 71045-TC; 80048-TC; 80053-TC; 80076-TC; 82803-TC; 83605-TC; 83735-TC; 83880; 84100-TC; 84155-TC; 84484-TC; 85025-TC; 85610-TC; 87070-TC; 87075-TC; 87081-TC; 87102-TC; 89051-TC; 94799-TC; C9803; G0378; J1650; J1940; J2270; J3490; J7050